=== PATIENT | male | born 1955 | race Hispanic/Latino ===

== ENCOUNTER 2017-04-26 06:48 | Inpatient (IN) | payer MEDICARE ==
[2017-04-26] MEDS ORDERED: ZOFRAN IV ONE (07:50)
[2017-04-26] MEDS ORDERED: DUONEB 0.5 MG-3 MG/3 ML SOLN IH ONE (07:50)
[2017-04-26] MEDS ORDERED: MORPHINE IV ONE (07:50)
--- NOTE | 2017-04-26 07:55 | Emergency Department Report ---
ED Shortness of Breath HPI - General Chief Complaint: Dyspnea/Respdistress Stated Complaint: SILVIO Time Seen by Provider: 04/26/17 07:38 Source: family, EMS Mode of arrival: Stretcher Limitations: No Limitations - History of Present Illness Initial Comments: 61-year-old male presents to the emergency department via EMS complaining of difficulty breathing. Patient states for the past 3 days he has been having progressively worsening difficulty breathing. He reports cough productive of yellow sputum. There has been subjective fever. He denies chest pain. Patient states he normally wears 3.5 L of nasal oxygen at home. He states he checked his pulse ox at home this morning and found it to be in the upper 60s. EMS found the patient to have an initial oxygen saturation of 87% and increased his oxygen to 6 L/m. Patient states that this helped somewhat. Patient is also complaining of pain in his abdomen where he has a hernia. He states the pain is coming from having so much coughing. This hernia is a known problem and he has had multiple surgeries for it. There are no other complaints. MD Complaint: shortness of breath, cough -: Gradual, days(s) (3) Consistency: constant Improves With: oxygen Worsens With: nothing Known History Of: COPD Associated Symptoms: cough, sputum production, abdominal pain Treatments Prior to Arrival: oxygen - Related Data Home Oxygen Therapy: Yes Home Oxygen Amount: other (3.5 L) Home Medications Medication Instructions Recorded Confirmed Last Taken Albuterol Sulfate [Ventolin HFA] 2 puff IH Q4H PRN 11/08/14 04/26/17 04/25/17 Aspirin [Aspirin BABY CHEW TAB] 81 mg PO QDAY 11/08/14 04/26/17 04/25/17 Budesoni/Formotero 160-4.5(Nf) 2 puff IH BID 11/08/14 04/26/17 04/25/17 [Symbicort 160-4.5 (Nf)] Cholecalciferol (Vitamin D3) 50,000 unit PO QWEEK 11/08/14 04/26/17 11/07/14 [Vitamin D3] Divalproex [Delmar Mon] 500 mg PO BID 11/08/14 04/26/17 04/25/17 Gabapentin 300 mg PO BID 11/08/14 04/26/17 04/25/17 Ipratropium [Atrovent NEB] 0.5 mg IH BID 11/08/14 04/26/17 04/25/17 Multivitamin [Multi-Vitamin Daily] 1 each PO DAILY 11/08/14 04/26/17 04/25/17 Nebivolol HCl [Bystolic] 10 mg PO QDAY 11/08/14 04/26/17 04/25/17 Brilliant-3 Fatty Acids/Fish Oil [Fish 1 each PO DAILY 11/08/14 04/26/17 04/25/17 Oil] Primidone [Mysoline] 250 mg PO QID 11/08/14 04/26/17 04/25/17 Tiotropium [Spiriva] 2 puff IH QDAY 11/08/14 04/26/17 04/25/17 amLODIPine [Norvasc] 5 mg PO DAILY 11/08/14 04/26/17 04/25/17 AtorvaSTATin [Lipitor] 40 mg PO QHS 04/26/17 04/26/17 04/25/17 Oxycodone HCl [oxyCODONE TAB] 10 mg PO Q6H PRN 04/26/17 04/26/17 04/25/17 Allergies Allergy/AdvReac Type Severity Reaction Status Date / Time No Known Allergies Allergy Verified 11/08/14 07:20 ED Review of Systems ROS: Stated complaint: SILVIO Other details as noted in HPI Comment: All other systems reviewed and negative Constitutional: fever Respiratory: cough, shortness of breath Gastrointestinal: abdominal pain ED Past Medical Hx - Past Medical History Previous Medical History?: Yes Hx Hypertension: Yes Hx Pulmonary Embolism: Yes Hx Seizures: Yes (myoclonic epilepsy) Hx COPD: Yes Additional medical history: essential tremor - Surgical History Past Surgical History?: Yes Hx Appendectomy: Yes Additional Surgical History: hernia, multiple abdominal surgeries - Family History Family history: no significant - Social History Smoking Status: Former Smoker Substance Use Type: None - Medications Home Medications: Home Medications Medication Instructions Recorded Confirmed Last Taken Type Albuterol Sulfate [Ventolin HFA] 2 puff IH Q4H PRN 11/08/14 04/26/17 04/25/17 History Aspirin [Aspirin BABY CHEW TAB] 81 mg PO QDAY 11/08/14 04/26/17 04/25/17 History Budesoni/Formotero 160-4.5(Nf) 2 puff IH BID 11/08/14 04/26/17 04/25/17 History [Symbicort 160-4.5 (Nf)] Cholecalciferol (Vitamin D3) 50,000 unit PO QWEEK 11/08/14 04/26/17 11/07/14 History [Vitamin D3] Divalproex Dr [Depakote Dr] 500 mg PO BID 11/08/14 04/26/17 04/25/17 History Gabapentin 300 mg PO BID 11/08/14 04/26/17 04/25/17 History Ipratropium [Atrovent NEB] 0.5 mg IH BID 11/08/14 04/26/17 04/25/17 History Multivitamin [Multi-Vitamin Daily] 1 each PO DAILY 11/08/14 04/26/17 04/25/17 History Nebivolol HCl [Bystolic] 10 mg PO QDAY 11/08/14 04/26/17 04/25/17 History Brilliant-3 Fatty Acids/Fish Oil [Fish 1 each PO DAILY 11/08/14 04/26/17 04/25/17 History Oil] Primidone [Mysoline] 250 mg PO QID 11/08/14 04/26/17 04/25/17 History Tiotropium [Spiriva] 2 puff IH QDAY 11/08/14 04/26/17 04/25/17 History amLODIPine [Norvasc] 5 mg PO DAILY 11/08/14 04/26/17 04/25/17 History AtorvaSTATin [Lipitor] 40 mg PO QHS 04/26/17 04/26/17 04/25/17 History Oxycodone HCl [oxyCODONE TAB] 10 mg PO Q6H PRN 04/26/17 04/26/17 04/25/17 History ED Physical Exam - General Limitations: No Limitations General appearance: alert, in distress (mild respiratory distress), obese - Head Head exam: Present: atraumatic, normocephalic - Eye Eye exam: Present: normal appearance, PERRL, EOMI - ENT ENT exam: Present: normal exam, normal orophraynx, mucous membranes moist - Neck Neck exam: Present: normal inspection, full ROM. Absent: tenderness - Respiratory Respiratory exam: Present: respiratory distress (mild tachypnea), wheezes ( diffuse bilateral posterior), decreased breath sounds (diffuse bilateral posterior) - Cardiovascular Cardiovascular Exam: Present: regular rate, normal rhythm, normal heart sounds - GI/Abdominal GI/Abdominal exam: Present: soft, normal bowel sounds. Absent: distended, tenderness - Extremities Exam Extremities exam: Present: normal inspection, full ROM. Absent: tenderness - Back Exam Back exam: Present: normal inspection, full ROM. Absent: tenderness - Neurological Exam Neurological exam: Present: alert, oriented X3. Absent: motor sensory deficit - Skin Skin exam: Present: warm, dry, intact ED Course Vital Signs 04/26/17 04/26/17 04/26/17 07:10 08:18 08:21 Temperature 99 F Pulse Rate 94 H 88 Pulse Rate [ 86 Posterior Bilateral Throughout] Respiratory 22 20 Rate Respiratory 20 Rate [Posterior Bilateral Throughout] Blood Pressure 134/71 Blood Pressure 120/66 [Right] O2 Sat by Pulse 94 90 Oximetry 04/26/17 04/26/17 04/26/17 08:50 09:30 10:20 Temperature 98.1 F Pulse Rate 103 H Pulse Rate [ 100 H 104 H Posterior Bilateral Throughout] Respiratory 20 Rate Respiratory 20 20 Rate [Posterior Bilateral Throughout] Blood Pressure Blood Pressure 109/63 [Right] O2 Sat by Pulse 92 Oximetry 04/26/17 10:52 Temperature Pulse Rate Pulse Rate [ 108 H Posterior Bilateral Throughout] Respiratory Rate Respiratory 20 Rate [Posterior Bilateral Throughout] Blood Pressure Blood Pressure [Right] O2 Sat by Pulse Oximetry ED Medical Decision Making - Lab Data Result diagrams: 04/26/17 08:00 04/26/17 08:00 - EKG Data -: EKG Interpreted by Tn EKG shows normal: sinus rhythm, axis, intervals, QRS complexes, ST-T waves Rate: normal - EKG Data When compared to previous EKG there are: previous EKG unavailable Interpretation: normal EKG - Radiology Data Radiology results: report reviewed Chest x-ray shows changes consistent with COPD. There are no acute cardiopulmonary abnormalities. - Medical Decision Making Lab and imaging results reviewed and discussed with the patient. Patient states he is feeling a little better following multiple nebulizer treatments and IV steroids. After taking the patient's supplemental oxygen back to his baseline 3.5 L, his oxygen saturation dropped to 85%. He states his normal oxygen saturation is above 90%. Supplemental oxygen was increased, and the patient is to be admitted by the hospitalist. Giving IV Levaquin. - Differential Diagnosis COPD exacerbation, pneumonia Critical care attestation.: If time is entered above; I have spent that time in minutes in the direct care of this critically ill patient, excluding procedure time. ED Disposition Clinical Impression: COPD exacerbation Disposition: OP ADMITTED IP TO THIS HOSP Is pt being admited?: Yes Condition: Stable Instructions: Chronic Obstructive Pulmonary Disease (ED) Time of Disposition: 11:27
--- NOTE | 2017-04-26 08:01 | XRay Report ---
AP CHEST: HISTORY: Dyspnea Mild COPD is suspected. Slight increase in heart size and pulmonary venous structures is suggested since 12/03/14 exam. The lungs are clear otherwise. No pleural effusion or pneumothorax. IMPRESSION: COPD. Borderline heart size and pulmonary vascularity.
[2017-04-26 08:25] LABS: Basophils % (Auto) 0.2 % (0.0-1.8); Hematocrit 42.4 % (35.5-45.6); Hemoglobin 14.2 gm/dl (11.8-15.2); Mean Corpuscular HGB Conc 33 % (32-34); Mean Corpuscular Hemoglobin 31 pg (28-32); Mean Corpuscular Volume 92 fl (84-94); Platelet Count 153 K/mm3 (140-440); Red Blood Count 4.62 M/mm3 (3.65-5.03); Red Cell Distribution Width 14.1 % (13.2-15.2); White Blood Count 9.5 K/mm3 (4.5-11.0)
[2017-04-26 08:33] LABS: Partial Thromboplastin Time 30.6 Sec. (24.2-36.6)
[2017-04-26 08:34] LABS: Anion Gap 13 mmol/L; Blood Urea Nitrogen 9 mg/dL (9-20); Calcium 8.7 mg/dL (8.4-10.2); Carbon Dioxide 39 mmol/L (22-30); Chloride 92.9 mmol/L (98-107); Glucose 112 mg/dL (75-100); Potassium 4.3 mmol/L (3.6-5.0); Sodium 141 mmol/L (137-145)
[2017-04-26 08:58] LABS: INR 0.96 (0.87-1.13)
[2017-04-26] MEDS ORDERED: DILAUDID IV ONE (09:59)
[2017-04-26] MEDS ORDERED: PROVENTIL IH ONE (09:59)
[2017-04-26] MEDS ORDERED: LEVAQUIN 750MG/150ML 750 MG/150 ML BAG IV ONE (11:26)
--- NOTE | 2017-04-26 11:55 | Admit Criteria Form ---
Admission Criteria Documentation: COPD Clinical Indications for Admission to Inpatient Care (Place 'X' for any and all applicable criteria): Admission is indicated for ANY ONE of the following (1)(2)(3): [X ]I. Acute exacerbation by high-risk comorbidity (e.g., pneumonia, dysrhythmia, heart failure, pleural effusion, pneumothorax) or severe underlying COPD (e.g., steroid dependent) [ ]II. Inpatient admission required rather than observation care (see Chronic Obstructive Pulmonary Disease: Observation Care) because of ANY ONE of the following: [ ]a) New or pre-existing signs or symptoms of COPD (eg, dyspnea or Tachypnea at rest or with minimal activity) that persist despite outpatient and observation care treatment [ ]b) New-onset hypoxemia (room air SaO2 less than 90%, PO2 less than 60 mm Hg (8.0 kPa)) that persists despite outpatient and observation care treatment [ ]c) Worsening of pre-existing hypoxemia (eg, new or increased requirement for supplemental oxygen to maintain oxygenation at baseline level) that persists despite outpatient and observation care treatment, with oxygen treatment needs performable only in acute inpatient setting [ ]d) Hypercarbia (PCO2 greater than 40 mm Hg (5.3 kPa))-induced respiratory acidosis (pH less than 7.35) that persists despite outpatient and observation care treatment [ ]e) Supplemental oxygen or respiratory treatments for over 24 hours that are performable only in acute inpatient setting [ ]f) Chest tube placement with active evacuation (e.g., suction, drainage) (5) [ ]g) Other condition, treatment or monitoring requiring inpatient admission [ ]III. Planned invasive surgical or diagnostic procedures requiring acute- care hospitalization [ ]IV. Acute respiratory failure (e.g., uncompensated hypercarbia, severe hypoxemia) [ ]V. Severe comorbid condition (e.g., severe steroid myopathy, acute vertebral fracture) that has acutely worsened pulmonary function [ ]. Confusion state, lethargy, obtundation, stupor or coma Extended stay beyond goal length of stay may be needed for (31)(32): [ ]a ) Respiratory Failure. [ ]b) Severe or persisting hypoxemia or hypercarbia [ ]c) Severe or persistent dyspnea [ ]d) Comorbidities (e.g. chronic heart failure, atrial fibrillation with rapid response, pneumonia) [ ]e) Malnutrition The original [facility] content created by [facility] has been revised. The portions of the content which have been revised are identified through the use of italic text or in bold, and [facility] has neither reviewed nor approved the modified material. All other unmodified content is copyright [facility]. Please see references footnoted in the original [facility] edition 2016 Admission Criteria Met: Yes
--- NOTE | 2017-04-26 12:30 | History and Physical Report ---
History of Present Illness Date of examination: 04/26/17 Date of admission: 04/26/17 11:28 Chief complaint: Difficulty breathing History of present illness: 61-year-old male presented to the ED via ambulance from home for complaints of difficulty breathing 3 days. Patient reported that his symptoms progressively got worse this morning. He verbalized. he could not take deep breaths and hard to get the air out. The symptoms get worse with his productive coughs and mcclure colored mucus. Patient stated he has chronic pain from hernia repair which resulted in 5 revisions of abdominal surgery. Past History Past Medical History: COPD, diabetes, hypertension, pulmonary embolism, seizures (Mal petite Clonic ) Past Surgical History: hernia repair (total of 5 revisions abdominal surgeries) Social history: , lives with family, smoking (Quit approx. 2 years old), alcohol abuse (once a week), full code. denies: prescription drug abuse Family history: CAD Medications and Allergies Allergies Allergy/AdvReac Type Severity Reaction Status Date / Time No Known Allergies Allergy Verified 11/08/14 07:20 Home Medications Medication Instructions Recorded Confirmed Last Taken Type Albuterol Sulfate [Ventolin HFA] 2 puff IH Q4H PRN 11/08/14 04/26/17 04/25/17 History Aspirin [Aspirin BABY CHEW TAB] 81 mg PO QDAY 11/08/14 04/26/17 04/25/17 History Budesoni/Formotero 160-4.5(Nf) 2 puff IH BID 11/08/14 04/26/17 04/25/17 History [Symbicort 160-4.5 (Nf)] Cholecalciferol (Vitamin D3) 50,000 unit PO QWEEK 11/08/14 04/26/17 11/07/14 History [Vitamin D3] Divalproex [Delmar Mon] 500 mg PO BID 11/08/14 04/26/17 04/25/17 History Gabapentin 300 mg PO BID 11/08/14 04/26/17 04/25/17 History Ipratropium [Atrovent NEB] 0.5 mg IH BID 11/08/14 04/26/17 04/25/17 History Multivitamin [Multi-Vitamin Daily] 1 each PO DAILY 11/08/14 04/26/17 04/25/17 History Nebivolol HCl [Bystolic] 10 mg PO QDAY 11/08/14 04/26/17 04/25/17 History [place]-3 Fatty Acids/Fish Oil [Fish 1 each PO DAILY 11/08/14 04/26/17 04/25/17 History Oil] Primidone [Mysoline] 250 mg PO QID 11/08/14 04/26/17 04/25/17 History Tiotropium [Spiriva] 2 puff IH QDAY 11/08/14 04/26/17 04/25/17 History amLODIPine [Norvasc] 5 mg PO DAILY 11/08/14 04/26/17 04/25/17 History AtorvaSTATin [Lipitor] 40 mg PO QHS 04/26/17 04/26/17 04/25/17 History Oxycodone HCl [oxyCODONE TAB] 10 mg PO Q6H PRN 04/26/17 04/26/17 04/25/17 History Active Meds: Active Medications Levofloxacin/Dextrose (Levaquin 750mg/150ml) 750 mg in 150 mls @ 100 mls/hr IV ONCE ONE Stop: 04/26/17 12:55 Last Admin: 04/26/17 11:46 Dose: 100 mls/hr Review of Systems Constitutional: chronic pain (Abdomen), no weight loss, no weight gain, no fever , no chills Ears, nose, mouth and throat: nasal congestion, no ear pain, no headache Cardiovascular: edema, no chest pain, no syncope Respiratory: cough with sputum, dyspnea on exertion, congestion Gastrointestinal: abdominal pain (Chronic pain from 5 abdominal surgeries) Exam - Constitutional Vitals: Temp Pulse Resp BP Pulse Ox 98.1 F 112 H 16 123/64 92 04/26/17 11:50 04/26/17 11:50 04/26/17 11:50 04/26/17 11:50 04/26/17 11:50 General appearance: Present: mild distress - EENT Eyes: Present: PERRL ENT: hearing intact, clear oral mucosa - Neck Neck: Present: supple, normal ROM - Respiratory Respiratory effort: labored Respiratory: bilateral: wheezing (expiration) - Cardiovascular Rhythm: regular Heart Sounds: Present: S1 & S2. Absent: rub, click - Peripheral Assessment Bilateral Lower Extremity Edema Type: Pitting Edema Degree: 4+ Capillary Refill: < 3 seconds Skin Temperature: Warm Peripheral Pulses: within normal limits - Abdominal General gastrointestinal: Present: tender (on palpation), other (Obese) - Integumentary Integumentary: Present: warm, dry - Musculoskeletal Musculoskeletal: strength equal bilaterally, generalized weakness - Psychiatric Psychiatric: intact judgment & insight - Neurologic Neurologic: moves all extremities - Allied Health Allied health notes reviewed: nursing Results - Labs CBC & Chem 7: 04/26/17 08:00 04/26/17 08:00 Labs: Laboratory Last Values WBC 9.5 K/mm3 (4.5-11.0) 04/26/17 08:00 RBC 4.62 M/mm3 (3.65-5.03) 04/26/17 08:00 Hgb 14.2 gm/dl (11.8-15.2) 04/26/17 08:00 Hct 42.4 % (35.5-45.6) 04/26/17 08:00 MCV 92 fl (84-94) 04/26/17 08:00 MCH 31 pg (28-32) 04/26/17 08:00 MCHC 33 % (32-34) 04/26/17 08:00 RDW 14.1 % (13.2-15.2) 04/26/17 08:00 Plt Count 153 K/mm3 (140-440) 04/26/17 08:00 Lymph % (Auto) 9.7 % (13.4-35.0) L 04/26/17 08:00 Carlton % (Auto) 6.8 % (0.0-7.3) 04/26/17 08:00 Eos % (Auto) 1.0 % (0.0-4.3) 04/26/17 08:00 Baso % (Auto) 0.2 % (0.0-1.8) 04/26/17 08:00 Lymph # 0.9 K/mm3 (1.2-5.4) L 04/26/17 08:00 Carlton # 0.6 K/mm3 (0.0-0.8) 04/26/17 08:00 Eos # 0.1 K/mm3 (0.0-0.4) 04/26/17 08:00 Baso # 0.0 K/mm3 (0.0-0.1) 04/26/17 08:00 Seg Neutrophils % 82.3 % (40.0-70.0) H 04/26/17 08:00 Seg Neutrophils # 7.8 K/mm3 (1.8-7.7) H 04/26/17 08:00 PT 12.7 Sec. (12.2-14.9) 04/26/17 08:00 INR 0.96 (0.87-1.13) 04/26/17 08:00 APTT 30.6 Sec. (24.2-36.6) 04/26/17 08:00 Sodium 141 mmol/L (137-145) 04/26/17 08:00 Potassium 4.3 mmol/L (3.6-5.0) 04/26/17 08:00 Chloride 92.9 mmol/L (98-107) L 04/26/17 08:00 Carbon Dioxide 39 mmol/L (22-30) H 04/26/17 08:00 Anion Gap 13 mmol/L 04/26/17 08:00 BUN 9 mg/dL (9-20) 04/26/17 08:00 Creatinine 0.4 mg/dL (0.8-1.5) L 04/26/17 08:00 Estimated GFR > 60 ml/min 04/26/17 08:00 BUN/Creatinine Ratio 22.50 % 04/26/17 08:00 Glucose 112 mg/dL (75-100) H 04/26/17 08:00 Calcium 8.7 mg/dL (8.4-10.2) 04/26/17 08:00 Magnesium 2.00 mg/dL (1.7-2.3) 04/26/17 08:00 Troponin T < 0.010 ng/mL (0.00-0.029) 04/26/17 08:00 Valproic Acid 11.0 ug/mL (50-100) L 04/26/17 08:00 - Imaging and Cardiology Chest x-ray: image reviewed (Chest x-ray resulted lungs clear and no pleural effusion.) Assessment and Plan Assessment and plan: 61-year-old male presented to the ER via ambulance from home for complaints of difficulty breathing 3 days. Patient reported that his symptoms progressively got worse this morning. He verbalized. he could not take deep breaths and hard to get the air out. The symptoms get worse with his productive coughs and mcclure colored mucus. Patient stated he has chronic pain from hernia repair and bowel surgery which resulted in 5 revisions of abdominal surgeries. Patient denies fever, chills, headache, nausea and vomiting. On exam, patient has lateral expiratory wheezing, O2 sat 87-90% on 4 L nasal cannula. 1. Acute hypoxia with respiratory failure- Treat underlying causes 2. Acute exacerbation- EKG, Chest x-ray obtained in the ER, IV steriods, oxygen supplement 3. Hypertension- Patient is currently normotensive and anti-hypertensive medicine ordered PRN 4. Seizure - continue home meds, Depakote 500mg, PO, BID 5. DVT prophylaxis-Lovenox ordered Advance Directives: Yes VTE prophylaxis?: Chemical Plan of care discussed with patient/family: Yes
[2017-04-26] MEDS ORDERED: TYLENOL PO PRN (13:30)
[2017-04-26] MEDS ORDERED: DULCOLAX PR PRN (13:30)
[2017-04-26] MEDS ORDERED: MILK OF MAGNESIA PO PRN (13:30)
[2017-04-26] MEDS ORDERED: PROAIR IH PRN (14:09)
[2017-04-26] MEDS ORDERED: NON-FORMULARY (Oxycodone Hcl [Oxycodone Tab] 10 MG) PO PRN (14:09)
[2017-04-26] MEDS ORDERED: APRESOLINE IV PRN (14:18)
[2017-04-26] MEDS ORDERED: PROVENTIL IH PRN (14:19)
[2017-04-26] MEDS: ROXICODONE PO PRN ×2 (15:45→21:07)
[2017-04-26] MEDS: ZOFRAN IV PRN (18:26)
[2017-04-26] MEDS: PULMICORT IH SCH (20:30)
[2017-04-26] MEDS: BROVANA NEBU IH SCH (20:30)
[2017-04-26] MEDS: MYSOLINE PO SCH ×2 (21:09)
[2017-04-26] MEDS: LOVENOX SUB-Q SCH (21:11)
[2017-04-26] MEDS: PEPCID IV SCH (21:11)
[2017-04-26] MEDS: NEURONTIN PO SCH (21:11)
[2017-04-26] MEDS ORDERED: SYMBICORT IH SCH (22:00)
[2017-04-26] MEDS: ATROVENT IH SCH (22:03)
[2017-04-27] MEDS: ATROVENT IH SCH ×4 (01:30→21:05)
[2017-04-27] MEDS: BROVANA NEBU IH SCH ×2 (08:44→21:05)
[2017-04-27] MEDS: PULMICORT IH SCH ×2 (08:44→21:04)
[2017-04-27 08:51] LABS: Basophils % (Auto) 0.2 % (0.0-1.8); Eosinophils % (Auto) 0.1 % (0.0-4.3); Hematocrit 41.7 % (35.5-45.6); Hemoglobin 13.6 gm/dl (11.8-15.2); Mean Corpuscular HGB Conc 33 % (32-34); Mean Corpuscular Hemoglobin 30 pg (28-32); Mean Corpuscular Volume 93 fl (84-94); Platelet Count 139 K/mm3 (140-440); Red Cell Distribution Width 14.2 % (13.2-15.2); White Blood Count 6.6 K/mm3 (4.5-11.0)
[2017-04-27 09:02] LABS: Blood Urea Nitrogen 10 mg/dL (9-20); Calcium 8.8 mg/dL (8.4-10.2); Chloride 92.6 mmol/L (98-107); Glucose 114 mg/dL (75-100); Potassium 4.7 mmol/L (3.6-5.0); Sodium 143 mmol/L (137-145)
[2017-04-27 09:12] LABS: Anion Gap 15 mmol/L; Carbon Dioxide 40 mmol/L (22-30)
[2017-04-27] MEDS: NEURONTIN PO SCH ×2 (09:34→22:01)
[2017-04-27] MEDS: MYSOLINE PO SCH ×4 (09:34→22:01)
[2017-04-27] MEDS: NORVASC PO SCH (09:34)
[2017-04-27] MEDS: TOPROL XL PO SCH (09:35)
[2017-04-27] MEDS: BABY ASPIRIN PO SCH (09:35)
[2017-04-27] MEDS: THERAGRAN-M Tab PO SCH (09:35)
[2017-04-27] MEDS: PEPCID IV SCH ×2 (09:36→22:01)
[2017-04-27] MEDS: ROXICODONE PO PRN ×2 (09:36→16:01)
[2017-04-27] MEDS: FISH OIL PO SCH (09:36)
[2017-04-27] MEDS ORDERED: NON-FORMULARY (Multivitamin [Multi-Vitamin Daily] 1 EACH) PO SCH (10:00)
[2017-04-27] MEDS ORDERED: NON-FORMULARY (Nebivolol Hcl [Bystolic] 10 MG) PO SCH (10:00)
[2017-04-27] MEDS: SPIRIVA IH SCH (11:28)
--- NOTE | 2017-04-27 16:42 | Progress Note ---
Assessment and Plan Assessment and plan: 61-year-old presents with COPD exacerbation acute bronchitis and abdominal pain. Total Time Spent with Patient (Minutes): 28 - Patient Problems (1) Acute bronchitis Current Visit: Yes Status: Acute Qualifiers: Bronchitis organism: B Plan to address problem: Patient with acute bronchitis we'll add Levaquin follow-up blood culture data. Smoking cessation. Levaquin 750 daily. (2) COPD exacerbation Current Visit: Yes Status: Acute Plan to address problem: Patient will goal stage C COPD severe COPD patient's calibration specialist Dr. Pollard we'll consult Dr. Fraser for further pulmonary management. States has been trying to change metered dose inhalers. (3) Seizure disorder Current Visit: No Status: Chronic Plan to address problem: Stable no active seizure. (4) Tobacco abuse counseling Current Visit: No Status: Chronic (5) Hypertension Current Visit: Yes Status: Acute Qualifiers: Hypertension type: H Plan to address problem: At present patient normotensive continue anti-hypertensive medications. (6) Abdominal hernia Current Visit: Yes Status: Acute Qualifiers: Hernia type: H Obstruction and gangrene presence: O Laterality: L Recurrence: R Plan to address problem: Exacerbated with cough states Dilaudid helps patient more we'll continue Dilaudid they received in the ER. History Interval history: Patient complained of chronic cough severe abdominal pain. Patient states that every time he coughed he has a large hernia on the left that causes severe pain. Patient is currently coughing up thick brownish sputum. Denies fever. Patient well known to Dr. Pollard. Who confirms the above. Hospitalist Physical - Constitutional Vitals: Temp Pulse Resp BP Pulse Ox 98.6 F 74 20 134/79 94 04/27/17 12:10 04/27/17 12:10 04/27/17 12:10 04/27/17 12:10 04/27/17 12:10 General appearance: Present: mild distress, other (moderate distress) - EENT Eyes: Present: PERRL, EOM intact ENT: hearing intact, clear oral mucosa, dentition normal - Neck Neck: Present: supple, normal ROM - Respiratory Respiratory: bilateral: diminished, rhonchi - Cardiovascular Rhythm: regular - Extremities Extremities: pulses intact, pulses symmetrical, No edema, normal temperature, normal color, Full ROM Peripheral Pulses: within normal limits - Abdominal General gastrointestinal: tender, other (obese left sided ventral hernia.) Localized gastrointestinal: tender: LLQ, guarding: LLQ - Integumentary Integumentary: Present: clear, warm, dry - Psychiatric Psychiatric: appropriate mood/affect, intact judgment & insight, cooperative - Neurologic Neurologic: CNII-XII intact, no focal deficits, moves all extremities Results - Labs CBC & Chem 7: 04/27/17 07:50 04/27/17 07:50 Labs: Laboratory Last Values WBC 6.6 K/mm3 (4.5-11.0) 04/27/17 07:50 RBC 4.50 M/mm3 (3.65-5.03) 04/27/17 07:50 Hgb 13.6 gm/dl (11.8-15.2) 04/27/17 07:50 Hct 41.7 % (35.5-45.6) 04/27/17 07:50 MCV 93 fl (84-94) 04/27/17 07:50 MCH 30 pg (28-32) 04/27/17 07:50 MCHC 33 % (32-34) 04/27/17 07:50 RDW 14.2 % (13.2-15.2) 04/27/17 07:50 Plt Count 139 K/mm3 (140-440) L 04/27/17 07:50 Lymph % (Auto) 12.3 % (13.4-35.0) L 04/27/17 07:50 Reeves % (Auto) 5.2 % (0.0-7.3) 04/27/17 07:50 Eos % (Auto) 0.1 % (0.0-4.3) 04/27/17 07:50 Baso % (Auto) 0.2 % (0.0-1.8) 04/27/17 07:50 Lymph # 0.8 K/mm3 (1.2-5.4) L 04/27/17 07:50 Reeves # 0.3 K/mm3 (0.0-0.8) 04/27/17 07:50 Eos # 0.0 K/mm3 (0.0-0.4) 04/27/17 07:50 Baso # 0.0 K/mm3 (0.0-0.1) 04/27/17 07:50 Seg Neutrophils % 82.2 % (40.0-70.0) H 04/27/17 07:50 Seg Neutrophils # 5.4 K/mm3 (1.8-7.7) 04/27/17 07:50 PT 12.7 Sec. (12.2-14.9) 04/26/17 08:00 INR 0.96 (0.87-1.13) 04/26/17 08:00 APTT 30.6 Sec. (24.2-36.6) 04/26/17 08:00 Sodium 143 mmol/L (137-145) 04/27/17 07:50 Potassium 4.7 mmol/L (3.6-5.0) 04/27/17 07:50 Chloride 92.6 mmol/L (98-107) L 04/27/17 07:50 Carbon Dioxide 40 mmol/L (22-30) H 04/27/17 07:50 Anion Gap 15 mmol/L 04/27/17 07:50 BUN 10 mg/dL (9-20) 04/27/17 07:50 Creatinine 0.4 mg/dL (0.8-1.5) L 04/27/17 07:50 Estimated GFR > 60 ml/min 04/27/17 07:50 BUN/Creatinine Ratio 25.00 % 04/27/17 07:50 Glucose 114 mg/dL (75-100) H 04/27/17 07:50 POC Glucose 116 (70-105) H 04/27/17 12:18 Calcium 8.8 mg/dL (8.4-10.2) 04/27/17 07:50 Magnesium 2.00 mg/dL (1.7-2.3) 04/26/17 08:00 Troponin T < 0.010 ng/mL (0.00-0.029) 04/26/17 08:00 Valproic Acid 11.0 ug/mL (50-100) L 04/26/17 08:00 - Imaging and Cardiology EKG: image reviewed Chest x-ray: image reviewed
[2017-04-27] MEDS: LEVAQUIN 750MG/150ML 750 MG/150 ML BAG IV SCH (17:05)
--- NOTE | 2017-04-27 18:02 | Event Note ---
Date: 04/27/17 Dr. Ramirez thank you for asking us to participate in the care of this patient. Full consultation follow. IMMPRESSION: 1. Acute exacerbation of COPD. 2. Acute bronchitis PLAN: 1. O2 2 litres via nasal canula. 2. Brovanna/Budesonide aerosol treatments q 12 hours. 3. Continue I/V solumedral. 4. Recommend PO levaquine. 5. Continue S/C Lovenox. 6. Continue Famotadine.
[2017-04-27] MEDS: ZOFRAN IV PRN (22:01)
[2017-04-27] MEDS: LOVENOX SUB-Q SCH (22:01)
[2017-04-27] MEDS: DILAUDID IV PRN (22:02)
[2017-04-28] MEDS: DILAUDID IV PRN ×5 (02:30→22:37)
[2017-04-28] MEDS: BROVANA NEBU IH SCH ×2 (07:26→20:33)
[2017-04-28] MEDS: PULMICORT IH SCH ×2 (07:26→20:33)
[2017-04-28] MEDS: ATROVENT IH SCH ×4 (07:26→21:32)
[2017-04-28] MEDS: SPIRIVA IH SCH (10:02)
[2017-04-28] MEDS: BABY ASPIRIN PO SCH (10:12)
[2017-04-28] MEDS: NEURONTIN PO SCH ×2 (10:12→22:39)
[2017-04-28] MEDS: NORVASC PO SCH (10:12)
[2017-04-28] MEDS: TOPROL XL PO SCH (10:12)
[2017-04-28] MEDS: PEPCID IV SCH ×2 (10:13→22:40)
[2017-04-28] MEDS: FISH OIL PO SCH (11:53)
[2017-04-28] MEDS: THERAGRAN-M Tab PO SCH (11:54)
[2017-04-28] MEDS: MYSOLINE PO SCH ×4 (11:54→22:39)
--- NOTE | 2017-04-28 16:12 | Progress Note ---
Assessment and Plan Assessment and plan: 61-year-old presents with COPD exacerbation acute bronchitis and abdominal pain. - Patient Problems (1) Acute bronchitis Current Visit: Yes Status: Acute Qualifiers: Bronchitis organism: B Plan to address problem: Patient is acute bronchitis we'll change to by mouth Levaquin today. In hopes of a speedy discharge. Patient is afebrile normal white count. Is not hypoxic does not appear to be acutely ill. 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 Fraser for further pulmonary management. States has been trying to change metered dose inhalers. (3) Seizure disorder Current Visit: No Status: Chronic Plan to address problem: No recent seizure appears to be stable. Risk for seizure are diminished. (4) Tobacco abuse counseling Current Visit: No Status: Chronic Plan to address problem: Educated to stop smoking tobacco abuse counseling. Dangers of smoking. (5) Hypertension Current Visit: Yes Status: Acute Qualifiers: Hypertension type: H Plan to address problem: At present patient normotensive continue anti-hypertensive medications. At present patient normotensive remains normotensive. We'll continue amlodipine 5 mg. (6) Abdominal hernia Current Visit: Yes Status: Acute Qualifiers: Hernia type: H Obstruction and gangrene presence: O Laterality: L Recurrence: R Plan to address problem: Pain for ventral hernia seems to be adequately controlled. No acute distress. No tachycardia no facial grimace. If continues to be severe will need surgical consult but does not appear to be that way now. History Interval history: At present patient states he is doing better was able to get up walk to the bathroom. Less short of breath. Patient is happy that he is coughing congestion up. Patient also asked for increase in Dilaudid secondary to abdominal pain with coughing but patient is not coughing as much and did not appear to be in any degree of pain or significant pain. Would not want to decrease his respiratory drive we'll discuss with garbage pick up man if he wants to increase pain medication. But his medical management seems adequate with me at this time. Patient did ask for stool softener. Hospitalist Physical - Constitutional Vitals: Temp Pulse Resp BP Pulse Ox 97.8 F 92 H 18 129/77 100 04/28/17 14:07 04/28/17 14:07 04/28/17 14:07 04/28/17 14:07 04/28/17 14:07 General appearance: Present: no acute distress, other (moderate distress) - EENT Eyes: Present: PERRL, EOM intact ENT: hearing intact, clear oral mucosa - Neck Neck: Present: supple, normal ROM - Respiratory Respiratory effort: normal Respiratory: bilateral: rhonchi (. Few rhonchi much improved) - Cardiovascular Rhythm: regular Heart Sounds: Present: S1 & S2 - Extremities Extremities: no ischemia, pulses intact, pulses symmetrical, No edema, normal temperature, normal color Extremity abnormal: edema Peripheral Pulses: within normal limits - Abdominal General gastrointestinal: soft, tender, non-distended, hernia, other - Psychiatric Psychiatric: appropriate mood/affect, cooperative - Neurologic Neurologic: CNII-XII intact Results - Labs CBC & Chem 7: 04/27/17 07:50 04/27/17 07:50 Labs: Laboratory Last Values WBC 6.6 K/mm3 (4.5-11.0) 04/27/17 07:50 RBC 4.50 M/mm3 (3.65-5.03) 04/27/17 07:50 Hgb 13.6 gm/dl (11.8-15.2) 04/27/17 07:50 Hct 41.7 % (35.5-45.6) 04/27/17 07:50 MCV 93 fl (84-94) 04/27/17 07:50 MCH 30 pg (28-32) 04/27/17 07:50 MCHC 33 % (32-34) 04/27/17 07:50 RDW 14.2 % (13.2-15.2) 04/27/17 07:50 Plt Count 139 K/mm3 (140-440) L 04/27/17 07:50 Lymph % (Auto) 12.3 % (13.4-35.0) L 04/27/17 07:50 [place] % (Auto) 5.2 % (0.0-7.3) 04/27/17 07:50 Eos % (Auto) 0.1 % (0.0-4.3) 04/27/17 07:50 Baso % (Auto) 0.2 % (0.0-1.8) 04/27/17 07:50 Lymph # 0.8 K/mm3 (1.2-5.4) L 04/27/17 07:50 [place] # 0.3 K/mm3 (0.0-0.8) 04/27/17 07:50 Eos # 0.0 K/mm3 (0.0-0.4) 04/27/17 07:50 Baso # 0.0 K/mm3 (0.0-0.1) 04/27/17 07:50 Seg Neutrophils % 82.2 % (40.0-70.0) H 04/27/17 07:50 Seg Neutrophils # 5.4 K/mm3 (1.8-7.7) 04/27/17 07:50 PT 12.7 Sec. (12.2-14.9) 04/26/17 08:00 INR 0.96 (0.87-1.13) 04/26/17 08:00 APTT 30.6 Sec. (24.2-36.6) 04/26/17 08:00 Sodium 143 mmol/L (137-145) 04/27/17 07:50 Potassium 4.7 mmol/L (3.6-5.0) 04/27/17 07:50 Chloride 92.6 mmol/L (98-107) L 04/27/17 07:50 Carbon Dioxide 40 mmol/L (22-30) H 04/27/17 07:50 Anion Gap 15 mmol/L 04/27/17 07:50 BUN 10 mg/dL (9-20) 04/27/17 07:50 Creatinine 0.4 mg/dL (0.8-1.5) L 04/27/17 07:50 Estimated GFR > 60 ml/min 04/27/17 07:50 BUN/Creatinine Ratio 25.00 % 04/27/17 07:50 Glucose 114 mg/dL (75-100) H 04/27/17 07:50 POC Glucose 115 (70-105) H 04/27/17 16:34 Calcium 8.8 mg/dL (8.4-10.2) 04/27/17 07:50 Magnesium 2.00 mg/dL (1.7-2.3) 04/26/17 08:00 Troponin T < 0.010 ng/mL (0.00-0.029) 04/26/17 08:00 Valproic Acid 11.0 ug/mL (50-100) L 04/26/17 08:00
[2017-04-28] MEDS: LEVAQUIN 750MG/150ML 750 MG/150 ML BAG IV SCH (17:32)
[2017-04-28] MEDS: COLACE PO SCH (22:37)
[2017-04-28] MEDS: LOVENOX SUB-Q SCH (22:39)
--- NOTE | 2017-04-28 23:29 | Progress Note ---
Assessment and Plan Patient resting on nasal canula 5 litres O2. O2 saturation 93%. Says breathing slightly better. - Patient Problems (1) Acute bronchitis Current Visit: Yes Status: Acute Qualifiers: Bronchitis organism: B Plan to address problem: Patient is on Levaquine. (2) COPD exacerbation Current Visit: Yes Status: Acute Plan to address problem: BIPAP during night time. O2 5 litres during day time. Brovanna/Budesonide aerosol treatments q 12 hours. Continue I/V solumedral Continue S/C Lovenox. Continue Protonix. (3) Hypertension Current Visit: Yes Status: Acute Qualifiers: Hypertension type: H Plan to address problem: Management as per primary care. Subjective Date of service: 04/28/17 Interval history: Patient resting on nasal canula 5 litres O2. O2 saturation 93%. Says breathing slightly better. Objective Vital Signs - 12hr 04/28/17 04/28/17 04/28/17 14:07 17:55 19:00 Temperature 97.8 F 97.2 F L 98 F Pulse Rate [ Anterior Bilateral Throughout] Pulse Rate [ 92 H 75 73 Right Radial] Respiratory 18 20 20 Rate Respiratory Rate [Anterior Bilateral Throughout] Blood Pressure 129/77 131/78 163/79 [Right Radial Artery] O2 Sat by Pulse 100 90 93 Oximetry 04/28/17 04/28/17 04/28/17 20:35 20:37 20:52 Temperature Pulse Rate [ 77 79 Anterior Bilateral Throughout] Pulse Rate [ Right Radial] Respiratory Rate Respiratory 20 18 Rate [Anterior Bilateral Throughout] Blood Pressure [Right Radial Artery] O2 Sat by Pulse 93 Oximetry Constitutional: no acute distress Eyes: non-icteric ENT: oropharynx moist Neck: supple, no lymphadenopathy Ascultation: Bilateral: diminished breath sounds Cardiovascular: regular rate and rhythm Gastrointestinal: normoactive bowel sounds, soft Integumentary: normal Extremities: no cyanosis, edema Neurologic: normal mental status, non-focal exam, pupils equal and round, CN II- XII normal Psychiatric: mood appropriate CBC and BMP: 04/29/17 05:15 04/29/17 05:15 ABG, PT/INR, D-dimer: PT/INR, D-dimer PT 12.7 Sec. (12.2-14.9) 04/26/17 08:00 INR 0.96 (0.87-1.13) 04/26/17 08:00 Abnormal lab findings: Abnormal Labs 04/27/17 04/27/17 04/27/17 07:50 07:50 12:18 Plt Count 139 L Lymph % (Auto) 12.3 L Lymph # 0.8 L Seg Neutrophils % 82.2 H Chloride 92.6 L Carbon Dioxide 40 H Creatinine 0.4 L Glucose 114 H POC Glucose 116 H 04/27/17 16:34 Plt Count Lymph % (Auto) Lymph # Seg Neutrophils % Chloride Carbon Dioxide Creatinine Glucose POC Glucose 115 H Chest x-ray: report reviewed (Borderline heart size.), image reviewed
[2017-04-29] MEDS: DILAUDID IV PRN ×3 (04:16→22:37)
[2017-04-29] MEDS ORDERED: WATER FOR INJ (PF) 10 ML ONE (05:47)
[2017-04-29 06:21] LABS: Basophils % (Auto) 0.3 % (0.0-1.8); Eosinophils % (Auto) 0.1 % (0.0-4.3); Hematocrit 41.7 % (35.5-45.6); Hemoglobin 13.7 gm/dl (11.8-15.2); Mean Corpuscular HGB Conc 33 % (32-34); Mean Corpuscular Hemoglobin 30 pg (28-32); Mean Corpuscular Volume 92 fl (84-94); Platelet Count 151 K/mm3 (140-440); Red Blood Count 4.55 M/mm3 (3.65-5.03); Red Cell Distribution Width 14.1 % (13.2-15.2); White Blood Count 12.3 K/mm3 (4.5-11.0)
[2017-04-29 06:36] LABS: Anion Gap 14 mmol/L; Blood Urea Nitrogen 13 mg/dL (9-20); Calcium 8.6 mg/dL (8.4-10.2); Carbon Dioxide 40 mmol/L (22-30); Chloride 93.4 mmol/L (98-107); Glucose 116 mg/dL (75-100); Potassium 4.6 mmol/L (3.6-5.0); Sodium 143 mmol/L (137-145)
[2017-04-29] MEDS: ATROVENT IH SCH ×3 (07:30→21:59)
[2017-04-29] MEDS: BROVANA NEBU IH SCH ×2 (07:30→21:44)
[2017-04-29] MEDS: PULMICORT IH SCH ×2 (07:30→21:44)
[2017-04-29] MEDS: COLACE PO SCH ×2 (10:00→22:38)
[2017-04-29] MEDS: NORVASC PO SCH (10:00)
[2017-04-29] MEDS: TOPROL XL PO SCH (10:00)
[2017-04-29] MEDS: FISH OIL PO SCH (10:00)
[2017-04-29] MEDS: NEURONTIN PO SCH ×2 (10:30→22:39)
[2017-04-29] MEDS: MYSOLINE PO SCH ×2 (10:32→22:37)
[2017-04-29] MEDS: PEPCID IV SCH ×2 (10:34→22:40)
[2017-04-29] MEDS: SPIRIVA IH SCH (12:02)
--- NOTE | 2017-04-29 19:02 | Progress Note ---
Assessment and Plan 61-year-old presents with COPD exacerbation acute bronchitis and abdominal pain. - Patient Problems (1) Acute bronchitis Current Visit: Yes Status: Acute Qualifiers: Bronchitis organism: B Plan to address problem: Acute bronchitis resolving we'll continue current anabiotic coverage now. We' ll discuss with pulmonology discharge planning issues. (2) COPD exacerbation Current Visit: Yes Status: Acute Plan to address problem: COPD exacerbation seems to be improving with broncho-dilate his steroid and anabiotic coverage. We'll discuss with pulmonology discharge planning. This is a patient of more familiar with patient's condition and will await recommendations for discharge. (3) Seizure disorder Current Visit: No Status: Chronic Plan to address problem: No recent seizure appears to be stable. Risk for seizure are diminished. (4) Tobacco abuse counseling Current Visit: No Status: Chronic Plan to address problem: Educated to stop smoking tobacco abuse counseling. Dangers of smoking. (5) Hypertension Current Visit: Yes Status: Acute Qualifiers: Hypertension type: H Plan to address problem: Present patient remains normotensive we'll continue all antihypertensives. Patient on amlodipine and metoprolol. I am aware of the beta erin and advanced COPD. Patient has been on it for quite a while and I think it may be secondary to an arrhythmia at some time. (6) Abdominal hernia Current Visit: Yes Status: Acute Qualifiers: Hernia type: H Obstruction and gangrene presence: O Laterality: L Recurrence: R Plan to address problem: Pain for ventral hernia seems to be adequately controlled. No acute distress. No tachycardia no facial grimace. If continues to be severe will need surgical consult but does not appear to be that way now. Subjective Date of service: 04/29/17 Interval history: Patient is this a.m. appears to be much improved to me. We will await pulmonology evaluation Dr. Pollard. Pain fairly well-controlled. Fever. Patient was able to get up and walk to the bathroom but did get short of breath. was at the bedside stating that patient became short of breath. This appears to be his baseline at home when I look at him physically. Objective - Constitutional Vitals: Vital Signs - 12hr 04/29/17 04/29/17 04/29/17 07:30 07:40 09:53 Temperature 98.7 F Pulse Rate [ 76 70 Anterior Bilateral Throughout] Pulse Rate [ 111 H Right Radial] Respiratory 22 Rate Respiratory 20 20 Rate [Anterior Bilateral Throughout] Blood Pressure 115/67 [Right Radial Artery] O2 Sat by Pulse 95 93 Oximetry 04/29/17 04/29/17 04/29/17 14:37 18:05 18:09 Temperature 98.4 F Pulse Rate [ Anterior Bilateral Throughout] Pulse Rate [ 71 89 Right Radial] Respiratory 20 Rate Respiratory Rate [Anterior Bilateral Throughout] Blood Pressure 136/77 135/85 [Right Radial Artery] O2 Sat by Pulse Oximetry General appearance: Present: mild distress - EENT Eyes: PERRL, EOM intact ENT: hearing intact, clear oral mucosa - Neck Neck: supple, normal ROM - Respiratory Respiratory: bilateral: diminished, wheezing - Cardiovascular Rhythm: regular Heart Sounds: Present: S1 & S2 Extremities: pulses intact, No edema, normal color, Full ROM - Gastrointestinal General gastrointestinal: Present: soft, non-tender, non-distended, other (left inguinal hernia) - Musculoskeletal Musculoskeletal: generalized weakness - Neurologic Neurologic: moves all extremities - Psychiatric Psychiatric: memory intact, appropriate mood/affect, intact judgment & insight - Labs CBC & Chem 7: 04/29/17 05:15 04/29/17 05:15 Labs: Abnormal lab results 04/29/17 04/29/17 Range/Units 05:15 05:15 WBC 12.3 H (4.5-11.0) K/mm3 Lymph % (Auto) 10.7 L (13.4-35.0) % [place] % (Auto) 9.4 H (0.0-7.3) % [place] # 1.2 H (0.0-0.8) K/mm3 Seg Neutrophils % 79.5 H (40.0-70.0) % Seg Neutrophils # 9.8 H (1.8-7.7) K/mm3 Chloride 93.4 L (98-107) mmol/L Carbon Dioxide 40 H (22-30) mmol/L Creatinine 0.5 L (0.8-1.5) mg/dL Glucose 116 H (75-100) mg/dL
[2017-04-29] MEDS: LOVENOX SUB-Q SCH (22:39)
--- NOTE | 2017-04-29 23:46 | Progress Note ---
Assessment and Plan Patient resting on nasal canula 5 litres O2. O2 saturation 95%. Says breathing slightly better.Patient is on solumedral 60 mg I/V q 8 hours. Slowly taper solumedral. Recommend to discharge on saturday or . - Patient Problems (1) Acute bronchitis Current Visit: Yes Status: Acute Qualifiers: Bronchitis organism: B Plan to address problem: Patient is on Levaquine. (2) COPD exacerbation Current Visit: Yes Status: Acute Plan to address problem: BIPAP during night time. O2 5 litres during day time. Brovanna/Budesonide aerosol treatments q 12 hours. Continue I/V solumedral Continue S/C Lovenox. Continue Protonix. (3) Hypertension Current Visit: Yes Status: Acute Qualifiers: Hypertension type: H Plan to address problem: Management as per primary care. Subjective Date of service: 04/29/17 Interval history: Patient resting on nasal canula 5 litres O2. O2 saturation 95%. Says breathing slightly better.Patient is on solumedral 60 mg I/V q 8 hours. Slowly taper solumedral. Recommend to discharge on saturday or . Objective Vital Signs - 12hr 04/29/17 04/29/17 04/29/17 14:37 18:05 18:09 Temperature 98.4 F Pulse Rate [ Anterior Bilateral Throughout] Pulse Rate [ Left Radial] Pulse Rate [ 71 89 Right Radial] Respiratory 20 Rate Respiratory Rate [Anterior Bilateral Throughout] Blood Pressure 136/77 135/85 [Right Radial Artery] O2 Sat by Pulse Oximetry 04/29/17 04/29/17 04/29/17 20:40 21:45 21:48 Temperature 98.6 F Pulse Rate [ 87 Anterior Bilateral Throughout] Pulse Rate [ 76 Left Radial] Pulse Rate [ Right Radial] Respiratory 18 Rate Respiratory 16 Rate [Anterior Bilateral Throughout] Blood Pressure 138/75 [Right Radial Artery] O2 Sat by Pulse 94 95 Oximetry 04/29/17 21:58 Temperature Pulse Rate [ 90 Anterior Bilateral Throughout] Pulse Rate [ Left Radial] Pulse Rate [ Right Radial] Respiratory Rate Respiratory 15 Rate [Anterior Bilateral Throughout] Blood Pressure [Right Radial Artery] O2 Sat by Pulse Oximetry Constitutional: no acute distress, alert Eyes: non-icteric ENT: oropharynx moist Neck: supple, no lymphadenopathy Ascultation: Bilateral: diminished breath sounds Cardiovascular: regular rate and rhythm Gastrointestinal: normoactive bowel sounds, soft Integumentary: normal Extremities: no cyanosis, edema Neurologic: normal mental status, non-focal exam, pupils equal and round, CN II- XII normal Psychiatric: mood appropriate CBC and BMP: 04/29/17 05:15 04/29/17 05:15 ABG, PT/INR, D-dimer: PT/INR, D-dimer PT 12.7 Sec. (12.2-14.9) 04/26/17 08:00 INR 0.96 (0.87-1.13) 04/26/17 08:00 Abnormal lab findings: Abnormal Labs 04/27/17 04/27/17 04/27/17 07:50 07:50 12:18 WBC Plt Count 139 L Lymph % (Auto) 12.3 L [place] % (Auto) Lymph # 0.8 L [place] # Seg Neutrophils % 82.2 H Seg Neutrophils # Chloride 92.6 L Carbon Dioxide 40 H Creatinine 0.4 L Glucose 114 H POC Glucose 116 H 04/27/17 04/29/17 04/29/17 16:34 05:15 05:15 WBC 12.3 H Plt Count Lymph % (Auto) 10.7 L [place] % (Auto) 9.4 H Lymph # [place] # 1.2 H Seg Neutrophils % 79.5 H Seg Neutrophils # 9.8 H Chloride 93.4 L Carbon Dioxide 40 H Creatinine 0.5 L Glucose 116 H POC Glucose 115 H
[2017-04-30] MEDS: DILAUDID IV PRN (06:07)
[2017-04-30] MEDS ORDERED: WATER FOR INJ (PF) 10 ML ONE (06:11)
[2017-04-30] MEDS: ATROVENT IH SCH (09:13)
[2017-04-30] MEDS: PULMICORT IH SCH (09:13)
[2017-04-30] MEDS: BROVANA NEBU IH SCH (09:13)
[2017-04-30] MEDS: SPIRIVA IH SCH (09:14)
[2017-04-30] MEDS: BABY ASPIRIN PO SCH (09:38)
[2017-04-30] MEDS: NEURONTIN PO SCH (09:38)
[2017-04-30] MEDS: NORVASC PO SCH (09:38)
[2017-04-30] MEDS: FISH OIL PO SCH (09:38)
[2017-04-30] MEDS: COLACE PO SCH (09:39)
[2017-04-30] MEDS: THERAGRAN-M Tab PO SCH (09:39)
[2017-04-30] MEDS: TOPROL XL PO SCH (09:39)
[2017-04-30] MEDS: MYSOLINE PO SCH (09:40)
[2017-04-30] MEDS: PEPCID IV SCH (09:43)
[2017-04-30 09:50] VITALS: BP 192/87
--- NOTE | 2017-04-30 10:14 | Discharge Summary ---
Providers - Providers Date of Admission: 04/26/17 11:28 Date of discharge: 04/30/17 Attending physician: SHASHI RODGERS 04/27/17 16:43 Consult to Physician [CONS] Routine Consulting Provider: KYREE WALKER Reason For Exam: copd Place consult to:: pulm Notified:: yes Phone number called:: cell Was contact made?: Yes Time called:: 16:44 Primary care physician: [employer] Hospitalization Condition: Good Disposition: DC-01 TO HOME OR SELFCARE - Discharge Diagnoses (1) Acute and chronic respiratory failure Status: Acute Qualifiers: Respiratory failure complication: R (2) COPD exacerbation Status: Acute (3) Hypertension Status: Chronic Qualifiers: Hypertension type: H (4) Seizure disorder Status: Chronic Exam - Constitutional Vitals: Temp Pulse Resp BP Pulse Ox 98.0 F 104 H 18 192/87 94 04/30/17 09:49 04/30/17 09:49 04/30/17 09:49 04/30/17 09:49 04/30/17 09:49 Plan Activity: advance as tolerated Diet: low fat, low cholesterol, low salt Additional Instructions: 1.Follow up with PCP in 1 week. 2.Follow up with Dr. chavez in 1 week Follow up with: PRIMARY CARE, [Primary Care Provider] - 3-5 Days Prescriptions: Docusate Sodium [Colace CAP] 100 mg PO BID #60 capsule Multivitamin Tab W-MINERAL [Multiple Vitamin/Mineral (Theragran M)] 1 each PO QDAY #30 tablet Prednisone [predniSONE 10 mg (6-Day Pack, 21 Tabs)] 10 mg PO .TAPER #1 tab.ds.pk
[2017-04-30] MEDS ORDERED: LEVAQUIN PO SCH (22:00)
[2017-04-30] MEDS ORDERED: PEPCID PO SCH (22:00)
[2017-05-03] MEDS ORDERED: CHOLECALCIFEROL 50000 UNIT PO SCH (10:00)
== END 2017-04-30 13:02 | disposition home or self-care (01) | DRG 189 ==
LOC: ED 06:48 → 4A 11:28
PROVIDERS: ADMIT Internal Medicine; ATTEND Internal Medicine
DX: J96.21 Acute and chronic respiratory failure with hypoxia (principal); J44.1 Chronic obstructive pulmonary disease with (acute) exacerbation; J44.0 Chronic obstructive pulmonary disease with (acute) lower respiratory infection; J20.9 Acute bronchitis, unspecified; G40.909 Epilepsy, unspecified, not intractable, without status epilepticus; K46.9 Unspecified abdominal hernia without obstruction or gangrene; I10 Essential (primary) hypertension; E11.9 Type 2 diabetes mellitus without complications; Z86.711 Personal history of pulmonary embolism; Z90.49 Acquired absence of other specified parts of digestive tract; Z87.891 Personal history of nicotine dependence; Z82.49 Family history of ischemic heart disease and other diseases of the circulatory system; Z79.82 Long term (current) use of aspirin; Z79.899 Other long term (current) drug therapy; Z71.6 Tobacco abuse counseling
CPT/HCPCS: 36415; 71010; 80048; 80164; 82962; 83735; 84484; 85025; 85610; 85730; 93005; 93010; 94640; 94760; 96365; 96375; A9270-GY; J1170; J1650; J1956; J2270; J2405; J2930

== ENCOUNTER 2017-11-05 05:17 | Inpatient (IN) | payer MEDICARE ==
[2017-11-05] MEDS ORDERED: PROVENTIL IH ONE ×2 (05:43→08:51)
[2017-11-05 07:46] LABS: Basophils % (Auto) 0.2 % (0.0-1.8); Eosinophils % (Auto) 0.1 % (0.0-4.3); Hematocrit 39.3 % (35.5-45.6); Hemoglobin 13.5 gm/dl (11.8-15.2); Mean Corpuscular HGB Conc 34 % (32-34); Mean Corpuscular Hemoglobin 32 pg (28-32); Mean Corpuscular Volume 92 fl (84-94); Platelet Count 128 K/mm3 (140-440); Red Blood Count 4.27 M/mm3 (3.65-5.03); Red Cell Distribution Width 14.3 % (13.2-15.2); White Blood Count 10.5 K/mm3 (4.5-11.0)
--- NOTE | 2017-11-05 07:55 | XRay Report ---
AP CHEST: HISTORY: Dyspnea Compared to 04/26/17. Underlying COPD is suspected. There are mild chronic interstitial changes in both lungs but no evidence for pneumonia, pleural effusion or pneumothorax. Heart size is within normal limits. IMPRESSION: Mild COPD changes. No acute process noted.
[2017-11-05 08:01] LABS: Anion Gap 16 mmol/L; BUN/Creatinine Ratio 25; Blood Urea Nitrogen 10 mg/dL (9-20); Calcium 8.7 mg/dL (8.4-10.2); Carbon Dioxide 38 mmol/L (22-30); Chloride 92.3 mmol/L (98-107); Glucose 130 mg/dL (75-100); Potassium 3.9 mmol/L (3.6-5.0); Sodium 142 mmol/L (137-145)
[2017-11-05] MEDS ORDERED: MAGNESIUM SULFATE 2GM/50ML 2 GM/50 ML BAG IV ONE (08:51)
[2017-11-05] MEDS ORDERED: DILAUDID IV ONE ×2 (08:51→10:41)
[2017-11-05] MEDS ORDERED: ZOFRAN IV ONE (08:51)
[2017-11-05] MEDS ORDERED: ATROVENT IH ONE (08:51)
[2017-11-05] MEDS ORDERED: DILAUDID ONE ×2 (09:14→10:57)
[2017-11-05 09:25] LABS: ISTAT Base Excess 19; ISTAT HCO3 43.9; ISTAT PCO2 70.1 (35-45); ISTAT PH 7.405 (7.35-7.45); ISTAT PO2 100 (80-105); ISTAT SO2 97; ISTAT TCO2 46
[2017-11-05] MEDS ORDERED: ZITHROMAX 500 MG in NACL 0.9% 250ML 250 ML IV ONE (09:30)
--- NOTE | 2017-11-05 10:18 | Emergency Department Report ---
ED Shortness of Breath HPI - General Chief Complaint: Dyspnea/Respdistress Stated Complaint: SILVIO Time Seen by Provider: 11/05/17 08:04 Source: EMS Mode of arrival: Stretcher Limitations: No Limitations - History of Present Illness Initial Comments: 62-year-old male with a past medical history of hypertension, COPD with 4L O2 dependence, hypertension, seizures, PE, and myoclonic epilepsy visits to the hospital with chronic shortness of breath with cough and congestion 3 days. Cough productive yellow sputum. Low-grade temperature on presentation to the ED. patient complains of chronic abdominal pain due to chronic abdominal hernia. Patient is a poor surgical candidate and therefore is treated chronically with oxycodone. Patient states frequent coughing has exacerbated his chronic abdominal pain is moderate to severe in intensity. Patient presents with abdominal binder to abdominal wall. Dr Williamson (pulmonary) - Related Data Home Medications Medication Instructions Recorded Confirmed Last Taken Albuterol Sulfate [Ventolin HFA] 2 puff IH Q4H PRN 11/08/14 11/05/17 11/04/17 Aspirin [Aspirin BABY CHEW TAB] 81 mg PO QDAY 11/08/14 11/05/17 11/04/17 Budesoni/Formotero 160-4.5(Nf) 2 puff IH BID 11/08/14 11/05/17 04/25/17 [Symbicort 160-4.5 (Nf)] Cholecalciferol (Vitamin D3) 50,000 unit PO QWEEK 11/08/14 11/05/17 11/07/14 [Vitamin D3] Divalproex [Delmar Mon] 500 mg PO DAILY 11/08/14 11/05/17 11/04/17 Gabapentin 300 mg PO TID 11/08/14 11/05/17 11/04/17 Ipratropium [Atrovent NEB] 0.5 mg IH BID 11/08/14 11/05/17 04/25/17 Multivitamin [Multi-Vitamin Daily] 1 each PO DAILY 11/08/14 11/05/17 11/04/17 Nebivolol HCl [Bystolic] 10 mg PO QDAY 11/08/14 11/05/17 11/04/17 [place]-3 Fatty Acids/Fish Oil [Fish 1 each PO DAILY 11/08/14 11/05/17 11/04/17 Oil] Primidone [Mysoline] 250 mg PO QID 11/08/14 11/05/17 11/04/17 Tiotropium [Spiriva] 2 puff IH QDAY 11/08/14 11/05/17 11/04/17 amLODIPine [Norvasc] 5 mg PO DAILY 11/08/14 11/05/17 11/04/17 AtorvaSTATin [Lipitor] 40 mg PO QHS 04/26/17 11/05/17 11/04/17 Oxycodone HCl [oxyCODONE TAB] 10 mg PO Q6H PRN 04/26/17 11/05/17 11/04/17 Previous Rx's Medication Instructions Recorded Last Taken Type Docusate Sodium [Colace CAP] 100 mg PO BID #60 capsule 04/30/17 Unknown Rx Levofloxacin [Levaquin] 750 mg PO QDAY #3 tablet 04/30/17 Unknown Rx Multivitamin Tab W-MINERAL 1 each PO QDAY #30 tablet 04/30/17 11/04/17 Rx [Multiple Vitamin/Mineral (Theragran M)] Prednisone [predniSONE 10 mg 10 mg PO .TAPER #1 tab.ds.pk 04/30/17 Unknown Rx (6-Day Pack, 21 Tabs)] Allergies Allergy/AdvReac Type Severity Reaction Status Date / Time No Known Allergies Allergy Verified 11/05/17 05:58 ED Review of Systems ROS: Stated complaint: SILVIO Other details as noted in HPI Comment: All other systems reviewed and negative Other: Constitutional: As per HPI Eyes: No eye pain visual changes ENT: No ear pain or throat pain Neck: Denies pain Respiratory: As per HPI Cardiovascular: Denies chest pain, palpitations, syncope GI: Abdominal pain chronically worse with coughing. No nausea or vomiting : Denies dysuria Musculoskeletal: Denies back pain, joint swelling Skin: Denies rash, lesions, erythema Neurologic: Denies headache, numbness, weakness Psychiatric: Denies suicidal ideation, hallucinations ED Past Medical Hx - Past Medical History Previous Medical History?: Yes Hx Hypertension: Yes Hx Congestive Heart Failure: No Hx Diabetes: No Hx Pulmonary Embolism: Yes Hx Seizures: Yes (myoclonic epilepsy) Hx Asthma: No Hx COPD: Yes (4L O2) Additional medical history: essential tremor - Surgical History Past Surgical History?: Yes Hx Appendectomy: Yes Additional Surgical History: hernia, multiple abdominal surgeries - Social History Smoking Status: Former Smoker Substance Use Type: None - Medications Home Medications: Home Medications Medication Instructions Recorded Confirmed Last Taken Type Albuterol Sulfate [Ventolin HFA] 2 puff IH Q4H PRN 11/08/14 11/05/17 11/04/17 History Aspirin [Aspirin BABY CHEW TAB] 81 mg PO QDAY 11/08/14 11/05/17 11/04/17 History Budesoni/Formotero 160-4.5(Nf) 2 puff IH BID 11/08/14 11/05/17 04/25/17 History [Symbicort 160-4.5 (Nf)] Cholecalciferol (Vitamin D3) 50,000 unit PO QWEEK 11/08/14 11/05/17 11/07/14 History [Vitamin D3] Divalproex Dr [Depakote Dr] 500 mg PO DAILY 11/08/14 11/05/17 11/04/17 History Gabapentin 300 mg PO TID 11/08/14 11/05/17 11/04/17 History Ipratropium [Atrovent NEB] 0.5 mg IH BID 11/08/14 11/05/17 04/25/17 History Multivitamin [Multi-Vitamin Daily] 1 each PO DAILY 11/08/14 11/05/17 11/04/17 History Nebivolol HCl [Bystolic] 10 mg PO QDAY 11/08/14 11/05/17 11/04/17 History [place]-3 Fatty Acids/Fish Oil [Fish 1 each PO DAILY 11/08/14 11/05/17 11/04/17 History Oil] Primidone [Mysoline] 250 mg PO QID 11/08/14 11/05/17 11/04/17 History Tiotropium [Spiriva] 2 puff IH QDAY 11/08/14 11/05/17 11/04/17 History amLODIPine [Norvasc] 5 mg PO DAILY 11/08/14 11/05/17 11/04/17 History AtorvaSTATin [Lipitor] 40 mg PO QHS 04/26/17 11/05/17 11/04/17 History Oxycodone HCl [oxyCODONE TAB] 10 mg PO Q6H PRN 04/26/17 11/05/17 11/04/17 History Docusate Sodium [Colace CAP] 100 mg PO BID #60 capsule 04/30/17 11/05/17 Unknown Rx Levofloxacin [Levaquin] 750 mg PO QDAY #3 tablet 04/30/17 11/05/17 Unknown Rx Multivitamin Tab W-MINERAL 1 each PO QDAY #30 tablet 04/30/17 11/05/17 11/04/17 Rx [Multiple Vitamin/Mineral (Theragran M)] Prednisone [predniSONE 10 mg 10 mg PO .TAPER #1 tab.ds.pk 04/30/17 11/05/17 Unknown Rx (6-Day Pack, 21 Tabs)] ED Physical Exam - General Limitations: No Limitations - Other Other exam information: General: No limitations, patient is alert in no acute distress Head exam: Atraumatic, normocephalic Eyes exam: Normal appearance ENT: Moist mucous membrane, normal oropharynx Neck exam: Normal inspection, full range of motion Respiratory exam: Frequent coughing productive of yellow sputum, or wheezing, tachypnea, no accessory muscle use Cardiovascular: Mild tachycardia regular rhythm Abdomen: Soft, abdominal binder with left abdominal tenderness. No rebound or guarding Extremity: Full range of motion normal inspection no deformity, mild lower extremity edema, Back: Normal Inspection, full range of motion, no tenderness Neurologic: Alert, oriented x3, cranial nerves intact, no motor or sensory deficit Psychiatric: normal affect, normal mood Skin: Warm, dry, intact ED Course Vital Signs 11/05/17 11/05/17 11/05/17 05:32 05:53 06:32 Temperature Pulse Rate 111 H Pulse Rate [ 103 H Anterior Bilateral Throughout] Respiratory 17 26 H Rate Respiratory 22 Rate [Anterior Bilateral Throughout] Blood Pressure 132/62 Blood Pressure [Left] O2 Sat by Pulse 77 L 84 Oximetry 11/05/17 11/05/17 11/05/17 07:12 09:01 09:18 Temperature 100.2 F H Pulse Rate 105 H Pulse Rate [ 99 H 102 H Anterior Bilateral Throughout] Respiratory 16 Rate Respiratory 20 20 Rate [Anterior Bilateral Throughout] Blood Pressure Blood Pressure 110/77 [Left] O2 Sat by Pulse 93 Oximetry 11/05/17 09:25 Temperature 99.6 F Pulse Rate 103 H Pulse Rate [ Anterior Bilateral Throughout] Respiratory 20 Rate Respiratory Rate [Anterior Bilateral Throughout] Blood Pressure Blood Pressure 115/79 [Left] O2 Sat by Pulse 97 Oximetry - Reevaluation(s) Reevaluation #1: 11/05/17 10:41 Patient received neb treatment continuous 1 hour. O2 sat was decreased from Ventimask to 4 L. Patient's saturation is 84-85% and therefore will be placed back on Ventimask by respiratory therapist. Requesting additional Dilaudid medication for pain and medication for his tremors. I ordered additional Dilaudid and his Mysoline and depakote ED Medical Decision Making - Lab Data Result diagrams: 11/05/17 07:19 11/05/17 07:19 Lab Results 11/05/17 11/05/17 11/05/17 Range/Units 07:19 07:19 09:24 WBC 10.5 (4.5-11.0) K/mm3 RBC 4.27 (3.65-5.03) M/mm3 Hgb 13.5 (11.8-15.2) gm/dl Hct 39.3 (35.5-45.6) % MCV 92 (84-94) fl MCH 32 (28-32) pg MCHC 34 (32-34) % RDW 14.3 (13.2-15.2) % Plt Count 128 L (140-440) K/mm3 Lymph % (Auto) 5.4 L (13.4-35.0) % [place] % (Auto) 7.6 H (0.0-7.3) % Eos % (Auto) 0.1 (0.0-4.3) % Baso % (Auto) 0.2 (0.0-1.8) % Lymph # 0.6 L (1.2-5.4) K/mm3 [place] # 0.8 (0.0-0.8) K/mm3 Eos # 0.0 (0.0-0.4) K/mm3 Baso # 0.0 (0.0-0.1) K/mm3 Seg Neutrophils % 86.7 H (40.0-70.0) % Seg Neutrophils # 9.1 H (1.8-7.7) K/mm3 POC ABG pH 7.405 (7.35-7.45) POC ABG pCO2 70.1 H (35-45) POC ABG pO2 100 (80-105) POC ABG HCO3 43.9 POC ABG Total CO2 46 POC ABG O2 Sat 97 POC ABG Base Excess 19 FiO2 40 % Sodium 142 (137-145) mmol/L Potassium 3.9 (3.6-5.0) mmol/L Chloride 92.3 L (98-107) mmol/L Carbon Dioxide 38 H (22-30) mmol/L Anion Gap 16 mmol/L BUN 10 (9-20) mg/dL Creatinine 0.4 L (0.8-1.5) mg/dL Estimated GFR > 60 ml/min BUN/Creatinine Ratio 25 % Glucose 130 H (75-100) mg/dL Calcium 8.7 (8.4-10.2) mg/dL Troponin T < 0.010 (0.00-0.029) ng/mL - EKG Data -: EKG Interpreted by Me EKG shows normal: sinus rhythm, axis (81), QRS complexes (92), ST-T waves ( no stemi/t inv) Rate: tachycardia (109) - EKG Data When compared to previous EKG there are: no significant change (comparedt to 04/26) - Radiology Data Radiology results: report reviewed (cxr: mild copd, no infiltrate) - Medical Decision Making Patient to be admitted to the hospital for treatment of acute COPD exacerbation. Patient received albuterol, Atrovent, Solu-Medrol, magnesium. Patient also received azithromycin. Previously treated for atypical pneumonia. No infiltrate identified on chest x-ray. - Differential Diagnosis COPD, CHF, pneumonia, bronchitis Critical Care Time: No Critical care attestation.: If time is entered above; I have spent that time in minutes in the direct care of this critically ill patient, excluding procedure time. ED Disposition Clinical Impression: Acute bronchitis with COPD, O2 dependent, Chronic pain, Seizure disorder, Thrombocytopenia, Abdominal hernia, Hypoxia, Essential tremor Disposition: OP ADMIT IP TO THIS HOSP Is pt being admited?: Yes Condition: Stable Time of Disposition: 10:34 (hospitalist/[place])
[2017-11-05] MEDS ORDERED: MYSOLINE PO ONE (10:41)
[2017-11-05] MEDS ORDERED: PROVENTIL IH PRN ×2 (10:53→11:48)
[2017-11-05] MEDS ORDERED: TYLENOL PO PRN (10:53)
[2017-11-05] MEDS ORDERED: DULCOLAX PR PRN (10:53)
[2017-11-05] MEDS ORDERED: ZOFRAN IM PRN (10:57)
[2017-11-05] MEDS ORDERED: ZITHROMAX 500 MG in NACL 0.9% 250ML 250 ML IV SCH (11:00)
--- NOTE | 2017-11-05 11:01 | History and Physical Report ---
<JUAN MIGUEL GUARDADO - Last Filed: 11/05/17 14:45> History of Present Illness Date of examination: 11/05/17 Date of admission: 11/05/2017 Chief complaint: Shortness of breath History of present illness: Patient is a 62 years old with past medical history of of COPD with 4L O2 dependence, hypertension, seizures, PE, and myoclonic epilepsy who presents to the Emergency Department for chronic shortness of breath with cough and congestion 3 days. Until 4 days ago patient was at her normal baseline state of health. Patient developed difficulty of breathing yesterday and he has had progressive worsening of shortness of breath. This morning fall at home , shortly thereafter, he felt like he could not catch his breath and his called 911 and brought him to the Emergency Department. He is on oxygen at home. Patient denies she has had no fevers, chills, or night sweats. No hx of recurrent pneumonia. He has no sick contact, TB exposure. He complains cough with productive yellow sputum Patient states frequent coughing has exacerbated his chronic abdominal pain due to her hernia. Past History Past Medical History: COPD, seizures, other (PE, and myoclonic epilepsy) Past Surgical History: Other (abdominal surgery) Medications and Allergies Allergies Allergy/AdvReac Type Severity Reaction Status Date / Time No Known Allergies Allergy Verified 11/05/17 05:58 Home Medications Medication Instructions Recorded Confirmed Last Taken Type Albuterol Sulfate [Ventolin HFA] 2 puff IH Q4H PRN 11/08/14 11/05/17 11/04/17 History Aspirin [Aspirin BABY CHEW TAB] 81 mg PO QDAY 11/08/14 11/05/17 11/04/17 History Budesoni/Formotero 160-4.5(Nf) 2 puff IH BID 11/08/14 11/05/17 04/25/17 History [Symbicort 160-4.5 (Nf)] Cholecalciferol (Vitamin D3) 50,000 unit PO QWEEK 11/08/14 11/05/17 11/07/14 History [Vitamin D3] Divalproex [Delmar Mon] 500 mg PO DAILY 11/08/14 11/05/17 11/04/17 History Gabapentin 300 mg PO TID 11/08/14 11/05/17 11/04/17 History Ipratropium [Atrovent NEB] 0.5 mg IH BID 11/08/14 11/05/17 04/25/17 History Multivitamin [Multi-Vitamin Daily] 1 each PO DAILY 11/08/14 11/05/17 11/04/17 History Nebivolol HCl [Bystolic] 10 mg PO QDAY 11/08/14 11/05/17 11/04/17 History [place]-3 Fatty Acids/Fish Oil [Fish 1 each PO DAILY 11/08/14 11/05/17 11/04/17 History Oil] Primidone [Mysoline] 250 mg PO QID 11/08/14 11/05/17 11/04/17 History Tiotropium [Spiriva] 2 puff IH QDAY 11/08/14 11/05/17 11/04/17 History amLODIPine [Norvasc] 5 mg PO DAILY 11/08/14 11/05/17 11/04/17 History AtorvaSTATin [Lipitor] 40 mg PO QHS 04/26/17 11/05/17 11/04/17 History Oxycodone HCl [oxyCODONE TAB] 10 mg PO Q6H PRN 04/26/17 11/05/17 11/04/17 History Docusate Sodium [Colace CAP] 100 mg PO BID #60 capsule 04/30/17 11/05/17 Unknown Rx Levofloxacin [Levaquin] 750 mg PO QDAY #3 tablet 04/30/17 11/05/17 Unknown Rx Multivitamin Tab W-MINERAL 1 each PO QDAY #30 tablet 04/30/17 11/05/17 11/04/17 Rx [Multiple Vitamin/Mineral (Theragran M)] Prednisone [predniSONE 10 mg 10 mg PO .TAPER #1 tab.ds.pk 04/30/17 11/05/17 Unknown Rx (6-Day Pack, 21 Tabs)] Active Meds: Active Medications Acetaminophen (Tylenol) 650 mg PO Q4H PRN PRN Reason: Pain MILD(1-3)/Fever >100.5/GALAN Albuterol (Proventil) 2.5 mg IH Q3HRT PRN PRN Reason: Shortness Of Breath Albuterol/Ipratropium (Duoneb *Not For Prn Use*) 1 ampul IH Q6HRT ANDREW Bisacodyl (Dulcolax) 10 mg GA QDAY PRN PRN Reason: Constipation unrelieved by MOM Enoxaparin Sodium (Lovenox) 40 mg SUB-Q QDAY [facility] Azithromycin 500 mg/ Sodium (Chloride) 250 mls @ 250 mls/hr IV Q24H [facility] Methylprednisolone Sodium Succinate (Solu-Medrol) 80 mg IV Q8HR [facility] Morphine Sulfate (Morphine) 2 mg IV Q4H PRN PRN Reason: Pain, Moderate (4-6) Ondansetron HCl (Zofran) 4 mg IM Q4H PRN PRN Reason: Nausea And Vomiting Review of Systems Constitutional: no weight loss, no weight gain Ears, nose, mouth and throat: no decreased hearing, no nose pain, no nasal discharge Cardiovascular: lightheadedness, shortness of breath, dyspnea on exertion, paroxysmal nocturnal dyspnea, no chest pain Respiratory: cough, cough with sputum Gastrointestinal: no nausea, no vomiting, no diarrhea Genitourinary Male: no hematuria, no discharge, no urinary frequency Musculoskeletal: no neck stiffness, no neck pain, no shooting arm pain, no arm numbness/tingling Integumentary: no rash, no pruritis, no redness Neurological: no paralysis, no weakness, no parathesias, no numbness Psychiatric: no insomnia, no hypersomnia, no change in appetite, no change in libido Endocrine: no polyuria, no nocturia, no excessive sweating Hematologic/Lymphatic: no easy bruising, no easy bleeding Allergic/Immunologic: no urticaria, no allergic rhinitis Exam - Constitutional Vitals: Temp Pulse Resp BP Pulse Ox 99.6 F 103 H 20 115/79 97 11/05/17 09:25 11/05/17 09:25 11/05/17 09:25 11/05/17 09:25 11/05/17 09:25 General appearance: Present: no acute distress - EENT Eyes: Present: PERRL ENT: hearing intact, clear oral mucosa - Neck Neck: Present: supple - Respiratory Respiratory: bilateral: wheezing - Cardiovascular Rhythm: regular Heart Sounds: Present: S1 & S2 - Abdominal General gastrointestinal: Present: soft, non-tender Male genitourinary: Present: deferred - Rectal Rectal Exam: deferred - Integumentary Integumentary: Present: clear, warm, dry - Musculoskeletal Musculoskeletal: strength equal bilaterally - Psychiatric Psychiatric: appropriate mood/affect - Neurologic Neurologic: moves all extremities - Allied Health Allied health notes reviewed: nursing Results - Labs CBC & Chem 7: 11/05/17 07:19 11/05/17 07:19 Labs: Laboratory Last Values WBC 10.5 K/mm3 (4.5-11.0) 11/05/17 07:19 RBC 4.27 M/mm3 (3.65-5.03) 11/05/17 07:19 Hgb 13.5 gm/dl (11.8-15.2) 11/05/17 07:19 Hct 39.3 % (35.5-45.6) 11/05/17 07:19 MCV 92 fl (84-94) 11/05/17 07:19 MCH 32 pg (28-32) 11/05/17 07:19 MCHC 34 % (32-34) 11/05/17 07:19 RDW 14.3 % (13.2-15.2) 11/05/17 07:19 Plt Count 128 K/mm3 (140-440) L 11/05/17 07:19 Lymph % (Auto) 5.4 % (13.4-35.0) L 11/05/17 07:19 [place] % (Auto) 7.6 % (0.0-7.3) H 11/05/17 07:19 Eos % (Auto) 0.1 % (0.0-4.3) 11/05/17 07:19 Baso % (Auto) 0.2 % (0.0-1.8) 11/05/17 07:19 Lymph # 0.6 K/mm3 (1.2-5.4) L 11/05/17 07:19 [place] # 0.8 K/mm3 (0.0-0.8) 11/05/17 07:19 Eos # 0.0 K/mm3 (0.0-0.4) 11/05/17 07:19 Baso # 0.0 K/mm3 (0.0-0.1) 11/05/17 07:19 Seg Neutrophils % 86.7 % (40.0-70.0) H 11/05/17 07:19 Seg Neutrophils # 9.1 K/mm3 (1.8-7.7) H 11/05/17 07:19 POC ABG pH 7.405 (7.35-7.45) 11/05/17 09:24 POC ABG pCO2 70.1 (35-45) H 11/05/17 09:24 POC ABG pO2 100 (80-105) 11/05/17 09:24 POC ABG HCO3 43.9 11/05/17 09:24 POC ABG Total CO2 46 11/05/17 09:24 POC ABG O2 Sat 97 11/05/17 09:24 POC ABG Base Excess 19 11/05/17 09:24 FiO2 40 % 11/05/17 09:24 Sodium 142 mmol/L (137-145) 11/05/17 07:19 Potassium 3.9 mmol/L (3.6-5.0) 11/05/17 07:19 Chloride 92.3 mmol/L (98-107) L 11/05/17 07:19 Carbon Dioxide 38 mmol/L (22-30) H 11/05/17 07:19 Anion Gap 16 mmol/L 11/05/17 07:19 BUN 10 mg/dL (9-20) 11/05/17 07:19 Creatinine 0.4 mg/dL (0.8-1.5) L 11/05/17 07:19 Estimated GFR > 60 ml/min 11/05/17 07:19 BUN/Creatinine Ratio 25 % 11/05/17 07:19 Glucose 130 mg/dL (75-100) H 11/05/17 07:19 Calcium 8.7 mg/dL (8.4-10.2) 11/05/17 07:19 Troponin T < 0.010 ng/mL (0.00-0.029) 11/05/17 07:19 - Imaging and Cardiology Chest x-ray: image reviewed (COPD) Assessment and Plan Assessment and plan: Patient is a 62 years old with past medical history of of COPD with 4L O2 dependence, hypertension, seizures, PE, and myoclonic epilepsy who presents to the Emergency Department for chronic shortness of breath with cough and congestion 3 days. Until 4 days ago patient was at her normal baseline state of health. Patient developed difficulty of breathing yesterday and he has had progressive worsening of shortness of breath. Acute on chronic respiratory failure with hypoxia Patient oxygen saturation improved with 2LNC; currently SPO2 98%. No acute respiratory distress noted. Aggressive Nebulizers/Inhalers ABG when necessary Oxygen supplement pulmonary consult Supportive care Acute COPD exacerbation Continue on Duoneb every 6 hours Started on IV steroid Solumedrol Initiated empiric IV Levaquin Supportive care Hypertensive urgency Continue home antihypertensive medications Closely monitor blood pressure Hyperlipidemia Resume home antilipid agents Fall S/P fall fall precautions and frequent neuro check DVT prophylaxis Lovenox Advance Directives: Yes VTE prophylaxis?: Chemical Contraindication Mechanical VTE Prophylaxis: Treatment Not Indicated Plan of care discussed with patient/family: Yes <BARON CHAPARRO - Last Filed: 11/05/17 21:47> History of Present Illness Date of admission: 11/05/17 10:53 Medications and Allergies Active Meds: Active Medications Acetaminophen (Tylenol) 650 mg PO Q4H PRN PRN Reason: Pain MILD(1-3)/Fever >100.5/GALAN Albuterol (Proventil) 2.5 mg IH Q4HRT PRN PRN Reason: Shortness Of Breath Albuterol/Ipratropium (Duoneb *Not For Prn Use*) 1 ampul IH Q6HRT [facility] Last Admin: 11/05/17 21:10 Dose: 1 ampul Amlodipine Besylate (Norvasc) 5 mg PO DAILY [facility] Last Admin: 11/05/17 12:54 Dose: 5 mg Aspirin (Baby Aspirin) 81 mg PO QDAY [facility] Atorvastatin Calcium (Lipitor) 40 mg PO QHS [facility] Bisacodyl (Dulcolax) 10 mg GA QDAY PRN PRN Reason: Constipation unrelieved by MOM Divalproex Sodium (Depakote Dr) 500 mg PO DAILY [facility] Last Admin: 11/05/17 12:39 Dose: Not Given Enoxaparin Sodium (Lovenox) 40 mg SUB-Q QDAY [facility] Fish Oil (Fish Oil) 1,000 mg PO DAILY [facility] Gabapentin (Neurontin) 300 mg PO TID [facility] Last Admin: 11/05/17 14:08 Dose: 300 mg Levofloxacin/Dextrose (Levaquin 750mg/150ml) 750 mg in 150 mls @ 100 mls/hr IV Q24H [facility] PRN Reason: Protocol Last Admin: 11/05/17 14:58 Dose: 100 mls/hr Ipratropium [place] (Atrovent) 0.5 mg IH BID [facility] Methylprednisolone Sodium Succinate (Solu-Medrol) 80 mg IV Q8H [facility] Last Admin: 11/05/17 18:51 Dose: 80 mg Metoprolol Succinate (Toprol Xl) 100 mg PO QDAY [facility] Miscellaneous Medication (Cholecalciferol (Vitamin D3) [Vitamin D3]) 50,000 unit PO QWEEK [facility] Morphine Sulfate (Morphine) 2 mg IV Q4H PRN PRN Reason: Pain, Moderate (4-6) Last Admin: 11/05/17 18:46 Dose: 2 mg Multivitamins/Minerals (Theragran-M Tab) 1 each PO QDAY [facility] Last Admin: 11/05/17 14:10 Dose: 1 each Ondansetron HCl (Zofran) 4 mg IM Q4H PRN PRN Reason: Nausea And Vomiting Primidone (Mysoline) 250 mg PO QID [facility] Last Admin: 11/05/17 20:45 Dose: Not Given Tiotropium [place] (Spiriva) 2 puff IH QDAY [facility] Last Admin: 11/05/17 14:18 Dose: Not Given Exam - Constitutional Vitals: Temp Pulse Resp BP Pulse Ox 98.7 F 96 H 20 139/83 95 11/05/17 17:25 11/05/17 17:25 11/05/17 17:25 11/05/17 17:25 11/05/17 20:15 General appearance: Present: obese (morbid), other (moderated Respiratory distress) - Neck Neck: Present: normal ROM - Respiratory Respiratory effort: labored Respiratory: bilateral: wheezing (decreased air movement) - Extremities Extremities: no ischemia, pulses intact Extremity abnormal: edema (+!) Peripheral Pulses: within normal limits Results - Labs CBC & Chem 7: 11/05/17 07:19 11/05/17 07:19 Labs: Laboratory Last Values WBC 10.5 K/mm3 (4.5-11.0) 11/05/17 07:19 RBC 4.27 M/mm3 (3.65-5.03) 11/05/17 07:19 Hgb 13.5 gm/dl (11.8-15.2) 11/05/17 07:19 Hct 39.3 % (35.5-45.6) 11/05/17 07:19 MCV 92 fl (84-94) 11/05/17 07:19 MCH 32 pg (28-32) 11/05/17 07:19 MCHC 34 % (32-34) 11/05/17 07:19 RDW 14.3 % (13.2-15.2) 11/05/17 07:19 Plt Count 128 K/mm3 (140-440) L 11/05/17 07:19 Lymph % (Auto) 5.4 % (13.4-35.0) L 11/05/17 07:19 [place] % (Auto) 7.6 % (0.0-7.3) H 11/05/17 07:19 Eos % (Auto) 0.1 % (0.0-4.3) 11/05/17 07:19 Baso % (Auto) 0.2 % (0.0-1.8) 11/05/17 07:19 Lymph # 0.6 K/mm3 (1.2-5.4) L 11/05/17 07:19 [place] # 0.8 K/mm3 (0.0-0.8) 11/05/17 07:19 Eos # 0.0 K/mm3 (0.0-0.4) 11/05/17 07:19 Baso # 0.0 K/mm3 (0.0-0.1) 11/05/17 07:19 Seg Neutrophils % 86.7 % (40.0-70.0) H 11/05/17 07:19 Seg Neutrophils # 9.1 K/mm3 (1.8-7.7) H 11/05/17 07:19 POC ABG pH 7.405 (7.35-7.45) 11/05/17 09:24 POC ABG pCO2 70.1 (35-45) H 11/05/17 09:24 POC ABG pO2 100 (80-105) 11/05/17 09:24 POC ABG HCO3 43.9 11/05/17 09:24 POC ABG Total CO2 46 11/05/17 09:24 POC ABG O2 Sat 97 11/05/17 09:24 POC ABG Base Excess 19 11/05/17 09:24 FiO2 40 % 11/05/17 09:24 Sodium 142 mmol/L (137-145) 11/05/17 07:19 Potassium 3.9 mmol/L (3.6-5.0) 11/05/17 07:19 Chloride 92.3 mmol/L (98-107) L 11/05/17 07:19 Carbon Dioxide 38 mmol/L (22-30) H 11/05/17 07:19 Anion Gap 16 mmol/L 11/05/17 07:19 BUN 10 mg/dL (9-20) 11/05/17 07:19 Creatinine 0.4 mg/dL (0.8-1.5) L 11/05/17 07:19 Estimated GFR > 60 ml/min 11/05/17 07:19 BUN/Creatinine Ratio 25 % 11/05/17 07:19 Glucose 130 mg/dL (75-100) H 11/05/17 07:19 Calcium 8.7 mg/dL (8.4-10.2) 11/05/17 07:19 Troponin T < 0.010 ng/mL (0.00-0.029) 11/05/17 07:19 Assessment and Plan Assessment and plan: I saw and evaluated the patient. I agree with the findings and the plan of care as documented in the Nurse Practitioner's~note, with the following corrections and additions. patient with desaturations when speaking. Extensively counselling provided on weightloss Will obtain PT/OT Evaluation Patient with recurrent hospitlization will speak with pulmonary about pallativve care.
[2017-11-05] MEDS ORDERED: NON-FORMULARY (Prednisone [Prednisone 10 Mg (6-Day Pack, 21 Tabs)] 10 MG) PO SCH (11:15)
[2017-11-05] MEDS: NORVASC PO SCH (12:54)
[2017-11-05] MEDS: MORPHINE IV PRN ×3 (14:08→22:24)
[2017-11-05] MEDS: NEURONTIN PO SCH ×2 (14:08→22:22)
[2017-11-05] MEDS: THERAGRAN-M Tab PO SCH (14:10)
[2017-11-05] MEDS: DUONEB *Not for PRN Use IH SCH ×2 (14:17→21:10)
[2017-11-05] MEDS: SPIRIVA IH SCH (14:18)
[2017-11-05] MEDS: MYSOLINE PO SCH ×3 (14:58→23:09)
[2017-11-05] MEDS: LEVAQUIN 750MG/150ML 750 MG/150 ML BAG IV SCH (14:58)
--- NOTE | 2017-11-05 19:13 | Event Note ---
Date: 11/05/[address] Vazquez thank you for asking me to participate in the care of this patient. Full consultation dictated. Consultation dictation number: [id number] This is 62 year old white male History of COPD on home O2 admitted through emergency room with shortness of breath and productive yellow sputum.Patient has history of hypertension,seizures,PE and myoclonic epilepsy.Patient denies chest pain. Patient large abdominal hernia. Patient is a poor candidate for abdominal hernia surgery. Patient receiving treatment chronically for abdominal pain with Oxycodone. Impression: 1. Acute exacerbation of COPD 2. Acute bronchitis. 3. Hypertension 4. Myoclonic epilepsy. 5. Abdominal Hernia. Plan: 1. O2 3 litres via nasal canula. 2. Albuterol/atrovent aerosol treatments q 6 hours. 3. Increase solumedral 100mg I/V q 6 hours. 4. Continue I/V Levaquine. 5. Continue S/C Lovenox. 6.. Recommend PO protonix or famotadine. 7. If patients respiratory status gets worse, Recommend to place him on BIPAP. Patient does not like to wear CPAP or BIPAP. Patient PCO2 is compensated with HCO3, PH is 7.4..
[2017-11-05] MEDS ORDERED: NON-FORMULARY (Budesoni/Formotero 160-4.5(Nf) 2 PUFF) IH SCH (22:00)
[2017-11-05] MEDS: ATROVENT IH SCH (23:23)
[2017-11-06] MEDS: DUONEB *Not for PRN Use IH SCH ×4 (02:34→20:55)
[2017-11-06] MEDS: MORPHINE IV PRN ×2 (03:38→07:48)
[2017-11-06 06:42] LABS: Basophils % (Auto) 0.1 % (0.0-1.8); Hematocrit 37.1 % (35.5-45.6); Hemoglobin 12.6 gm/dl (11.8-15.2); Mean Corpuscular HGB Conc 34 % (32-34); Mean Corpuscular Hemoglobin 31 pg (28-32); Mean Corpuscular Volume 92 fl (84-94); Platelet Count 152 K/mm3 (140-440); Red Blood Count 4.02 M/mm3 (3.65-5.03); Red Cell Distribution Width 13.9 % (13.2-15.2); White Blood Count 8.3 K/mm3 (4.5-11.0)
[2017-11-06 07:08] LABS: Anion Gap 13 mmol/L; BUN/Creatinine Ratio 35; Blood Urea Nitrogen 14 mg/dL (9-20); Calcium 8.5 mg/dL (8.4-10.2); Carbon Dioxide 40 mmol/L (22-30); Chloride 91.1 mmol/L (98-107); Glucose 138 mg/dL (75-100); Potassium 4.4 mmol/L (3.6-5.0); Sodium 140 mmol/L (137-145)
[2017-11-06] MEDS: NEURONTIN PO SCH ×3 (07:48→21:45)
--- NOTE | 2017-11-06 08:59 | Progress Note ---
Assessment and Plan Assessment and plan: Patient is a 62 years old with past medical history of of COPD with 4L O2 dependence, hypertension, seizures, PE, and chronic myoclonic epilepsy, large abdominal hernia but not a surgical candidate and as such has been on chronic opioid therapy admitted with COPD exacerbation and Hypoxic Respiratory failure, worsening over 3-4 days with a recent mechanical fall and a noted productive cough with yellow phlegm and no evidence of sepsis. Acute on chronic respiratory failure with hypoxia * Patient oxygen saturation improved with 2LNC; currently SPO2 98%. No acute respiratory distress noted. Patient very labial, desats noted into the 80s with speaking * Aggressive Nebulizers/Inhalers * pulmonary consult noted, solumedrol increased to 100mg iv q6hrs * Supportive care Acute COPD exacerbation * Continue on Duoneb every 6 hours * as noted above * Continue empiric IV Levaquin, for possible underlying Acute bronchitis. SIRS secondary to COPD * As noted above * Supportive care Metabolic Alkalosis * Likely compensatory secondary to COPD Hypertensive urgency-Improved * Continue home antihypertensive medications Hyperlipidemia * Resume home antilipid agents Fall * S/P Mechanical fall * PT/OT. will benefit from home physical therapy * fall precautions and frequent neuro check Myoclonic epilepsy. * Continue current therapy Abdominal Hernia. * Continue symptomatic management Chronic opioid dependent therapy DVT prophylaxis * Lovenox Plan of care discussed with patient and family and also with Patient Service Representative. History Interval history: Patient seen and examined, continues to complain of abdominal pain, and also congestion. wants Dialudid for the pain, states is always worse when he has respiratory bout and he normally will be given 3 mg Dialudid. Still with productive cough but states improving. Hospitalist Physical - Physical exam Narrative exam: VITAL SIGNS: Reviewed. GENERAL: The patient appeared chronically ill-appearing still in mild respiratory distress improving.. Vital signs as documented. HEAD: No signs of head trauma. EYES: Pupils are equal. Extraocular motions intact. EARS: Hearing grossly intact. MOUTH: Oropharynx is normal. NECK: No adenopathy, no JVD. CHEST: Chest with diminished breath sounds bilaterally with noted expiratory wheeze. CARDIAC: Regular rate and rhythm. S1 and S2, without murmurs, gallops, or rubs. VASCULAR: Trace bilateral Edema. Peripheral pulses normal and equal in all extremities. ABDOMEN: Soft, without detectable tenderness. The stent was secondary to reducible hernia. Large. No rebound or guarding, and no masses palpated. Bowel Sounds normal. MUSCULOSKELETAL: Good range of motion of all major joints. Extremities without clubbing, cyanosis. Noted trace bilateral edema. NEUROLOGIC EXAM: Alert and oriented x 3. Gait not assessed as patient is chronically debilitated. No focal sensory or strength deficits. Speech normal. Follows commands. PSYCHIATRIC: Mood normal. SKIN: Age-appropriate skin changes.. - Constitutional Vitals: Temp Pulse Resp BP Pulse Ox 98.4 F 91 H 18 136/78 89 11/06/17 07:27 11/06/17 07:27 11/06/17 07:27 11/06/17 07:27 11/06/17 07:27 General appearance: Present: obese (morbid), other (moderated Respiratory distress) - EENT Eyes: Present: PERRL Results - Labs CBC & Chem 7: 11/06/17 06:10 11/06/17 06:10 Labs: Laboratory Last Values WBC 8.3 K/mm3 (4.5-11.0) 11/06/17 06:10 RBC 4.02 M/mm3 (3.65-5.03) 11/06/17 06:10 Hgb 12.6 gm/dl (11.8-15.2) 11/06/17 06:10 Hct 37.1 % (35.5-45.6) 11/06/17 06:10 MCV 92 fl (84-94) 11/06/17 06:10 MCH 31 pg (28-32) 11/06/17 06:10 MCHC 34 % (32-34) 11/06/17 06:10 RDW 13.9 % (13.2-15.2) 11/06/17 06:10 Plt Count 152 K/mm3 (140-440) 11/06/17 06:10 Lymph % (Auto) 9.1 % (13.4-35.0) L 11/06/17 06:10 [place] % (Auto) 6.6 % (0.0-7.3) 11/06/17 06:10 Eos % (Auto) 0.0 % (0.0-4.3) 11/06/17 06:10 Baso % (Auto) 0.1 % (0.0-1.8) 11/06/17 06:10 Lymph # 0.8 K/mm3 (1.2-5.4) L 11/06/17 06:10 [place] # 0.5 K/mm3 (0.0-0.8) 11/06/17 06:10 Eos # 0.0 K/mm3 (0.0-0.4) 11/06/17 06:10 Baso # 0.0 K/mm3 (0.0-0.1) 11/06/17 06:10 Seg Neutrophils % 84.2 % (40.0-70.0) H 11/06/17 06:10 Seg Neutrophils # 7.0 K/mm3 (1.8-7.7) 11/06/17 06:10 POC ABG pH 7.405 (7.35-7.45) 11/05/17 09:24 POC ABG pCO2 70.1 (35-45) H 11/05/17 09:24 POC ABG pO2 100 (80-105) 11/05/17 09:24 POC ABG HCO3 43.9 11/05/17 09:24 POC ABG Total CO2 46 11/05/17 09:24 POC ABG O2 Sat 97 11/05/17 09:24 POC ABG Base Excess 19 11/05/17 09:24 FiO2 40 % 11/05/17 09:24 Sodium 140 mmol/L (137-145) 11/06/17 06:10 Potassium 4.4 mmol/L (3.6-5.0) 11/06/17 06:10 Chloride 91.1 mmol/L (98-107) L 11/06/17 06:10 Carbon Dioxide 40 mmol/L (22-30) H 11/06/17 06:10 Anion Gap 13 mmol/L 11/06/17 06:10 BUN 14 mg/dL (9-20) 11/06/17 06:10 Creatinine 0.4 mg/dL (0.8-1.5) L 11/06/17 06:10 Estimated GFR > 60 ml/min 11/06/17 06:10 BUN/Creatinine Ratio 35 % 11/06/17 06:10 Glucose 138 mg/dL (75-100) H 11/06/17 06:10 Calcium 8.5 mg/dL (8.4-10.2) 11/06/17 06:10 Troponin T < 0.010 ng/mL (0.00-0.029) 11/05/17 07:19 - Imaging and Cardiology Chest x-ray: image reviewed
[2017-11-06] MEDS: THERAGRAN-M Tab PO SCH (09:08)
[2017-11-06] MEDS: BABY ASPIRIN PO SCH (09:08)
[2017-11-06] MEDS: NORVASC PO SCH (09:08)
[2017-11-06] MEDS: TOPROL XL PO SCH (09:08)
[2017-11-06] MEDS: FISH OIL PO SCH (09:08)
[2017-11-06] MEDS: LOVENOX SUB-Q SCH (09:10)
[2017-11-06] MEDS: MYSOLINE PO SCH ×4 (09:16→21:45)
[2017-11-06] MEDS: SPIRIVA IH SCH (09:17)
[2017-11-06] MEDS ORDERED: PROAIR IH PRN (09:37)
[2017-11-06] MEDS ORDERED: DILAUDID IV PRN (09:38)
[2017-11-06] MEDS ORDERED: NON-FORMULARY (Oxycodone Hcl [Oxycodone Tab] 10 MG) PO PRN (09:39)
[2017-11-06] MEDS ORDERED: NON-FORMULARY (Oxycodone Hcl [Oxycodone Tab] 10 MG) PO SCH (09:45)
[2017-11-06] MEDS ORDERED: TOPROL XL PO SCH (10:00)
[2017-11-06] MEDS ORDERED: ZITHROMAX 500 MG in NACL 0.9% 250ML 250 ML IV SCH (10:00)
[2017-11-06] MEDS ORDERED: NON-FORMULARY (Nebivolol Hcl [Bystolic] 10 MG) PO SCH (10:00)
[2017-11-06] MEDS ORDERED: NON-FORMULARY (Multivitamin [Multi-Vitamin Daily] 1 EACH) PO SCH (10:00)
[2017-11-06] MEDS ORDERED: THERAGRAN-M Tab PO SCH (10:00)
[2017-11-06] MEDS: ATROVENT IH SCH ×2 (12:27→20:59)
[2017-11-06] MEDS: ROXICODONE PO SCH ×3 (12:55→23:47)
[2017-11-06] MEDS: COLACE PO SCH ×2 (13:51→21:45)
[2017-11-06] MEDS: DILAUDID IV PRN ×2 (13:52→18:44)
[2017-11-06] MEDS: LEVAQUIN 750MG/150ML 750 MG/150 ML BAG IV SCH (18:45)
--- NOTE | 2017-11-06 19:29 | Progress Note ---
Assessment and Plan Patient still complaining cough and shortness of breath.Patient is on 5 litres O2. O2 saturation 93%. - Patient Problems (1) O2 dependent Current Visit: Yes Status: Acute Plan to address problem: O2 supplementation 5 litres. (2) COPD exacerbation Current Visit: No Status: Acute Plan to address problem: O2 supplementation Albuterol/atrovent aerosol treatments q 6 hours. Continue I/V solumedral Continue Lovenox Continue Levaquine. (3) Acute bronchitis Current Visit: No Status: Acute Plan to address problem: Patient is on Levaquine. (4) Myoclonic epilepsy Current Visit: Yes Status: Acute Plan to address problem: Patient is on myosoline. Management as per primary care and neurology. Subjective Date of service: 11/06/17 Interval history: Patient still complaining cough and shortness of breath.Patient is on 5 litres O2. O2 saturation 93%. Objective Vital Signs - 12hr 11/06/17 11/06/17 11/06/17 07:27 08:20 08:30 Temperature 98.4 F Pulse Rate 91 H Pulse Rate [ 102 H 99 H Anterior Bilateral Throughout] Respiratory 18 Rate Respiratory 20 20 Rate [Anterior Bilateral Throughout] Blood Pressure 136/78 O2 Sat by Pulse 89 93 Oximetry 11/06/17 11/06/17 11/06/17 09:08 14:16 14:26 Temperature Pulse Rate Pulse Rate [ 83 89 Anterior Bilateral Throughout] Respiratory Rate Respiratory 20 20 Rate [Anterior Bilateral Throughout] Blood Pressure 136/78 O2 Sat by Pulse Oximetry 11/06/17 15:55 Temperature 97.8 F Pulse Rate 98 H Pulse Rate [ Anterior Bilateral Throughout] Respiratory 18 Rate Respiratory Rate [Anterior Bilateral Throughout] Blood Pressure 151/72 O2 Sat by Pulse 85 Oximetry Constitutional: no acute distress, alert Eyes: non-icteric ENT: oropharynx moist Neck: supple, no lymphadenopathy Ascultation: Bilateral: diminished breath sounds Cardiovascular: regular rate and rhythm Gastrointestinal: normoactive bowel sounds, soft, non-tender Integumentary: normal Extremities: no cyanosis, edema Neurologic: normal mental status, non-focal exam, pupils equal and round, CN II- XII normal Psychiatric: mood appropriate CBC and BMP: 11/06/17 06:10 11/06/17 06:10 ABG, PT/INR, D-dimer: ABG POC ABG pH 7.405 (7.35-7.45) 11/05/17 09:24 POC ABG pCO2 70.1 (35-45) H 11/05/17 09:24 POC ABG pO2 100 (80-105) 11/05/17 09:24 POC ABG HCO3 43.9 11/05/17 09:24 POC ABG Total CO2 46 11/05/17 09:24 POC ABG O2 Sat 97 11/05/17 09:24 Abnormal lab findings: Abnormal Labs 11/05/17 11/05/17 11/05/17 07:19 07:19 09:24 Plt Count 128 L Lymph % (Auto) 5.4 L [place] % (Auto) 7.6 H Lymph # 0.6 L Seg Neutrophils % 86.7 H Seg Neutrophils # 9.1 H POC ABG pCO2 70.1 H Chloride 92.3 L Carbon Dioxide 38 H Creatinine 0.4 L Glucose 130 H 11/06/17 11/06/17 06:10 06:10 Plt Count Lymph % (Auto) 9.1 L [place] % (Auto) Lymph # 0.8 L Seg Neutrophils % 84.2 H Seg Neutrophils # POC ABG pCO2 Chloride 91.1 L Carbon Dioxide 40 H Creatinine 0.4 L Glucose 138 H Chest x-ray: report reviewed (Mild copd changes, No acute changes reported.), image reviewed
[2017-11-07] MEDS: DUONEB *Not for PRN Use IH SCH ×4 (02:22→20:23)
[2017-11-07] MEDS: ROXICODONE PO SCH ×3 (06:07→19:01)
[2017-11-07] MEDS ORDERED: HYDROMET PO PRN (09:27)
[2017-11-07] MEDS: LOVENOX SUB-Q SCH (09:52)
[2017-11-07] MEDS: NEURONTIN PO SCH ×3 (09:52→21:03)
[2017-11-07] MEDS: NORVASC PO SCH (09:52)
[2017-11-07] MEDS: LEVAQUIN PO SCH (09:53)
[2017-11-07] MEDS: THERAGRAN-M Tab PO SCH (09:53)
[2017-11-07] MEDS: BABY ASPIRIN PO SCH (09:53)
[2017-11-07] MEDS: MYSOLINE PO SCH ×4 (09:53→21:03)
[2017-11-07] MEDS: FISH OIL PO SCH (09:53)
[2017-11-07] MEDS: COLACE PO SCH ×2 (09:53→21:03)
[2017-11-07] MEDS: TOPROL XL PO SCH (09:54)
[2017-11-07] MEDS: DILAUDID IV PRN ×3 (10:05→21:03)
--- NOTE | 2017-11-07 10:37 | Consultation ---
CONSULTED BY: Jagdeep Vazquez M.D. DOUBLE CUT SAWYER: Gamal Pollard M.D. REASON FOR CONSULTATION Acute exacerbation of COPD, acute bronchitis. HISTORY OF PRESENT ILLNESS: Dr. Vazquez, thank you for asking me to participate in the care of this patient. This is a 62-year-old white male who is known to me, has a history of COPD on home O2. He was admitted through the Emergency Room with shortness of breath and productive yellow sputum. The patient has a history of COPD, hypertension, myoclonic epilepsy and history of PE. The patient denied chest pain at this time but is complaining of shortness of breath and cough. He denies any fever or chills. The patient has a large abdominal hernia, which the patient is a poor candidate for surgery. The patient is receiving treatment chronically for abdominal pain, the oxycodone. The patient also has history of recurrent pneumonias, but his chest x-ray reported no acute infiltrates. The patient has also history of smoking. He denies alcohol or drug abuse. ALLERGIES: The patient has no known drug allergies. PHYSICAL EXAMINATION: GENERAL: He is having a cough and shortness of breath, appears tired. VITAL SIGNS: Temperature is 98.7, pulse 96, respirations 20, and blood pressure 114/57, O2 saturation 87% on room air. HEENT: Pupils are equal and reactive. Extraocular muscles are intact. Throat, slight inflammation, no exudate. HEART: Regular rate and rhythm. LUNGS: Bilateral rhonchi, prolonged expiratory phase. ABDOMEN: Soft. Bowel sounds present. No CVA tenderness. MUSCULOSKELETAL: There is trace edema, no clubbing, no cyanosis, no calf tenderness. NEUROLOGICAL: DTRs are present. Babinski negative. No focal neurological deficits. LABORATORY DATA: The patient's CBC: WBC 10.5, hemoglobin 13.5, hematocrit 39.3, platelet count 128,000. ABGs: The pH 7.4, pCO2 of 70 and pO2 of 100 and bicarbonate 44, O2 saturation 97%. The patient's BMP: Sodium 142, potassium 3.9 and CO2 is 38 and BUN 10, creatinine 0.4. IMPRESSION: 1. Acute exacerbation of chronic obstructive pulmonary disease. 2. Acute bronchitis. 3. Hypertension. 4. Myoclonic epilepsy. 5. Abdominal hernia. PLAN: 1. O2 three liters via nasal cannula. 2. Albuterol and Atrovent aerosol treatments q. 6 hours. 3. Increase Solu-Medrol 100 mg IV q. 6 hours. 4. Continue Levaquin. 5. Continue subcutaneous Lovenox. 6. Recommended Protonix ____. 7. If the patient's respiratory status gets worse, recommend BiPAP. The patient does not like to wear CPAP or BiPAP, but if condition worse, I will talk to him and place him on BiPAP. The patient even though is retaining pCO2, but he is well compensated, his pH is 7.4 at this time. I want to thank Dr. Vazquez for this consultation. I will follow the patient with him. [facility]# [id number] RICH/ANAT
[2017-11-07] MEDS: ATROVENT IH SCH (11:14)
[2017-11-07] MEDS: SPIRIVA IH SCH (11:15)
--- NOTE | 2017-11-07 13:31 | Progress Note ---
Assessment and Plan Acute on Chronic Hypercapnic Hypoxemic Respiratory Failure Acute COPD exacerbation Obesity (Morbid; likely FILIPE) Seizure Disorder Acute Bronchitis - add brovana - taper systemic steroids - deploy qhs BIPAP as tolerated - complete empiric AB's - supplemental oxygen to keep O2 Sats >/= 90% - d/c planning for next 24-48hrs; if decompensation noted then LTAC evaluation ..36' Subjective Date of service: 11/07/17 Principal diagnosis: Acute on Chronic Hypoxemic Hypercapnic Resp Failure; AECOPD Interval history: Patient is seen today for: Acute on Chronic Hypoxemic Hypercapnic Resp Failure; AECOPD Seen and examined at bedside; 24hour events reviewed; nursing and respiratory care staff consulted; no adverse overnight events reported to me; resting peacefully in bed; denies acute chest pains or increased SOB; feels better overall; no N/V/F/C Objective Vital Signs - 12hr 11/07/17 11/07/17 11/07/17 08:07 08:47 08:48 Temperature 98.3 F Pulse Rate 88 Pulse Rate [ 93 H Anterior Bilateral Throughout] Respiratory 22 Rate Respiratory 18 Rate [Anterior Bilateral Throughout] Blood Pressure 156/87 O2 Sat by Pulse 89 91 Oximetry 11/07/17 11/07/17 09:52 09:54 Temperature Pulse Rate Pulse Rate [ Anterior Bilateral Throughout] Respiratory Rate Respiratory Rate [Anterior Bilateral Throughout] Blood Pressure 156/87 156/87 O2 Sat by Pulse Oximetry Constitutional: no acute distress, alert Eyes: non-icteric ENT: oropharynx moist Neck: supple, no lymphadenopathy, other (no thyromegaly) Effort: mildly labored Ascultation: Bilateral: diminished breath sounds Percussion: Bilateral: not dull Cardiovascular: regular rate and rhythm Gastrointestinal: normoactive bowel sounds, soft, non-tender, non-distended, other (No HSM) Integumentary: normal Extremities: no cyanosis, pink and warm, pulses normal, edema Neurologic: normal mental status, non-focal exam, pupils equal and round, CN II- XII normal, motor strength normal and Psychiatric: mood appropriate, affect normal CBC and BMP: 11/06/17 06:10 11/06/17 06:10 ABG, PT/INR, D-dimer: ABG POC ABG pH 7.405 (7.35-7.45) 11/05/17 09:24 POC ABG pCO2 70.1 (35-45) H 11/05/17 09:24 POC ABG pO2 100 (80-105) 11/05/17 09:24 POC ABG HCO3 43.9 11/05/17 09:24 POC ABG Total CO2 46 11/05/17 09:24 POC ABG O2 Sat 97 11/05/17 09:24 Abnormal lab findings: Abnormal Labs 11/05/17 11/05/17 11/05/17 07:19 07:19 09:24 Plt Count 128 L Lymph % (Auto) 5.4 L [place] % (Auto) 7.6 H Lymph # 0.6 L Seg Neutrophils % 86.7 H Seg Neutrophils # 9.1 H POC ABG pCO2 70.1 H Chloride 92.3 L Carbon Dioxide 38 H Creatinine 0.4 L Glucose 130 H 11/06/17 11/06/17 06:10 06:10 Plt Count Lymph % (Auto) 9.1 L [place] % (Auto) Lymph # 0.8 L Seg Neutrophils % 84.2 H Seg Neutrophils # POC ABG pCO2 Chloride 91.1 L Carbon Dioxide 40 H Creatinine 0.4 L Glucose 138 H Chest x-ray: image reviewed (chronic looking increased interstitial markings; no PTX)
--- NOTE | 2017-11-07 14:57 | Progress Note ---
Assessment and Plan Assessment and plan: Patient is a 62 years old with past medical history of of COPD with 4L O2 dependence, hypertension, seizures, PE, and chronic myoclonic epilepsy, large abdominal hernia but not a surgical candidate and as such has been on chronic opioid therapy admitted with COPD exacerbation and Hypoxic Respiratory failure, worsening over 3-4 days with a recent mechanical fall and a noted productive cough with yellow phlegm and no evidence of sepsis. Acute on chronic respiratory failure with hypoxia * Patient oxygen saturation improved with 2LNC; currently SPO2 98%. No acute respiratory distress noted. Patient very labial, still some SOB with speaking. * Aggressive Nebulizers/Inhalers * pulmonary consult noted, solumedrol increased to 100mg iv [id number] Taper if able. * Patient may benefit from [facility] care with gradual taper of solumedrol * Supportive care Acute COPD exacerbation * Continue on Duoneb every 6 hours * as noted above * Continue empiric IV Levaquin, for possible underlying Acute bronchitis. SIRS secondary to COPD * As noted above * Supportive care Metabolic Alkalosis * Likely compensatory secondary to COPD Hypertensive urgency-Improved * Continue home antihypertensive medications Hyperlipidemia * Resume home antilipid agents Fall * S/P Mechanical fall * PT/OT. will benefit from home physical therapy * fall precautions and frequent neuro check Myoclonic epilepsy. * Continue current therapy Abdominal Hernia. * Continue symptomatic management * Adjust pain control. advised nursing staff to ensure good BM and monitor for constipation Chronic opioid dependent therapy * Dialudid adjusted for better control. DVT prophylaxis * Lovenox Plan of care discussed with patient and family and also with Dye Colorist D[place]. Discussed with case management. On discharge patient will benefit from placement History Interval history: Patient seen and examined, continues to complain of abdominal pain despite dilaudid, states the cough makes it worse. he has not been started on chest PT. discussed with pulmonary. Denies fever, nausea, vomiting. reports some exercise with PT but not much. At baseline able to walk 10-15 feet then needs to catch his breath. Reports normal bowel movement Hospitalist Physical - Physical exam Narrative exam: VITAL SIGNS: Reviewed. GENERAL: The patient appeared chronically ill-appearing still in mild respiratory distress improving. Obese. Vital signs as documented. HEAD: No signs of head trauma. EYES: Pupils are equal. Extraocular motions intact. EARS: Hearing grossly intact. MOUTH: Oropharynx is normal. NECK: No adenopathy, no JVD. CHEST: Chest with diminished breath sounds bilaterally with noted expiratory wheeze. CARDIAC: Regular rate and rhythm. S1 and S2, without murmurs, gallops, or rubs. VASCULAR: Trace bilateral Edema. Peripheral pulses normal and equal in all extremities. ABDOMEN: Soft, without detectable tenderness. The stent was secondary to reducible hernia. Large. No rebound or guarding, and no masses palpated. Bowel Sounds normal. MUSCULOSKELETAL: Good range of motion of all major joints. Extremities without clubbing, cyanosis. Noted trace bilateral edema. NEUROLOGIC EXAM: Alert and oriented x 3. Gait not assessed as patient is chronically debilitated. No focal sensory or strength deficits. Speech normal. Follows commands. PSYCHIATRIC: Mood normal. SKIN: Age-appropriate skin changes.. - Constitutional Vitals: Temp Pulse Resp BP Pulse Ox 98.3 F 95 H 17 156/87 91 11/07/17 08:07 11/07/17 13:52 11/07/17 13:52 11/07/17 09:54 11/07/17 08:48 General appearance: Present: obese (morbid), other (moderated Respiratory distress) Results - Labs CBC & Chem 7: 11/06/17 06:10 11/06/17 06:10 Labs: Laboratory Last Values WBC 8.3 K/mm3 (4.5-11.0) 11/06/17 06:10 RBC 4.02 M/mm3 (3.65-5.03) 11/06/17 06:10 Hgb 12.6 gm/dl (11.8-15.2) 11/06/17 06:10 Hct 37.1 % (35.5-45.6) 11/06/17 06:10 MCV 92 fl (84-94) 11/06/17 06:10 MCH 31 pg (28-32) 11/06/17 06:10 MCHC 34 % (32-34) 11/06/17 06:10 RDW 13.9 % (13.2-15.2) 11/06/17 06:10 Plt Count 152 K/mm3 (140-440) 11/06/17 06:10 Lymph % (Auto) 9.1 % (13.4-35.0) L 11/06/17 06:10 [place] % (Auto) 6.6 % (0.0-7.3) 11/06/17 06:10 Eos % (Auto) 0.0 % (0.0-4.3) 11/06/17 06:10 Baso % (Auto) 0.1 % (0.0-1.8) 11/06/17 06:10 Lymph # 0.8 K/mm3 (1.2-5.4) L 11/06/17 06:10 [place] # 0.5 K/mm3 (0.0-0.8) 11/06/17 06:10 Eos # 0.0 K/mm3 (0.0-0.4) 11/06/17 06:10 Baso # 0.0 K/mm3 (0.0-0.1) 11/06/17 06:10 Seg Neutrophils % 84.2 % (40.0-70.0) H 11/06/17 06:10 Seg Neutrophils # 7.0 K/mm3 (1.8-7.7) 11/06/17 06:10 POC ABG pH 7.405 (7.35-7.45) 11/05/17 09:24 POC ABG pCO2 70.1 (35-45) H 11/05/17 09:24 POC ABG pO2 100 (80-105) 11/05/17 09:24 POC ABG HCO3 43.9 11/05/17 09:24 POC ABG Total CO2 46 11/05/17 09:24 POC ABG O2 Sat 97 11/05/17 09:24 POC ABG Base Excess 19 11/05/17 09:24 FiO2 40 % 11/05/17 09:24 Sodium 140 mmol/L (137-145) 11/06/17 06:10 Potassium 4.4 mmol/L (3.6-5.0) 11/06/17 06:10 Chloride 91.1 mmol/L (98-107) L 11/06/17 06:10 Carbon Dioxide 40 mmol/L (22-30) H 11/06/17 06:10 Anion Gap 13 mmol/L 11/06/17 06:10 BUN 14 mg/dL (9-20) 11/06/17 06:10 Creatinine 0.4 mg/dL (0.8-1.5) L 11/06/17 06:10 Estimated GFR > 60 ml/min 11/06/17 06:10 BUN/Creatinine Ratio 35 % 11/06/17 06:10 Glucose 138 mg/dL (75-100) H 11/06/17 06:10 Calcium 8.5 mg/dL (8.4-10.2) 11/06/17 06:10 Troponin T < 0.010 ng/mL (0.00-0.029) 11/05/17 07:19
[2017-11-07] MEDS: PULMICORT IH SCH (20:23)
[2017-11-07] MEDS: BROVANA NEBU IH SCH (20:23)
[2017-11-08] MEDS: ROXICODONE PO SCH ×4 (01:10→17:49)
[2017-11-08] MEDS: DUONEB *Not for PRN Use IH SCH ×4 (02:45→20:35)
[2017-11-08] MEDS: DILAUDID IV PRN ×3 (04:59→20:39)
[2017-11-08] MEDS: PULMICORT IH SCH ×2 (07:45→20:35)
[2017-11-08] MEDS: BROVANA NEBU IH SCH ×2 (07:46→20:35)
--- NOTE | 2017-11-08 08:20 | Progress Note ---
Assessment and Plan Assessment and plan: Patient is a 62 years old with past medical history of of COPD with 4L O2 dependence, hypertension, seizures, PE, and chronic myoclonic epilepsy, large abdominal hernia but not a surgical candidate and as such has been on chronic opioid therapy admitted with COPD exacerbation and Hypoxic Respiratory failure, worsening over 3-4 days with a recent mechanical fall and a noted productive cough with yellow phlegm and no evidence of sepsis. Acute on chronic respiratory failure with hypoxia * Patient oxygen saturation improved with 2LNC; currently SPO2 98%. No acute respiratory distress noted. P * Aggressive Nebulizers/Inhalers * pulmonary consult noted, solumedrol Tapered to 60mg BID * Elevated D.DIMER, Agree with dopper lower ext, will add CT Angio chest. * Patient may benefit from [facility] care If not improving with gradual taper of solumedrol * Brovana added * Supportive care * Continue chest PT Acute COPD exacerbation * Continue on Duoneb every 6 hours * as noted above * Continue empiric IV Levaquin, for possible underlying Acute bronchitis. SIRS secondary to COPD * As noted above * Supportive care Metabolic Alkalosis * Likely compensatory secondary to COPD Hypertensive urgency-Improved * Continue home antihypertensive medications Hyperlipidemia * Resume home anti lipid agents Fall * S/P Mechanical fall * PT/OT. will benefit from home physical therapy * fall precautions and frequent neuro check Myoclonic epilepsy. * Continue current therapy Abdominal Hernia. * Continue symptomatic management * Adjust pain control. advised nursing staff to ensure good BM and monitor for constipation Chronic opioid dependent therapy * Dialudid adjusted for better control.This needs close monitoring considering possible FILIPE Morbid obesity * BMI 36.6. 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 Discussed with case management. On discharge patient will benefit from placement Anticipate discharge in AM to SNF for Rehabilitation History Interval history: Patient seen and examined, reports some improvement with the cough and shortness of breath close to baseline. still ambulating with PT but will need some rehab. Hospitalist Physical - Physical exam Narrative exam: VITAL SIGNS: Reviewed. GENERAL: The patient appeared chronically ill-appearing still in mild respiratory distress improving. Obese. Vital signs as documented. HEAD: No signs of head trauma. EYES: Pupils are equal. Extraocular motions intact. EARS: Hearing grossly intact. MOUTH: Oropharynx is normal. NECK: No adenopathy, no JVD. CHEST: Chest with diminished breath sounds bilaterally with noted expiratory wheeze. CARDIAC: Regular rate and rhythm. S1 and S2, without murmurs, gallops, or rubs. VASCULAR: Trace bilateral Edema. Peripheral pulses normal and equal in all extremities. ABDOMEN: Soft, without detectable tenderness. The stent was secondary to reducible hernia. Large. No rebound or guarding, and no masses palpated. Bowel Sounds normal. MUSCULOSKELETAL: Good range of motion of all major joints. Extremities without clubbing, cyanosis. Noted trace bilateral edema. NEUROLOGIC EXAM: Alert and oriented x 3. Gait not assessed as patient is chronically debilitated. No focal sensory or strength deficits. Speech normal. Follows commands. PSYCHIATRIC: Mood normal. SKIN: Age-appropriate skin changes.. - Constitutional Vitals: Temp Pulse Resp BP Pulse Ox 97.8 F 76 18 146/77 89 11/08/17 04:34 11/08/17 04:34 11/08/17 04:34 11/08/17 04:34 11/08/17 04:34 General appearance: Present: obese (morbid), other (moderated Respiratory distress) Results - Labs CBC & Chem 7: 11/06/17 06:10 11/06/17 06:10 Labs: Laboratory Last Values WBC 8.3 K/mm3 (4.5-11.0) 11/06/17 06:10 RBC 4.02 M/mm3 (3.65-5.03) 11/06/17 06:10 Hgb 12.6 gm/dl (11.8-15.2) 11/06/17 06:10 Hct 37.1 % (35.5-45.6) 11/06/17 06:10 MCV 92 fl (84-94) 11/06/17 06:10 MCH 31 pg (28-32) 11/06/17 06:10 MCHC 34 % (32-34) 11/06/17 06:10 RDW 13.9 % (13.2-15.2) 11/06/17 06:10 Plt Count 152 K/mm3 (140-440) 11/06/17 06:10 Lymph % (Auto) 9.1 % (13.4-35.0) L 11/06/17 06:10 [place] % (Auto) 6.6 % (0.0-7.3) 11/06/17 06:10 Eos % (Auto) 0.0 % (0.0-4.3) 11/06/17 06:10 Baso % (Auto) 0.1 % (0.0-1.8) 11/06/17 06:10 Lymph # 0.8 K/mm3 (1.2-5.4) L 11/06/17 06:10 [place] # 0.5 K/mm3 (0.0-0.8) 11/06/17 06:10 Eos # 0.0 K/mm3 (0.0-0.4) 11/06/17 06:10 Baso # 0.0 K/mm3 (0.0-0.1) 11/06/17 06:10 Seg Neutrophils % 84.2 % (40.0-70.0) H 11/06/17 06:10 Seg Neutrophils # 7.0 K/mm3 (1.8-7.7) 11/06/17 06:10 D-Dimer 539.92 ng/mlDDU (0-234) H 11/07/17 19:36 POC ABG pH 7.405 (7.35-7.45) 11/05/17 09:24 POC ABG pCO2 70.1 (35-45) H 11/05/17 09:24 POC ABG pO2 100 (80-105) 11/05/17 09:24 POC ABG HCO3 43.9 11/05/17 09:24 POC ABG Total CO2 46 11/05/17 09:24 POC ABG O2 Sat 97 11/05/17 09:24 POC ABG Base Excess 19 11/05/17 09:24 FiO2 40 % 11/05/17 09:24 Sodium 140 mmol/L (137-145) 11/06/17 06:10 Potassium 4.4 mmol/L (3.6-5.0) 11/06/17 06:10 Chloride 91.1 mmol/L (98-107) L 11/06/17 06:10 Carbon Dioxide 40 mmol/L (22-30) H 11/06/17 06:10 Anion Gap 13 mmol/L 11/06/17 06:10 BUN 14 mg/dL (9-20) 11/06/17 06:10 Creatinine 0.4 mg/dL (0.8-1.5) L 11/06/17 06:10 Estimated GFR > 60 ml/min 11/06/17 06:10 BUN/Creatinine Ratio 35 % 11/06/17 06:10 Glucose 138 mg/dL (75-100) H 11/06/17 06:10 Calcium 8.5 mg/dL (8.4-10.2) 11/06/17 06:10 Troponin T < 0.010 ng/mL (0.00-0.029) 11/05/17 07:19
[2017-11-08] MEDS ORDERED: VITAMIN D2 PO SCH (10:00)
[2017-11-08] MEDS: NEURONTIN PO SCH ×3 (11:14→20:39)
--- NOTE | 2017-11-08 11:27 | Cat Scan Report ---
CT angiography of the chest including 3-D reconstructed images. History: Chest pain. Findings: There is no evidence of pulmonary embolus. There is bilateral hilar adenopathy, worse on the right with the largest node in the right infrahilar region where there is secondary right lower lobe atelectasis. This node/mass measures 2.9 cm in diameter. Scattered areas of mediastinal adenopathy are also noted, most pronounced in the left para-aortic region. Prominent interstitial markings are present bilaterally. An isolated subcentimeter soft tissue density in the right upper lobe laterally appears somewhat elongated and may represent an interlobar fissure. This probably was present on the previous study in 2015. Impression: 1. No evidence of pulmonary emboli. 2. Bilateral hilar and mediastinal adenopathy. Subsegmental atelectasis is seen in the right lower lobe. These findings are nonspecific, but a neoplastic process cannot be excluded.
[2017-11-08] MEDS: LOVENOX SUB-Q SCH (13:06)
[2017-11-08] MEDS: NORVASC PO SCH (13:07)
[2017-11-08] MEDS: COLACE PO SCH ×2 (13:07→21:38)
[2017-11-08] MEDS: LEVAQUIN PO SCH (13:07)
[2017-11-08] MEDS: FISH OIL PO SCH (13:08)
[2017-11-08] MEDS: BABY ASPIRIN PO SCH (13:08)
[2017-11-08] MEDS: THERAGRAN-M Tab PO SCH (13:08)
[2017-11-08] MEDS: MYSOLINE PO SCH ×4 (13:10→21:38)
[2017-11-08] MEDS: TOPROL XL PO SCH (13:10)
--- NOTE | 2017-11-08 14:32 | Discharge Summary ---
Providers - Providers Date of Admission: 11/05/17 10:53 Attending physician: BARON CHAPARRO MD 11/05/17 11:10 Consult to Physician [CONS] Routine Consulting Provider: KYREE WALKER Reason For Exam: respiratory distress Place consult to:: PULM Notified:: Y If yes, spoke with:: [facility] OFFICE Time called:: 11:50 11/05/17 21:47 Physical Therapy Evaluation and Treat [CONS] Routine Comment: Reason For Exam: debility 11/06/17 10:42 Occupational Therapy Evaluate and Treat [CONS] Routine Comment: Reason For Exam: deconditioning Primary care physician: ANTHONY PANDA MD Hospitalization Reason for admission: copd exacerbation Condition: Stable Hospital course: Patient is a 62 years old with past medical history of of COPD with 4L O2 dependence, hypertension, seizures, PE, and chronic myoclonic epilepsy, large abdominal hernia but not a surgical candidate and as such has been on chronic opioid therapy admitted with COPD exacerbation and Hypoxic Respiratory failure, worsening over 3-4 days with a recent mechanical fall and a noted productive cough with yellow phlegm and no evidence of sepsis. patient was seen by pulmonary was started on aggressive pulmonary toilet and also evaluated by his Bag Loader and treated with IV steroids and with prolonged taper. No evidence of sepsis was noted. the patient has chronic hypoxia and understands his lungs condition are very endstaged. He was seen by physical therapy and rehab was recommended. patient was not thrilled about LTAC but wanted to try [facility] first. Pain control was achieved and he will return to his regular dose of pain meds with bowel regimen and continue pulmonary follow up. We also recommeded a sleep study outpatient to be arranged by PCP. Acute on chronic respiratory failure with hypoxia Acute COPD exacerbation SIRS secondary to COPD Metabolic Alkalosis Hypertensive urgency-Improved Hyperlipidemia Fall Myoclonic epilepsy. ABdominal Hernia. Chronic opioid dependent therapy Morbid obesity Disposition: DC/[place]-03 SNF [facility] Time spent for discharge: 35 mins Core Measure Documentation - Palliative Care Palliative Care/ Comfort Measures: Not Applicable - Core Measures Any of the following diagnoses?: none - VTE Discharge Requirements Deep Vein Thrombosis/Pulmonary Embolism Present on Admission: No Exam - Physical Exam Narrative exam: VITAL SIGNS: Reviewed. GENERAL: The patient appeared chronically ill-appearing still in mild respiratory distress improving. Obese. Vital signs as documented. HEAD: No signs of head trauma. EYES: Pupils are equal. Extraocular motions intact. EARS: Hearing grossly intact. MOUTH: Oropharynx is normal. NECK: No adenopathy, no JVD. CHEST: Chest with diminished breath sounds bilaterally with noted expiratory wheeze. CARDIAC: Regular rate and rhythm. S1 and S2, without murmurs, gallops, or rubs. VASCULAR: Trace bilateral Edema. Peripheral pulses normal and equal in all extremities. ABDOMEN: Soft, without detectable tenderness. The stent was secondary to reducible hernia. Large. No rebound or guarding, and no masses palpated. Bowel Sounds normal. MUSCULOSKELETAL: Good range of motion of all major joints. Extremities without clubbing, cyanosis. Noted trace bilateral edema. NEUROLOGIC EXAM: Alert and oriented x 3. Gait not assessed as patient is chronically debilitated. No focal sensory or strength deficits. Speech normal. Follows commands. PSYCHIATRIC: Mood normal. SKIN: Age-appropriate skin changes.. - Constitutional Vitals: Temp Pulse Resp BP Pulse Ox 97.8 F 102 H 20 116/71 90 11/08/17 04:34 11/08/17 07:55 11/08/17 07:55 11/08/17 13:10 11/08/17 07:45 Plan Activity: advance as tolerated, fall precautions Diet: low fat Special Instructions: record daily weights, record daily BP diary, record blood sugar diary Follow up with: ANTHONY PANDA MD [Primary Care Provider] - 7 Days KYREE WALKER MD [Staff Physician] - 7 Days Prescriptions: Fluticasone/Salmeterol [Advair Diskus 250-50 mcg] 1 puff IH BID 30 Days disk.w.dev HYDROcodone/HOMATROP 5-1.5 [HYDROcodone-Homatropin 5-1.5 mg per 5 ML] 10 ml PO Q6H PRN #14 udc PRN Reason: Cough Ipratropium/Albuterol Sulfate [DUONEB *Not for PRN Use*] 1 ampul IH Q6HRT #30 ampul.neb Prednisone [predniSONE 10 mg (6-Day Pack, 21 Tabs)] 10 mg PO .TAPER #1 tab.ds.pk
--- NOTE | 2017-11-08 17:23 | Progress Note ---
Assessment and Plan Patient is a 62 years old with past medical history of of COPD with 4L O2 dependence, hypertension, seizures, PE, and chronic myoclonic epilepsy, large abdominal hernia but not a surgical candidate and as such has been on chronic opioid therapy admitted with COPD exacerbation and Hypoxic Respiratory failure, worsening over 3-4 days with a recent mechanical fall and a noted productive cough with yellow phlegm and no evidence of sepsis. Acute on chronic respiratory failure with hypoxia AE-COPD exacerbation FILIPE with OHS Hypertensive urgency-Improved Chronic opioid dependent therapy Morbid obesity Seizure disorder Debility/deconditioning - taper systemic steroids - BIPAP QHS - complete empiric AB's - supplemental oxygen to keep O2 Sats >/= 88% -weight loss and lifestyle modifications - Oxygen safety discussed -may need intermediate level care prior to home. -Out patient pulmonary follow up, will need 2Dechocardiogram to evaluate for pulmonary HTN Discharge planning per primary service. Subjective Date of service: 11/08/17 Principal diagnosis: Acute on Chronic Hypoxemic Hypercapnic Resp Failure; AECOPD Interval history: Patient is seen today for: Acute on Chronic Hypoxemic Hypercapnic Resp Failure; AECOPD Seen and examined at bedside; 24hour events reviewed; nursing and respiratory care staff consulted; no adverse overnight events reported to me; resting peacefully in bed; denies acute chest pains or increased SOB; feels better overall; no N/V/F/C Patient seen and examined. vitals, labs, medications, chart reviewed. States he is feeling much better. Was able to stand with PT today. Baseline shortness of breath, no fevers or chills. Denies any abdominal pain. Appetite is good. Objective - Exam Narrative Exam: VITAL SIGNS: Reviewed. GENERAL: The patient appeared chronically ill-appearing still in mild respiratory distress improving. Obese. Vital signs as documented. HEAD: No signs of head trauma. EYES: Pupils are equal. Extraocular motions intact. EARS: Hearing grossly intact. MOUTH: Oropharynx is normal. NECK: No adenopathy, no JVD. CHEST: Chest with diminished breath sounds bilaterally with noted expiratory wheeze. CARDIAC: Regular rate and rhythm. S1 and S2, without murmurs, gallops, or rubs. VASCULAR: Trace bilateral Edema. Peripheral pulses normal and equal in all extremities. ABDOMEN: Soft, without detectable tenderness. The stent was secondary to reducible hernia. Large. No rebound or guarding, and no masses palpated. Bowel Sounds normal. MUSCULOSKELETAL: Good range of motion of all major joints. Extremities without clubbing, cyanosis. Noted trace bilateral edema. NEUROLOGIC EXAM: Alert and oriented x 3. Gait not assessed as patient is chronically debilitated. No focal sensory or strength deficits. Speech normal. Follows commands. PSYCHIATRIC: Mood normal. SKIN: Age-appropriate skin changes.. Vital Signs - 12hr 11/08/17 11/08/17 11/08/17 07:45 07:55 13:07 Temperature 99.0 F Pulse Rate Pulse Rate [ 77 102 H Anterior Bilateral Throughout] Respiratory Rate Respiratory 20 20 Rate [Anterior Bilateral Throughout] Blood Pressure 116/71 O2 Sat by Pulse 90 Oximetry 11/08/17 11/08/17 11/08/17 13:10 14:30 14:40 Temperature Pulse Rate Pulse Rate [ 111 H 113 H Anterior Bilateral Throughout] Respiratory Rate Respiratory 20 20 Rate [Anterior Bilateral Throughout] Blood Pressure 116/71 O2 Sat by Pulse Oximetry 11/08/17 16:52 Temperature 98.6 F Pulse Rate 95 H Pulse Rate [ Anterior Bilateral Throughout] Respiratory 22 Rate Respiratory Rate [Anterior Bilateral Throughout] Blood Pressure 155/69 O2 Sat by Pulse 87 Oximetry Constitutional: no acute distress, alert Eyes: non-icteric ENT: oropharynx moist Neck: supple, no lymphadenopathy, other (no thyromegaly) Effort: mildly labored Ascultation: Bilateral: diminished breath sounds Percussion: Bilateral: not dull Cardiovascular: regular rate and rhythm Gastrointestinal: normoactive bowel sounds, soft, non-tender, non-distended, other (No HSM) Integumentary: normal Extremities: no cyanosis, pink and warm, pulses normal, edema Neurologic: normal mental status, non-focal exam, pupils equal and round, CN II- XII normal, motor strength normal and Psychiatric: mood appropriate, affect normal CBC and BMP: 11/06/17 06:10 11/06/17 06:10 ABG, PT/INR, D-dimer: ABG POC ABG pH 7.405 (7.35-7.45) 11/05/17 09:24 POC ABG pCO2 70.1 (35-45) H 11/05/17 09:24 POC ABG pO2 100 (80-105) 11/05/17 09:24 POC ABG HCO3 43.9 11/05/17 09:24 POC ABG Total CO2 46 11/05/17 09:24 POC ABG O2 Sat 97 11/05/17 09:24 PT/INR, D-dimer D-Dimer 539.92 ng/mlDDU (0-234) H 11/07/17 19:36 Abnormal lab findings: Abnormal Labs 11/05/17 11/05/17 11/05/17 07:19 07:19 09:24 Plt Count 128 L Lymph % (Auto) 5.4 L [place] % (Auto) 7.6 H Lymph # 0.6 L Seg Neutrophils % 86.7 H Seg Neutrophils # 9.1 H D-Dimer POC ABG pCO2 70.1 H Chloride 92.3 L Carbon Dioxide 38 H Creatinine 0.4 L Glucose 130 H 11/06/17 11/06/17 11/07/17 06:10 06:10 19:36 Plt Count Lymph % (Auto) 9.1 L [place] % (Auto) Lymph # 0.8 L Seg Neutrophils % 84.2 H Seg Neutrophils # D-Dimer 539.92 H POC ABG pCO2 Chloride 91.1 L Carbon Dioxide 40 H Creatinine 0.4 L Glucose 138 H
[2017-11-08] MEDS ORDERED: CEPHULAC PO ONE (20:00)
[2017-11-09] MEDS: DUONEB *Not for PRN Use IH SCH ×3 (02:20→13:34)
[2017-11-09] MEDS: DILAUDID IV PRN ×2 (03:05→08:23)
[2017-11-09] MEDS: ROXICODONE PO SCH ×3 (06:14→12:26)
[2017-11-09 07:52] VITALS: BP 144/77
[2017-11-09] MEDS: BROVANA NEBU IH SCH (08:01)
[2017-11-09] MEDS: PULMICORT IH SCH (08:01)
[2017-11-09] MEDS: NEURONTIN PO SCH (08:14)
[2017-11-09] MEDS: COLACE PO SCH (09:16)
[2017-11-09] MEDS: MYSOLINE PO SCH (09:17)
[2017-11-09] MEDS: FISH OIL PO SCH (09:17)
[2017-11-09] MEDS: LOVENOX SUB-Q SCH (09:17)
[2017-11-09] MEDS: NORVASC PO SCH (09:19)
[2017-11-09] MEDS: TOPROL XL PO SCH (09:19)
[2017-11-09] MEDS: THERAGRAN-M Tab PO SCH (09:20)
[2017-11-09] MEDS: BABY ASPIRIN PO SCH (09:20)
[2017-11-09] MEDS: LEVAQUIN PO SCH (09:20)
[2017-11-12] MEDS ORDERED: CHOLECALCIFEROL 50000 UNIT PO SCH (10:00)
== END 2017-11-09 13:00 | DRG 189 ==
LOC: ED 05:17 → 3A 10:53
PROVIDERS: ADMIT Internal Medicine; ATTEND Internal Medicine
PROC: 4A033R1 Measurement of Arterial Saturation, Peripheral, Percutaneous Approach (ICD-10-PCS; principal; 2017-11-05)
DX: J96.21 Acute and chronic respiratory failure with hypoxia (principal); J44.1 Chronic obstructive pulmonary disease with (acute) exacerbation; R65.10 Systemic inflammatory response syndrome (SIRS) of non-infectious origin without acute organ dysfunction; E87.3 Alkalosis; F11.20 Opioid dependence, uncomplicated; J44.0 Chronic obstructive pulmonary disease with (acute) lower respiratory infection; J96.22 Acute and chronic respiratory failure with hypercapnia; I16.0 Hypertensive urgency; E78.5 Hyperlipidemia, unspecified; K46.9 Unspecified abdominal hernia without obstruction or gangrene; G40.409 Other generalized epilepsy and epileptic syndromes, not intractable, without status epilepticus; I10 Essential (primary) hypertension; J20.9 Acute bronchitis, unspecified; E66.01 Morbid (severe) obesity due to excess calories; D69.6 Thrombocytopenia, unspecified; G47.33 Obstructive sleep apnea (adult) (pediatric); Z99.81 Dependence on supplemental oxygen; Z86.711 Personal history of pulmonary embolism; Z68.36 Body mass index [BMI] 36.0-36.9, adult; Z79.899 Other long term (current) drug therapy; Z87.01 Personal history of pneumonia (recurrent)
CPT/HCPCS: 36415; 36600; 71010; 71020; 71275; 80048; 82140; 82803; 84484; 85007; 85025; 85027; 85379; 87040; 87076; 87186; 93005; 93010; 93970; 94640; 94669; 94760; 96365; 96367; 96375; 96376; A9270-GY; G8987-GO; G8988-GO; J0456; J1170; J1650; J1956; J2270; J2405; J2920; J2930; J3370; J3475; J7040; J7050; Q9967

== ENCOUNTER 2017-11-09 17:40 | Inpatient (IN) | payer MEDICARE ==
[2017-11-09 18:35] LABS: Hematocrit 41.5 % (35.5-45.6); Mean Corpuscular HGB Conc 34 % (32-34); Mean Corpuscular Hemoglobin 30 pg (28-32); Mean Corpuscular Volume 90 fl (84-94); Platelet Count 201 K/mm3 (140-440); Red Cell Distribution Width 14.1 % (13.2-15.2); White Blood Count 9.5 K/mm3 (4.5-11.0)
[2017-11-09 18:52] LABS: Anion Gap 14 mmol/L; BUN/Creatinine Ratio 25; Blood Urea Nitrogen 10 mg/dL (9-20); Calcium 8.7 mg/dL (8.4-10.2); Carbon Dioxide 39 mmol/L (22-30); Chloride 90.5 mmol/L (98-107); Glucose 99 mg/dL (75-100); Potassium 3.9 mmol/L (3.6-5.0); Sodium 140 mmol/L (137-145)
[2017-11-09 19:17] LABS: Basophils % (Manual) 0 % (0.0-1.8); Blastocytes % (Manual) 0 %
[2017-11-09 19:18] LABS: Anisocytosis 1+; Diff Status Complete
[2017-11-09] MEDS ORDERED: ATROVENT IH ONE (19:29)
[2017-11-09] MEDS ORDERED: PROVENTIL IH ONE (19:29)
--- NOTE | 2017-11-09 19:34 | XRay Report ---
FINAL REPORT PROCEDURE: XR CHEST 1V AP TECHNIQUE: Chest radiograph anteroposterior view. CPT 21487 HISTORY: shortness of breath COMPARISON: No prior studies are available for comparison. FINDINGS: The heart is magnified due to projection probably upper normal size. The pulmonary vasculature is not distended. Interstitial markings are mildly coarsened suggesting mild fibrosis. There is small amount of patchy and linear density in the right base suggesting a small amount of atelectasis. Subsegmental infiltrate needs clinical exclusion. No acute bony abnormalities are identified. IMPRESSION: Heart size upper normal. Mild fibrosis suspected. Mild increased density right lung base suggests a small amount of atelectasis. Subsegmental infiltrate needs clinical exclusion..
--- NOTE | 2017-11-09 21:13 | Emergency Department Report ---
ED General Adult HPI - General Chief complaint: Chest Pain Stated complaint: SPITTING UP BLOOD Time Seen by Provider: 11/09/17 18:36 Source: patient Mode of arrival: Stretcher Limitations: No Limitations - History of Present Illness Initial comments: History of present illness this is a patient who was just discharged from the hospitalist service also consult by the core blower operator Dr. Kathy harden Patient was sent to rehabilitation he was admitted in this last admission for COPD for his chronic lung problems he ended up being discharged on steroids and pulmonary therapy and he was having difficulty ambulating at Center so they placed him in rehabilitation. He presented back today after the took him out of rehabilitation she was unhappy with rehabilitation after he coughed up some blood, denies cp at present, has chronic cp related to copd, no fever, no wt loss, no chills, no exposure tb, just coughed some blood and concerned him, no cp at present Severity scale (0 -10): 0 Associated Symptoms: denies other symptoms - Related Data Home Medications Medication Instructions Recorded Confirmed Last Taken Albuterol Sulfate [Ventolin HFA] 2 puff IH Q4H PRN 11/08/14 11/05/17 11/04/17 Aspirin [Aspirin BABY CHEW TAB] 81 mg PO QDAY 11/08/14 11/05/17 11/04/17 Budesoni/Formotero 160-4.5(Nf) 2 puff IH BID 11/08/14 11/05/17 04/25/17 [Symbicort 160-4.5 (Nf)] Cholecalciferol (Vitamin D3) 50,000 unit PO QWEEK 11/08/14 11/05/17 11/07/14 [Vitamin D3] Divalproex [Delmar Mon] 500 mg PO DAILY 11/08/14 11/05/17 11/04/17 Gabapentin 300 mg PO TID 11/08/14 11/05/17 11/04/17 Ipratropium [Atrovent NEB] 0.5 mg IH BID 11/08/14 11/05/17 04/25/17 Multivitamin [Multi-Vitamin Daily] 1 each PO DAILY 11/08/14 11/05/17 11/04/17 Nebivolol HCl [Bystolic] 10 mg PO QDAY 11/08/14 11/05/17 11/04/17 [place]-3 Fatty Acids/Fish Oil [Fish 1 each PO DAILY 11/08/14 11/05/17 11/04/17 Oil] Primidone [Mysoline] 250 mg PO QID 11/08/14 11/05/17 11/04/17 Tiotropium [Spiriva] 2 puff IH QDAY 11/08/14 11/05/17 11/04/17 amLODIPine [Norvasc] 5 mg PO DAILY 11/08/14 11/05/17 11/04/17 AtorvaSTATin [Lipitor] 40 mg PO QHS 04/26/17 11/05/17 11/04/17 Oxycodone HCl [oxyCODONE TAB] 10 mg PO Q6H PRN 04/26/17 11/05/17 11/04/17 Previous Rx's Medication Instructions Recorded Last Taken Type Docusate Sodium [Colace CAP] 100 mg PO BID #60 capsule 04/30/17 Unknown Rx Levofloxacin [Levaquin TAB] 750 mg PO QDAY #3 tablet 04/30/17 Unknown Rx Multivitamin Tab W-MINERAL 1 each PO QDAY #30 tablet 04/30/17 11/04/17 Rx [Multiple Vitamin/Mineral (Theragran M)] Fluticasone/Salmeterol [Advair 1 puff IH BID 30 Days disk.w.dev 11/08/17 Unknown Rx Diskus 250-50 mcg] HYDROcodone/HOMATROP 5-1.5 10 ml PO Q6H PRN #14 udc 11/08/17 Unknown Rx [HYDROcodone-Homatropin 5-1.5 mg per 5 ML] Ipratropium/Albuterol Sulfate 1 ampul IH Q6HRT #30 ampul.neb 11/08/17 Unknown Rx [DUONEB *Not for PRN Use*] Prednisone [predniSONE 10 mg 10 mg PO .TAPER #1 tab.ds.pk 11/08/17 Unknown Rx (6-Day Pack, 21 Tabs)] Allergies Allergy/AdvReac Type Severity Reaction Status Date / Time No Known Allergies Allergy Verified 11/05/17 05:58 ED Review of Systems ROS: Stated complaint: SPITTING UP BLOOD Other details as noted in HPI Comment: All other systems reviewed and negative Constitutional: no symptoms reported. denies: fever, malaise ENT: denies: throat pain, dental pain, epistaxis Respiratory: denies: shortness of breath, SOB with exertion, stridor Cardiovascular: edema. denies: chest pain, palpitations, dyspnea on exertion, orthopnea, syncope Gastrointestinal: denies: diarrhea, constipation, hematemesis, hematochezia ED Past Medical Hx - Past Medical History Hx Hypertension: Yes Hx Congestive Heart Failure: No Hx Diabetes: No Hx Pulmonary Embolism: Yes Hx Sickle Cell Disease: Yes (essential tremors, bi-clonic epileptic seizures) Hx Seizures: Yes (myoclonic epilepsy) Hx Asthma: No Hx COPD: Yes Additional medical history: essential tremor - Surgical History Hx Appendectomy: Yes Additional Surgical History: hernia, multiple abdominal surgeries - Social History Smoking Status: Never Smoker Substance Use Type: None - Medications Home Medications: Home Medications Medication Instructions Recorded Confirmed Last Taken Type Albuterol Sulfate [Ventolin HFA] 2 puff IH Q4H PRN 11/08/14 11/05/17 11/04/17 History Aspirin [Aspirin BABY CHEW TAB] 81 mg PO QDAY 11/08/14 11/05/17 11/04/17 History Budesoni/Formotero 160-4.5(Nf) 2 puff IH BID 11/08/14 11/05/17 04/25/17 History [Symbicort 160-4.5 (Nf)] Cholecalciferol (Vitamin D3) 50,000 unit PO QWEEK 11/08/14 11/05/17 11/07/14 History [Vitamin D3] Divalproex [Delmar Mon] 500 mg PO DAILY 11/08/14 11/05/17 11/04/17 History Gabapentin 300 mg PO TID 11/08/14 11/05/17 11/04/17 History Ipratropium [Atrovent NEB] 0.5 mg IH BID 11/08/14 11/05/17 04/25/17 History Multivitamin [Multi-Vitamin Daily] 1 each PO DAILY 11/08/14 11/05/17 11/04/17 History Nebivolol HCl [Bystolic] 10 mg PO QDAY 11/08/14 11/05/17 11/04/17 History [place]-3 Fatty Acids/Fish Oil [Fish 1 each PO DAILY 11/08/14 11/05/17 11/04/17 History Oil] Primidone [Mysoline] 250 mg PO QID 11/08/14 11/05/17 11/04/17 History Tiotropium [Spiriva] 2 puff IH QDAY 11/08/14 11/05/17 11/04/17 History amLODIPine [Norvasc] 5 mg PO DAILY 11/08/14 11/05/17 11/04/17 History AtorvaSTATin [Lipitor] 40 mg PO QHS 04/26/17 11/05/17 11/04/17 History Oxycodone HCl [oxyCODONE TAB] 10 mg PO Q6H PRN 04/26/17 11/05/17 11/04/17 History Docusate Sodium [Colace CAP] 100 mg PO BID #60 capsule 04/30/17 11/05/17 Unknown Rx Levofloxacin [Levaquin TAB] 750 mg PO QDAY #3 tablet 04/30/17 11/05/17 Unknown Rx Multivitamin Tab W-MINERAL 1 each PO QDAY #30 tablet 04/30/17 11/05/17 11/04/17 Rx [Multiple Vitamin/Mineral (Theragran M)] Fluticasone/Salmeterol [Advair 1 puff IH BID 30 Days disk.w.dev 11/08/17 Unknown Rx Diskus 250-50 mcg] HYDROcodone/HOMATROP 5-1.5 10 ml PO Q6H PRN #14 udc 11/08/17 Unknown Rx [HYDROcodone-Homatropin 5-1.5 mg per 5 ML] Ipratropium/Albuterol Sulfate 1 ampul IH Q6HRT #30 ampul.neb 11/08/17 Unknown Rx [DUONEB *Not for PRN Use*] Prednisone [predniSONE 10 mg 10 mg PO .TAPER #1 tab.ds.pk 11/08/17 Unknown Rx (6-Day Pack, 21 Tabs)] ED Physical Exam - General Limitations: No Limitations General appearance: alert, in no apparent distress, anxious - Head Head exam: Present: atraumatic, normocephalic - Eye Eye exam: Present: PERRL, EOMI - Neck Neck exam: Present: normal inspection. Absent: meningismus - Respiratory Respiratory exam: Present: wheezes, prolonged expiratory. Absent: respiratory distress, rales, rhonchi, stridor, chest wall tenderness - Cardiovascular Cardiovascular Exam: Present: regular rate, normal heart sounds - GI/Abdominal GI/Abdominal exam: Present: soft. Absent: distended, tenderness, guarding, rebound, mass, pulsatile mass - Extremities Exam Extremities exam: Absent: joint swelling, calf tenderness - Back Exam Back exam: Present: normal inspection - Neurological Exam Neurological exam: Present: alert, oriented X3, CN II-XII intact. Absent: motor sensory deficit ED Course Vital Signs 11/09/17 11/09/17 11/09/17 17:49 17:59 18:00 Temperature 98.6 F Pulse Rate 88 Pulse Rate [ Anterior Bilateral Throughout] Respiratory 16 Rate Respiratory Rate [Anterior Bilateral Throughout] Blood Pressure 137/89 139/77 139/77 Blood Pressure [Left] O2 Sat by Pulse 97 93 94 Oximetry 11/09/17 11/09/17 11/09/17 18:31 18:32 19:01 Temperature 98.4 F Pulse Rate 94 H 91 H Pulse Rate [ Anterior Bilateral Throughout] Respiratory 14 19 17 Rate Respiratory Rate [Anterior Bilateral Throughout] Blood Pressure 130/78 132/79 Blood Pressure 130/78 [Left] O2 Sat by Pulse 91 93 91 Oximetry 11/09/17 11/09/17 11/09/17 19:31 20:01 20:31 Temperature Pulse Rate 85 Pulse Rate [ Anterior Bilateral Throughout] Respiratory 15 Rate Respiratory Rate [Anterior Bilateral Throughout] Blood Pressure 130/78 144/82 144/82 Blood Pressure [Left] O2 Sat by Pulse 91 89 90 Oximetry 11/09/17 11/09/17 20:41 20:55 Temperature Pulse Rate Pulse Rate [ 84 92 H Anterior Bilateral Throughout] Respiratory Rate Respiratory 20 20 Rate [Anterior Bilateral Throughout] Blood Pressure Blood Pressure [Left] O2 Sat by Pulse Oximetry ED Medical Decision Making - Lab Data Result diagrams: 11/09/17 18:13 11/09/17 18:13 - EKG Data When compared to previous EKG there are: no significant change, other (no acute ischemic change) Interpretation: nonspecific ST-T wave kendall - Medical Decision Making Case was discussed with the core blower operator employee relations assistant. His suggestion was to send the patient back to rehabilitation. Patient family are refusing rectal rehabilitation we did evaluate the patient further for a bout of hemoptysis. His H&H and CBC were unremarkable including normal platelet count chest x-ray showed chronic change there was some positive nodules that were worrisome for possible neoplasm patient apparently is aware of these and is under the care of a core blower operator we will go ahead and admit him back to the hospitalist service given the fact that he is unable to walk for further evaluation of hemoptysis his pulse ox is stable for him at 92 on 4 L he did receive breathing treatment agitation he was having no chest pain Critical care attestation.: If time is entered above; I have spent that time in minutes in the direct care of this critically ill patient, excluding procedure time. ED Disposition Clinical Impression: Chronic respiratory failure, Hemoptysis Disposition: OP ADMIT IP TO THIS HOSP Is pt being admited?: Yes Condition: Stable Referrals: PRIMARY CARE, [Primary Care Provider] - 3-5 Days Time of Disposition: 21:21
--- NOTE | 2017-11-09 21:42 | History and Physical Report ---
History of Present Illness Date of examination: 11/09/17 Date of admission: 11/09/17 Chief complaint: hemoptysis History of present illness: This is a 62 year old with past medical history of of COPD with 4L O2 dependence , hypertension, seizures, PE, and chronic myoclonic epilepsy, large abdominal hernia who was discharged earlier today with recent admission for COPD exacerbation and Hypoxic Respiratory failure, worsening over 3-4 days prior to admission. Patient is brought back to the hospital by the family because they were not pleased with the rehabilitation facility and patient had hemoptysis. Family is refusing to have the patient be sent back to the rehabilitation center. Patient denies any chest pain or shortness of breath. No headache or visual disturbance. Past History Past Medical History: COPD, hypertension, hyperlipidemia, seizures, other ( obesity) Past Surgical History: No surgical history Social history: no significant social history Family history: no significant family history Medications and Allergies Allergies Allergy/AdvReac Type Severity Reaction Status Date / Time No Known Allergies Allergy Verified 11/05/17 05:58 Home Medications Medication Instructions Recorded Confirmed Last Taken Type Albuterol Sulfate [Ventolin HFA] 2 puff IH Q4H PRN 11/08/14 11/05/17 11/04/17 History Aspirin [Aspirin BABY CHEW TAB] 81 mg PO QDAY 11/08/14 11/05/17 11/04/17 History Budesoni/Formotero 160-4.5(Nf) 2 puff IH BID 11/08/14 11/05/17 04/25/17 History [Symbicort 160-4.5 (Nf)] Cholecalciferol (Vitamin D3) 50,000 unit PO QWEEK 11/08/14 11/05/17 11/07/14 History [Vitamin D3] Divalproex [Delmar Mon] 500 mg PO DAILY 11/08/14 11/05/17 11/04/17 History Gabapentin 300 mg PO TID 11/08/14 11/05/17 11/04/17 History Ipratropium [Atrovent NEB] 0.5 mg IH BID 11/08/14 11/05/17 04/25/17 History Multivitamin [Multi-Vitamin Daily] 1 each PO DAILY 11/08/14 11/05/17 11/04/17 History Nebivolol HCl [Bystolic] 10 mg PO QDAY 11/08/14 11/05/17 11/04/17 History [place]-3 Fatty Acids/Fish Oil [Fish 1 each PO DAILY 11/08/14 11/05/17 11/04/17 History Oil] Primidone [Mysoline] 250 mg PO QID 11/08/14 11/05/17 11/04/17 History Tiotropium [Spiriva] 2 puff IH QDAY 11/08/14 11/05/17 11/04/17 History amLODIPine [Norvasc] 5 mg PO DAILY 11/08/14 11/05/17 11/04/17 History AtorvaSTATin [Lipitor] 40 mg PO QHS 04/26/17 11/05/17 11/04/17 History Oxycodone HCl [oxyCODONE TAB] 10 mg PO Q6H PRN 04/26/17 11/05/17 11/04/17 History Docusate Sodium [Colace CAP] 100 mg PO BID #60 capsule 04/30/17 11/05/17 Unknown Rx Levofloxacin [Levaquin TAB] 750 mg PO QDAY #3 tablet 04/30/17 11/05/17 Unknown Rx Multivitamin Tab W-MINERAL 1 each PO QDAY #30 tablet 04/30/17 11/05/17 11/04/17 Rx [Multiple Vitamin/Mineral (Theragran M)] Fluticasone/Salmeterol [Advair 1 puff IH BID 30 Days disk.w.dev 11/08/17 Unknown Rx Diskus 250-50 mcg] HYDROcodone/HOMATROP 5-1.5 10 ml PO Q6H PRN #14 udc 11/08/17 Unknown Rx [HYDROcodone-Homatropin 5-1.5 mg per 5 ML] Ipratropium/Albuterol Sulfate 1 ampul IH Q6HRT #30 ampul.neb 11/08/17 Unknown Rx [DUONEB *Not for PRN Use*] Prednisone [predniSONE 10 mg 10 mg PO .TAPER #1 tab.ds.pk 11/08/17 Unknown Rx (6-Day Pack, 21 Tabs)] Review of Systems All systems: negative Exam - Constitutional Vitals: Temp Pulse Resp BP Pulse Ox 98.4 F 92 H 20 144/82 90 11/09/17 18:31 11/09/17 20:55 11/09/17 20:55 11/09/17 20:31 11/09/17 20:31 General appearance: Present: no acute distress, well-nourished - EENT Eyes: Present: PERRL ENT: hearing intact, clear oral mucosa - Neck Neck: Present: supple, normal ROM - Respiratory Respiratory effort: normal Respiratory: bilateral: CTA - Cardiovascular Heart Sounds: Present: S1 & S2. Absent: rub, click - Extremities Extremities: pulses symmetrical, No edema Peripheral Pulses: within normal limits - Abdominal General gastrointestinal: Present: soft, non-tender, non-distended, normal bowel sounds Male genitourinary: Present: normal - Integumentary Integumentary: Present: clear, warm, dry - Musculoskeletal Musculoskeletal: gait normal, strength equal bilaterally - Psychiatric Psychiatric: appropriate mood/affect, intact judgment & insight - Neurologic Neurologic: CNII-XII intact, moves all extremities Results - Labs CBC & Chem 7: 11/09/17 18:13 11/09/17 18:13 Labs: Laboratory Last Values WBC 9.5 K/mm3 (4.5-11.0) 11/09/17 18:13 RBC 4.60 M/mm3 (3.65-5.03) 11/09/17 18:13 Hgb 14.0 gm/dl (11.8-15.2) 11/09/17 18:13 Hct 41.5 % (35.5-45.6) 11/09/17 18:13 MCV 90 fl (84-94) 11/09/17 18:13 MCH 30 pg (28-32) 11/09/17 18:13 MCHC 34 % (32-34) 11/09/17 18:13 RDW 14.1 % (13.2-15.2) 11/09/17 18:13 Plt Count 201 K/mm3 (140-440) 11/09/17 18:13 Add Manual Diff Complete 11/09/17 18:13 Total Counted 100 11/09/17 18:13 Seg Neuts % (Manual) 83.0 % (40.0-70.0) H 11/09/17 18:13 Band Neutrophils % 0 % 11/09/17 18:13 Lymphocytes % (Manual) 13.0 % (13.4-35.0) L 11/09/17 18:13 Reactive Lymphs % (Man) 0 % 11/09/17 18:13 Monocytes % (Manual) 3.0 % (0.0-7.3) 11/09/17 18:13 Eosinophils % (Manual) 1.0 % (0.0-4.3) 11/09/17 18:13 Basophils % (Manual) 0 % (0.0-1.8) 11/09/17 18:13 Metamyelocytes % 0 % 11/09/17 18:13 Myelocytes % 0 % 11/09/17 18:13 Promyelocytes % 0 % 11/09/17 18:13 Blast Cells % 0 % 11/09/17 18:13 Nucleated RBC % Not Reportable 11/09/17 18:13 Seg Neutrophils # Man 7.9 K/mm3 (1.8-7.7) H 11/09/17 18:13 Band Neutrophils # 0.0 K/mm3 11/09/17 18:13 Lymphocytes # (Manual) 1.2 K/mm3 (1.2-5.4) 11/09/17 18:13 Abs React Lymphs (Man) 0.0 K/mm3 11/09/17 18:13 Monocytes # (Manual) 0.3 K/mm3 (0.0-0.8) 11/09/17 18:13 Eosinophils # (Manual) 0.1 K/mm3 (0.0-0.4) 11/09/17 18:13 Basophils # (Manual) 0.0 K/mm3 (0.0-0.1) 11/09/17 18:13 Metamyelocytes # 0.0 K/mm3 11/09/17 18:13 Myelocytes # 0.0 K/mm3 11/09/17 18:13 Promyelocytes # 0.0 K/mm3 11/09/17 18:13 Blast Cells # 0.0 K/mm3 11/09/17 18:13 WBC Morphology Not Reportable 11/09/17 18:13 Hypersegmented Neuts Not Reportable 11/09/17 18:13 Hyposegmented Neuts Not Reportable 11/09/17 18:13 Hypogranular Neuts Not Reportable 11/09/17 18:13 Smudge Cells Not Reportable 11/09/17 18:13 Toxic Granulation Not Reportable 11/09/17 18:13 Toxic Vacuolation Not Reportable 11/09/17 18:13 Dohle Bodies Not Reportable 11/09/17 18:13 Pelger-Huet Anomaly Not Reportable 11/09/17 18:13 Bre Rods Not Reportable 11/09/17 18:13 Platelet Estimate Appears normal 11/09/17 18:13 Clumped Platelets Not Reportable 11/09/17 18:13 Plt Clumps, EDTA Not Reportable 11/09/17 18:13 Large Platelets Not Reportable 11/09/17 18:13 Giant Platelets Not Reportable 11/09/17 18:13 Platelet Satelliting Not Reportable 11/09/17 18:13 Plt Morphology Comment Not Reportable 11/09/17 18:13 RBC Morphology Not Reportable 11/09/17 18:13 Dimorphic RBCs Not Reportable 11/09/17 18:13 Polychromasia Not Reportable 11/09/17 18:13 Hypochromasia Not Reportable 11/09/17 18:13 Poikilocytosis Not Reportable 11/09/17 18:13 Anisocytosis 1+ 11/09/17 18:13 Microcytosis Not Reportable 11/09/17 18:13 Macrocytosis Not Reportable 11/09/17 18:13 Spherocytes Not Reportable 11/09/17 18:13 Pappenheimer Bodies Not Reportable 11/09/17 18:13 Sickle Cells Not Reportable 11/09/17 18:13 Target Cells Not Reportable 11/09/17 18:13 Tear Drop Cells Not Reportable 11/09/17 18:13 Ovalocytes Not Reportable 11/09/17 18:13 Helmet Cells Not Reportable 11/09/17 18:13 [place] Bodies Not Reportable 11/09/17 18:13 [place] Rings Not Reportable 11/09/17 18:13 [place] Cells Not Reportable 11/09/17 18:13 Bite Cells Not Reportable 11/09/17 18:13 Crenated Cell Not Reportable 11/09/17 18:13 Elliptocytes Not Reportable 11/09/17 18:13 Acanthocytes (Spur) Not Reportable 11/09/17 18:13 Rouleaux Not Reportable 11/09/17 18:13 Hemoglobin C Crystals Not Reportable 11/09/17 18:13 Schistocytes Not Reportable 11/09/17 18:13 Malaria parasites Not Reportable 11/09/17 18:13 Kevin Bodies Not Reportable 11/09/17 18:13 Hem Pathologist Commnt No 11/09/17 18:13 Sodium 140 mmol/L (137-145) 11/09/17 18:13 Potassium 3.9 mmol/L (3.6-5.0) 11/09/17 18:13 Chloride 90.5 mmol/L (98-107) L 11/09/17 18:13 Carbon Dioxide 39 mmol/L (22-30) H 11/09/17 18:13 Anion Gap 14 mmol/L 11/09/17 18:13 BUN 10 mg/dL (9-20) 11/09/17 18:13 Creatinine 0.4 mg/dL (0.8-1.5) L 11/09/17 18:13 Estimated GFR > 60 ml/min 11/09/17 18:13 BUN/Creatinine Ratio 25 % 11/09/17 18:13 Glucose 99 mg/dL (75-100) 11/09/17 18:13 Calcium 8.7 mg/dL (8.4-10.2) 11/09/17 18:13 Assessment and Plan Assessment and plan: Acute on chronic hypoxemic respiratory failure. Continue O2 and maintain sats. Currently no respiratory distress. BiPAP as clinically indicated. Hemoptysis. Patient with recent CTA on 11/08 that was negative for PE. Hypertension. Resume antihypertensive medications. Seizure disorder. Resume seizure medications. COPD. Compensated. FILIPE/OHS. Chronic opioid dependent therapy. Deconditioning. PT/PTT/OT.
[2017-11-09] MEDS ORDERED: TYLENOL PO PRN (21:47)
[2017-11-09] MEDS ORDERED: DULCOLAX PR PRN (21:47)
[2017-11-09] MEDS ORDERED: MILK OF MAGNESIA PO PRN (21:47)
[2017-11-09] MEDS ORDERED: ZOFRAN IV PRN (21:47)
[2017-11-09] MEDS ORDERED: LOVENOX SUB-Q ONE (22:28)
[2017-11-09] MEDS: LOVENOX SUB-Q SCH (22:31)
[2017-11-09] MEDS: MORPHINE IV PRN (23:53)
[2017-11-10 04:57] LABS: Hematocrit 37.8 % (35.5-45.6); Hemoglobin 12.8 gm/dl (11.8-15.2); Mean Corpuscular HGB Conc 34 % (32-34); Mean Corpuscular Hemoglobin 31 pg (28-32); Mean Corpuscular Volume 92 fl (84-94); Platelet Count 181 K/mm3 (140-440); Red Cell Distribution Width 13.9 % (13.2-15.2); White Blood Count 9.2 K/mm3 (4.5-11.0)
[2017-11-10 05:21] LABS: Anion Gap 11 mmol/L; BUN/Creatinine Ratio 28; Blood Urea Nitrogen 11 mg/dL (9-20); Calcium 8.3 mg/dL (8.4-10.2); Carbon Dioxide 40 mmol/L (22-30); Chloride 91.4 mmol/L (98-107); Glucose 102 mg/dL (75-100); Potassium 3.7 mmol/L (3.6-5.0); Sodium 139 mmol/L (137-145)
[2017-11-10] MEDS: MORPHINE IV PRN ×2 (05:28→17:24)
[2017-11-10 06:48] LABS: Anisocytosis 1+; Basophils % (Manual) 0 % (0.0-1.8); Blastocytes % (Manual) 0 %; Diff Status Complete; Eosinophils % (Manual) 0 % (0.0-4.3); Hypochromasia Few
--- NOTE | 2017-11-10 09:40 | Progress Note ---
Assessment and Plan Assessment and plan: Acute on chronic hypoxemic respiratory failure. Continue supplemental Oxygen. BiPAP as clinically indicated. Hemoptysis. Patient with recent CTA on 11/08 that was negative for PE. No infiltrates seen. Pulmonology consulted. H/H stable COPD exacerbation. Give solumedrol, supplemental Oxygen, Duoneb Hypertension. Resume antihypertensive medications. Seizure disorder. Primodine resumed. Sleep apnea Chronic opioid dependent therapy. Deconditioning. PT/OT. DVT prophylaxis History Interval history: Coughing blood shortness of breath Hospitalist Physical - Physical exam Narrative exam: GEN APPEARANCE : Not in acute distress, obese HEENT: Normocephalic, Atraumatic NECK : supple, no JVD LUNGS: Decreased breath sounds bilaterally, no rales, no wheeze HEART: S1 and S2 regular, no murmurs, rubs or gallop, ABD: Soft, non tender, non distended, normal bowel sounds EXT: No edema, no clubbing, no cyanosis NEURO: Awake,alert, oriented, no focal signs - Constitutional Vitals: Temp Pulse Resp BP Pulse Ox 98.9 F 84 22 140/81 92 11/10/17 07:19 11/10/17 07:19 11/10/17 07:19 11/10/17 07:19 11/10/17 07:19 Results - Labs CBC & Chem 7: 11/10/17 04:29 11/10/17 04:29 Labs: Laboratory Last Values WBC 9.2 K/mm3 (4.5-11.0) 11/10/17 04:29 RBC 4.10 M/mm3 (3.65-5.03) 11/10/17 04:29 Hgb 12.8 gm/dl (11.8-15.2) 11/10/17 04:29 Hct 37.8 % (35.5-45.6) 11/10/17 04:29 MCV 92 fl (84-94) 11/10/17 04:29 MCH 31 pg (28-32) 11/10/17 04:29 MCHC 34 % (32-34) 11/10/17 04:29 RDW 13.9 % (13.2-15.2) 11/10/17 04:29 Plt Count 181 K/mm3 (140-440) 11/10/17 04:29 Add Manual Diff Complete 11/10/17 04:29 Total Counted 100 11/10/17 04:29 Seg Neuts % (Manual) 70.0 % (40.0-70.0) 11/10/17 04:29 Band Neutrophils % 5.0 % 11/10/17 04:29 Lymphocytes % (Manual) 18.0 % (13.4-35.0) 11/10/17 04:29 Reactive Lymphs % (Man) 0 % 11/10/17 04:29 Monocytes % (Manual) 7.0 % (0.0-7.3) 11/10/17 04:29 Eosinophils % (Manual) 0 % (0.0-4.3) 11/10/17 04:29 Basophils % (Manual) 0 % (0.0-1.8) 11/10/17 04:29 Metamyelocytes % 0 % 11/10/17 04:29 Myelocytes % 0 % 11/10/17 04:29 Promyelocytes % 0 % 11/10/17 04:29 Blast Cells % 0 % 11/10/17 04:29 Nucleated RBC % Not Reportable 11/10/17 04:29 Seg Neutrophils # Man 6.4 K/mm3 (1.8-7.7) 11/10/17 04:29 Band Neutrophils # 0.5 K/mm3 11/10/17 04:29 Lymphocytes # (Manual) 1.7 K/mm3 (1.2-5.4) 11/10/17 04:29 Abs React Lymphs (Man) 0.0 K/mm3 11/10/17 04:29 Monocytes # (Manual) 0.6 K/mm3 (0.0-0.8) 11/10/17 04:29 Eosinophils # (Manual) 0.0 K/mm3 (0.0-0.4) 11/10/17 04:29 Basophils # (Manual) 0.0 K/mm3 (0.0-0.1) 11/10/17 04:29 Metamyelocytes # 0.0 K/mm3 11/10/17 04:29 Myelocytes # 0.0 K/mm3 11/10/17 04:29 Promyelocytes # 0.0 K/mm3 11/10/17 04:29 Blast Cells # 0.0 K/mm3 11/10/17 04:29 WBC Morphology Not Reportable 11/10/17 04:29 Hypersegmented Neuts Not Reportable 11/10/17 04:29 Hyposegmented Neuts Not Reportable 11/10/17 04:29 Hypogranular Neuts Not Reportable 11/10/17 04:29 Smudge Cells Not Reportable 11/10/17 04:29 Toxic Granulation Not Reportable 11/10/17 04:29 Toxic Vacuolation Not Reportable 11/10/17 04:29 Dohle Bodies Not Reportable 11/10/17 04:29 Pelger-Huet Anomaly Not Reportable 11/10/17 04:29 Bre Rods Not Reportable 11/10/17 04:29 Platelet Estimate Appears normal 11/10/17 04:29 Clumped Platelets Not Reportable 11/10/17 04:29 Plt Clumps, EDTA Not Reportable 11/10/17 04:29 Large Platelets Not Reportable 11/10/17 04:29 Giant Platelets Not Reportable 11/10/17 04:29 Platelet Satelliting Not Reportable 11/10/17 04:29 Plt Morphology Comment Not Reportable 11/10/17 04:29 RBC Morphology Not Reportable 11/10/17 04:29 Dimorphic RBCs Not Reportable 11/10/17 04:29 Polychromasia Not Reportable 11/10/17 04:29 Hypochromasia Few 11/10/17 04:29 Poikilocytosis Not Reportable 11/10/17 04:29 Anisocytosis 1+ 11/10/17 04:29 Microcytosis Not Reportable 11/10/17 04:29 Macrocytosis Not Reportable 11/10/17 04:29 Spherocytes Not Reportable 11/10/17 04:29 Pappenheimer Bodies Not Reportable 11/10/17 04:29 Sickle Cells Not Reportable 11/10/17 04:29 Target Cells Not Reportable 11/10/17 04:29 Tear Drop Cells Not Reportable 11/10/17 04:29 Ovalocytes Not Reportable 11/10/17 04:29 Helmet Cells Not Reportable 11/10/17 04:29 [place] Bodies Not Reportable 11/10/17 04:29 [place] Rings Not Reportable 11/10/17 04:29 [place] Cells Not Reportable 11/10/17 04:29 Bite Cells Not Reportable 11/10/17 04:29 Crenated Cell Not Reportable 11/10/17 04:29 Elliptocytes Not Reportable 11/10/17 04:29 Acanthocytes (Spur) Not Reportable 11/10/17 04:29 Rouleaux Not Reportable 11/10/17 04:29 Hemoglobin C Crystals Not Reportable 11/10/17 04:29 Schistocytes Not Reportable 11/10/17 04:29 Malaria parasites Not Reportable 11/10/17 04:29 Kevin Bodies Not Reportable 11/10/17 04:29 Hem Pathologist Commnt No 11/10/17 04:29 Sodium 139 mmol/L (137-145) 11/10/17 04:29 Potassium 3.7 mmol/L (3.6-5.0) 11/10/17 04:29 Chloride 91.4 mmol/L (98-107) L 11/10/17 04:29 Carbon Dioxide 40 mmol/L (22-30) H 11/10/17 04:29 Anion Gap 11 mmol/L 11/10/17 04:29 BUN 11 mg/dL (9-20) 11/10/17 04:29 Creatinine 0.4 mg/dL (0.8-1.5) L 11/10/17 04:29 Estimated GFR > 60 ml/min 11/10/17 04:29 BUN/Creatinine Ratio 28 % 11/10/17 04:29 Glucose 102 mg/dL (75-100) H 11/10/17 04:29 Calcium 8.3 mg/dL (8.4-10.2) L 11/10/17 04:29
[2017-11-10] MEDS ORDERED: HYDROMET PO PRN (10:41)
[2017-11-10] MEDS ORDERED: NON-FORMULARY (Oxycodone Hcl [Oxycodone Tab] 10 MG) PO PRN (10:41)
[2017-11-10] MEDS ORDERED: NON-FORMULARY (Nebivolol Hcl [Bystolic] 10 MG) PO SCH (10:45)
[2017-11-10] MEDS ORDERED: NON-FORMULARY (Budesoni/Formotero 160-4.5(Nf) 2 PUFF) IH SCH (10:45)
[2017-11-10] MEDS: BABY ASPIRIN PO SCH (11:40)
[2017-11-10] MEDS: NORVASC PO SCH (11:40)
[2017-11-10] MEDS: TOPROL XL PO SCH (11:40)
[2017-11-10] MEDS: PERCOCET 5/325 PO PRN (11:41)
[2017-11-10] MEDS: ROXICODONE PO PRN (11:41)
[2017-11-10] MEDS: DUONEB *Not for PRN Use IH SCH ×2 (14:25→21:05)
[2017-11-10] MEDS: MYSOLINE PO SCH ×3 (14:55→21:59)
[2017-11-10] MEDS: NEURONTIN PO SCH ×2 (14:55→21:59)
[2017-11-10] MEDS: PULMICORT IH SCH (21:04)
[2017-11-10] MEDS: BROVANA NEBU IH SCH (21:05)
[2017-11-10] MEDS: COLACE PO SCH (21:59)
[2017-11-10] MEDS: LOVENOX SUB-Q SCH (21:59)
--- NOTE | 2017-11-10 23:02 | Event Note ---
Date: 11/10/[address] Pal thank you for asking us to participate in the care of this patient. Full consultation follow. This 62 year old white male history of Severe COPD on Home O2, Hypertension, Hyperlipidemia,Myoclonic epilepsy, history of PE and large abdominal hernia rently discharged to rehab came back to emergency with shortness of breath, cough and hemoptysis. Chest xray obtained reported mild increase in right lower lobe density or atelectasis. Patient has no fever, no chills, No leukocytosis. Impression. 1. COPD exacerbation 2. Hypertension 3. Myoclonic epilepsy, 4. Hyperlipidemia 5. History of PE. 6. Large abdominal hernia PLAN: 1. O2 4 litres via nasal canula 2. Albuterol/atrovent aerosol treatments q 6 hours. 3. Continue I/V solumedral. 4. Continue Lovenox.
[2017-11-11] MEDS: MORPHINE IV PRN ×4 (00:48→20:17)
[2017-11-11] MEDS: DUONEB *Not for PRN Use IH SCH ×4 (01:51→19:16)
[2017-11-11] MEDS: NEURONTIN PO SCH ×3 (08:58→20:18)
--- NOTE | 2017-11-11 09:00 | Progress Note ---
Assessment and Plan Assessment and plan: Acute on chronic hypoxemic respiratory failure. Continue supplemental Oxygen. BiPAP as clinically indicated. Hemoptysis. This is improved.Patient with recent CTA on 11/08 that was negative for PE. No infiltrates seen. Pulmonology following. H/H stable COPD exacerbation. Give solumedrol, supplemental Oxygen, Duoneb Hypertension. Resume antihypertensive medications. Seizure disorder. Continue Primodine. Sleep apnea Chronic opioid dependent therapy. Deconditioning. PT/OT. DVT prophylaxis with Lovenox. Full code status. Patient states he doesn't want to go to History Interval history: Coughing blood shortness of breath Hospitalist Physical - Physical exam Narrative exam: GEN APPEARANCE : Not in acute distress, obese HEENT: Normocephalic, Atraumatic NECK : supple, no JVD LUNGS: Decreased breath sounds bilaterally, no rales, no wheeze HEART: S1 and S2 regular, no murmurs, rubs or gallop, ABD: Soft, non tender, non distended, normal bowel sounds EXT: No edema, no clubbing, no cyanosis NEURO: Awake,alert, oriented, no focal signs - Constitutional Vitals: Temp Pulse Resp BP Pulse Ox 98.7 F 81 18 146/88 88 11/11/17 07:48 11/11/17 07:48 11/11/17 07:48 11/11/17 07:48 11/11/17 07:48 General appearance: Present: no acute distress, well-nourished Results - Labs CBC & Chem 7: 11/10/17 04:29 11/10/17 04:29 Labs: Laboratory Last Values WBC 9.2 K/mm3 (4.5-11.0) 11/10/17 04:29 RBC 4.10 M/mm3 (3.65-5.03) 11/10/17 04:29 Hgb 12.8 gm/dl (11.8-15.2) 11/10/17 04:29 Hct 37.8 % (35.5-45.6) 11/10/17 04:29 MCV 92 fl (84-94) 11/10/17 04:29 MCH 31 pg (28-32) 11/10/17 04:29 MCHC 34 % (32-34) 11/10/17 04:29 RDW 13.9 % (13.2-15.2) 11/10/17 04:29 Plt Count 181 K/mm3 (140-440) 11/10/17 04:29 Add Manual Diff Complete 11/10/17 04:29 Total Counted 100 11/10/17 04:29 Seg Neuts % (Manual) 70.0 % (40.0-70.0) 11/10/17 04:29 Band Neutrophils % 5.0 % 11/10/17 04:29 Lymphocytes % (Manual) 18.0 % (13.4-35.0) 11/10/17 04:29 Reactive Lymphs % (Man) 0 % 11/10/17 04:29 Monocytes % (Manual) 7.0 % (0.0-7.3) 11/10/17 04:29 Eosinophils % (Manual) 0 % (0.0-4.3) 11/10/17 04:29 Basophils % (Manual) 0 % (0.0-1.8) 11/10/17 04:29 Metamyelocytes % 0 % 11/10/17 04:29 Myelocytes % 0 % 11/10/17 04:29 Promyelocytes % 0 % 11/10/17 04:29 Blast Cells % 0 % 11/10/17 04:29 Nucleated RBC % Not Reportable 11/10/17 04:29 Seg Neutrophils # Man 6.4 K/mm3 (1.8-7.7) 11/10/17 04:29 Band Neutrophils # 0.5 K/mm3 11/10/17 04:29 Lymphocytes # (Manual) 1.7 K/mm3 (1.2-5.4) 11/10/17 04:29 Abs React Lymphs (Man) 0.0 K/mm3 11/10/17 04:29 Monocytes # (Manual) 0.6 K/mm3 (0.0-0.8) 11/10/17 04:29 Eosinophils # (Manual) 0.0 K/mm3 (0.0-0.4) 11/10/17 04:29 Basophils # (Manual) 0.0 K/mm3 (0.0-0.1) 11/10/17 04:29 Metamyelocytes # 0.0 K/mm3 11/10/17 04:29 Myelocytes # 0.0 K/mm3 11/10/17 04:29 Promyelocytes # 0.0 K/mm3 11/10/17 04:29 Blast Cells # 0.0 K/mm3 11/10/17 04:29 WBC Morphology Not Reportable 11/10/17 04:29 Hypersegmented Neuts Not Reportable 11/10/17 04:29 Hyposegmented Neuts Not Reportable 11/10/17 04:29 Hypogranular Neuts Not Reportable 11/10/17 04:29 Smudge Cells Not Reportable 11/10/17 04:29 Toxic Granulation Not Reportable 11/10/17 04:29 Toxic Vacuolation Not Reportable 11/10/17 04:29 Dohle Bodies Not Reportable 11/10/17 04:29 Pelger-Huet Anomaly Not Reportable 11/10/17 04:29 Bre Rods Not Reportable 11/10/17 04:29 Platelet Estimate Appears normal 11/10/17 04:29 Clumped Platelets Not Reportable 11/10/17 04:29 Plt Clumps, EDTA Not Reportable 11/10/17 04:29 Large Platelets Not Reportable 11/10/17 04:29 Giant Platelets Not Reportable 11/10/17 04:29 Platelet Satelliting Not Reportable 11/10/17 04:29 Plt Morphology Comment Not Reportable 11/10/17 04:29 RBC Morphology Not Reportable 11/10/17 04:29 Dimorphic RBCs Not Reportable 11/10/17 04:29 Polychromasia Not Reportable 11/10/17 04:29 Hypochromasia Few 11/10/17 04:29 Poikilocytosis Not Reportable 11/10/17 04:29 Anisocytosis 1+ 11/10/17 04:29 Microcytosis Not Reportable 11/10/17 04:29 Macrocytosis Not Reportable 11/10/17 04:29 Spherocytes Not Reportable 11/10/17 04:29 Pappenheimer Bodies Not Reportable 11/10/17 04:29 Sickle Cells Not Reportable 11/10/17 04:29 Target Cells Not Reportable 11/10/17 04:29 Tear Drop Cells Not Reportable 11/10/17 04:29 Ovalocytes Not Reportable 11/10/17 04:29 Helmet Cells Not Reportable 11/10/17 04:29 Rodriguez-Mil[place] Bodies Not Reportable 11/10/17 04:29 [place] Rings Not Reportable 11/10/17 04:29 [place] Cells Not Reportable 11/10/17 04:29 Bite Cells Not Reportable 11/10/17 04:29 Crenated Cell Not Reportable 11/10/17 04:29 Elliptocytes Not Reportable 11/10/17 04:29 Acanthocytes (Spur) Not Reportable 11/10/17 04:29 Rouleaux Not Reportable 11/10/17 04:29 Hemoglobin C Crystals Not Reportable 11/10/17 04:29 Schistocytes Not Reportable 11/10/17 04:29 Malaria parasites Not Reportable 11/10/17 04:29 Kevin Bodies Not Reportable 11/10/17 04:29 Hem Pathologist Commnt No 11/10/17 04:29 Sodium 139 mmol/L (137-145) 11/10/17 04:29 Potassium 3.7 mmol/L (3.6-5.0) 11/10/17 04:29 Chloride 91.4 mmol/L (98-107) L 11/10/17 04:29 Carbon Dioxide 40 mmol/L (22-30) H 11/10/17 04:29 Anion Gap 11 mmol/L 11/10/17 04:29 BUN 11 mg/dL (9-20) 11/10/17 04:29 Creatinine 0.4 mg/dL (0.8-1.5) L 11/10/17 04:29 Estimated GFR > 60 ml/min 11/10/17 04:29 BUN/Creatinine Ratio 28 % 11/10/17 04:29 Glucose 102 mg/dL (75-100) H 11/10/17 04:29 Calcium 8.3 mg/dL (8.4-10.2) L 11/10/17 04:29
[2017-11-11] MEDS: SPIRIVA IH SCH (09:12)
[2017-11-11] MEDS: PULMICORT IH SCH ×2 (09:12→19:13)
[2017-11-11] MEDS: BROVANA NEBU IH SCH ×2 (09:18→19:12)
[2017-11-11] MEDS: COLACE PO SCH ×2 (09:31→21:17)
[2017-11-11] MEDS: THERAGRAN-M Tab PO SCH (09:31)
[2017-11-11] MEDS: FISH OIL PO SCH (09:31)
[2017-11-11] MEDS: BABY ASPIRIN PO SCH (09:31)
[2017-11-11] MEDS: LOVENOX SUB-Q SCH (09:32)
[2017-11-11] MEDS: TOPROL XL PO SCH (09:32)
[2017-11-11] MEDS: NORVASC PO SCH (09:32)
[2017-11-11] MEDS: PERCOCET 5/325 PO PRN ×3 (10:30→23:37)
[2017-11-11] MEDS: MYSOLINE PO SCH ×4 (10:51→21:16)
[2017-11-11] MEDS ORDERED: VANCOMYCIN PHARMACY TO DOSE IV SCH (14:00)
[2017-11-11] MEDS ORDERED: ZOSYN/NS 4.5GM/100ML 4.5 GM/100 ML VIAL IV SCH (14:00)
--- NOTE | 2017-11-11 14:09 | Consultation ---
History of Present Illness - Reason for Consult Consult date: 11/11/17 bacteremia Requesting physician: SHASHI RODGERS - History of Present Illness 62 years old with history of COPD with 4L O2 dependence, hypertension, seizures , PE, and chronic myoclonic epilepsy, large abdominal hernia; admitted on 11/09 due to hemoptysis. Patient was recently admitted to the hospital due to COPD exacerbation with hypoxic respiratory failure. She was discharged to a rehabilitation facility. Patient denies any chest pain or shortness of breath. No headache or visual disturbance. Denies any recent fever, chills, nausea, vomiting, hematemesis or melena. In the emergency room, initial temperature was 98.6, heart rate 88, respirations 16, blood pressure 137/89 initial white count 9.5. Creatinine 0.4. CTA showed no PE, bilateral hilar and mediastinal lymph nodes. Positive right lower lobe atelectasis. Microbiology: Blood cultures: 11/09 Coag neg Staph 2 of 4 bottles Urine cultures: Current Antimicrobials: Zosyn 11/11 Vancomycin 11/11 Previous Antimicrobials: Past History Past Medical History: COPD, hypertension, hyperlipidemia, seizures, other ( obesity) Past Surgical History: No surgical history Social history: no significant social history Family history: no significant family history Medications and Allergies Allergies Allergy/AdvReac Type Severity Reaction Status Date / Time No Known Allergies Allergy Verified 11/05/17 05:58 Home Medications Medication Instructions Recorded Confirmed Last Taken Type Albuterol Sulfate [Ventolin HFA] 2 puff IH Q4H PRN 11/08/14 11/10/17 11/04/17 History Aspirin [Aspirin BABY CHEW TAB] 81 mg PO QDAY 11/08/14 11/10/17 11/04/17 History Budesoni/Formotero 160-4.5(Nf) 2 puff IH BID 11/08/14 11/10/17 04/25/17 History [Symbicort 160-4.5 (Nf)] Cholecalciferol (Vitamin D3) 50,000 unit PO QWEEK 11/08/14 11/10/17 11/07/14 History [Vitamin D3] Divalproex Dr [Depakote Dr] 500 mg PO DAILY 11/08/14 11/10/17 11/04/17 History Gabapentin 300 mg PO TID 11/08/14 11/10/17 11/04/17 History Ipratropium [Atrovent NEB] 0.5 mg IH BID 11/08/14 11/10/17 04/25/17 History Multivitamin [Multi-Vitamin Daily] 1 each PO DAILY 11/08/14 11/10/17 11/04/17 History Nebivolol HCl [Bystolic] 10 mg PO QDAY 11/08/14 11/10/17 11/04/17 History [place]-3 Fatty Acids/Fish Oil [Fish 1 each PO DAILY 11/08/14 11/10/17 11/04/17 History Oil] Primidone [Mysoline] 250 mg PO QID 11/08/14 11/10/17 11/04/17 History Tiotropium [Spiriva] 2 puff IH QDAY 11/08/14 11/10/17 11/04/17 History amLODIPine [Norvasc] 5 mg PO DAILY 11/08/14 11/10/17 11/04/17 History AtorvaSTATin [Lipitor] 40 mg PO QHS 04/26/17 11/10/17 11/04/17 History Oxycodone HCl [oxyCODONE TAB] 10 mg PO Q6H PRN 04/26/17 11/10/17 11/04/17 History Docusate Sodium [Colace CAP] 100 mg PO BID #60 capsule 04/30/17 11/10/17 Unknown Rx Levofloxacin [Levaquin TAB] 750 mg PO QDAY #3 tablet 04/30/17 11/10/17 Unknown Rx Multivitamin Tab W-MINERAL 1 each PO QDAY #30 tablet 04/30/17 11/10/17 11/04/17 Rx [Multiple Vitamin/Mineral (Theragran M)] Fluticasone/Salmeterol [Advair 1 puff IH BID 30 Days disk.w.dev 11/08/17 Unknown Rx Diskus 250-50 mcg] HYDROcodone/HOMATROP 5-1.5 10 ml PO Q6H PRN #14 udc 11/08/17 11/10/17 Unknown Rx [HYDROcodone-Homatropin 5-1.5 mg per 5 ML] Ipratropium/Albuterol Sulfate 1 ampul IH Q6HRT #30 ampul.neb 11/08/17 11/10/17 Unknown Rx [DUONEB *Not for PRN Use*] Prednisone [predniSONE 10 mg 10 mg PO .TAPER #1 tab.ds.pk 11/08/17 11/10/17 Unknown Rx (6-Day Pack, 21 Tabs)] Active Meds: Active Medications Acetaminophen (Tylenol) 650 mg PO Q4H PRN PRN Reason: Pain MILD(1-3)/Fever >100.5/GALAN Albuterol/Ipratropium (Duoneb *Not For Prn Use*) 1 ampul IH Q6HRT [facility] Last Admin: 11/11/17 09:12 Dose: 1 ampul Amlodipine Besylate (Norvasc) 5 mg PO DAILY [facility] Last Admin: 11/11/17 09:32 Dose: 5 mg Arformoterol Tartrate (Brovana Nebu) 15 mcg IH Q12HRT [facility] Last Admin: 11/11/17 09:18 Dose: Not Given Aspirin (Baby Aspirin) 81 mg PO QDAY [facility] Last Admin: 11/11/17 09:31 Dose: 81 mg Atorvastatin Calcium (Lipitor) 40 mg PO QHS [facility] Last Admin: 11/10/17 21:59 Dose: 40 mg Bisacodyl (Dulcolax) 10 mg TX QDAY PRN PRN Reason: Constipation unrelieved by MOM Budesonide (Pulmicort) 1 mg IH Q12HRT [facility] Last Admin: 11/11/17 09:12 Dose: 1 mg Divalproex Sodium (Depakote Dr) 500 mg PO DAILY [facility] Last Admin: 11/11/17 09:31 Dose: 500 mg Docusate Sodium (Colace) 100 mg PO BID [facility] Last Admin: 11/11/17 09:31 Dose: 100 mg Enoxaparin Sodium (Lovenox) 40 mg SUB-Q DAILY [facility] Last Admin: 11/11/17 09:32 Dose: 40 mg Fish Oil (Fish Oil) 1,000 mg PO DAILY [facility] Last Admin: 11/11/17 09:31 Dose: 1,000 mg Gabapentin (Neurontin) 300 mg PO TID [facility] Last Admin: 11/11/17 13:52 Dose: 300 mg Hydrocodone Bit/Homatropine Methylb (Hydromet) 10 ml PO Q6H PRN PRN Reason: Cough Piperacillin Sod/Tazobactam Sod (Zosyn/Ns 4.5gm/100ml) 4.5 gm in 100 mls @ 200 mls/hr IV Q6HR [facility] PRN Reason: Protocol Magnesium Hydroxide (Milk Of Magnesia) 30 ml PO Q4H PRN PRN Reason: Constipation Methylprednisolone Sodium Succinate (Solu-Medrol) 40 mg IV Q8H [facility] Last Admin: 11/11/17 10:51 Dose: 40 mg Metoprolol Succinate (Toprol Xl) 100 mg PO QDAY [facility] Last Admin: 11/11/17 09:32 Dose: 100 mg Morphine Sulfate (Morphine) 1 mg IV Q6H PRN PRN Reason: Pain, Moderate (4-6) Last Admin: 11/11/17 13:52 Dose: 1 mg Multivitamins/Minerals (Theragran-M Tab) 1 each PO QDAY [facility] Last Admin: 11/11/17 09:31 Dose: 1 each Ondansetron HCl (Zofran) 4 mg IV Q8H PRN PRN Reason: N/V unrelieved by Reglan Oxycodone HCl (Roxicodone) 5 mg PO Q6H PRN PRN Reason: Pain Last Admin: 11/10/17 11:41 Dose: 5 mg Oxycodone/Acetaminophen (Percocet 5/325) 1 tab PO Q6H PRN PRN Reason: Pain Last Admin: 11/11/17 10:30 Dose: 1 tab Primidone (Mysoline) 250 mg PO QID [facility] Last Admin: 11/11/17 13:52 Dose: 250 mg Tiotropium [place] (Spiriva) 2 puff IH QDAY [facility] Last Admin: 11/11/17 09:12 Dose: Not Given Vancomycin HCl (Vancomycin Pharmacy To Dose) 1 each IV PKCONSULT ANDREW PRN Reason: Protocol Review of Systems All systems: negative (as per HPI rest neg) Physical Examination - Physical Exam Narrative exam: General appearance: Alert in NAD, conversant Eyes: anicteric sclerae, moist conjunctivae; no lid-lag; PERRLA HENT: Atraumatic; oropharynx clear with moist mucous membranes and no mucosal ulcerations/no oral thrush; normal hard and soft palate. Normal external ears. Neck: Trachea midline; supple, no thyromegaly or lymphadenopathy Lungs: decreased BS alexey CV: RRR Abdomen: Soft, non-tender Extremities: No peripheral edema or extremity lymphadenopathy Skin: Normal temperature, turgor and texture; no rash, ulcers or subcutaneous nodules Psych: Appropriate affect, alert and oriented to person, place and time. Neuro: alert and oriented x 3. Moving all extermities Lines: No CVL / PICC - Constitutional Vitals: Vital Signs Temp Pulse Resp BP Pulse Ox 98.7 F 97 H 20 146/88 92 11/11/17 07:48 11/11/17 09:25 11/11/17 09:25 11/11/17 07:48 11/11/17 09:10 Temperature -Last 24 Hours Temperature 98.7 F Temperature 98.9 F Temperature 99.0 F Temperature 98.3 F Results - Labs CBC & Chem 7: 11/10/17 04:29 11/10/17 04:29 Assessment and Plan Assessment: 1) Coag-neg Staph bacteremia: without evidence of sepsis/SIRS - likely contamination 2) Hemoptysis ? unclear etiology. CTA showed no PE, bilateral small hilar and mediastinal lymph nodes and right lower lobe atelectasis. Plan: -follow-up blood cultures -repeat blood cx -stop zosyn -continue vancomycin - will stop it soon Thank you Dr Rodgers for your consultation, will follow up with you. Mariely Gramajo MD Infectious Diseases Specialist [facility] M [phone] O [phone]
[2017-11-11] MEDS: ROXICODONE PO PRN ×2 (16:33→23:38)
[2017-11-11] MEDS ORDERED: VANCOMYCIN 2,000 MG in NACL 0.9% 500 ML 500 ML IV ONE (18:00)
--- NOTE | 2017-11-11 19:47 | Progress Note ---
Assessment and Plan Patient sleepy. still complaining shortness of breath. Patient says he coughed up trace of blood today. No acute respiratory distress.O2 saturation 92% on 5 litres O2. - Patient Problems (1) Acute and chronic respiratory failure Current Visit: No Status: Acute Plan to address problem: O2 5 litres via nasal canula. Brovanna/Budesonide aerosol treatments q 12 hours. Continue I/V solumedral Continue S/C Lovenox. Continue Protonix. (2) COPD exacerbation Current Visit: No Status: Acute Plan to address problem: O2 5 litres via nasal canula. Brovanna/Budesonide aerosol treatments q 12 hours. Continue I/V solumedral Continue S/C Lovenox. Continue Protonix. (3) Hypertension Current Visit: No Status: Acute Plan to address problem: Management as per primary care. (4) Myoclonic epilepsy Current Visit: No Status: Acute Plan to address problem: Management as per primary care. (5) Hemoptysis Current Visit: Yes Status: Acute Plan to address problem: Coughing less blood today (6) Pulmonary infiltrate in right lung on CXR Current Visit: Yes Status: Acute Plan to address problem: Patient is on vancomycin. Subjective Date of service: 11/11/17 Interval history: Patient sleepy. still complaining shortness of breath. Patient says he coughed up trace of blood today. No acute respiratory distress.O2 saturation 92% on 5 litres O2. Objective Vital Signs - 12hr 11/11/17 11/11/17 11/11/17 07:48 09:10 09:13 Temperature 98.7 F Pulse Rate 81 Pulse Rate [ 94 H Anterior Bilateral Throughout] Respiratory 18 Rate Respiratory 20 Rate [Anterior Bilateral Throughout] Blood Pressure 146/88 O2 Sat by Pulse 88 92 Oximetry 11/11/17 11/11/17 11/11/17 09:25 15:37 15:45 Temperature Pulse Rate Pulse Rate [ 97 H 88 91 H Anterior Bilateral Throughout] Respiratory Rate Respiratory 20 20 20 Rate [Anterior Bilateral Throughout] Blood Pressure O2 Sat by Pulse Oximetry 11/11/17 11/11/17 11/11/17 19:14 19:28 19:30 Temperature Pulse Rate Pulse Rate [ 102 H 104 H Anterior Bilateral Throughout] Respiratory Rate Respiratory 20 20 Rate [Anterior Bilateral Throughout] Blood Pressure O2 Sat by Pulse 92 Oximetry Constitutional: no acute distress, alert ENT: oropharynx moist Neck: supple, no lymphadenopathy Ascultation: Bilateral: diminished breath sounds, rhonchi Cardiovascular: regular rate and rhythm Gastrointestinal: normoactive bowel sounds, soft, non-tender Integumentary: normal Extremities: no cyanosis, no edema Neurologic: normal mental status, non-focal exam, pupils equal and round, CN II- XII normal Psychiatric: mood appropriate CBC and BMP: 11/10/17 04:29 11/10/17 04:29 Abnormal lab findings: Abnormal Labs 11/09/17 11/09/17 11/10/17 18:13 18:13 04:29 Seg Neuts % (Manual) 83.0 H Lymphocytes % (Manual) 13.0 L Seg Neutrophils # Man 7.9 H Chloride 90.5 L 91.4 L Carbon Dioxide 39 H 40 H Creatinine 0.4 L 0.4 L Glucose 102 H Lactic Acid Calcium 8.3 L 11/11/17 14:29 Seg Neuts % (Manual) Lymphocytes % (Manual) Seg Neutrophils # Man Chloride Carbon Dioxide Creatinine Glucose Lactic Acid 2.40 H* Calcium Chest x-ray: report reviewed (Mild increase in density right lower lobe.), image reviewed
[2017-11-12] MEDS: DUONEB *Not for PRN Use IH SCH ×4 (02:21→19:40)
[2017-11-12] MEDS: MORPHINE IV PRN ×4 (04:34→23:25)
[2017-11-12] MEDS: VANCOMYCIN 1,500 MG in NACL 0.9% 500 ML 500 ML IV SCH ×2 (06:12→18:18)
[2017-11-12 06:29] LABS: Hematocrit 38.5 % (35.5-45.6); Hemoglobin 12.5 gm/dl (11.8-15.2); Mean Corpuscular HGB Conc 33 % (32-34); Mean Corpuscular Hemoglobin 30 pg (28-32); Mean Corpuscular Volume 92 fl (84-94); Platelet Count 190 K/mm3 (140-440); Red Cell Distribution Width 14.4 % (13.2-15.2); White Blood Count 8.4 K/mm3 (4.5-11.0)
[2017-11-12] MEDS: PULMICORT IH SCH ×2 (08:44→19:12)
[2017-11-12] MEDS: BROVANA NEBU IH SCH ×2 (08:44→19:12)
--- NOTE | 2017-11-12 09:50 | Progress Note ---
Assessment and Plan Assessment and plan: Acute on chronic hypoxemic respiratory failure. Continue supplemental Oxygen. BiPAP as clinically indicated. Hemoptysis. This is improved.Patient with recent CTA on 11/08 that was negative for PE. No infiltrates seen. Pulmonology following. H/H stable COPD exacerbation. Continue solumedrol, supplemental Oxygen, Duoneb Hypertension. Resume antihypertensive medications. Seizure disorder. Continue Primodine. Sleep apnea Chronic opioid dependent therapy. Deconditioning. PT/OT eval. To go to SNF when stable. DVT prophylaxis with Lovenox. Full code status. Patient states he doesn't want to go back to [place]. Discussed with Case management. Referral sent out. He is accepted at [facility]. March d/c tomorrow if cultures no growth till tomorrow(24 hrs) History Interval history: Cough that is blood stained Less shortness of breath, No fever Hospitalist Physical - Physical exam Narrative exam: GEN APPEARANCE : Not in acute distress, obese HEENT: Normocephalic, Atraumatic NECK : supple, no JVD LUNGS: Decreased breath sounds bilaterally, no rales, no wheeze HEART: S1 and S2 regular, no murmurs, rubs or gallop, ABD: Soft, non tender, non distended, normal bowel sounds EXT: No edema, no clubbing, no cyanosis NEURO: Awake,alert, oriented, no focal signs - Constitutional Vitals: Temp Pulse Resp BP Pulse Ox 98.7 F 90 17 151/85 91 11/12/17 07:49 11/12/17 08:45 11/12/17 08:45 11/12/17 07:49 11/12/17 08:45 Results - Labs CBC & Chem 7: 11/12/17 05:52 11/10/17 04:29 Labs: Laboratory Last Values WBC 8.4 K/mm3 (4.5-11.0) 11/12/17 05:52 RBC 4.20 M/mm3 (3.65-5.03) 11/12/17 05:52 Hgb 12.5 gm/dl (11.8-15.2) 11/12/17 05:52 Hct 38.5 % (35.5-45.6) 11/12/17 05:52 MCV 92 fl (84-94) 11/12/17 05:52 MCH 30 pg (28-32) 11/12/17 05:52 MCHC 33 % (32-34) 11/12/17 05:52 RDW 14.4 % (13.2-15.2) 11/12/17 05:52 Plt Count 190 K/mm3 (140-440) 11/12/17 05:52 Add Manual Diff Complete 11/10/17 04:29 Total Counted 100 11/10/17 04:29 Seg Neuts % (Manual) 70.0 % (40.0-70.0) 11/10/17 04:29 Band Neutrophils % 5.0 % 11/10/17 04:29 Lymphocytes % (Manual) 18.0 % (13.4-35.0) 11/10/17 04:29 Reactive Lymphs % (Man) 0 % 11/10/17 04:29 Monocytes % (Manual) 7.0 % (0.0-7.3) 11/10/17 04:29 Eosinophils % (Manual) 0 % (0.0-4.3) 11/10/17 04:29 Basophils % (Manual) 0 % (0.0-1.8) 11/10/17 04:29 Metamyelocytes % 0 % 11/10/17 04:29 Myelocytes % 0 % 11/10/17 04:29 Promyelocytes % 0 % 11/10/17 04:29 Blast Cells % 0 % 11/10/17 04:29 Nucleated RBC % Not Reportable 11/10/17 04:29 Seg Neutrophils # Man 6.4 K/mm3 (1.8-7.7) 11/10/17 04:29 Band Neutrophils # 0.5 K/mm3 11/10/17 04:29 Lymphocytes # (Manual) 1.7 K/mm3 (1.2-5.4) 11/10/17 04:29 Abs React Lymphs (Man) 0.0 K/mm3 11/10/17 04:29 Monocytes # (Manual) 0.6 K/mm3 (0.0-0.8) 11/10/17 04:29 Eosinophils # (Manual) 0.0 K/mm3 (0.0-0.4) 11/10/17 04:29 Basophils # (Manual) 0.0 K/mm3 (0.0-0.1) 11/10/17 04:29 Metamyelocytes # 0.0 K/mm3 11/10/17 04:29 Myelocytes # 0.0 K/mm3 11/10/17 04:29 Promyelocytes # 0.0 K/mm3 11/10/17 04:29 Blast Cells # 0.0 K/mm3 11/10/17 04:29 WBC Morphology Not Reportable 11/10/17 04:29 Hypersegmented Neuts Not Reportable 11/10/17 04:29 Hyposegmented Neuts Not Reportable 11/10/17 04:29 Hypogranular Neuts Not Reportable 11/10/17 04:29 Smudge Cells Not Reportable 11/10/17 04:29 Toxic Granulation Not Reportable 11/10/17 04:29 Toxic Vacuolation Not Reportable 11/10/17 04:29 Dohle Bodies Not Reportable 11/10/17 04:29 Pelger-Huet Anomaly Not Reportable 11/10/17 04:29 Bre Rods Not Reportable 11/10/17 04:29 Platelet Estimate Appears normal 11/10/17 04:29 Clumped Platelets Not Reportable 11/10/17 04:29 Plt Clumps, EDTA Not Reportable 11/10/17 04:29 Large Platelets Not Reportable 11/10/17 04:29 Giant Platelets Not Reportable 11/10/17 04:29 Platelet Satelliting Not Reportable 11/10/17 04:29 Plt Morphology Comment Not Reportable 11/10/17 04:29 RBC Morphology Not Reportable 11/10/17 04:29 Dimorphic RBCs Not Reportable 11/10/17 04:29 Polychromasia Not Reportable 11/10/17 04:29 Hypochromasia Few 11/10/17 04:29 Poikilocytosis Not Reportable 11/10/17 04:29 Anisocytosis 1+ 11/10/17 04:29 Microcytosis Not Reportable 11/10/17 04:29 Macrocytosis Not Reportable 11/10/17 04:29 Spherocytes Not Reportable 11/10/17 04:29 Pappenheimer Bodies Not Reportable 11/10/17 04:29 Sickle Cells Not Reportable 11/10/17 04:29 Target Cells Not Reportable 11/10/17 04:29 Tear Drop Cells Not Reportable 11/10/17 04:29 Ovalocytes Not Reportable 11/10/17 04:29 Helmet Cells Not Reportable 11/10/17 04:29 Rodriguez-[place]net[place] Bodies Not Reportable 11/10/17 04:29 [place] Rings Not Reportable 11/10/17 04:29 [place] Cells Not Reportable 11/10/17 04:29 Bite Cells Not Reportable 11/10/17 04:29 Crenated Cell Not Reportable 11/10/17 04:29 Elliptocytes Not Reportable 11/10/17 04:29 Acanthocytes (Spur) Not Reportable 11/10/17 04:29 Rouleaux Not Reportable 11/10/17 04:29 Hemoglobin C Crystals Not Reportable 11/10/17 04:29 Schistocytes Not Reportable 11/10/17 04:29 Malaria parasites Not Reportable 11/10/17 04:29 Kevin Bodies Not Reportable 11/10/17 04:29 Hem Pathologist Commnt No 11/10/17 04:29 Sodium 139 mmol/L (137-145) 11/10/17 04:29 Potassium 3.7 mmol/L (3.6-5.0) 11/10/17 04:29 Chloride 91.4 mmol/L (98-107) L 11/10/17 04:29 Carbon Dioxide 40 mmol/L (22-30) H 11/10/17 04:29 Anion Gap 11 mmol/L 11/10/17 04:29 BUN 11 mg/dL (9-20) 11/10/17 04:29 Creatinine 0.4 mg/dL (0.8-1.5) L 11/10/17 04:29 Estimated GFR > 60 ml/min 11/10/17 04:29 BUN/Creatinine Ratio 28 % 11/10/17 04:29 Glucose 102 mg/dL (75-100) H 11/10/17 04:29 Lactic Acid 0.80 mmol/L (0.7-2.0) 11/12/17 05:48 Calcium 8.3 mg/dL (8.4-10.2) L 11/10/17 04:29
[2017-11-12] MEDS: LOVENOX SUB-Q SCH (10:26)
[2017-11-12] MEDS: THERAGRAN-M Tab PO SCH (10:27)
[2017-11-12] MEDS: TOPROL XL PO SCH (10:27)
[2017-11-12] MEDS: FISH OIL PO SCH (10:27)
[2017-11-12] MEDS: NEURONTIN PO SCH ×3 (10:27→21:43)
[2017-11-12] MEDS: COLACE PO SCH ×2 (10:27→21:43)
[2017-11-12] MEDS: MYSOLINE PO SCH ×4 (10:27→21:43)
[2017-11-12] MEDS: NORVASC PO SCH (10:28)
[2017-11-12] MEDS: BABY ASPIRIN PO SCH (10:28)
--- NOTE | 2017-11-12 10:29 | Query- Pneumonia Documented ---
Dear Date:__11/12/2017 Wireless Communications Engineer/CDS:__Zita Phone#:___[phone] Exercise your independent professional judgment when responding to query. Questions asked do not imply a particular answer is desired or expected. We greatly appreciate your clarification on this issue. Clinical Documentation States: 62 Year old male was admitted on 11/09/2017 for hemoptysis. The Pulmonology (Dr. Yeung) progress note states "- Patient Problems (1) Acute and chronic respiratory failure Current Visit: No Status: Acute Plan to address problem: O2 5 litres via nasal canula. Brovanna/Budesonide aerosol treatments q 12 hours. Continue I/V solumedral Continue S/C Lovenox. Continue Protonix. (2) COPD exacerbation Current Visit: No Status: Acute Plan to address problem: O2 5 litres via nasal canula. Brovanna/Budesonide aerosol treatments q 12 hours. Continue I/V solumedral Continue S/C Lovenox. Continue Protonix. (5) Hemoptysis Current Visit: Yes Status: Acute Plan to address problem: Coughing less blood today (6) Pulmonary infiltrate in right lung on CXR Current Visit: Yes Status: Acute Plan to address problem: Patient is on vancomycin." Please further specify known or suspected Etiology: [x ] Aspiration Pneumonia [ ] Gram Negative Pneumonia [ ] Gram Positive Pneumonia [ ] Pseudomonas Pneumonia [ ] MRSA - related Pneumonia [ ] Viral Pneumonia [ ] Candidal Pneumonia [ ] Other: [ ] Unable to determine Present on Admission: [x ] Yes (Y) [ ] Clinically undeterminable (W) [ ] No (N) Please also document response in your Progress Notes and/or Discharge Summary and indicate if the condition was present on admission. MTDD
--- NOTE | 2017-11-12 10:47 | Progress Note ---
Assessment and Plan Assessment: 1) Coag-neg Staph bacteremia: without evidence of sepsis/SIRS - likely contamination 2) Hemoptysis ? unclear etiology. CTA showed no PE, bilateral small hilar and mediastinal lymph nodes and right lower lobe atelectasis. Plan: -follow-up blood cultures ID and PARAMJIT -follow-up repeat blood cx -continue vancomycin - will stop it soon Thank you Dr Jackson for your consultation, will follow up with you. Mariely Gramajo MD Infectious Diseases Specialist [facility] M [phone] O [phone] Subjective Date of service: 11/12/17 Interval history: Feels ok, no complaints. No fever. Microbiology: Blood cultures: 11/09 Coag neg Staph 2 of 4 bottles 11/11 ngtd Urine cultures: Current Antimicrobials: Vancomycin 11/11 Previous Antimicrobials: Zosyn 11/11 Objective - Exam Narrative Exam: General appearance: Alert in NAD, conversant Eyes: anicteric sclerae, moist conjunctivae; no lid-lag; PERRLA HENT: Atraumatic; oropharynx clear with moist mucous membranes and no mucosal ulcerations/no oral thrush; normal hard and soft palate. Normal external ears. Neck: Trachea midline; supple, no thyromegaly or lymphadenopathy Lungs: decreased BS alexey CV: RRR Abdomen: Soft, non-tender Extremities: No peripheral edema or extremity lymphadenopathy Skin: Normal temperature, turgor and texture; no rash, ulcers or subcutaneous nodules Psych: Appropriate affect, alert and oriented to person, place and time. Neuro: alert and oriented x 3. Moving all extermities Lines: No CVL / PICC - Constitutional Vitals: Vital Signs Temp Pulse Resp BP Pulse Ox 98.7 F 90 17 151/85 91 11/12/17 07:49 11/12/17 08:45 11/12/17 08:45 11/12/17 10:28 11/12/17 08:45 Temperature -Last 24 Hours Temperature 98.7 F Temperature 99.0 F - Labs CBC & Chem 7: 11/12/17 05:52 11/10/17 04:29 Labs: Abnormal lab results 11/11/17 Range/Units 14:29 Lactic Acid 2.40 H* (0.7-2.0) mmol/L
[2017-11-12] MEDS: SPIRIVA IH SCH (17:38)
--- NOTE | 2017-11-12 19:22 | Progress Note ---
Assessment and Plan Patient alert, awake. Still complaining shortness of breath. Patient says he coughed up again trace of blood today. No acute respiratory distress.O2 saturation 91% on 5 litres O2. - Patient Problems (1) Acute and chronic respiratory failure Current Visit: No Status: Acute Plan to address problem: O2 5 litres via nasal canula. Brovanna/Budesonide aerosol treatments q 12 hours. Continue I/V solumedral Continue S/C Lovenox. Continue Protonix. (2) COPD exacerbation Current Visit: No Status: Acute Plan to address problem: O2 5 litres via nasal canula. Brovanna/Budesonide aerosol treatments q 12 hours. Continue I/V solumedral Continue S/C Lovenox. Continue Protonix. (3) Hypertension Current Visit: No Status: Acute Plan to address problem: Management as per primary care. (4) Myoclonic epilepsy Current Visit: No Status: Acute Plan to address problem: Management as per primary care. (5) Hemoptysis Current Visit: Yes Status: Acute Plan to address problem: Coughing only trace of blood (6) Pulmonary infiltrate in right lung on CXR Current Visit: Yes Status: Acute Plan to address problem: Patient is on vancomycin. Repeating chest xray tomorrow. Subjective Date of service: 11/12/17 Interval history: Patient alert, awake. Still complaining shortness of breath. Patient says he coughed up again trace of blood today. No acute respiratory distress.O2 saturation 91% on 5 litres O2. Objective Vital Signs - 12hr 11/12/17 11/12/17 11/12/17 07:49 08:44 08:45 Temperature 98.7 F Pulse Rate 76 Pulse Rate [ 101 H 90 Anterior Bilateral Throughout] Respiratory 18 Rate Respiratory 18 17 Rate [Anterior Bilateral Throughout] Blood Pressure 151/85 O2 Sat by Pulse 90 91 Oximetry 11/12/17 11/12/17 11/12/17 10:27 10:28 16:37 Temperature 98.7 F Pulse Rate 76 Pulse Rate [ Anterior Bilateral Throughout] Respiratory 18 Rate Respiratory Rate [Anterior Bilateral Throughout] Blood Pressure 151/85 151/85 156/85 O2 Sat by Pulse 90 Oximetry 11/12/17 19:15 Temperature Pulse Rate Pulse Rate [ 86 Anterior Bilateral Throughout] Respiratory Rate Respiratory 18 Rate [Anterior Bilateral Throughout] Blood Pressure O2 Sat by Pulse 91 Oximetry Constitutional: no acute distress, alert ENT: oropharynx moist Neck: supple, no lymphadenopathy Ascultation: Bilateral: diminished breath sounds, rhonchi Cardiovascular: regular rate and rhythm Gastrointestinal: normoactive bowel sounds, soft, non-tender Integumentary: normal Extremities: no cyanosis, no edema Neurologic: normal mental status, non-focal exam, pupils equal and round, CN II- XII normal Psychiatric: mood appropriate CBC and BMP: 11/12/17 05:52 11/10/17 04:29 Abnormal lab findings: Abnormal Labs 11/09/17 11/09/17 11/10/17 18:13 18:13 04:29 Seg Neuts % (Manual) 83.0 H Lymphocytes % (Manual) 13.0 L Seg Neutrophils # Man 7.9 H Chloride 90.5 L 91.4 L Carbon Dioxide 39 H 40 H Creatinine 0.4 L 0.4 L Glucose 102 H Lactic Acid Calcium 8.3 L 11/11/17 14:29 Seg Neuts % (Manual) Lymphocytes % (Manual) Seg Neutrophils # Man Chloride Carbon Dioxide Creatinine Glucose Lactic Acid 2.40 H* Calcium
[2017-11-13] MEDS: DUONEB *Not for PRN Use IH SCH ×4 (01:51→21:36)
[2017-11-13] MEDS: MORPHINE IV PRN ×3 (05:11→17:11)
[2017-11-13] MEDS: VANCOMYCIN 1,500 MG in NACL 0.9% 500 ML 500 ML IV SCH (05:28)
[2017-11-13] MEDS: NEURONTIN PO SCH ×3 (08:13→20:43)
[2017-11-13] MEDS: BROVANA NEBU IH SCH ×2 (08:13→21:37)
[2017-11-13] MEDS: PULMICORT IH SCH ×2 (08:13→21:37)
[2017-11-13] MEDS: TOPROL XL PO SCH (10:38)
[2017-11-13] MEDS: BABY ASPIRIN PO SCH (10:38)
[2017-11-13] MEDS: MYSOLINE PO SCH ×4 (10:39→21:13)
[2017-11-13] MEDS: FISH OIL PO SCH (10:39)
[2017-11-13] MEDS: NORVASC PO SCH (10:40)
[2017-11-13] MEDS: LOVENOX SUB-Q SCH (10:40)
[2017-11-13] MEDS: COLACE PO SCH ×2 (10:40→21:13)
[2017-11-13] MEDS: THERAGRAN-M Tab PO SCH (10:40)
[2017-11-13 11:18] LABS: ISTAT Base Excess 11; ISTAT HCO3 35.2; ISTAT PCO2 55.8 (35-45); ISTAT PH 7.408 (7.35-7.45); ISTAT PO2 55 (80-105); ISTAT SO2 88; ISTAT TCO2 37
--- NOTE | 2017-11-13 12:58 | Progress Note ---
Assessment and Plan Assessment: 1) Staph \capitis and Staph epidermitis in blood cultures: without evidence of sepsis/SIRS - likely contamination 2) Hemoptysis ? unclear etiology. CTA showed no PE, bilateral small hilar and mediastinal lymph nodes and right lower lobe atelectasis. Plan: -stop vancomycin -no need for systemic IV abx -ok to d/c from ID stand point I am signing off Thank you Dr Jackson for your consultation, will follow up with you. Mariely Gramajo MD Infectious Diseases Specialist [facility] [place] [facility] M [phone] O [phone] Subjective Date of service: 11/13/17 Principal diagnosis: bacteremia Interval history: Feels ok, no complaints. No fever. Wants to go home. Microbiology: Blood cultures: 11/09 S. capitis and S. epidermiditis 2 of 4 bottles 11/11 ngtd Urine cultures: Current Antimicrobials: Vancomycin 11/11 Previous Antimicrobials: Zosyn 11/11 Objective - Exam Narrative Exam: General appearance: Alert in NAD, conversant Eyes: anicteric sclerae, moist conjunctivae; no lid-lag; PERRLA HENT: Atraumatic; oropharynx clear with moist mucous membranes and no mucosal ulcerations/no oral thrush; normal hard and soft palate. Normal external ears. Neck: Trachea midline; supple, no thyromegaly or lymphadenopathy Lungs: decreased BS alexey CV: RRR Abdomen: Soft, non-tender Extremities: No peripheral edema or extremity lymphadenopathy Skin: Normal temperature, turgor and texture; no rash, ulcers or subcutaneous nodules Psych: Appropriate affect, alert and oriented to person, place and time. Neuro: alert and oriented x 3. Moving all extermities Lines: No CVL / PICC - Constitutional Vitals: Vital Signs Temp Pulse Resp BP Pulse Ox 98.5 F 74 20 129/85 89 11/13/17 08:00 11/13/17 08:00 11/13/17 11:25 11/13/17 10:40 11/13/17 10:00 Temperature -Last 24 Hours Temperature 98.5 F Temperature 98.2 F Temperature 98.7 F - Labs CBC & Chem 7: 11/12/17 05:52 11/10/17 04:29 Labs: Abnormal lab results 12/20/17 Range/Units 10:30 POC ABG pCO2 55.8 H (35-45) POC ABG pO2 55 L (80-105)
[2017-11-13] MEDS: SPIRIVA IH SCH (14:10)
--- NOTE | 2017-11-13 16:42 | Progress Note ---
Assessment and Plan Assessment and plan: Acute on chronic hypoxemic and hypercapneac respiratory failure. Continue supplemental Oxygen. BiPAP as clinically indicated. ABG done today revealed hypoxemia and hypercapnea. Oxygen Fio2 increased. Hemoptysis. This is improving. Now only minimal. He had recent CTA on 11/08 that was negative for PE. No infiltrates seen. Pulmonology following. H/H stable COPD exacerbation. Continue solumedrol, supplemental Oxygen, Duoneb Hypertension. BP stable. Bacteremia due to contamination of specimen. Repeat cultures are negative. ID Physician following Seizure disorder. Continue Primodine. Sleep apnea Chronic opioid dependent therapy. Deconditioning. PT/OT eval. To go to SNF when stable. DVT prophylaxis with Lovenox. Full code status. Patient states he doesn't want to go back to [facility]. Discussed with Case management. Referral sent out. He is accepted at [facility]. d/c soon hopefully in 1-2 days Discussed with patient and son at bedside. History Interval history: Cough that is blood stained Less shortness of breath, No fever Hospitalist Physical - Physical exam Narrative exam: GEN APPEARANCE : Not in acute distress, obese HEENT: Normocephalic, Atraumatic NECK : supple, no JVD LUNGS: Decreased breath sounds bilaterally, no rales, no wheeze HEART: S1 and S2 regular, no murmurs, rubs or gallop, ABD: Soft, non tender, non distended, normal bowel sounds EXT: No edema, no clubbing, no cyanosis NEURO: Awake,alert, oriented x 3, no focal signs - Constitutional Vitals: Temp Pulse Resp BP Pulse Ox 98.5 F 89 22 122/70 90 11/13/17 15:44 11/13/17 15:44 11/13/17 15:44 11/13/17 15:44 11/13/17 15:44 General appearance: Present: no acute distress, well-nourished Results - Labs CBC & Chem 7: 11/12/17 05:52 11/10/17 04:29 Labs: Laboratory Last Values WBC 8.4 K/mm3 (4.5-11.0) 11/12/17 05:52 RBC 4.20 M/mm3 (3.65-5.03) 11/12/17 05:52 Hgb 12.5 gm/dl (11.8-15.2) 11/12/17 05:52 Hct 38.5 % (35.5-45.6) 11/12/17 05:52 MCV 92 fl (84-94) 11/12/17 05:52 MCH 30 pg (28-32) 11/12/17 05:52 MCHC 33 % (32-34) 11/12/17 05:52 RDW 14.4 % (13.2-15.2) 11/12/17 05:52 Plt Count 190 K/mm3 (140-440) 11/12/17 05:52 Add Manual Diff Complete 11/10/17 04:29 Total Counted 100 11/10/17 04:29 Seg Neuts % (Manual) 70.0 % (40.0-70.0) 11/10/17 04:29 Band Neutrophils % 5.0 % 11/10/17 04:29 Lymphocytes % (Manual) 18.0 % (13.4-35.0) 11/10/17 04:29 Reactive Lymphs % (Man) 0 % 11/10/17 04:29 Monocytes % (Manual) 7.0 % (0.0-7.3) 11/10/17 04:29 Eosinophils % (Manual) 0 % (0.0-4.3) 11/10/17 04:29 Basophils % (Manual) 0 % (0.0-1.8) 11/10/17 04:29 Metamyelocytes % 0 % 11/10/17 04:29 Myelocytes % 0 % 11/10/17 04:29 Promyelocytes % 0 % 11/10/17 04:29 Blast Cells % 0 % 11/10/17 04:29 Nucleated RBC % Not Reportable 11/10/17 04:29 Seg Neutrophils # Man 6.4 K/mm3 (1.8-7.7) 11/10/17 04:29 Band Neutrophils # 0.5 K/mm3 11/10/17 04:29 Lymphocytes # (Manual) 1.7 K/mm3 (1.2-5.4) 11/10/17 04:29 Abs React Lymphs (Man) 0.0 K/mm3 11/10/17 04:29 Monocytes # (Manual) 0.6 K/mm3 (0.0-0.8) 11/10/17 04:29 Eosinophils # (Manual) 0.0 K/mm3 (0.0-0.4) 11/10/17 04:29 Basophils # (Manual) 0.0 K/mm3 (0.0-0.1) 11/10/17 04:29 Metamyelocytes # 0.0 K/mm3 11/10/17 04:29 Myelocytes # 0.0 K/mm3 11/10/17 04:29 Promyelocytes # 0.0 K/mm3 11/10/17 04:29 Blast Cells # 0.0 K/mm3 11/10/17 04:29 WBC Morphology Not Reportable 11/10/17 04:29 Hypersegmented Neuts Not Reportable 11/10/17 04:29 Hyposegmented Neuts Not Reportable 11/10/17 04:29 Hypogranular Neuts Not Reportable 11/10/17 04:29 Smudge Cells Not Reportable 11/10/17 04:29 Toxic Granulation Not Reportable 11/10/17 04:29 Toxic Vacuolation Not Reportable 11/10/17 04:29 Dohle Bodies Not Reportable 11/10/17 04:29 Pelger-Huet Anomaly Not Reportable 11/10/17 04:29 Bre Rods Not Reportable 11/10/17 04:29 Platelet Estimate Appears normal 11/10/17 04:29 Clumped Platelets Not Reportable 11/10/17 04:29 Plt Clumps, EDTA Not Reportable 11/10/17 04:29 Large Platelets Not Reportable 11/10/17 04:29 Giant Platelets Not Reportable 11/10/17 04:29 Platelet Satelliting Not Reportable 11/10/17 04:29 Plt Morphology Comment Not Reportable 11/10/17 04:29 RBC Morphology Not Reportable 11/10/17 04:29 Dimorphic RBCs Not Reportable 11/10/17 04:29 Polychromasia Not Reportable 11/10/17 04:29 Hypochromasia Few 11/10/17 04:29 Poikilocytosis Not Reportable 11/10/17 04:29 Anisocytosis 1+ 11/10/17 04:29 Microcytosis Not Reportable 11/10/17 04:29 Macrocytosis Not Reportable 11/10/17 04:29 Spherocytes Not Reportable 11/10/17 04:29 Pappenheimer Bodies Not Reportable 11/10/17 04:29 Sickle Cells Not Reportable 11/10/17 04:29 Target Cells Not Reportable 11/10/17 04:29 Tear Drop Cells Not Reportable 11/10/17 04:29 Ovalocytes Not Reportable 11/10/17 04:29 Helmet Cells Not Reportable 11/10/17 04:29 [place] Bodies Not Reportable 11/10/17 04:29 Delton Rings Not Reportable 11/10/17 04:29 [place] Cells Not Reportable 11/10/17 04:29 Bite Cells Not Reportable 11/10/17 04:29 Crenated Cell Not Reportable 11/10/17 04:29 Elliptocytes Not Reportable 11/10/17 04:29 Acanthocytes (Spur) Not Reportable 11/10/17 04:29 Rouleaux Not Reportable 11/10/17 04:29 Hemoglobin C Crystals Not Reportable 11/10/17 04:29 Schistocytes Not Reportable 11/10/17 04:29 Malaria parasites Not Reportable 11/10/17 04:29 Kevin Bodies Not Reportable 11/10/17 04:29 Hem Pathologist Commnt No 11/10/17 04:29 POC ABG pH 7.408 (7.35-7.45) 11/13/17 10:30 POC ABG pCO2 55.8 (35-45) H 11/13/17 10:30 POC ABG pO2 55 (80-105) L 11/13/17 10:30 POC ABG HCO3 35.2 11/13/17 10:30 POC ABG Total CO2 37 11/13/17 10:30 POC ABG O2 Sat 88 11/13/17 10:30 POC ABG Base Excess 11 11/13/17 10:30 FiO2 4 % 11/13/17 10:30 Sodium 139 mmol/L (137-145) 11/10/17 04:29 Potassium 3.7 mmol/L (3.6-5.0) 11/10/17 04:29 Chloride 91.4 mmol/L (98-107) L 11/10/17 04:29 Carbon Dioxide 40 mmol/L (22-30) H 11/10/17 04:29 Anion Gap 11 mmol/L 11/10/17 04:29 BUN 11 mg/dL (9-20) 11/10/17 04:29 Creatinine 0.4 mg/dL (0.8-1.5) L 11/10/17 04:29 Estimated GFR > 60 ml/min 11/10/17 04:29 BUN/Creatinine Ratio 28 % 11/10/17 04:29 Glucose 102 mg/dL (75-100) H 11/10/17 04:29 Lactic Acid 0.80 mmol/L (0.7-2.0) 11/12/17 05:48 Calcium 8.3 mg/dL (8.4-10.2) L 11/10/17 04:29
--- NOTE | 2017-11-13 16:58 | Progress Note ---
Assessment and Plan Patient is in deep sleep. No acute respiratory distress.O2 saturation 91% on 5 litres O2. - Patient Problems (1) Acute and chronic respiratory failure Current Visit: No Status: Acute Plan to address problem: O2 5 litres via nasal canula. Brovanna/Budesonide aerosol treatments q 12 hours. Continue I/V solumedral Continue S/C Lovenox. Continue Protonix. (2) COPD exacerbation Current Visit: No Status: Acute Plan to address problem: O2 5 litres via nasal canula. Brovanna/Budesonide aerosol treatments q 12 hours. Continue I/V solumedral Continue S/C Lovenox. Continue Protonix. (3) Hypertension Current Visit: No Status: Acute Plan to address problem: Management as per primary care. (4) Myoclonic epilepsy Current Visit: No Status: Acute Plan to address problem: Management as per primary care. (5) Hemoptysis Current Visit: Yes Status: Acute Plan to address problem: Coughing only trace of blood b It is much better. (6) Pulmonary infiltrate in right lung on CXR Current Visit: Yes Status: Acute Plan to address problem: Patient is on vancomycin. Subjective Date of service: 11/13/17 Principal diagnosis: bacteremia Interval history: Patient is in deep sleep. No acute respiratory distress.O2 saturation 91% on 5 litres O2. Objective Vital Signs - 12hr 11/13/17 11/13/17 11/13/17 05:11 08:00 10:00 Temperature 98.5 F Pulse Rate 74 Respiratory 20 22 Rate Blood Pressure 140/82 O2 Sat by Pulse 92 89 Oximetry 11/13/17 11/13/17 11/13/17 10:38 10:40 11:25 Temperature Pulse Rate Respiratory 20 Rate Blood Pressure 129/85 129/85 O2 Sat by Pulse Oximetry 11/13/17 11/13/17 11:55 15:44 Temperature 98.5 F Pulse Rate 89 Respiratory 20 22 Rate Blood Pressure 122/70 O2 Sat by Pulse 90 Oximetry Constitutional: no acute distress, alert ENT: oropharynx moist Neck: supple, no lymphadenopathy Ascultation: Bilateral: diminished breath sounds, rhonchi Cardiovascular: regular rate and rhythm Gastrointestinal: normoactive bowel sounds, soft, non-tender Integumentary: normal Extremities: no cyanosis, no edema Neurologic: normal mental status, non-focal exam, pupils equal and round, CN II- XII normal Psychiatric: mood appropriate CBC and BMP: 11/12/17 05:52 11/10/17 04:29 ABG, PT/INR, D-dimer: ABG POC ABG pH 7.408 (7.35-7.45) 11/13/17 10:30 POC ABG pCO2 55.8 (35-45) H 11/13/17 10:30 POC ABG pO2 55 (80-105) L 11/13/17 10:30 POC ABG HCO3 35.2 11/13/17 10:30 POC ABG Total CO2 37 11/13/17 10:30 POC ABG O2 Sat 88 11/13/17 10:30 Abnormal lab findings: Abnormal Labs 11/09/17 11/09/17 11/10/17 18:13 18:13 04:29 Seg Neuts % (Manual) 83.0 H Lymphocytes % (Manual) 13.0 L Seg Neutrophils # Man 7.9 H POC ABG pCO2 POC ABG pO2 Chloride 90.5 L 91.4 L Carbon Dioxide 39 H 40 H Creatinine 0.4 L 0.4 L Glucose 102 H Lactic Acid Calcium 8.3 L 11/11/17 11/13/17 14:29 10:30 Seg Neuts % (Manual) Lymphocytes % (Manual) Seg Neutrophils # Man POC ABG pCO2 55.8 H POC ABG pO2 55 L Chloride Carbon Dioxide Creatinine Glucose Lactic Acid 2.40 H* Calcium Chest x-ray: report reviewed (Streaky infiltrate right lung base.Atelectasis at the bases.), image reviewed
--- NOTE | 2017-11-13 21:34 | XRay Report ---
FINAL REPORT PROCEDURE: XR CHEST ROUTINE 2V TECHNIQUE: Two view PA lateral chest HISTORY: Right lower lobe atelectasis or infiltrate COMPARISON: 11/09/2017 FINDINGS: Top-normal heart size. Mild central congestion. COPD with lower lung zone atelectasis bilateral and or patchy infiltrate right lung base. Possible small nodular areas in the left lower lung zone. IMPRESSION: Shallow inspiration with lung base atelectasis. Central congestion. Possible streaky infiltrate right lung base
[2017-11-14] MEDS: MORPHINE IV PRN ×3 (00:03→12:28)
[2017-11-14] MEDS: DUONEB *Not for PRN Use IH SCH ×3 (02:46→14:40)
[2017-11-14] MEDS: NEURONTIN PO SCH ×2 (08:38→14:21)
[2017-11-14] MEDS: PULMICORT IH SCH (09:47)
[2017-11-14] MEDS: BROVANA NEBU IH SCH (09:48)
[2017-11-14] MEDS: LOVENOX SUB-Q SCH (10:03)
[2017-11-14] MEDS: MYSOLINE PO SCH ×2 (10:04→14:21)
[2017-11-14] MEDS: SPIRIVA IH SCH (10:04)
[2017-11-14] MEDS: TOPROL XL PO SCH (10:06)
[2017-11-14] MEDS: NORVASC PO SCH (10:06)
[2017-11-14] MEDS: BABY ASPIRIN PO SCH (10:08)
[2017-11-14] MEDS: COLACE PO SCH (10:08)
[2017-11-14] MEDS: FISH OIL PO SCH (10:08)
[2017-11-14] MEDS: PERCOCET 5/325 PO PRN ×2 (10:11→15:58)
[2017-11-14] MEDS: ROXICODONE PO PRN ×2 (10:12→15:59)
--- NOTE | 2017-11-14 12:06 | Discharge Summary ---
Providers - Providers Date of Admission: 11/09/17 21:47 Date of discharge: 11/14/17 Attending physician: SHASHI RODGERS 11/09/17 21:47 Consult to Physician [CONS] Routine Consulting Provider: KYREE WALKER Reason For Exam: copd Place consult to:: dr. walker Notified:: answering service Phone number called:: Was contact made?: Yes If yes, spoke with:: tamera Time called:: 11:58 11/11/17 09:00 Consult to Case Management [CONS] Routine Services Needed at Discharge: Other Notified:: cm Comment:: Patient wants different SNF 11/11/17 11:34 Consult to Physician [CONS] Routine Consulting Provider: GERALDINE LEWIS Reason For Exam: Bacteremia-coagulase neg staph Place consult to:: dr. swenson Notified:: Phone number called:: [phone] Was contact made?: Yes If yes, spoke with:: Time called:: 11:43 Primary care physician: MAINTENANCE DIRECTOR Hospitalization Condition: Fair Disposition: DC/[place]-03 SNF W [facility] CERT Core Measure Documentation - Palliative Care Palliative Care/ Comfort Measures: Not Applicable - Core Measures Any of the following diagnoses?: none Exam - Constitutional Vitals: Temp Pulse Resp BP Pulse Ox 99.1 F 72 18 135/76 91 11/14/17 11:38 11/14/17 11:38 11/14/17 11:38 11/14/17 11:38 11/14/17 11:38 Plan Activity: no restrictions Diet: low fat, low cholesterol, low salt Additional Instructions: 1.Follow up with Physician at SNF in 2-3 days. 2.Follow up with Dr. Owen in 1week. 3.Continue Oxygen at 4 l/min NC Follow up with: PRIMARY CARE, [Primary Care Provider] - 3-5 Days Prescriptions: Metoprolol Succinate [Toprol Xl] 50 mg PO DAILY #30 tab.er.24h oxyCODONE /ACETAMINOPHEN [Percocet 5/325 mg] 1 tab PO Q6H PRN #20 tablet PRN Reason: Pain, Moderate (4-6)
[2017-11-14] MEDS: THERAGRAN-M Tab PO SCH (12:32)
[2017-11-14 15:59] VITALS: BP 141/76
--- NOTE | 2017-11-14 16:30 | Progress Note ---
Assessment and Plan - Patient Problems (1) Acute and chronic respiratory failure Current Visit: No Status: Acute Plan to address problem: Continue with supplemental oxygen therapy Bronchodilators (2) Hemoptysis Current Visit: Yes Status: Acute Plan to address problem: Probably secondary to bronchitis and COPD with acute exacerbation Discussed with Dr. Owen, [facility], plan for out patient bronchoscopy once he is clinically improved (3) Acute bronchitis with COPD Current Visit: No Status: Acute Plan to address problem: Continue current therapies. Discharge planning under way to [facility]/SNF Subjective Date of service: 11/14/17 Principal diagnosis: , hemoptysis Interval history: Seen and examined. Vitals, labs, medications, chart reviewed. Still has hemoptysis, but only teaspoonful. Denies any chest pain, no shortness of breath. Discharge planning under way Objective - Exam Narrative Exam: GEN APPEARANCE : Not in acute distress, morbidly obese, on 4L NC HEENT: Normocephalic, Atraumatic NECK : supple, no JVD LUNGS: Decreased breath sounds bilaterally, no rales, no wheeze HEART: S1 and S2 regular, no murmurs, rubs or gallop, ABD: Soft, non tender, non distended, normal bowel sounds EXT: No edema, no clubbing, no cyanosis NEURO: Awake,alert, oriented x 3, no focal signs Vital Signs - 12hr 11/14/17 11/14/17 11/14/17 06:10 07:52 09:48 Temperature 98.4 F Pulse Rate 70 Pulse Rate [ 93 H Anterior Bilateral Throughout] Respiratory 24 22 Rate Respiratory 20 Rate [Anterior Bilateral Throughout] Blood Pressure 151/79 Blood Pressure [Left] O2 Sat by Pulse 88 Oximetry 11/14/17 11/14/17 11/14/17 09:58 10:00 10:06 Temperature Pulse Rate Pulse Rate [ 89 Anterior Bilateral Throughout] Respiratory Rate Respiratory 20 Rate [Anterior Bilateral Throughout] Blood Pressure 143/93 Blood Pressure [Left] O2 Sat by Pulse 91 Oximetry 11/14/17 11/14/17 11/14/17 10:11 10:12 11:35 Temperature 99.1 F Pulse Rate 73 Pulse Rate [ Anterior Bilateral Throughout] Respiratory 18 18 22 Rate Respiratory Rate [Anterior Bilateral Throughout] Blood Pressure 135/76 Blood Pressure [Left] O2 Sat by Pulse 90 Oximetry 11/14/17 11/14/17 11/14/17 11:38 14:40 14:50 Temperature 99.1 F Pulse Rate 72 Pulse Rate [ 75 81 Anterior Bilateral Throughout] Respiratory 18 Rate Respiratory 20 20 Rate [Anterior Bilateral Throughout] Blood Pressure Blood Pressure 135/76 [Left] O2 Sat by Pulse 91 Oximetry 11/14/17 11/14/17 11/14/17 15:26 15:58 15:59 Temperature 98.9 F Pulse Rate 83 Pulse Rate [ Anterior Bilateral Throughout] Respiratory 22 18 18 Rate Respiratory Rate [Anterior Bilateral Throughout] Blood Pressure 141/76 Blood Pressure [Left] O2 Sat by Pulse 91 Oximetry Constitutional: no acute distress, alert ENT: oropharynx moist Neck: supple, no lymphadenopathy Ascultation: Bilateral: diminished breath sounds, rhonchi Cardiovascular: regular rate and rhythm Gastrointestinal: normoactive bowel sounds, soft, non-tender Integumentary: normal Extremities: no cyanosis, no edema Neurologic: normal mental status, non-focal exam, pupils equal and round, CN II- XII normal Psychiatric: mood appropriate CBC and BMP: 11/12/17 05:52 11/10/17 04:29 ABG, PT/INR, D-dimer: ABG POC ABG pH 7.408 (7.35-7.45) 11/13/17 10:30 POC ABG pCO2 55.8 (35-45) H 11/13/17 10:30 POC ABG pO2 55 (80-105) L 11/13/17 10:30 POC ABG HCO3 35.2 11/13/17 10:30 POC ABG Total CO2 37 11/13/17 10:30 POC ABG O2 Sat 88 11/13/17 10:30 Abnormal lab findings: Abnormal Labs 11/09/17 11/09/17 11/10/17 18:13 18:13 04:29 Seg Neuts % (Manual) 83.0 H Lymphocytes % (Manual) 13.0 L Seg Neutrophils # Man 7.9 H POC ABG pCO2 POC ABG pO2 Chloride 90.5 L 91.4 L Carbon Dioxide 39 H 40 H Creatinine 0.4 L 0.4 L Glucose 102 H Lactic Acid Calcium 8.3 L 11/11/17 11/13/17 14:29 10:30 Seg Neuts % (Manual) Lymphocytes % (Manual) Seg Neutrophils # Man POC ABG pCO2 55.8 H POC ABG pO2 55 L Chloride Carbon Dioxide Creatinine Glucose Lactic Acid 2.40 H* Calcium
== END 2017-11-14 17:35 | DRG 177 ==
LOC: ED 17:40 → 3A 21:47
PROVIDERS: ADMIT Hospitalist; ATTEND Internal Medicine
PROC: 4A033R1 Measurement of Arterial Saturation, Peripheral, Percutaneous Approach (ICD-10-PCS; principal; 2017-11-13)
DX: J69.0 Pneumonitis due to inhalation of food and vomit (principal); J96.21 Acute and chronic respiratory failure with hypoxia; J96.22 Acute and chronic respiratory failure with hypercapnia; J44.1 Chronic obstructive pulmonary disease with (acute) exacerbation; F11.20 Opioid dependence, uncomplicated; R78.81 Bacteremia; J44.0 Chronic obstructive pulmonary disease with (acute) lower respiratory infection; I10 Essential (primary) hypertension; G40.409 Other generalized epilepsy and epileptic syndromes, not intractable, without status epilepticus; Z79.82 Long term (current) use of aspirin; Z86.711 Personal history of pulmonary embolism; G47.33 Obstructive sleep apnea (adult) (pediatric); J20.9 Acute bronchitis, unspecified
CPT/HCPCS: 36415; 36600; 71010; 71020; 80048; 82140; 82803; 85007; 85025; 85027; 87040; 87076; 87186; 93005; 93010; 94640; 94760; A9270-GY; J1650; J2270; J2920; J2930; J3370; J7040

== ENCOUNTER 2017-11-25 16:31 | Emergency (ER) | payer MEDICARE ==
[2017-11-25] MEDS ORDERED: PROVENTIL IH ONE (17:03)
[2017-11-25 17:24] LABS: Basophils % (Auto) 0.3 % (0.0-1.8); Eosinophils % (Auto) 0.2 % (0.0-4.3); Hematocrit 42.2 % (35.5-45.6); Hemoglobin 13.7 gm/dl (11.8-15.2); Lymphocytes # (Auto) 0.8 K/mm3 (1.2-5.4); Lymphocytes % (Auto) 13.1 % (13.4-35.0); Mean Corpuscular HGB Conc 33 % (32-34); Mean Corpuscular Hemoglobin 30 pg (28-32); Mean Corpuscular Volume 93 fl (84-94); Monocytes # (Auto) 0.6 K/mm3 (0.0-0.8); Monocytes % (Auto) 9.3 % (0.0-7.3); Platelet Count 138 K/mm3 (140-440); Red Blood Count 4.52 M/mm3 (3.65-5.03); Red Cell Distribution Width 14.4 % (13.2-15.2)
[2017-11-25] MEDS ORDERED: ATROVENT IH ONE ×2 (17:28→17:31)
[2017-11-25 17:34] LABS: Alanine Aminotransferase 42 units/L (7-56); Albumin 3.6 g/dL (3.9-5); BUN/Creatinine Ratio 20; Blood Urea Nitrogen 6 mg/dL (9-20); Calcium 8.3 mg/dL (8.4-10.2); Hemolysis Index 12; INR 1.01 (0.87-1.13)
--- NOTE | 2017-11-25 18:03 | XRay Report ---
FINAL REPORT EXAM: XR CHEST 1V AP HISTORY: Shortness of breath TECHNIQUE: Chest single a portable upright AP PRIORS: None. FINDINGS: There is bilateral pulmonary reticular interstitial prominence unchanged from prior studies. Cardiac and mediastinal contours are unremarkable. No pleural effusion identified. There is no evidence for pneumothorax IMPRESSION: Pulmonary interstitial prominence unchanged from prior exam
[2017-11-25] MEDS ORDERED: PERCOCET 5/325 PO PRN (19:25)
[2017-11-25] MEDS ORDERED: ROXICODONE ONE (19:30)
--- NOTE | 2017-11-25 20:04 | Emergency Department Report ---
ED Shortness of Breath HPI - General Chief Complaint: Seizure Stated Complaint: RESPIRATORY DISTRESS Time Seen by Provider: 11/25/17 16:50 Source: EMS Mode of arrival: Ambulatory Limitations: No Limitations - History of Present Illness MD Complaint: shortness of breath -: Last night Severity: moderate Quality: dull Consistency: constant Improves With: nothing Worsens With: lying flat, exertion Known History Of: COPD, congestive heart failure, diabetes, recurrent pnemonia Context: recent illness Treatments Prior to Arrival: oxygen, other (tylenol) - Related Data Home Oxygen Therapy: Yes Home Oxygen Amount: other (5 liters) Home Medications Medication Instructions Recorded Confirmed Last Taken Albuterol Sulfate [Ventolin HFA] 2 puff IH Q4H PRN 11/08/14 11/10/17 11/04/17 Aspirin [Aspirin BABY CHEW TAB] 81 mg PO QDAY 11/08/14 11/10/17 11/04/17 Budesoni/Formotero 160-4.5(Nf) 2 puff IH BID 11/08/14 11/10/17 04/25/17 [Symbicort 160-4.5 (Nf)] Cholecalciferol (Vitamin D3) 50,000 unit PO QWEEK 11/08/14 11/10/17 11/07/14 [Vitamin D3] Divalproex [Delmar Mon] 500 mg PO DAILY 11/08/14 11/10/17 11/04/17 Gabapentin 300 mg PO BID 11/08/14 11/10/17 11/04/17 Multivitamin [Multi-Vitamin Daily] 1 each PO DAILY 11/08/14 11/10/17 11/04/17 Nebivolol HCl [Bystolic] 10 mg PO QDAY 11/08/14 11/10/17 11/04/17 [place]-3 Fatty Acids/Fish Oil [Fish 1 each PO DAILY 11/08/14 11/10/17 11/04/17 Oil] Primidone [Mysoline] 250 mg PO QID 11/08/14 11/10/17 11/04/17 Tiotropium [Spiriva] 2 puff IH QDAY 11/08/14 11/10/17 11/04/17 amLODIPine [Norvasc] 5 mg PO DAILY 11/08/14 11/10/17 11/04/17 AtorvaSTATin [Lipitor] 40 mg PO QHS 04/26/17 11/10/17 11/04/17 Albuterol Sulfate [Ventolin HFA] 2 puff IH Q4H PRN 11/25/17 11/25/17 Unknown VENTOLIN Inhaler(NF) 11/25/17 Unknown Previous Rx's Medication Instructions Recorded Last Taken Type Docusate Sodium [Colace CAP] 100 mg PO BID #60 capsule 04/30/17 Unknown Rx Multivitamin Tab W-MINERAL 1 each PO QDAY #30 tablet 04/30/17 11/04/17 Rx [Multiple Vitamin/Mineral (Theragran M)] Ipratropium/Albuterol Sulfate 1 ampul IH Q6HRT #30 ampul.neb 11/08/17 Unknown Rx [DUONEB *Not for PRN Use*] Metoprolol Succinate [Toprol Xl] 50 mg PO DAILY #30 tab.er.24h 11/14/17 Unknown Rx Prednisone [predniSONE 10 mg 10 mg PO .TAPER #1 tab.ds.pk 11/14/17 Unknown Rx (6-Day Pack, 21 Tabs)] oxyCODONE /ACETAMINOPHEN [Percocet 1 tab PO Q6H PRN #20 tablet 11/14/17 Unknown Rx 5/325 mg] Allergies Allergy/AdvReac Type Severity Reaction Status Date / Time No Known Allergies Allergy Verified 11/05/17 05:58 ED Review of Systems ROS: Stated complaint: RESPIRATORY DISTRESS Other details as noted in HPI Comment: All other systems reviewed and negative Constitutional: denies: chills, fever Eyes: denies: eye pain, eye discharge, vision change ENT: denies: ear pain, throat pain Respiratory: denies: cough, shortness of breath, wheezing Cardiovascular: denies: chest pain, palpitations Endocrine: no symptoms reported Gastrointestinal: denies: abdominal pain, nausea, diarrhea Genitourinary: denies: urgency, dysuria Musculoskeletal: denies: back pain, joint swelling, arthralgia Skin: denies: rash, lesions Neurological: other (Seizure). denies: headache, weakness, paresthesias Psychiatric: denies: anxiety, depression Hematological/Lymphatic: denies: easy bleeding, easy bruising ED Past Medical Hx - Past Medical History Previous Medical History?: Yes Hx Hypertension: Yes Hx CVA: No Hx Heart Attack/AMI: No Hx Congestive Heart Failure: No Hx Diabetes: No Hx Deep Vein Thrombosis: No Hx Pulmonary Embolism: Yes Hx GERD: No Hx Liver Disease: No Hx Renal Disease: No Hx of Cancer: No Hx Sickle Cell Disease: Yes (essential tremors, bi-clonic epileptic seizures) Hx Arthritis: No Hx Headaches / Migraines: No Hx Seizures: Yes (myoclonic epilepsy) Hx Kidney Stones: No Hx Psychiatric Treatment: No Hx Asthma: No Hx COPD: Yes Hx Tuberculosis: No Hx Dementia: No Hx HIV: No Additional medical history: essential tremor - Surgical History Past Surgical History?: No Hx Coronary Stent: No Hx Open Heart Surgery: No Hx Pacemaker: No Hx Internal Defibrillator: No Hx Cholecystectomy: No Hx Appendectomy: Yes Hx Breast Surgery: No Additional Surgical History: hernia, multiple abdominal surgeries - Social History Smoking Status: Former Smoker Substance Use Type: None - Medications Home Medications: Home Medications Medication Instructions Recorded Confirmed Last Taken Type Albuterol Sulfate [Ventolin HFA] 2 puff IH Q4H PRN 11/08/14 11/10/17 11/04/17 History Aspirin [Aspirin BABY CHEW TAB] 81 mg PO QDAY 11/08/14 11/10/17 11/04/17 History Budesoni/Formotero 160-4.5(Nf) 2 puff IH BID 11/08/14 11/10/17 04/25/17 History [Symbicort 160-4.5 (Nf)] Cholecalciferol (Vitamin D3) 50,000 unit PO QWEEK 11/08/14 11/10/17 11/07/14 History [Vitamin D3] Divalproex [Delmar Mon] 500 mg PO DAILY 11/08/14 11/10/17 11/04/17 History Gabapentin 300 mg PO BID 11/08/14 11/10/17 11/04/17 History Multivitamin [Multi-Vitamin Daily] 1 each PO DAILY 11/08/14 11/10/17 11/04/17 History Nebivolol HCl [Bystolic] 10 mg PO QDAY 11/08/14 11/10/17 11/04/17 History [place]-3 Fatty Acids/Fish Oil [Fish 1 each PO DAILY 11/08/14 11/10/17 11/04/17 History Oil] Primidone [Mysoline] 250 mg PO QID 11/08/14 11/10/17 11/04/17 History Tiotropium [Spiriva] 2 puff IH QDAY 11/08/14 11/10/17 11/04/17 History amLODIPine [Norvasc] 5 mg PO DAILY 11/08/14 11/10/17 11/04/17 History AtorvaSTATin [Lipitor] 40 mg PO QHS 04/26/17 11/10/17 11/04/17 History Docusate Sodium [Colace CAP] 100 mg PO BID #60 capsule 04/30/17 11/10/17 Unknown Rx Multivitamin Tab W-MINERAL 1 each PO QDAY #30 tablet 04/30/17 11/10/17 11/04/17 Rx [Multiple Vitamin/Mineral (Theragran M)] Ipratropium/Albuterol Sulfate 1 ampul IH Q6HRT #30 ampul.neb 11/08/17 11/10/17 Unknown Rx [DUONEB *Not for PRN Use*] Metoprolol Succinate [Toprol Xl] 50 mg PO DAILY #30 tab.er.24h 11/14/17 Unknown Rx Prednisone [predniSONE 10 mg 10 mg PO .TAPER #1 tab.ds.pk 11/14/17 Unknown Rx (6-Day Pack, 21 Tabs)] oxyCODONE /ACETAMINOPHEN [Percocet 1 tab PO Q6H PRN #20 tablet 11/14/17 Unknown Rx 5/325 mg] Albuterol Sulfate [Ventolin HFA] 2 puff IH Q4H PRN 11/25/17 11/25/17 Unknown History VENTOLIN Inhaler(NF) 11/25/17 Unknown History ED Physical Exam - General Limitations: No Limitations ED Course Vital Signs 11/25/17 11/25/17 11/25/17 16:35 16:43 16:45 Temperature 99.2 F Pulse Rate 149 H 141 H 139 H Pulse Rate [ Anterior Bilateral Throughout] Respiratory 22 38 H 37 H Rate Respiratory Rate [Anterior Bilateral Throughout] Blood Pressure 165/86 165/86 Blood Pressure 165/86 [Right] O2 Sat by Pulse 95 98 96 Oximetry 11/25/17 11/25/17 11/25/17 17:01 17:15 17:29 Temperature Pulse Rate 127 H 131 H Pulse Rate [ Anterior Bilateral Throughout] Respiratory 28 H 42 H 30 H Rate Respiratory Rate [Anterior Bilateral Throughout] Blood Pressure 130/67 130/67 Blood Pressure [Right] O2 Sat by Pulse 94 96 95 Oximetry 11/25/17 11/25/17 11/25/17 17:31 17:45 18:01 Temperature Pulse Rate 127 H 131 H 128 H Pulse Rate [ 127 H Anterior Bilateral Throughout] Respiratory 35 H 22 32 H Rate Respiratory 20 Rate [Anterior Bilateral Throughout] Blood Pressure 130/67 138/80 118/85 Blood Pressure [Right] O2 Sat by Pulse 94 96 95 Oximetry 11/25/17 11/25/17 11/25/17 18:15 18:31 18:45 Temperature Pulse Rate 125 H 121 H 120 H Pulse Rate [ Anterior Bilateral Throughout] Respiratory 34 H 32 H 31 H Rate Respiratory Rate [Anterior Bilateral Throughout] Blood Pressure 118/85 119/98 119/98 Blood Pressure [Right] O2 Sat by Pulse 97 96 94 Oximetry 11/25/17 11/25/17 11/25/17 19:01 19:15 19:31 Temperature Pulse Rate 114 H 115 H 108 H Pulse Rate [ Anterior Bilateral Throughout] Respiratory 29 H 24 15 Rate Respiratory Rate [Anterior Bilateral Throughout] Blood Pressure 119/98 117/82 170/137 Blood Pressure [Right] O2 Sat by Pulse 95 92 92 Oximetry 11/25/17 11/25/17 11/25/17 19:45 20:01 20:08 Temperature 100.8 F H Pulse Rate 104 H 105 H 104 H Pulse Rate [ Anterior Bilateral Throughout] Respiratory 20 27 H 18 Rate Respiratory Rate [Anterior Bilateral Throughout] Blood Pressure 170/137 147/79 Blood Pressure 147/79 [Right] O2 Sat by Pulse 96 96 98 Oximetry 11/25/17 21:57 Temperature 99.2 F Pulse Rate 92 H Pulse Rate [ Anterior Bilateral Throughout] Respiratory 18 Rate Respiratory Rate [Anterior Bilateral Throughout] Blood Pressure Blood Pressure 122/76 [Right] O2 Sat by Pulse 97 Oximetry ED Medical Decision Making - Lab Data Result diagrams: 11/25/17 17:01 11/25/17 17:05 Critical care attestation.: If time is entered above; I have spent that time in minutes in the direct care of this critically ill patient, excluding procedure time. ED Disposition Clinical Impression: Seizure disorder, focal motor, Chronic respiratory failure Disposition: - TO HOME OR SELFCARE Is pt being admited?: No Does the pt Need Aspirin: No Condition: Stable Instructions: Recurrent Seizures Adult (ED), Chronic Obstructive Pulmonary Disease (ED) Referrals: SHASHI DE LUNA MD [Primary Care Provider] - 3-5 Days
[2017-11-25 20:27] LABS: Bilirubin,Urine NEG (Negative); Blood,Urine SM (Negative); Color,Urine Yellow (Yellow); Mucus,Urine FEW /HPF; Nitrite,Urine NEG (Negative); Urobilinogen,Urine < 2.0 mg/dL (<2.0)
[2017-11-26 00:02] VITALS: BP 111/62
== END 2017-11-26 01:00 | disposition home or self-care (01) ==
LOC: ED 16:31
DX: G40.109 Localization-related (focal) (partial) symptomatic epilepsy and epileptic syndromes with simple partial seizures, not intractable, without status epilepticus (principal); J96.10 Chronic respiratory failure, unspecified whether with hypoxia or hypercapnia; I10 Essential (primary) hypertension; J44.9 Chronic obstructive pulmonary disease, unspecified; Z87.891 Personal history of nicotine dependence; Z79.82 Long term (current) use of aspirin
CPT/HCPCS: 36415; 71045; 80053; 81001; 82140; 82803; 85025; 85610; 85730; 87040; 93005; 93010; 99284

== ENCOUNTER 2019-03-19 13:51 | Inpatient (IN) | payer MEDICARE ==
--- NOTE | 2019-03-19 17:19 | Emergency Department Report ---
ED Shortness of Breath HPI - General Chief Complaint: Dyspnea/Respdistress Stated Complaint: DIFFICULTY BREATHING Time Seen by Provider: 03/19/19 16:41 Source: patient, family Mode of arrival: Stretcher Limitations: Physical Limitation - History of Present Illness Initial Comments: 63-year-old male with history of COPD, chronically on 3 L O2, presents to ED with shortness of breath and generalized weakness over the last 3 days. Family states that he has needed to increase his O2 to 4 L. Son states O2 sats have been in the 70s when patient moves around. States baseline is 89-90% on 3L. Patient reports productive cough, denies chest pain or fever. Son reports patient has had increased swelling to bilateral lower extremities. Patient has history of PE, however no longer on anticoagulation. Net Fisher: Carlene PCP: Caty Major MD Complaint: shortness of breath -: days(s) (3) Severity: moderate Consistency: constant Improves With: nothing Worsens With: nothing Known History Of: COPD Associated Symptoms: cough, sputum production, abdominal pain (chronic secondary to multiple hernias) Treatments Prior to Arrival: none - Related Data Home Oxygen Therapy: Yes Home Oxygen Amount: 3 Liters Home Medications Medication Instructions Recorded Confirmed Last Taken Divalproex Dr [Delmar Dr] 1,000 mg PO DAILY 11/08/14 02/13/19 11/04/17 Gabapentin 300 mg PO BID 11/08/14 03/19/19 11/04/17 amLODIPine [Norvasc] 5 mg PO DAILY 11/08/14 03/19/19 11/04/17 AtorvaSTATin [Lipitor] 40 mg PO DAILY 04/26/17 03/19/19 11/04/17 Budesonide/Formoterol Fumarate 2 puff IH BID 02/20/18 02/13/19 Unknown [Symbicort 160-4.5 Mcg Inhaler] Primidone [Mysoline] 250 mg PO QID 02/20/18 03/19/19 Unknown Ergocalciferol (Vitamin D2) 50,000 unit PO QWEEK 09/22/18 03/19/19 Unknown [Drisdol] Oxycodone HCl/Acetaminophen 10 mg PO QID PRN 09/22/18 03/19/19 Unknown [Percocet 10/325 mg] Tiotropium [place] [Spiriva 2 puff IH QDAY 09/22/18 02/13/19 Unknown Respimat] Topiramate [Topamax] 50 mg PO BID 09/22/18 02/13/19 Unknown ALBUTEROL NEB's [Proventil 0.083% 2.5 mg INHALATION DAILY 03/19/19 03/19/19 Unknown NEBS] ALBUTEROL NEB's [Proventil] 2.5 mg IH TID PRN 03/19/19 03/19/19 Unknown Bystolic 10 mg PO DAILY 03/19/19 03/19/19 Unknown Divalproex ER [Depakote ER] 500 mg PO BID 03/19/19 03/19/19 Unknown Ipratropium 03/19/19 Unknown Ipratropium 0.06% 03/19/19 Unknown Symbicort 160-4.5 Mcg Inhaler 4.5 mcg INHALATION BID 03/19/19 03/19/19 Unknown Tiotropium [place] [Spiriva] 18 mcg IH BID 03/19/19 03/19/19 Unknown Ventolin Hfa 90 mcg INHALATION QID 03/19/19 03/19/19 Unknown Previous Rx's Medication Instructions Recorded Last Taken Type Aspirin EC [Aspirin Enteric Coated 81 mg PO DAILY tablet 02/16/19 Unknown Rx TAB] Allergies Allergy/AdvReac Type Severity Reaction Status Date / Time No Known Allergies Allergy Verified 11/05/17 05:58 ED Review of Systems ROS: Stated complaint: DIFFICULTY BREATHING Other details as noted in HPI Comment: All other systems reviewed and negative Constitutional: weakness. denies: chills, fever Respiratory: cough, shortness of breath Cardiovascular: denies: chest pain Gastrointestinal: abdominal pain. denies: nausea, vomiting Musculoskeletal: other (reports BLE swelling) ED Past Medical Hx - Past Medical History Hx Hypertension: Yes Hx Pulmonary Embolism: Yes Hx Sickle Cell Disease: Yes Hx Seizures: Yes Hx COPD: Yes Additional medical history: essential tremor, EMPHYSEMA, BRONCHITIS - Surgical History Hx Appendectomy: Yes Additional Surgical History: hernia, multiple abdominal surgeries - Social History Smoking Status: Former Smoker Substance Use Type: None - Medications Home Medications: Home Medications Medication Instructions Recorded Confirmed Last Taken Type Divalproex Dr [Depakote Dr] 1,000 mg PO DAILY 11/08/14 02/13/19 11/04/17 History Gabapentin 300 mg PO BID 11/08/14 03/19/1917 History amLODIPine [Norvasc] 5 mg PO DAILY 11/08/14 03/19/19 11/04/17 History AtorvaSTATin [Lipitor] 40 mg PO DAILY 04/26/17 03/19/19 11/04/17 History Budesonide/Formoterol Fumarate 2 puff IH BID 02/20/18 02/13/19 Unknown History [Symbicort 160-4.5 Mcg Inhaler] Primidone [Mysoline] 250 mg PO QID 02/20/18 03/19/19 Unknown History Ergocalciferol (Vitamin D2) 50,000 unit PO QWEEK 09/22/18 03/19/19 Unknown History [Drisdol] Oxycodone HCl/Acetaminophen 10 mg PO QID PRN 09/22/18 03/19/19 Unknown History [Percocet 10/325 mg] Tiotropium [place] [Spiriva 2 puff IH QDAY 09/22/18 02/13/19 Unknown History Respimat] Topiramate [Topamax] 50 mg PO BID 09/22/18 02/13/19 Unknown History Aspirin EC [Aspirin Enteric Coated 81 mg PO DAILY tablet 02/16/19 Unknown Rx TAB] ALBUTEROL NEB's [Proventil 0.083% 2.5 mg INHALATION DAILY 03/19/19 03/19/19 Unknown History NEBS] ALBUTEROL NEB's [Proventil] 2.5 mg IH TID PRN 03/19/19 03/19/19 Unknown History Bystolic 10 mg PO DAILY 03/19/19 03/19/19 Unknown History Divalproex ER [Depakote ER] 500 mg PO BID 03/19/19 03/19/19 Unknown History Ipratropium 03/19/19 Unknown History Ipratropium 0.06% 03/19/19 Unknown History Symbicort 160-4.5 Mcg Inhaler 4.5 mcg INHALATION BID 03/19/19 03/19/19 Unknown History Tiotropium [place] [Spiriva] 18 mcg IH BID 03/19/19 03/19/19 Unknown History Ventolin Hfa 90 mcg INHALATION QID 03/19/19 03/19/19 Unknown History ED Physical Exam - General Limitations: Physical Limitation General appearance: alert, in no apparent distress - Head Head exam: Present: atraumatic, normocephalic - Eye Eye exam: Present: normal appearance - ENT ENT exam: Present: mucous membranes moist - Neck Neck exam: Present: normal inspection - Respiratory Respiratory exam: Present: normal lung sounds bilaterally. Absent: respiratory distress - Cardiovascular Cardiovascular Exam: Present: regular rate, normal rhythm - GI/Abdominal GI/Abdominal exam: Present: soft. Absent: distended - Extremities Exam Extremities exam: Present: other (2+ edema BLE) - Neurological Exam Neurological exam: Present: alert, oriented X3 - Psychiatric Psychiatric exam: Present: normal affect, normal mood - Skin Skin exam: Present: warm, dry, intact, normal color ED Course Vital Signs 03/19/19 03/19/19 03/19/19 14:07 14:08 14:09 Temperature Pulse Rate 90 91 H Pulse Rate [ Anterior Bilateral Throughout] Respiratory 15 20 21 Rate Respiratory Rate [Anterior Bilateral Throughout] Blood Pressure 119/78 119/78 O2 Sat by Pulse 85 86 86 Oximetry 03/19/19 03/19/19 03/19/19 14:11 14:13 14:15 Temperature Pulse Rate 92 H 88 88 Pulse Rate [ Anterior Bilateral Throughout] Respiratory 23 21 21 Rate Respiratory Rate [Anterior Bilateral Throughout] Blood Pressure 119/78 119/78 115/81 O2 Sat by Pulse 88 87 Oximetry 03/19/19 03/19/19 03/19/19 14:49 14:51 14:53 Temperature Pulse Rate 81 80 80 Pulse Rate [ Anterior Bilateral Throughout] Respiratory 15 16 15 Rate Respiratory Rate [Anterior Bilateral Throughout] Blood Pressure 99/72 99/72 99/72 O2 Sat by Pulse 87 86 85 Oximetry 03/19/19 03/19/19 03/19/19 14:55 14:57 14:59 Temperature Pulse Rate 80 79 79 Pulse Rate [ Anterior Bilateral Throughout] Respiratory 16 15 14 Rate Respiratory Rate [Anterior Bilateral Throughout] Blood Pressure 99/72 99/72 99/72 O2 Sat by Pulse 84 85 85 Oximetry 03/19/19 03/19/19 03/19/19 15:00 15:01 15:03 Temperature Pulse Rate 79 79 79 Pulse Rate [ Anterior Bilateral Throughout] Respiratory 15 15 19 Rate Respiratory Rate [Anterior Bilateral Throughout] Blood Pressure 101/71 101/71 101/71 O2 Sat by Pulse 85 86 85 Oximetry 04/25/19 04/25/19 04/25/19 15:05 15:07 15:09 Temperature Pulse Rate 78 78 76 Pulse Rate [ Anterior Bilateral Throughout] Respiratory 18 16 17 Rate Respiratory Rate [Anterior Bilateral Throughout] Blood Pressure 101/71 101/71 101/71 O2 Sat by Pulse 86 86 87 Oximetry 03/19/19 03/19/19 03/19/19 15:11 15:13 15:15 Temperature Pulse Rate 76 75 73 Pulse Rate [ Anterior Bilateral Throughout] Respiratory 20 16 16 Rate Respiratory Rate [Anterior Bilateral Throughout] Blood Pressure 101/71 101/71 99/69 O2 Sat by Pulse 86 86 86 Oximetry 03/19/19 03/19/19 03/19/19 15:17 15:19 15:21 Temperature Pulse Rate 73 73 74 Pulse Rate [ Anterior Bilateral Throughout] Respiratory 17 16 16 Rate Respiratory Rate [Anterior Bilateral Throughout] Blood Pressure 99/69 99/69 99/69 O2 Sat by Pulse 86 86 87 Oximetry 03/19/19 03/19/19 03/19/19 15:23 15:25 15:27 Temperature Pulse Rate 74 75 73 Pulse Rate [ Anterior Bilateral Throughout] Respiratory 24 17 20 Rate Respiratory Rate [Anterior Bilateral Throughout] Blood Pressure 99/69 99/69 99/69 O2 Sat by Pulse 87 86 85 Oximetry 03/19/19 03/19/19 03/19/19 15:29 15:30 15:31 Temperature Pulse Rate 74 73 73 Pulse Rate [ Anterior Bilateral Throughout] Respiratory 18 17 17 Rate Respiratory Rate [Anterior Bilateral Throughout] Blood Pressure 99/69 107/70 107/70 O2 Sat by Pulse 85 85 86 Oximetry 03/19/19 03/19/19 03/19/19 15:33 15:35 15:37 Temperature Pulse Rate 72 72 71 Pulse Rate [ Anterior Bilateral Throughout] Respiratory 18 16 17 Rate Respiratory Rate [Anterior Bilateral Throughout] Blood Pressure 107/70 107/70 107/70 O2 Sat by Pulse 88 88 89 Oximetry 03/19/19 03/19/19 03/19/19 15:39 15:41 15:43 Temperature Pulse Rate 71 71 71 Pulse Rate [ Anterior Bilateral Throughout] Respiratory 16 16 16 Rate Respiratory Rate [Anterior Bilateral Throughout] Blood Pressure 107/70 107/70 107/70 O2 Sat by Pulse 89 89 90 Oximetry 03/19/19 03/19/19 03/19/19 15:45 15:47 15:49 Temperature Pulse Rate 71 71 71 Pulse Rate [ Anterior Bilateral Throughout] Respiratory 15 16 16 Rate Respiratory Rate [Anterior Bilateral Throughout] Blood Pressure 103/73 103/73 103/73 O2 Sat by Pulse 88 87 Oximetry 03/19/19 03/19/19 03/19/19 15:51 15:53 15:55 Temperature Pulse Rate 71 71 72 Pulse Rate [ Anterior Bilateral Throughout] Respiratory 16 16 18 Rate Respiratory Rate [Anterior Bilateral Throughout] Blood Pressure 103/73 103/73 103/73 O2 Sat by Pulse 86 86 86 Oximetry 03/19/19 03/19/19 03/19/19 15:57 15:59 16:00 Temperature Pulse Rate 72 72 72 Pulse Rate [ Anterior Bilateral Throughout] Respiratory 17 15 14 Rate Respiratory Rate [Anterior Bilateral Throughout] Blood Pressure 103/73 103/73 103/73 O2 Sat by Pulse 86 86 Oximetry 03/19/19 03/19/19 03/19/19 16:01 16:03 16:05 Temperature Pulse Rate 72 71 72 Pulse Rate [ Anterior Bilateral Throughout] Respiratory 18 17 17 Rate Respiratory Rate [Anterior Bilateral Throughout] Blood Pressure 103/73 103/73 103/73 O2 Sat by Pulse 85 87 88 Oximetry 03/19/19 03/19/19 03/19/19 16:07 16:09 16:11 Temperature Pulse Rate 72 72 72 Pulse Rate [ Anterior Bilateral Throughout] Respiratory 17 16 17 Rate Respiratory Rate [Anterior Bilateral Throughout] Blood Pressure 103/73 103/73 103/73 O2 Sat by Pulse 88 88 87 Oximetry 03/19/19 03/19/19 03/19/19 16:13 16:15 16:17 Temperature Pulse Rate 74 73 73 Pulse Rate [ Anterior Bilateral Throughout] Respiratory 20 17 15 Rate Respiratory Rate [Anterior Bilateral Throughout] Blood Pressure 103/73 87/58 87/58 O2 Sat by Pulse 85 84 83 L Oximetry 03/19/19 03/19/19 03/19/19 16:19 16:21 16:54 Temperature 98.5 F Pulse Rate 74 74 Pulse Rate [ Anterior Bilateral Throughout] Respiratory 15 15 Rate Respiratory Rate [Anterior Bilateral Throughout] Blood Pressure 87/58 87/58 O2 Sat by Pulse 84 85 Oximetry 03/19/19 03/19/19 03/19/19 17:45 18:01 18:05 Temperature Pulse Rate 79 Pulse Rate [ 77 15 L Anterior Bilateral Throughout] Respiratory 16 Rate Respiratory 22 22 Rate [Anterior Bilateral Throughout] Blood Pressure 103/71 O2 Sat by Pulse 90 Oximetry 03/19/19 03/19/19 03/19/19 18:23 18:29 18:30 Temperature Pulse Rate 84 84 84 Pulse Rate [ Anterior Bilateral Throughout] Respiratory 16 16 18 Rate Respiratory Rate [Anterior Bilateral Throughout] Blood Pressure 102/71 102/71 94/61 O2 Sat by Pulse 89 89 87 Oximetry 03/19/19 03/19/19 03/19/19 18:45 18:49 18:57 Temperature Pulse Rate 83 86 85 Pulse Rate [ Anterior Bilateral Throughout] Respiratory 20 18 18 Rate Respiratory Rate [Anterior Bilateral Throughout] Blood Pressure 109/69 109/69 103/68 O2 Sat by Pulse 90 89 83 L Oximetry 03/19/19 03/19/19 03/19/19 19:05 19:07 19:15 Temperature Pulse Rate 82 82 84 Pulse Rate [ Anterior Bilateral Throughout] Respiratory 16 20 19 Rate Respiratory Rate [Anterior Bilateral Throughout] Blood Pressure 111/77 111/77 98/62 O2 Sat by Pulse 85 85 83 L Oximetry 03/19/19 03/19/19 03/19/19 19:35 19:39 19:45 Temperature Pulse Rate 87 88 87 Pulse Rate [ Anterior Bilateral Throughout] Respiratory 13 21 14 Rate Respiratory Rate [Anterior Bilateral Throughout] Blood Pressure 104/68 104/68 111/70 O2 Sat by Pulse 83 L 82 L 81 L Oximetry 03/19/19 03/19/19 03/19/19 19:49 19:51 19:53 Temperature Pulse Rate 86 87 86 Pulse Rate [ Anterior Bilateral Throughout] Respiratory 19 18 19 Rate Respiratory Rate [Anterior Bilateral Throughout] Blood Pressure 111/70 111/70 111/70 O2 Sat by Pulse 86 85 86 Oximetry 03/19/19 03/19/19 03/19/19 19:55 19:57 19:59 Temperature Pulse Rate 86 85 84 Pulse Rate [ Anterior Bilateral Throughout] Respiratory 20 19 16 Rate Respiratory Rate [Anterior Bilateral Throughout] Blood Pressure 98/62 98/62 98/62 O2 Sat by Pulse 87 88 89 Oximetry 03/19/19 03/19/19 03/19/19 20:00 20:01 20:03 Temperature Pulse Rate 84 84 84 Pulse Rate [ Anterior Bilateral Throughout] Respiratory 17 16 18 Rate Respiratory Rate [Anterior Bilateral Throughout] Blood Pressure 111/69 111/69 111/69 O2 Sat by Pulse 87 89 88 Oximetry 0403/19/19 03/19/19 20:05 20:07 20:09 Temperature Pulse Rate 85 87 86 Pulse Rate [ Anterior Bilateral Throughout] Respiratory 23 12 21 Rate Respiratory Rate [Anterior Bilateral Throughout] Blood Pressure 111/69 111/69 111/69 O2 Sat by Pulse 88 89 90 Oximetry 03/19/19 03/19/19 03/19/19 20:10 20:33 20:35 Temperature Pulse Rate 86 Pulse Rate [ Anterior Bilateral Throughout] Respiratory 20 14 Rate Respiratory Rate [Anterior Bilateral Throughout] Blood Pressure 111/69 O2 Sat by Pulse 89 76 L 76 L Oximetry 03/19/19 03/19/19 03/19/19 20:43 20:45 20:47 Temperature Pulse Rate 82 80 83 Pulse Rate [ Anterior Bilateral Throughout] Respiratory 20 20 21 Rate Respiratory Rate [Anterior Bilateral Throughout] Blood Pressure 111/74 111/74 111/74 O2 Sat by Pulse 82 L 84 84 Oximetry 03/19/19 03/19/19 03/19/19 20:49 20:51 20:53 Temperature Pulse Rate 83 81 86 Pulse Rate [ Anterior Bilateral Throughout] Respiratory 18 20 21 Rate Respiratory Rate [Anterior Bilateral Throughout] Blood Pressure 111/74 111/74 111/74 O2 Sat by Pulse 84 83 L 83 L Oximetry 03/19/19 03/19/19 03/19/19 20:55 20:57 20:59 Temperature Pulse Rate 92 H 92 H 91 H Pulse Rate [ Anterior Bilateral Throughout] Respiratory 20 24 24 Rate Respiratory Rate [Anterior Bilateral Throughout] Blood Pressure 111/74 111/74 111/74 O2 Sat by Pulse 78 L 79 L 81 L Oximetry 03/19/19 03/19/19 03/19/19 21:00 21:01 21:03 Temperature Pulse Rate 91 H 90 87 Pulse Rate [ Anterior Bilateral Throughout] Respiratory 19 16 20 Rate Respiratory Rate [Anterior Bilateral Throughout] Blood Pressure 103/73 103/73 103/73 O2 Sat by Pulse 81 L 81 L 84 Oximetry 03/19/19 03/19/19 03/19/19 21:05 21:07 21:09 Temperature Pulse Rate 82 82 81 Pulse Rate [ Anterior Bilateral Throughout] Respiratory 17 22 23 Rate Respiratory Rate [Anterior Bilateral Throughout] Blood Pressure 103/73 103/73 103/73 O2 Sat by Pulse 83 L 84 84 Oximetry 03/19/19 03/19/19 03/19/19 21:11 21:13 21:15 Temperature Pulse Rate 81 82 82 Pulse Rate [ Anterior Bilateral Throughout] Respiratory 22 18 22 Rate Respiratory Rate [Anterior Bilateral Throughout] Blood Pressure 103/73 103/73 103/73 O2 Sat by Pulse 86 88 88 Oximetry 03/19/19 03/19/19 03/19/19 21:17 21:19 21:21 Temperature Pulse Rate 82 82 83 Pulse Rate [ Anterior Bilateral Throughout] Respiratory 21 21 22 Rate Respiratory Rate [Anterior Bilateral Throughout] Blood Pressure 103/73 103/73 103/73 O2 Sat by Pulse 88 88 88 Oximetry 03/19/19 03/19/19 03/19/19 21:23 21:25 21:27 Temperature Pulse Rate 83 80 82 Pulse Rate [ Anterior Bilateral Throughout] Respiratory 20 23 20 Rate Respiratory Rate [Anterior Bilateral Throughout] Blood Pressure 103/73 103/73 103/73 O2 Sat by Pulse 89 87 87 Oximetry 03/19/19 03/19/19 03/19/19 21:29 21:37 21:59 Temperature Pulse Rate 82 84 86 Pulse Rate [ Anterior Bilateral Throughout] Respiratory 20 21 22 Rate Respiratory Rate [Anterior Bilateral Throughout] Blood Pressure 103/73 103/73 103/73 O2 Sat by Pulse 87 89 86 Oximetry 03/19/19 03/19/19 03/19/19 22:17 22:31 23:00 Temperature Pulse Rate 89 82 86 Pulse Rate [ Anterior Bilateral Throughout] Respiratory 18 13 23 Rate Respiratory Rate [Anterior Bilateral Throughout] Blood Pressure 109/76 109/76 103/69 O2 Sat by Pulse 83 L 87 93 Oximetry ED Medical Decision Making - Lab Data Result diagrams: 03/19/19 17:52 03/19/19 17:52 - EKG Data -: EKG Interpreted by Ut EKG shows normal: sinus rhythm, axis, intervals, QRS complexes Rate: normal - EKG Data Interpretation: other (T wave inversions inferior leads, no ST changes) - Radiology Data Radiology results: report reviewed, image reviewed - Medical Decision Making 63 yo M w/ COPD, normally on 3L O2, with hypoxia and shortness of breath x 3 days. O2 sats reported to be in the 70s at home when checked by the family, so O2 increased to 4L. Baseline O2 sats 89-90% on 3L. On exam, pt not in respiratory distress. Edema present to BLE. Hx of PE in the past, not currently on anticoagulation. Pt afebrile, BP borderline low. Lactic acid normal, WBCs normal. CTA done to rule out PE since pt has a hx of it and is currently more hypoxic and hypotensive. However, CTA Chest negative for PE; does show bilateral pleural effusions. Elevated BNP in labs. Troponin mildly elevated. Pt denies chest pain, no ST changes on EKG. IV lasix given. ABG shows normal pH with elevated CO2 in the 60s. This seems to possibly be pt's baseline in looking back at previous ABGs. Son reports the last time he was lethargic and confused, his CO2 was in the 100s. Pt currently mentating well. Will admit to hospitalist, Dr Chester, for further evaluation. - Differential Diagnosis COPD, pulm edema, pneumonia, PE Critical care attestation.: If time is entered above; I have spent that time in minutes in the direct care of this critically ill patient, excluding procedure time. ED Disposition Clinical Impression: COPD exacerbation, Pleural effusion, Acute and chronic respiratory failure with hypoxia Disposition: OP ADMIT IP TO THIS HOSP Is pt being admited?: Yes Condition: Stable Time of Disposition: 21:25
[2019-03-19] MEDS ORDERED: NACL 0.9% 500 ML 500 ML IV ONE (17:20)
[2019-03-19] MEDS ORDERED: DUONEB *Not for PRN Use IH ONE (17:41)
--- NOTE | 2019-03-19 18:05 | XRay Report ---
PROCEDURE: XR CHEST 1V AP TECHNIQUE: Frontal portable view of the chest HISTORY: sob COMPARISONS: 02/13/2019 FINDINGS: Limited examination due to prominent soft tissue attenuation. Stable scattered pulmonary interstitial scarring New small patchy nonspecific opacity in left lung base and left CP angle. Visible portion of right CP angle appears clear. No pneumothorax. Cardiac silhouette size at upper limits of normal without evidence of vascular congestion. No acute displaced fracture. IMPRESSION: New patchy opacity left lung base and CP angle may be small pleural effusions with adjacent atelectas is and/or pneumonitis This document is electronically signed by Joseph Rivera MD., March 19 2019 06:03:30 PM ET
[2019-03-19 18:12] LABS: Basophils # (Auto) 0.1 K/mm3 (0.0-0.1); Basophils % (Auto) 0.7 % (0.0-1.8); Eosinophils # (Auto) 0.1 K/mm3 (0.0-0.4); Eosinophils % (Auto) 0.8 % (0.0-4.3); Hematocrit 41.2 % (35.5-45.6); Lymphocytes # (Auto) 1.2 K/mm3 (1.2-5.4); Lymphocytes % (Auto) 17.3 % (13.4-35.0); Mean Corpuscular HGB Conc 34 % (32-34); Mean Corpuscular Volume 93 fl (84-94); Monocytes # (Auto) 0.8 K/mm3 (0.0-0.8); Monocytes % (Auto) 10.6 % (0.0-7.3); Platelet Count 207 K/mm3 (140-440); Red Blood Count 4.45 M/mm3 (3.65-5.03); Red Cell Distribution Width 15.7 % (13.2-15.2)
[2019-03-19 18:23] LABS: INR 0.95 (0.87-1.13)
[2019-03-19 18:24] LABS: Partial Thromboplastin Time 29.8 Sec. (24.2-36.6)
[2019-03-19 18:35] LABS: Alanine Aminotransferase 19 units/L (7-56); Albumin 3.1 g/dL (3.9-5); BUN/Creatinine Ratio 23; Blood Urea Nitrogen 14 mg/dL (9-20); Calcium 8.6 mg/dL (8.4-10.2); Hemolysis Index 1
[2019-03-19 19:23] LABS: Chol/HDL Ratio 4.45 %; HDL Cholesterol 40 mg/dL (40-59); LDL Cholesterol,Direct 118 mg/dL (50-130)
--- NOTE | 2019-03-19 21:18 | Cat Scan Report ---
PROCEDURE: CT ANGIOGRAM OF THE CHEST FOR PULMONARY EMBOLISM TECHNIQUE: Computerized axial tomographic angiography of the chest and pulmonary arteries was perfor med after the IV injection of iodinated nonionic contrast. The image data was postprocessed using max imum intensity projection (MIP) and 2-dimensional multiplanar reformatted (MPR) techniques. The exami nation is specifically tailored to the evaluation of the pulmonary arteries per clinical request. Au tomated exposure control, adjustment of mA and/or kV according to patient size, or iterative reconstr uction dose optimization techniques were utilized. CPT G9637, 82193 HISTORY: Shortness of breath R06.02, chest pain unspecified R07.9 , COMPARISONS: None . FINDINGS: Heart and pericardium: Small amount of pericardial fluid is present, measuring up to 5 mm in thicknes s. Thoracic aorta: Mild atherosclerotic calcification. Pulmonary vasculature: Normal. No pulmonary emboli. Lymph nodes: Numerous mediastinal nodes are present, measuring up to 1 cm in short axis. Lungs: Mild diffuse septal thickening suggests interstitial edema. There is mild bibasilar compressi ve atelectasis. Pleural space: Bilateral mild to moderate sized layering pleural effusions are present. No pneumotho rax is identified bilaterally Musculoskeletal structures: No significant abnormality. Upper abdominal structures: There is an anterior abdominal wall hernia, which is not fully imaged. IMPRESSION: No evidence of pulmonary emboli. Bilateral pleural effusions. Mild mediastinal adenopathy. This document is electronically signed by Corinne Yap MD., March 19 2019 09:16:34 PM ET
[2019-03-19] MEDS ORDERED: LASIX IV ONE (21:21)
[2019-03-20] MEDS ORDERED: TYLENOL PO PRN (00:42)
--- NOTE | 2019-03-20 00:44 | History and Physical Report ---
History of Present Illness Date of examination: 03/19/19 Date of admission: 03/19/19 22:48 History of present illness: 63-year-old male with a history of hypertension, COPD on home oxygen, seizure, pulmonary emboli, essential tremor comes emergency room with complaints of shortness of breath, fluctuated in oxygen level, dropping as low into the 70s. No cough, fever or chills, also complaining of worsening lower extremity edema, PND. 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 Neck: No neck pain or rigidity. Cardiovascular: no palpitations, chest pain Respiratory: no cough, +shortness of breath Gastrointestinal: no hematochezia, abdominal pain Genitourinary : no frequency , no hematuria Musculoskeletal: no joint swelling or muscle ache Integumentary: no rash, no pruritis Neurological: no parathesias, no focal weakness Endocrine: no cold or heat intolerance, no polyuria or polydipsia Hematologic/Lymphatic: no easy bruising, no easy bleeding, no gland swelling Allergic/Immunologic: no urticaria, no angioedema. PAST MEDICAL HISTORY: hypertension, COPD on home oxygen, seizure, pulmonary emboli, essential tremor PAST SURGICAL HISTORY: Appendectomy, hernia repair, abdominal surgery 4 SOCIAL HISTORY: Denies alcohol, tobacco, drugs FAMILY HISTORY: Hypertension Medications and Allergies Allergies Allergy/AdvReac Type Severity Reaction Status Date / Time No Known Allergies Allergy Verified 11/05/17 05:58 Home Medications Medication Instructions Recorded Confirmed Last Taken Type Divalproex [[place] Mon] 1,000 mg PO DAILY 11/08/14 03/20/19 11/04/17 History Gabapentin 300 mg PO BID 11/08/14 03/19/19 11/04/17 History amLODIPine [Norvasc] 5 mg PO DAILY 11/08/14 03/19/19 11/04/17 History AtorvaSTATin [Lipitor] 40 mg PO DAILY 04/26/17 03/19/19 11/04/17 History Budesonide/Formoterol Fumarate 2 puff IH BID 02/20/18 02/13/19 Unknown History [Symbicort 160-4.5 Mcg Inhaler] Primidone [Mysoline] 250 mg PO QID 02/20/18 03/19/19 Unknown History Ergocalciferol (Vitamin D2) 50,000 unit PO QWEEK 09/22/18 03/19/19 Unknown History [Drisdol] Oxycodone HCl/Acetaminophen 10 mg PO QID PRN 09/22/18 03/19/19 Unknown History [Percocet 10/325 mg] Tiotropium [place] [Spiriva 2 puff IH QDAY 09/22/18 03/20/19 Unknown History Respimat] Topiramate [Topamax] 50 mg PO BID 09/22/18 03/20/19 Unknown History Aspirin EC [Aspirin Enteric Coated 81 mg PO DAILY tablet 02/16/19 Unknown Rx TAB] ALBUTEROL NEB's [Proventil 0.083% 2.5 mg INHALATION DAILY 03/19/19 03/19/19 Unknown History NEBS] ALBUTEROL NEB's [Proventil] 2.5 mg IH TID PRN 03/19/19 03/19/19 Unknown History Bystolic 10 mg PO DAILY 03/19/19 03/19/19 Unknown History Divalproex ER [Depakote ER] 500 mg PO BID 03/19/19 03/19/19 Unknown History Ipratropium 03/19/19 Unknown History Ipratropium 0.06% 03/19/19 Unknown History Symbicort 160-4.5 Mcg Inhaler 4.5 mcg INHALATION BID 03/19/19 03/19/19 Unknown History Tiotropium [place] [Spiriva] 18 mcg IH BID 03/19/19 03/19/19 Unknown History Ventolin Hfa 90 mcg INHALATION QID 03/19/19 03/19/19 Unknown History Active Meds: Active Medications Enoxaparin Sodium (Lovenox) 40 mg SUB-Q QDAY [facility] Methylprednisolone Sodium Succinate (Solu-Medrol) 125 mg IV Q6HR [facility] Exam - Physical Exam Narrative exam: Gen. appearance: Patient lying in bed, no apparent distress HEENT: Normocephalic, atraumatic, pupils equally round and reactive to light, extraocular movement intact, and no sclericterus,. No JVD or thyromegaly or nodule,neck supple, no carotid bruit ,mucous membranes moist, no exudate or erythema Heart: S1, S2, regular rate and rhythm Lungs: Decreased breath sounds bilaterally, breathing comfortable Abdomen: Positive bowel sounds, non-tender, nondistended, no organomegaly Extremity:no edema cyanosis, clubbing Skin: no rash, dry, warm Neuro: Oriented 3, cranial nerves II-12 intact, speech is fluent, motor and sensory intact - Constitutional Vitals: Temp Pulse Resp BP Pulse Ox 98.0 F 91 H 18 112/73 77 L 03/20/19 00:09 03/20/19 00:09 03/20/19 00:09 03/20/19 00:09 03/20/19 00:09 Results - Labs CBC & Chem 7: 03/20/19 06:46 03/20/19 06:46 Labs: Abnormal lab results 03/19/19 03/19/19 03/19/19 Range/Units 17:39 17:52 17:52 RDW 15.7 H (13.2-15.2) % [place] % (Auto) 10.6 H (0.0-7.3) % Seg Neutrophils % 70.6 H (40.0-70.0) % POC ABG pCO2 60.9 H (35-45) POC ABG pO2 53 L (80-105) Chloride 84.1 L (98-107) mmol/L Carbon Dioxide 36 H (22-30) mmol/L Creatinine 0.6 L (0.8-1.5) mg/dL Troponin T 0.079 H (0.00-0.029) ng/mL NT-Pro-B Natriuret Pep 8170 H (0-900) pg/mL Total Protein 6.0 L (6.3-8.2) g/dL Albumin 3.1 L (3.9-5) g/dL - Imaging and Cardiology EKG: image reviewed Chest x-ray: report reviewed CT scan - chest: report reviewed Assessment and Plan Assessment Acute respiratory failure COPD exacerbation CHF exacerbation Hypertension Seizure History of PE Essential tremor Plan Admit to medicine Start BiPAP, high-dose steroids, breathing treatments Diurese with IV Lasix Check cardiac enzymes, echo done on last admission, consult cardiology Start aspirin, beta erin, SANYA inhibitor Continue appropriate outpatient medications Today to prophylaxis
[2019-03-20] MEDS: SOLU-Medrol IV SCH ×2 (00:54→05:39)
[2019-03-20] MEDS: SODIUM CHLORIDE FLUSH SYRINGE 10 ML IV PRN ×2 (00:57→05:40)
[2019-03-20] MEDS ORDERED: PROVENTIL IH PRN (01:20)
[2019-03-20 01:42] LABS: Creatine Kinase MB 4.2 ng/mL (0.0-4.0)
[2019-03-20] MEDS: DUONEB *Not for PRN Use IH SCH ×4 (01:58→20:01)
[2019-03-20 07:05] LABS: Basophils % (Auto) 0.6 % (0.0-1.8); Eosinophils % (Auto) 0.1 % (0.0-4.3); Hemoglobin 14.4 gm/dl (11.8-15.2); Lymphocytes # (Auto) 0.7 K/mm3 (1.2-5.4); Mean Corpuscular HGB Conc 34 % (32-34); Mean Corpuscular Volume 93 fl (84-94); Monocytes # (Auto) 0.3 K/mm3 (0.0-0.8); Monocytes % (Auto) 3.8 % (0.0-7.3); Platelet Count 218 K/mm3 (140-440); Red Blood Count 4.64 M/mm3 (3.65-5.03); Red Cell Distribution Width 15.8 % (13.2-15.2)
[2019-03-20 07:20] LABS: Creatine Kinase MB 4.4 ng/mL (0.0-4.0)
[2019-03-20] MEDS: PULMICORT IH SCH ×2 (07:26→20:00)
[2019-03-20] MEDS: BROVANA NEBU IH SCH ×2 (07:27→20:01)
[2019-03-20 07:31] LABS: BUN/Creatinine Ratio 23; Blood Urea Nitrogen 14 mg/dL (9-20); Calcium 8.7 mg/dL (8.4-10.2); Hemolysis Index 14
[2019-03-20] MEDS: NEURONTIN PO SCH ×2 (10:00→23:53)
[2019-03-20] MEDS ORDERED: BYSTOLIC 10 MG PO SCH (10:00)
[2019-03-20] MEDS ORDERED: SYMBICORT INHALATION SCH (10:00)
[2019-03-20] MEDS: HALFPRIN EC PO SCH (10:00)
[2019-03-20] MEDS: MYSOLINE PO SCH ×4 (10:00→23:54)
[2019-03-20] MEDS: TOPAMAX PO SCH (10:00)
[2019-03-20] MEDS: NORVASC PO SCH (10:03)
[2019-03-20] MEDS: LOVENOX SUB-Q SCH (10:04)
[2019-03-20] MEDS: ZESTRIL PO SCH (10:04)
[2019-03-20] MEDS: SODIUM CHLORIDE FLUSH SYRINGE 10 ML IV SCH ×2 (10:05→23:54)
--- NOTE | 2019-03-20 10:51 | Consultation ---
History of Present Illness Consult date: 03/20/19 Requesting physician: REA RICHEY History of present illness: 63-year-old male with a history of hypertension, COPD on home oxygen, seizure, pulmonary emboli, essential tremor comes emergency room with complaints of shortness of breath, fluctuated in oxygen level, dropping as low into the 70s. No cough, fever or chills, also complaining of worsening lower extremity edema, PND. 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 He was recently discharged from the hospital, [facility] in the last few months. Patient was seen and examined. Vitals, labs, medications, CXR and CT chest images were reviewed. He denies any chest pain at this time. NO fevers or chills, no abdominal pain, no nausea or vomiting His son is at the bedside ROS: Stated complaint: DIFFICULTY BREATHING Other details as noted in HPI Comment: All other systems reviewed and negative Constitutional: weakness. denies: chills, fever Respiratory: cough, shortness of breath Cardiovascular: denies: chest pain Gastrointestinal: abdominal pain. denies: nausea, vomiting Musculoskeletal: other (reports BLE swelling) - Past Medical History Hx Hypertension: Yes Hx Pulmonary Embolism: Yes Hx Sickle Cell Disease: No Hx Seizures: Yes Hx COPD: Yes Additional medical history: essential tremor, EMPHYSEMA, BRONCHITIS - Surgical History Hx Appendectomy: Yes Additional Surgical History: hernia, multiple abdominal surgeries - Social History Smoking Status: Former Smoker Substance Use Type: None Medications and Allergies Allergies Allergy/AdvReac Type Severity Reaction Status Date / Time No Known Allergies Allergy Verified 11/05/17 05:58 Home Medications Medication Instructions Recorded Confirmed Last Taken Type Divalproex [Delmar Mon] 1,000 mg PO DAILY 11/08/14 03/20/19 11/04/17 History Gabapentin 300 mg PO BID 11/08/14 03/19/19 11/04/17 History amLODIPine [Norvasc] 5 mg PO DAILY 11/08/14 03/19/19 11/04/17 History AtorvaSTATin [Lipitor] 40 mg PO DAILY 04/26/17 03/19/19 11/04/17 History Budesonide/Formoterol Fumarate 2 puff IH BID 02/20/18 02/13/19 Unknown History [Symbicort 160-4.5 Mcg Inhaler] Primidone [Mysoline] 250 mg PO QID 02/20/18 03/19/19 Unknown History Ergocalciferol (Vitamin D2) 50,000 unit PO QWEEK 09/22/18 03/19/19 Unknown History [Drisdol] Oxycodone HCl/Acetaminophen 10 mg PO QID PRN 09/22/18 03/19/19 Unknown History [Percocet 10/325 mg] Tiotropium [place] [Spiriva 2 puff IH QDAY 09/22/18 03/20/19 Unknown History Respimat] Topiramate [Topamax] 50 mg PO BID 09/22/18 03/20/19 Unknown History Aspirin EC [Aspirin Enteric Coated 81 mg PO DAILY tablet 02/16/19 Unknown Rx TAB] ALBUTEROL NEB's [Proventil 0.083% 2.5 mg INHALATION DAILY 03/19/19 03/19/19 Unknown History NEBS] ALBUTEROL NEB's [Proventil] 2.5 mg IH TID PRN 03/19/19 03/19/19 Unknown History Bystolic 10 mg PO DAILY 03/19/19 03/19/19 Unknown History Divalproex ER [Depakote ER] 500 mg PO BID 03/19/19 03/19/19 Unknown History Ipratropium 03/19/19 Unknown History Ipratropium 0.06% 03/19/19 Unknown History Symbicort 160-4.5 Mcg Inhaler 4.5 mcg INHALATION BID 03/19/19 03/19/19 Unknown History Tiotropium [place] [Spiriva] 18 mcg IH BID 03/19/19 03/19/19 Unknown History Ventolin Hfa 90 mcg INHALATION QID 03/19/19 03/19/19 Unknown History Active Meds: Active Medications Acetaminophen (Tylenol) 650 mg PO Q4H PRN PRN Reason: Pain MILD(1-3)/Fever >100.5/GALAN Albuterol (Proventil) 2.5 mg IH Q4HRT PRN PRN Reason: Shortness Of Breath Albuterol/Ipratropium (Duoneb *Not For Prn Use*) 1 ampul IH Q6HRT [facility] Last Admin: 03/20/19 07:28 Dose: Not Given Documented by: Amlodipine Besylate (Norvasc) 5 mg PO DAILY [facility] Last Admin: 03/20/19 10:03 Dose: 5 mg Documented by: Arformoterol Tartrate (Brovana Nebu) 15 mcg IH Q12HRT [facility] Last Admin: 03/20/19 07:27 Dose: 15 mcg Documented by: Aspirin (Halfprin Ec) 81 mg PO DAILY [facility] Last Admin: 03/20/19 10:00 Dose: 81 mg Documented by: Atorvastatin Calcium (Lipitor) 40 mg PO DAILY [facility] Last Admin: 03/20/19 10:00 Dose: 40 mg Documented by: Budesonide (Pulmicort) 1 mg IH Q12HRT [facility] Last Admin: 03/20/19 07:26 Dose: 1 mg Documented by: Divalproex Sodium (Depakote Er) 500 mg PO BID [facility] Enoxaparin Sodium (Lovenox) 40 mg SUB-Q QDAY [facility] Last Admin: 03/20/19 10:04 Dose: 40 mg Documented by: Furosemide (Lasix) 40 mg IV 0600,1800 [facility] Gabapentin (Neurontin) 300 mg PO BID [facility] Last Admin: 03/20/19 10:00 Dose: 300 mg Documented by: Lisinopril (Zestril) 2.5 mg PO QDAY [facility] Last Admin: 03/20/19 10:04 Dose: 2.5 mg Documented by: Methylprednisolone Sodium Succinate (Solu-Medrol) 125 mg IV Q6HR [facility] Last Admin: 03/20/19 05:39 Dose: 125 mg Documented by: Miscellaneous Medication (Bystolic) 10 mg PO DAILY [facility] Ondansetron HCl (Zofran) 4 mg IV Q4H PRN PRN Reason: Nausea And Vomiting Primidone (Mysoline) 250 mg PO QID [facility] Sodium Chloride (Sodium Chloride Flush Syringe 10 Ml) 10 ml IV BID [facility] Last Admin: 03/20/19 10:05 Dose: 10 ml Documented by: Sodium Chloride (Sodium Chloride Flush Syringe 10 Ml) 10 ml IV PRN PRN PRN Reason: LINE FLUSH Last Admin: 03/20/19 05:40 Dose: 10 ml Documented by: Topiramate (Topamax) 50 mg PO BID [facility] Physical Examination Vital signs: Vital Signs Resp Pulse Ox 15 85 03/19/19 14:07 03/19/19 14:07 General appearance: no acute distress, alert, other (obese man on 3L oxygen via [place], atraumatic, normocephalic) Eyes: non-icteric ENT: oropharynx moist, other (short neck,) Neck: supple, no lymphadenopathy Effort: mildly labored Ascultation: Bilateral: diminished breath sounds (at the bases, anteriorly), rales Cardiovascular: regular rate and rhythm, other (S1,S2,no murmurs) Extremities: no cyanosis, pulses normal, edema (bilateral lower extremity) pupils equal and round mood appropriate, affect normal Results - Laboratory Findings CBC and BMP: 03/20/19 06:46 03/20/19 06:46 ABG POC ABG pH 7.403 (7.35-7.45) 03/19/19 17:39 POC ABG pCO2 60.9 (35-45) H 03/19/19 17:39 POC ABG pO2 53 (80-105) L 03/19/19 17:39 POC ABG HCO3 38.0 (22-26 mml/L) 03/19/19 17:39 POC ABG Total CO2 40 (23-27mmol/L) 03/19/19 17:39 POC ABG O2 Sat 86 03/19/19 17:39 PT/INR, D-dimer PT 13.3 Sec. (12.2-14.9) 03/19/19 17:52 INR 0.95 (0.87-1.13) 03/19/19 17:52 Abnormal lab findings: Abnormal Labs 03/19/19 03/19/19 03/19/19 17:39 17:52 17:52 RDW 15.7 H Lymph % (Auto) [place] % (Auto) 10.6 H Lymph # Seg Neutrophils % 70.6 H POC ABG pCO2 60.9 H POC ABG pO2 53 L Chloride 84.1 L Carbon Dioxide 36 H Creatinine 0.6 L Glucose Total Creatine Kinase CK-MB (CK-2) CK-MB (CK-2) Rel Index Troponin T 0.079 H NT-Pro-B Natriuret Pep 8170 H Total Protein 6.0 L Albumin 3.1 L 03/20/19 03/20/19 03/20/19 01:01 06:46 06:46 RDW 15.8 H Lymph % (Auto) 9.0 L [place] % (Auto) Lymph # 0.7 L Seg Neutrophils % 86.5 H POC ABG pCO2 POC ABG pO2 Chloride Carbon Dioxide 33 H Creatinine 0.6 L Glucose 133 H Total Creatine Kinase 42 L CK-MB (CK-2) 4.2 H CK-MB (CK-2) Rel Index 10.0 H Troponin T 0.088 H NT-Pro-B Natriuret Pep Total Protein Albumin 03/20/19 06:46 RDW Lymph % (Auto) [place] % (Auto) Lymph # Seg Neutrophils % POC ABG pCO2 POC ABG pO2 Chloride Carbon Dioxide Creatinine Glucose Total Creatine Kinase 53 L CK-MB (CK-2) 4.4 H CK-MB (CK-2) Rel Index 8.3 H Troponin T 0.073 H NT-Pro-B Natriuret Pep Total Protein Albumin - Diagnostic Findings Chest x-ray: image reviewed (Bilateral lower lobe infiltrates) CT scan - chest: image reviewed (Bilateral pleural effusions with compressive atelectasis) Assessment and Plan -Acute on chronic hypoxemic-hypercapnic respiratory failure -Elevated BNP, decompensated heart failure -Morbid obesity -COD -Sleep apnea -h/o PE, not on anticoagulation -Bronchodilators, ipratropium added to therapy Oxygen restrictive strategies, keep O2 sats 88-90% -VTE prophylaxis -No antibiotics indicated at this time. This appears to be decompensated heart failure -Avoid systemic steroids, as this worsen his heart failure -Diuresis while monitoring renal indices, hemodynamics and electrolyte profile -Keep potassium and phos upper limit of normal to optimize respiratory muscle function -Nocturnal NIPPV -Continue diuretics for the next 48 hhours, follow up CXR. If pleural effusions persit then will get diagnostic/therapeutic thoracentesis. -Chronic home medications per primary. Thank you very much for this consult. Will follow Please do not hesitate to call with any questions or concerns. Discussed care plan with the patient and his son who is at the bedside. Discussed with RT
[2019-03-20] MEDS: DELTASONE PO SCH (12:00)
[2019-03-20] MEDS: ATROVENT IH SCH ×2 (12:44→20:00)
[2019-03-20] MEDS ORDERED: TOPROL XL PO SCH (14:00)
--- NOTE | 2019-03-20 14:32 | Progress Note ---
Assessment and Plan Assessment and plan: Patient is a 63 yo man with a history of hypertension, chronic respiratory failure on home 3-4 liters O2 due to End-stage COPD, Seizure disorder, PE and essential tremor who presented to [facility] with sob, leg swelling. -Acute on chronic hypoxic respiratory failure: consulted Leather Skinner, careful with o2 as gordy Calvin at bedside say he develops co2 retention with too much Oxygen -Acute COPD exacerbation: treat with nebs, steroids, abx -Acute CHF exacerbation: need ECHO for LV assessment, treat with diuretics -Hypertension: low salt diet, antihypertensives -Seizure: continue home medications -History of PE -Essential tremor -DVT ppx History Interval history: Patient was seen and examined. Follow-up on current diagnosis of SOB. Overnight uneventful. Patient denies any chest pain, nausea/vomiting or severe headaches. Imaging, nursing note, chart, labs and old chart reviewed. Discussed with patient and gordy Calvin at bedside Hospitalist Physical - Physical exam Narrative exam: Gen: chronic disable and ill-appearing, mild increase assessory muscles, Awake, Alert, Orientated HEENT: NCAT, EOMI, PERRL, OP Clear Neck: supple, no adenopathy, no thyromegaly, no JVD CVS/Heart: RRR, normal S1S2, pulses present bilaterally Chest/Lungs: diminished bs with bibasilar crackles, Symmetrical chest expansion, good air entry bilaterally GI/Abdomen: soft, NTND, good bowel sounds, no guarding or rebound /Bladder: no suprapubic tenderness, no CVA or paraspinal tenderness Extermity/Skin: no c/c/e, no obvious rash MSK: FROM x 4 Neuro: CN 2-12 grossly intact, no new focal deficits Psych: calm - Constitutional Vitals: Temp Pulse Resp BP Pulse Ox 97.7 F 84 20 110/78 86 03/20/19 09:11 03/20/19 13:49 03/20/19 12:55 03/20/19 13:49 03/20/19 09:11 Results - Labs CBC & Chem 7: 03/20/19 06:46 03/20/19 06:46 Labs: Laboratory Last Values WBC 7.5 K/mm3 (4.5-11.0) 03/20/19 06:46 RBC 4.64 M/mm3 (3.65-5.03) 03/20/19 06:46 Hgb 14.4 gm/dl (11.8-15.2) 03/20/19 06:46 Hct 43.0 % (35.5-45.6) 03/20/19 06:46 MCV 93 fl (84-94) 03/20/19 06:46 MCH 31 pg (28-32) 03/20/19 06:46 MCHC 34 % (32-34) 03/20/19 06:46 RDW 15.8 % (13.2-15.2) H 03/20/19 06:46 Plt Count 218 K/mm3 (140-440) 03/20/19 06:46 Lymph % (Auto) 9.0 % (13.4-35.0) L 03/20/19 06:46 [place] % (Auto) 3.8 % (0.0-7.3) 03/20/19 06:46 Eos % (Auto) 0.1 % (0.0-4.3) 03/20/19 06:46 Baso % (Auto) 0.6 % (0.0-1.8) 03/20/19 06:46 Lymph # 0.7 K/mm3 (1.2-5.4) L 03/20/19 06:46 [place] # 0.3 K/mm3 (0.0-0.8) 03/20/19 06:46 Eos # 0.0 K/mm3 (0.0-0.4) 03/20/19 06:46 Baso # 0.0 K/mm3 (0.0-0.1) 03/20/19 06:46 Seg Neutrophils % 86.5 % (40.0-70.0) H 03/20/19 06:46 Seg Neutrophils # 6.5 K/mm3 (1.8-7.7) 03/20/19 06:46 PT 13.3 Sec. (12.2-14.9) 03/19/19 17:52 INR 0.95 (0.87-1.13) 03/19/19 17:52 APTT 29.8 Sec. (24.2-36.6) 03/19/19 17:52 POC ABG pH 7.403 (7.35-7.45) 03/19/19 17:39 POC ABG pCO2 60.9 (35-45) H 03/19/19 17:39 POC ABG pO2 53 (80-105) L 03/19/19 17:39 POC ABG HCO3 38.0 (22-26 mml/L) 03/19/19 17:39 POC ABG Total CO2 40 (23-27mmol/L) 03/19/19 17:39 POC ABG O2 Sat 86 03/19/19 17:39 POC ABG Base Excess 13 ((-2) - (+3)mmol/L) 03/19/19 17:39 FiO2 36 % 03/19/19 17:39 Sodium 139 mmol/L (137-145) 03/20/19 06:46 Potassium 4.4 mmol/L (3.6-5.0) 03/20/19 06:46 Chloride 102.8 mmol/L (98-107) 03/20/19 06:46 Carbon Dioxide 33 mmol/L (22-30) H 03/20/19 06:46 Anion Gap 8 mmol/L 03/20/19 06:46 BUN 14 mg/dL (9-20) 03/20/19 06:46 Creatinine 0.6 mg/dL (0.8-1.5) L 03/20/19 06:46 Estimated GFR > 60 ml/min 03/20/19 06:46 BUN/Creatinine Ratio 23 % 03/20/19 06:46 Glucose 133 mg/dL (75-100) H 03/20/19 06:46 Lactic Acid 1.20 mmol/L (0.7-2.0) 03/19/19 17:52 Calcium 8.7 mg/dL (8.4-10.2) 03/20/19 06:46 Total Bilirubin 0.30 mg/dL (0.1-1.2) 03/19/19 17:52 AST 23 units/L (5-40) 03/19/19 17:52 ALT 19 units/L (7-56) 03/19/19 17:52 Alkaline Phosphatase 64 units/L (35-129) 03/19/19 17:52 Total Creatine Kinase 53 units/L (55-170) L 03/20/19 06:46 CK-MB (CK-2) 4.4 ng/mL (0.0-4.0) H 03/20/19 06:46 CK-MB (CK-2) Rel Index 8.3 (0-4) H 03/20/19 06:46 Troponin T 0.073 ng/mL (0.00-0.029) H 03/20/19 06:46 NT-Pro-B Natriuret Pep 8170 pg/mL (0-900) H 03/19/19 17:52 Total Protein 6.0 g/dL (6.3-8.2) L 03/19/19 17:52 Albumin 3.1 g/dL (3.9-5) L 03/19/19 17:52 Albumin/Globulin Ratio 1.1 % 03/19/19 17:52 Triglycerides 117 mg/dL (2-149) 03/19/19 17:52 Cholesterol 178 mg/dL (50-199) 03/19/19 17:52 LDL Cholesterol Direct 118 mg/dL (50-130) 03/19/19 17:52 HDL Cholesterol 40 mg/dL (40-59) 03/19/19 17:52 Cholesterol/HDL Ratio 4.45 % 03/19/19 17:52 Active Medications - Current Medications Current Medications: Generic Name Dose Route Start Last Admin Trade Name Freq PRN Reason Stop Dose Admin Acetaminophen 650 mg 03/20/19 00:42 Tylenol PO Q4H PRN Pain MILD(1-3)/Fever >100.5/GALAN Albuterol 2.5 mg 03/20/19 01:20 03/20/19 12:44 Proventil IH 2.5 mg Q4HRT PRN Administration Shortness Of Breath Albuterol/Ipratropium 1 ampul 03/20/19 02:00 03/20/19 07:28 Duoneb *Not For Prn Use* IH Not Given Q6HRT ANDREW Amlodipine Besylate 5 mg 03/20/19 10:00 03/20/19 10:03 Norvasc PO 5 mg DAILY AND[facility]W Administration Arformoterol Tartrate 15 mcg 03/20/19 08:00 03/20/19 07:27 Brovana Nebu IH 15 mcg Q12HRT [facility] Administration Aspirin 81 mg 03/20/19 10:00 03/20/19 10:00 Halfprin Ec PO 81 mg DAILY [facility] Administration Atorvastatin Calcium 40 mg 03/20/19 10:00 03/20/19 10:00 Lipitor PO 40 mg DAILY [facility] Administration Budesonide 1 mg 03/20/19 08:00 03/20/19 07:26 Pulmicort IH 1 mg Q12HRT [facility] Administration Divalproex Sodium 500 mg 03/20/19 10:00 03/20/19 10:00 Depakote Er PO 500 mg BID [facility]W Administration Enoxaparin Sodium 40 mg 03/20/19 10:00 03/20/19 10:04 Lovenox SUB-Q 40 mg QDAY [facility] Administration Furosemide 40 mg 03/20/19 18:00 Lasix IV 0600,1800 [facility] Gabapentin 300 mg 03/20/19 10:00 03/20/19 10:00 Neurontin PO 300 mg BID [facility] Administration Ipratropium [place] 0.5 mg 03/20/19 13:00 03/20/19 12:44 Atrovent IH 0.5 mg Q6HRT [facility] Administration Lisinopril 2.5 mg 03/20/19 10:00 03/20/19 10:04 Zestril PO 2.5 mg QDAY [facility] Administration Ondansetron HCl 4 mg 03/20/19 00:42 Zofran IV Q4H PRN Nausea And Vomiting Prednisone 20 mg 03/20/19 12:00 03/20/19 12:00 Deltasone PO 20 mg QDAY [facility]W Administration Primidone 250 mg 03/20/19 10:00 03/20/19 13:51 Mysoline PO 250 mg QID [facility]REW Administration Sodium Chloride 10 ml 03/20/19 10:00 03/20/19 10:05 Sodium Chloride Flush Syringe 10 Ml IV 10 ml BID [facility]W Administration Sodium Chloride 10 ml 03/20/19 00:42 03/20/19 05:40 Sodium Chloride Flush Syringe 10 Ml IV 10 ml PRN PRN Administration LINE FLUSH Topiramate 50 mg 03/20/19 10:00 03/20/19 10:00 Topamax PO 50 mg BID [facility] Administration
[2019-03-20] MEDS: LASIX IV SCH (17:41)
[2019-03-21] MEDS: TOPAMAX PO SCH ×3 (00:02→21:43)
[2019-03-21] MEDS: ZOFRAN IV PRN ×2 (00:05→21:44)
[2019-03-21] MEDS: ATROVENT IH SCH ×4 (02:00→20:14)
[2019-03-21] MEDS: DUONEB *Not for PRN Use IH SCH ×4 (02:01→20:14)
[2019-03-21] MEDS: LASIX IV SCH (08:08)
[2019-03-21] MEDS: BROVANA NEBU IH SCH ×2 (09:35→20:14)
[2019-03-21] MEDS: PULMICORT IH SCH ×2 (09:35→20:14)
[2019-03-21] MEDS: DELTASONE PO SCH (11:11)
[2019-03-21] MEDS: LOVENOX SUB-Q SCH (11:11)
[2019-03-21] MEDS: HALFPRIN EC PO SCH (11:11)
[2019-03-21] MEDS: NEURONTIN PO SCH ×2 (11:11→21:43)
[2019-03-21] MEDS: ZESTRIL PO SCH (11:14)
[2019-03-21] MEDS: MYSOLINE PO SCH ×4 (11:14→21:43)
[2019-03-21] MEDS: SODIUM CHLORIDE FLUSH SYRINGE 10 ML IV SCH (11:17)
[2019-03-21] MEDS: NORVASC PO SCH (11:25)
--- NOTE | 2019-03-21 11:35 | Progress Note ---
Assessment and Plan Assessment and plan: Patient is a 63 yo man with a history of hypertension, chronic respiratory failure on home 3-4 liters O2 due to End-stage COPD, Seizure disorder, PE and essential tremor who presented to [facility] ED with sob, leg swelling. 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 Consulted Cardiology -Hypertension: low salt diet, antihypertensives -Seizure: continue home medications -History of PE -h/o Essential tremor -DVT ppx on sq lovenox History Interval history: Patient was seen and examined. Follow-up on current diagnosis of SOB. Overnight uneventful. Patient denies any chest pain, nausea/vomiting or severe headaches. Imaging, nursing note, chart, labs and old chart reviewed. Discussed with patient and son [place] at bedside Hospitalist Physical - Physical exam Narrative exam: Gen: chronic disable and ill-appearing, mild increase assessory muscles, Awake, Alert, Orientated HEENT: NCAT, EOMI, PERRL, OP Clear Neck: supple, no adenopathy, no thyromegaly, no JVD CVS/Heart: RRR, normal S1S2, pulses present bilaterally Chest/Lungs: diminished bs with bibasilar crackles, Symmetrical chest expansion, good air entry bilaterally GI/Abdomen: soft, NTND, good bowel sounds, no guarding or rebound /Bladder: no suprapubic tenderness, no CVA or paraspinal tenderness Extermity/Skin: no c/c/e, no obvious rash MSK: FROM x 4 Neuro: CN 2-12 grossly intact, no new focal deficits Psych: calm - Constitutional Vitals: Temp Pulse Resp BP Pulse Ox 97.7 F 87 18 110/76 90 03/21/19 09:59 03/21/19 11:25 03/21/19 09:59 03/21/19 11:25 03/21/19 09:59 Results - Labs CBC & Chem 7: 03/20/19 06:46 03/20/19 06:46 Labs: Laboratory Last Values WBC 7.5 K/mm3 (4.5-11.0) 03/20/19 06:46 RBC 4.64 M/mm3 (3.65-5.03) 03/20/19 06:46 Hgb 14.4 gm/dl (11.8-15.2) 03/20/19 06:46 Hct 43.0 % (35.5-45.6) 03/20/19 06:46 MCV 93 fl (84-94) 03/20/19 06:46 MCH 31 pg (28-32) 03/20/19 06:46 MCHC 34 % (32-34) 03/20/19 06:46 RDW 15.8 % (13.2-15.2) H 03/20/19 06:46 Plt Count 218 K/mm3 (140-440) 03/20/19 06:46 Lymph % (Auto) 9.0 % (13.4-35.0) L 03/20/19 06:46 [place] % (Auto) 3.8 % (0.0-7.3) 03/20/19 06:46 Eos % (Auto) 0.1 % (0.0-4.3) 03/20/19 06:46 Baso % (Auto) 0.6 % (0.0-1.8) 03/20/19 06:46 Lymph # 0.7 K/mm3 (1.2-5.4) L 03/20/19 06:46 [place] # 0.3 K/mm3 (0.0-0.8) 03/20/19 06:46 Eos # 0.0 K/mm3 (0.0-0.4) 03/20/19 06:46 Baso # 0.0 K/mm3 (0.0-0.1) 03/20/19 06:46 Seg Neutrophils % 86.5 % (40.0-70.0) H 03/20/19 06:46 Seg Neutrophils # 6.5 K/mm3 (1.8-7.7) 03/20/19 06:46 PT 13.3 Sec. (12.2-14.9) 03/19/19 17:52 INR 0.95 (0.87-1.13) 03/19/19 17:52 APTT 29.8 Sec. (24.2-36.6) 03/19/19 17:52 POC ABG pH 7.484 (7.35-7.45) H 03/20/19 16:02 POC ABG pCO2 60.5 (35-45) H 03/20/19 16:02 POC ABG pO2 79 (80-105) L 03/20/19 16:02 POC ABG HCO3 45.5 (22-26 mml/L) 03/20/19 16:02 POC ABG Total CO2 47 (23-27mmol/L) 03/20/19 16:02 POC ABG O2 Sat 96 03/20/19 16:02 POC ABG Base Excess 22 ((-2) - (+3)mmol/L) 03/20/19 16:02 FiO2 45 % 03/20/19 16:02 Sodium 139 mmol/L (137-145) 03/20/19 06:46 Potassium 4.4 mmol/L (3.6-5.0) 03/20/19 06:46 Chloride 102.8 mmol/L (98-107) 03/20/19 06:46 Carbon Dioxide 33 mmol/L (22-30) H 03/20/19 06:46 Anion Gap 8 mmol/L 03/20/19 06:46 BUN 14 mg/dL (9-20) 03/20/19 06:46 Creatinine 0.6 mg/dL (0.8-1.5) L 03/20/19 06:46 Estimated GFR > 60 ml/min 03/20/19 06:46 BUN/Creatinine Ratio 23 % 03/20/19 06:46 Glucose 133 mg/dL (75-100) H 03/20/19 06:46 Lactic Acid 1.20 mmol/L (0.7-2.0) 03/19/19 17:52 Calcium 8.7 mg/dL (8.4-10.2) 03/20/19 06:46 Total Bilirubin 0.30 mg/dL (0.1-1.2) 03/19/19 17:52 AST 23 units/L (5-40) 03/19/19 17:52 ALT 19 units/L (7-56) 03/19/19 17:52 Alkaline Phosphatase 64 units/L (35-129) 03/19/19 17:52 Total Creatine Kinase 53 units/L (55-170) L 03/20/19 06:46 CK-MB (CK-2) 4.4 ng/mL (0.0-4.0) H 03/20/19 06:46 CK-MB (CK-2) Rel Index 8.3 (0-4) H 03/20/19 06:46 Troponin T 0.073 ng/mL (0.00-0.029) H 03/20/19 06:46 NT-Pro-B Natriuret Pep 8170 pg/mL (0-900) H 03/19/19 17:52 Total Protein 6.0 g/dL (6.3-8.2) L 03/19/19 17:52 Albumin 3.1 g/dL (3.9-5) L 03/19/19 17:52 Albumin/Globulin Ratio 1.1 % 03/19/19 17:52 Triglycerides 117 mg/dL (2-149) 03/19/19 17:52 Cholesterol 178 mg/dL (50-199) 03/19/19 17:52 LDL Cholesterol Direct 118 mg/dL (50-130) 03/19/19 17:52 HDL Cholesterol 40 mg/dL (40-59) 03/19/19 17:52 Cholesterol/HDL Ratio 4.45 % 03/19/19 17:52 Active Medications - Current Medications Current Medications: Generic Name Dose Route Start Last Admin Trade Name Freq PRN Reason Stop Dose Admin Acetaminophen 650 mg 03/20/19 00:42 Tylenol PO Q4H PRN Pain MILD(1-3)/Fever >100.5/GALAN Albuterol 2.5 mg 03/20/19 01:20 03/20/19 12:44 Proventil IH 2.5 mg Q4HRT PRN Administration Shortness Of Breath Albuterol/Ipratropium 1 ampul 03/20/19 02:00 03/21/19 09:36 Duoneb *Not For Prn Use* IH Not Given Q6HRT ANDREW Amlodipine Besylate 5 mg 03/20/19 10:00 03/21/19 11:25 Norvasc PO 5 mg DAILY ANDREW Administration Arformoterol Tartrate 15 mcg 03/20/19 08:00 03/21/19 09:35 Brovana Nebu IH 15 mcg Q12HRT ANDREW Administration Aspirin 81 mg 03/20/19 10:00 03/21/19 11:11 Halfprin Ec PO 81 mg DAILY ANDREW Administration Atorvastatin Calcium 40 mg 03/20/19 10:00 03/21/19 11:11 Lipitor PO 40 mg DAILY ANDREW Administration Budesonide 1 mg 03/20/19 08:00 03/21/19 09:35 Pulmicort IH 1 mg Q12HRT ANDREW Administration Divalproex Sodium 500 mg 03/20/19 10:00 03/21/19 11:17 Depakote Er PO 500 mg BID ANDREW Administration Enoxaparin Sodium 40 mg 03/20/19 10:00 03/21/19 11:11 Lovenox SUB-Q 40 mg QDAY ANDREW Administration Gabapentin 300 mg 03/20/19 10:00 03/21/19 11:11 Neurontin PO 300 mg BID ANDREW Administration Ipratropium [place] 0.5 mg 03/20/19 13:00 03/21/19 09:45 Atrovent IH Not Given Q6HRT [facility] Lisinopril 2.5 mg 03/20/19 10:00 03/21/19 11:14 Zestril PO 2.5 mg QDAY ANDREW Administration Ondansetron HCl 4 mg 03/20/19 00:42 03/21/19 00:05 Zofran IV 4 mg Q4H PRN Administration Nausea And Vomiting Prednisone 20 mg 03/20/19 12:00 03/21/19 11:11 Deltasone PO 20 mg QDAY ANDREW Administration Primidone 250 mg 03/20/19 10:00 03/21/19 11:14 Mysoline PO 250 mg QID ANDREW Administration Sodium Chloride 10 ml 03/20/19 10:00 03/21/19 11:17 Sodium Chloride Flush Syringe 10 Ml IV 10 ml BID ANDREW Administration Sodium Chloride 10 ml 03/20/19 00:42 03/20/19 05:40 Sodium Chloride Flush Syringe 10 Ml IV 10 ml PRN PRN Administration LINE FLUSH Topiramate 50 mg 03/20/19 10:00 03/21/19 11:13 Topamax PO 50 mg BID ANDREW Administration
--- NOTE | 2019-03-21 13:05 | Progress Note ---
Assessment and Plan Acute on chronic hypoxemic-hypercapnic respiratory failure Elevated BNP, decompensated heart failure Morbid obesity COPD Sleep apnea h/o PE, not on anticoagulation - continue diuresis while monitoring renal indices, hemodynamics and electrolyte profile; Thoracentesis if no improvement - continue bronchodilators with pulmonary hygiene per RT - continue Oxygen restrictive strategies, keep O2 sats 88-90% acutely - BIPAP qhs - continue VTE prophylaxis - No antibiotics indicated at this time. This appears to be decompensated heart failure - cardiology consult to optimize cardiac function (suspect combined heart failure) - Avoid systemic steroids acutely as this can worsen his heart failure - Keep potassium and phosphorus upper limit of normal to optimize respiratory muscle function - Chronic home medications per primary. .. re-evaluate in am & prn Subjective Date of service: 03/21/19 Principal diagnosis: Ac on Ch hypoxemic-hypercapnic Resp failure; CHF exacerbation; COPD; FILIPE Interval history: Patient is seen today for: Acute on chronic hypoxemic-hypercapnic respiratory failure; Elevated BNP, decompensated heart failure; Morbid obesity; COPD; Sleep apnea; h/o PE, not on anticoagulation Seen and examined at bedside; 24-hour events reviewed; nursing and respiratory care staff consulted; no adverse overnight events reported to me; resting peacefully in bed; still SOB; encouraged BIPAP compliance; family in room; denies acute chest pains or palpitations; CT chest reveals mild to mod interstitial edema with small to mod bilateral pleural effusions Objective Vital Signs - 12hr 03/21/19 03/21/19 03/21/19 02:05 02:20 05:41 Temperature 98.1 F Pulse Rate 90 Pulse Rate [ 88 85 Anterior Bilateral Throughout] Respiratory 18 Rate Respiratory 20 20 Rate [Anterior Bilateral Throughout] Blood Pressure 114/73 O2 Sat by Pulse 88 Oximetry 03/21/19 03/21/19 03/21/19 09:35 09:43 09:50 Temperature Pulse Rate Pulse Rate [ 86 86 Anterior Bilateral Throughout] Respiratory Rate Respiratory 16 20 Rate [Anterior Bilateral Throughout] Blood Pressure O2 Sat by Pulse 89 Oximetry 03/21/19 03/21/19 03/21/19 09:59 11:14 11:25 Temperature 97.7 F Pulse Rate 87 87 87 Pulse Rate [ Anterior Bilateral Throughout] Respiratory 18 Rate Respiratory Rate [Anterior Bilateral Throughout] Blood Pressure 110/76 110/76 110/76 O2 Sat by Pulse 90 Oximetry Constitutional: no acute distress, alert, other (obese man on 3L oxygen via NC, atraumatic, normocephalic) Eyes: non-icteric ENT: oropharynx moist, other (short neck,) Neck: supple, no lymphadenopathy, no JVD, other (no thyromegaly) Effort: mildly labored Ascultation: Bilateral: diminished breath sounds, rhonchi, other (prolonged exp phase) Percussion: Bilateral: dull (bases) Cardiovascular: regular rate and rhythm, other (S1,S2,no murmurs) Gastrointestinal: normoactive bowel sounds, soft, non-tender, other (protuberant) Extremities: no cyanosis, pink and warm, pulses normal, edema (bilateral lower extremity) Neurologic: normal mental status, non-focal exam, pupils equal and round, CN II- XII normal, motor strength normal and Psychiatric: mood appropriate, affect normal CBC and BMP: 03/22/19 07:07 03/22/19 07:07 ABG, PT/INR, D-dimer: ABG POC ABG pH 7.484 (7.35-7.45) H 03/20/19 16:02 POC ABG pCO2 60.5 (35-45) H 03/20/19 16:02 POC ABG pO2 79 (80-105) L 03/20/19 16:02 POC ABG HCO3 45.5 (22-26 mml/L) 03/20/19 16:02 POC ABG Total CO2 47 (23-27mmol/L) 03/20/19 16:02 POC ABG O2 Sat 96 03/20/19 16:02 PT/INR, D-dimer PT 13.3 Sec. (12.2-14.9) 03/19/19 17:52 INR 0.95 (0.87-1.13) 03/19/19 17:52 Abnormal lab findings: Abnormal Labs 03/19/19 03/19/19 03/19/19 17:39 17:52 17:52 RDW 15.7 H Lymph % (Auto) [place] % (Auto) 10.6 H Lymph # Seg Neutrophils % 70.6 H POC ABG pH POC ABG pCO2 60.9 H POC ABG pO2 53 L Chloride 84.1 L Carbon Dioxide 36 H Creatinine 0.6 L Glucose Total Creatine Kinase CK-MB (CK-2) CK-MB (CK-2) Rel Index Troponin T 0.079 H NT-Pro-B Natriuret Pep 8170 H Total Protein 6.0 L Albumin 3.1 L 03/20/19 03/20/19 03/20/19 01:01 06:46 06:46 RDW 15.8 H Lymph % (Auto) 9.0 L [place] % (Auto) Lymph # 0.7 L Seg Neutrophils % 86.5 H POC ABG pH POC ABG pCO2 POC ABG pO2 Chloride Carbon Dioxide 33 H Creatinine 0.6 L Glucose 133 H Total Creatine Kinase 42 L CK-MB (CK-2) 4.2 H CK-MB (CK-2) Rel Index 10.0 H Troponin T 0.088 H NT-Pro-B Natriuret Pep Total Protein Albumin 03/20/19 03/20/19 06:46 16:02 RDW Lymph % (Auto) [place] % (Auto) Lymph # Seg Neutrophils % POC ABG pH 7.484 H POC ABG pCO2 60.5 H POC ABG pO2 79 L Chloride Carbon Dioxide Creatinine Glucose Total Creatine Kinase 53 L CK-MB (CK-2) 4.4 H CK-MB (CK-2) Rel Index 8.3 H Troponin T 0.073 H NT-Pro-B Natriuret Pep Total Protein Albumin CT scan - chest: image reviewed (bilateral fgreely flowing pleural effusions; No P.E.) Allied health notes reviewed: nursing
--- NOTE | 2019-03-21 15:35 | Consultation ---
History of Present Illness Consult date: 03/21/19 Requesting physician: REA RICHEY History of present illness: The patient has a history of COPD and chronic respiratory failure on home oxygen therapy. He has functional quadriplegia. According to his son who provided most of the history, the patient has become progressively lethargic over the past few days and his oxygen saturation has fluctuated up and down. As such, he notified his plate conditioner who advised that he be brought to the emergency department. The patient does not contribute much to the history due to lethargy. There is no history of chest pain however. Echocardiogram during his recent admission in January 2019 revealed an ejection fraction of 50-55%. The right ventricle appeared mild to moderately dilated with moderate systolic dysfunction. Past History Past Medical History: COPD, hypertension, seizures, other (PE, chronic respiratory failure, essential tremor) Past Surgical History: appendectomy, hernia repair, Other (multiple abdominal surgical procedures) Social history: Family history: no significant family history Medications and Allergies Allergies Allergy/AdvReac Type Severity Reaction Status Date / Time No Known Allergies Allergy Verified 11/05/17 05:58 Home Medications Medication Instructions Recorded Confirmed Last Taken Type Divalproex Dr [Depgonzalote Dr] 1,000 mg PO DAILY 11/08/14 03/20/19 11/04/17 History Gabapentin 300 mg PO BID 11/08/14 03/19/19 11/04/17 History amLODIPine [Norvasc] 5 mg PO DAILY 11/08/14 03/19/19 11/04/17 History AtorvaSTATin [Lipitor] 40 mg PO DAILY 04/26/17 03/19/19 11/04/17 History Budesonide/Formoterol Fumarate 2 puff IH BID 02/20/18 02/13/19 Unknown History [Symbicort 160-4.5 Mcg Inhaler] Primidone [Mysoline] 250 mg PO QID 02/20/18 03/19/19 Unknown History Ergocalciferol (Vitamin D2) 50,000 unit PO QWEEK 09/22/18 03/19/19 Unknown History [Drisdol] Oxycodone HCl/Acetaminophen 10 mg PO QID PRN 09/22/18 03/19/19 Unknown History [Percocet 10/325 mg] Tiotropium [place] [Spiriva 2 puff IH QDAY 09/22/18 03/20/19 Unknown History Respimat] Topiramate [Topamax] 50 mg PO BID 09/22/18 03/20/19 Unknown History Aspirin EC [Aspirin Enteric Coated 81 mg PO DAILY tablet 02/16/19 Unknown Rx TAB] ALBUTEROL NEB's [Proventil 0.083% 2.5 mg INHALATION DAILY 03/19/19 03/19/19 Unknown History NEBS] ALBUTEROL NEB's [Proventil] 2.5 mg IH TID PRN 03/19/19 03/19/19 Unknown History Bystolic 10 mg PO DAILY 03/19/19 03/19/19 Unknown History Divalproex ER [Depakote ER] 500 mg PO BID 03/19/19 03/19/19 Unknown History Ipratropium 03/19/19 Unknown History Ipratropium 0.06% 03/19/19 Unknown History Symbicort 160-4.5 Mcg Inhaler 4.5 mcg INHALATION BID 03/19/19 03/19/19 Unknown History Tiotropium [place] [Spiriva] 18 mcg IH BID 03/19/19 03/19/19 Unknown History Ventolin Hfa 90 mcg INHALATION QID 03/19/19 03/19/19 Unknown History Active Meds: Active Medications Acetaminophen (Tylenol) 650 mg PO Q4H PRN PRN Reason: Pain MILD(1-3)/Fever >100.5/GALAN Albuterol (Proventil) 2.5 mg IH Q4HRT PRN PRN Reason: Shortness Of Breath Last Admin: 03/20/19 12:44 Dose: 2.5 mg Documented by: Albuterol/Ipratropium (Duoneb *Not For Prn Use*) 1 ampul IH Q6HRT [facility] Last Admin: 03/21/19 13:45 Dose: 1 ampul Documented by: Amlodipine Besylate (Norvasc) 5 mg PO DAILY [facility] Last Admin: 03/21/19 11:25 Dose: 5 mg Documented by: Arformoterol Tartrate (Brovana Nebu) 15 mcg IH Q12HRT [facility] Last Admin: 03/21/19 09:35 Dose: 15 mcg Documented by: Aspirin (Halfprin Ec) 81 mg PO DAILY [facility] Last Admin: 03/21/19 11:11 Dose: 81 mg Documented by: Atorvastatin Calcium (Lipitor) 40 mg PO DAILY [facility] Last Admin: 03/21/19 11:11 Dose: 40 mg Documented by: Budesonide (Pulmicort) 1 mg IH Q12HRT [facility] Last Admin: 03/21/19 09:35 Dose: 1 mg Documented by: Divalproex Sodium (Depakote Er) 500 mg PO BID [facility] Last Admin: 03/21/19 11:17 Dose: 500 mg Documented by: Enoxaparin Sodium (Lovenox) 40 mg SUB-Q QDAY [facility] Last Admin: 03/21/19 11:11 Dose: 40 mg Documented by: Furosemide (Lasix) 40 mg IV QDAY [facility] Gabapentin (Neurontin) 300 mg PO BID [facility] Last Admin: 03/21/19 11:11 Dose: 300 mg Documented by: Ipratropium [place] (Atrovent) 0.5 mg IH Q6HRT [facility] Last Admin: 03/21/19 13:45 Dose: 0.5 mg Documented by: Lisinopril (Zestril) 2.5 mg PO QDAY [facility] Last Admin: 03/21/19 11:14 Dose: 2.5 mg Documented by: Ondansetron HCl (Zofran) 4 mg IV Q4H PRN PRN Reason: Nausea And Vomiting Last Admin: 03/21/19 00:05 Dose: 4 mg Documented by: Prednisone (Deltasone) 20 mg PO QDAY [facility] Last Admin: 03/21/19 11:11 Dose: 20 mg Documented by: Primidone (Mysoline) 250 mg PO QID [facility] Last Admin: 03/21/19 11:14 Dose: 250 mg Documented by: Sodium Chloride (Sodium Chloride Flush Syringe 10 Ml) 10 ml IV BID [facility] Last Admin: 03/21/19 11:17 Dose: 10 ml Documented by: Sodium Chloride (Sodium Chloride Flush Syringe 10 Ml) 10 ml IV PRN PRN PRN Reason: LINE FLUSH Last Admin: 03/20/19 05:40 Dose: 10 ml Documented by: Topiramate (Topamax) 50 mg PO BID [facility] Last Admin: 03/21/19 11:13 Dose: 50 mg Documented by: Review of Systems ROS unobtainable: due to mental status Physical Examination Vital Signs Last Vital Signs Temp 97.7 F 03/21/19 09:59 Pulse 88 03/21/19 14:09 Resp 20 03/21/19 14:09 BP 110/76 03/21/19 11:25 Pulse Ox 90 03/21/19 09:59 General appearance: no acute distress HEENT: Positive: EOMI, Normocephaly, Mucus Membranes Moist Neck: Positive: neck supple, trachea midline, JVD/HJR (elevated) Cardiac: Positive: Reg Rate and Rhythm, S1/S2 Lungs: Positive: Decreased Breath Sounds Neuro: Positive: Other (Lethargic) Abdomen: Positive: Soft, Distended. Negative: Tender Skin: Positive: Clear Musculoskeletal: Normal Range of Motion Extremities: Present: +1 Edema (both legs) Results 03/20/19 06:46 03/20/19 06:46 - Imaging and Cardiology Echo: report reviewed EKG: image reviewed EKG interpretations - Telemetry EKG Rhythm: Sinus Rhythm Chamber hypertrophy or enlargement: righ ventricular hypertro Repolarization changes or abnormalities: ST or T wave suggestive of ischemia Myocardial infarction: anterior KS (old age or i Assessment and Plan I agree with his current regimen. We will follow his case with you. - Patient Problems (1) Acute on chronic respiratory failure Current Visit: Yes Status: Acute Qualifiers: Respiratory failure complication: hypoxia and hypercapnia Qualified Code(s): J96.21 - Acute and chronic respiratory failure with hypoxia; J96.22 - Acute and chronic respiratory failure with hypercapnia (2) COPD exacerbation Current Visit: Yes Status: Acute (3) Acute heart failure with preserved ejection fraction Current Visit: Yes Status: Acute (4) Elevated troponin Current Visit: Yes Status: Acute (5) Right ventricular dysfunction Current Visit: Yes Status: Chronic (6) History of seizures Current Visit: Yes Status: Chronic (7) Hypertension Current Visit: Yes Status: Chronic Qualifiers: Hypertension type: essential hypertension Qualified Code(s): I10 - [place] l (primary) hypertension (8) Functional quadriplegia Current Visit: Yes Status: Chronic (9) Abdominal hernia Current Visit: Yes Status: Chronic (10) History of pulmonary embolism Current Visit: No Status: Resolved
[2019-03-21] MEDS ORDERED: OXYCODONE HCL PO PRN (18:19)
[2019-03-21] MEDS ORDERED: ACETAMINOPHEN PO PRN (18:19)
[2019-03-21] MEDS: PERCOCET 5/325 PO PRN (18:50)
[2019-03-22] MEDS: DUONEB *Not for PRN Use IH SCH ×4 (02:11→20:47)
[2019-03-22] MEDS: ATROVENT IH SCH ×4 (02:21→20:47)
[2019-03-22] MEDS: SODIUM CHLORIDE FLUSH SYRINGE 10 ML IV SCH ×3 (02:28→22:45)
[2019-03-22] MEDS ORDERED: LOPRESSOR IV ONE (04:47)
[2019-03-22] MEDS ORDERED: CARDIZEM IV ONE ×2 (05:54→06:56)
--- NOTE | 2019-03-22 07:06 | Event Note ---
Patient with heart rate A. fib, 175, converted with IV Cardizem
[2019-03-22 07:38] LABS: Hematocrit 39.9 % (35.5-45.6); Hemoglobin 13.4 gm/dl (11.8-15.2); Mean Corpuscular HGB Conc 34 % (32-34); Mean Corpuscular Volume 92 fl (84-94); Platelet Count 278 K/mm3 (140-440); Red Blood Count 4.32 M/mm3 (3.65-5.03); Red Cell Distribution Width 15.7 % (13.2-15.2)
[2019-03-22] MEDS: PULMICORT IH SCH ×2 (08:04→20:46)
[2019-03-22] MEDS: BROVANA NEBU IH SCH ×2 (08:05→20:47)
[2019-03-22 08:58] LABS: BUN/Creatinine Ratio 29; Blood Urea Nitrogen 20 mg/dL (9-20); Calcium 8.4 mg/dL (8.4-10.2); Hemolysis Index 4
[2019-03-22] MEDS: ZOFRAN IV PRN (10:39)
[2019-03-22] MEDS: TOPAMAX PO SCH ×2 (10:40→22:44)
[2019-03-22] MEDS: LASIX IV SCH (10:40)
[2019-03-22] MEDS: MYSOLINE PO SCH ×4 (10:41→22:44)
[2019-03-22] MEDS: LOVENOX SUB-Q SCH (10:41)
[2019-03-22] MEDS: NORVASC PO SCH (10:41)
[2019-03-22] MEDS: HALFPRIN EC PO SCH (10:41)
[2019-03-22] MEDS: NEURONTIN PO SCH ×2 (10:42→22:44)
[2019-03-22] MEDS: ROXICODONE PO PRN ×2 (10:42→22:44)
[2019-03-22] MEDS: DELTASONE PO SCH (10:42)
[2019-03-22] MEDS: ZESTRIL PO SCH (10:42)
--- NOTE | 2019-03-22 11:53 | Progress Note ---
Assessment and Plan Assessment and plan: Patient is a 63 yo man with a history of hypertension, chronic respiratory failure on home 3-4 liters O2 due to End-stage COPD, Seizure disorder, PE and essential tremor who presented to [facility] ED with sob, leg swelling. * CTA chest FINDINGS: Heart and pericardium: Small amount of pericardial fluid is present, measuring up to 5 mm in thickness. Thoracic aorta: Mild atherosclerotic calcification. Pulmonary vasculature: Normal. No pulmonary emboli. Lymph nodes: Numerous mediastinal nodes are present, measuring up to 1 cm in short axis. Lungs: Mild diffuse septal thickening suggests interstitial edema. There is mild bibasilar compressive atelectasis. Pleural space: Bilateral mild to moderate sized layering pleural effusions are present. No pneumothorax is identified bilaterally Musculoskeletal structures: No significant abnormality. Upper abdominal structures: There is an anterior abdominal wall hernia, which is not fully imaged. IMPRESSION: No evidence of pulmonary emboli. Bilateral pleural effusions. Mild mediastinal adenopathy. -Acute on chronic hypoxic respiratory failure: consulted [employer], careful with o2 as son Nikunj at bedside say he develops co2 retention with too much Oxygen -Acute COPD exacerbation: treat with nebs, steroids, abx -Acute on chronic diastolic HF exacerbation: EF 50-55% on 01/2019 ECHO, treat with diuretics but reduce dose as patient developing contraction alkalosis. Consulted Cardiology -Hypertension: low salt diet, antihypertensives -Seizure: continue home medications -History of PE -h/o Essential tremor -DVT ppx on sq lovenox 03/22/19: Around 1am this morning, pt had 3 beat run of NSVT, then around 3:29am he went into Afib with RVR followed immediately by another run of NSVT. SonLondon insist on giving his father around the clock Narcotics because he feels that father is going into "DTs" by the lack of narcotics because of the nausea/lack of appetite/not eating. Patient is gagging when he attempts to eat. I wanted to exam patient's abdomen by removing the binder but I was met with unbelievable resistance. On exam, the ventral hernia is tender and distended. The son insist on re-applying the binder and doesn't think the ventral hernia is causing any problems although his father is consistently in pain for it and the ventral hernia is now inoperable (after multiple surgeries) per son. CT abd/pelvis with oral contrast is indicated but patient may not be able to drink the contrast or lay flat. I consulted Gen. Surgery. However, main issue now is arrhythmias. I will also consult Dr. Spivey for pain management. History Interval history: Patient was seen and examined. Follow-up on current diagnosis of COPD and intractable nausea. Overnight eventful with AFib RVR s/p iv cardizem. Patient denies any chest pain, nausea/vomiting or severe headaches. Imaging, nursing note, chart, labs and old chart reviewed. Discussed with patient and son [place] at bedside Hospitalist Physical - Physical exam Narrative exam: Gen: chronic disable and ill-appearing, NAD, lethargic, Orientated x 2 HEENT: NCAT, EOMI, PERRL, OP Clear Neck: supple, no adenopathy, no thyromegaly, JVD CVS/Heart: RRR, normal S1S2, pulses present bilaterally Chest/Lungs: diminished bs with bibasilar crackles, Symmetrical chest expansion, good air entry bilaterally GI/Abdomen: soft, large tender ventral hernia (initial they refused to allow me to remove binder but I insisted) good bowel sounds, no guarding or rebound /Bladder: no suprapubic tenderness, no CVA or paraspinal tenderness Extermity/Skin: leg edema no obvious rash MSK: FROM x 4 Neuro: CN 2-12 grossly intact, no new focal deficits Psych: calm - Constitutional Vitals: Temp Pulse Resp BP Pulse Ox 97.6 F 88 20 137/87 92 03/22/19 07:52 03/22/19 10:42 03/22/19 07:52 03/22/19 10:42 03/22/19 07:52 General appearance: Present: no acute distress Results - Labs CBC & Chem 7: 03/22/19 07:07 03/22/19 07:07 Labs: Laboratory Last Values WBC 10.1 K/mm3 (4.5-11.0) 03/22/19 07:07 RBC 4.32 M/mm3 (3.65-5.03) 03/22/19 07:07 Hgb 13.4 gm/dl (11.8-15.2) 03/22/19 07:07 Hct 39.9 % (35.5-45.6) 03/22/19 07:07 MCV 92 fl (84-94) 03/22/19 07:07 MCH 31 pg (28-32) 03/22/19 07:07 MCHC 34 % (32-34) 03/22/19 07:07 RDW 15.7 % (13.2-15.2) H 03/22/19 07:07 Plt Count 278 K/mm3 (140-440) 03/22/19 07:07 Lymph % (Auto) 9.0 % (13.4-35.0) L 03/20/19 06:46 [facility] % (Auto) 3.8 % (0.0-7.3) 03/20/19 06:46 Eos % (Auto) 0.1 % (0.0-4.3) 03/20/19 06:46 Baso % (Auto) 0.6 % (0.0-1.8) 03/20/19 06:46 Lymph # 0.7 K/mm3 (1.2-5.4) L 03/20/19 06:46 [facility] # 0.3 K/mm3 (0.0-0.8) 03/20/19 06:46 Eos # 0.0 K/mm3 (0.0-0.4) 03/20/19 06:46 Baso # 0.0 K/mm3 (0.0-0.1) 03/20/19 06:46 Seg Neutrophils % 86.5 % (40.0-70.0) H 03/20/19 06:46 Seg Neutrophils # 6.5 K/mm3 (1.8-7.7) 03/20/19 06:46 PT 13.3 Sec. (12.2-14.9) 03/19/19 17:52 INR 0.95 (0.87-1.13) 03/19/19 17:52 APTT 29.8 Sec. (24.2-36.6) 03/19/19 17:52 POC ABG pH 7.484 (7.35-7.45) H 03/20/19 16:02 POC ABG pCO2 60.5 (35-45) H 03/20/19 16:02 POC ABG pO2 79 (80-105) L 03/20/19 16:02 POC ABG HCO3 45.5 (22-26 mml/L) 03/20/19 16:02 POC ABG Total CO2 47 (23-27mmol/L) 03/20/19 16:02 POC ABG O2 Sat 96 03/20/19 16:02 POC ABG Base Excess 22 ((-2) - (+3)mmol/L) 03/20/19 16:02 FiO2 45 % 03/20/19 16:02 Sodium 141 mmol/L (137-145) 03/22/19 07:07 Potassium 4.3 mmol/L (3.6-5.0) 03/22/19 07:07 Chloride 92.0 mmol/L (98-107) L 03/22/19 07:07 Carbon Dioxide 36 mmol/L (22-30) H 03/22/19 07:07 Anion Gap 17 mmol/L 03/22/19 07:07 BUN 20 mg/dL (9-20) 03/22/19 07:07 Creatinine 0.7 mg/dL (0.8-1.5) L 03/22/19 07:07 Estimated GFR > 60 ml/min 03/22/19 07:07 BUN/Creatinine Ratio 29 % 03/22/19 07:07 Glucose 119 mg/dL (75-100) H 03/22/19 07:07 Lactic Acid 1.20 mmol/L (0.7-2.0) 03/19/19 17:52 Calcium 8.4 mg/dL (8.4-10.2) 03/22/19 07:07 Magnesium 1.80 mg/dL (1.7-2.3) 03/22/19 07:07 Total Bilirubin 0.30 mg/dL (0.1-1.2) 03/19/19 17:52 AST 23 units/L (5-40) 03/19/19 17:52 ALT 19 units/L (7-56) 03/19/19 17:52 Alkaline Phosphatase 64 units/L (35-129) 03/19/19 17:52 Total Creatine Kinase 53 units/L (55-170) L 03/20/19 06:46 CK-MB (CK-2) 4.4 ng/mL (0.0-4.0) H 03/20/19 06:46 CK-MB (CK-2) Rel Index 8.3 (0-4) H 03/20/19 06:46 Troponin T 0.073 ng/mL (0.00-0.029) H 03/20/19 06:46 NT-Pro-B Natriuret Pep 8170 pg/mL (0-900) H 03/19/19 17:52 Total Protein 6.0 g/dL (6.3-8.2) L 03/19/19 17:52 Albumin 3.1 g/dL (3.9-5) L 03/19/19 17:52 Albumin/Globulin Ratio 1.1 % 03/19/19 17:52 Triglycerides 117 mg/dL (2-149) 03/19/19 17:52 Cholesterol 178 mg/dL (50-199) 03/19/19 17:52 LDL Cholesterol Direct 118 mg/dL (50-130) 03/19/19 17:52 HDL Cholesterol 40 mg/dL (40-59) 03/19/19 17:52 Cholesterol/HDL Ratio 4.45 % 03/19/19 17:52 Active Medications - Current Medications Current Medications: Generic Name Dose Route Start Last Admin Trade Name Freq PRN Reason Stop Dose Admin Acetaminophen 650 mg 03/20/19 00:42 Tylenol PO Q4H PRN Pain MILD(1-3)/Fever >100.5/GALAN Albuterol 2.5 mg 03/20/19 01:20 03/20/19 12:44 Proventil IH 2.5 mg Q4HRT PRN Administration Shortness Of Breath Albuterol/Ipratropium 1 ampul 03/20/19 02:00 03/22/19 08:05 Duoneb *Not For Prn Use* IH Not Given Q6HRT ANDREW Amlodipine Besylate 5 mg 03/20/19 10:00 03/22/19 10:41 Norvasc PO 5 mg DAILY NADREW Administration Arformoterol Tartrate 15 mcg 03/20/19 08:00 03/22/19 08:05 Brovana Nebu IH 15 mcg Q12HRT ANDREW Administration Aspirin 81 mg 03/20/19 10:00 03/22/19 10:41 Halfprin Ec PO 81 mg DAILY ANDREW Administration Atorvastatin Calcium 40 mg 03/20/19 10:00 03/22/19 10:42 Lipitor PO 40 mg DAILY ANDREW Administration Budesonide 1 mg 03/20/19 08:00 03/22/19 08:04 Pulmicort IH 1 mg Q12HRT ANDREW Administration Divalproex Sodium 500 mg 03/20/19 10:00 03/22/19 10:42 Depakote Er PO 500 mg BID ANDREW Administration Enoxaparin Sodium 40 mg 03/20/19 10:00 03/22/19 10:41 Lovenox SUB-Q 40 mg QDAY ANDREW Administration Furosemide 40 mg 03/22/19 10:00 03/22/19 10:40 Lasix IV 40 mg QDAY ANDREW Administration Gabapentin 300 mg 03/20/19 10:00 03/22/19 10:42 Neurontin PO 300 mg BID ANDREW Administration Ipratropium [place] 0.5 mg 03/20/19 13:00 03/22/19 08:05 Atrovent IH 0.5 mg Q6HRT ANDREW Administration Lisinopril 2.5 mg 03/20/19 10:00 03/22/19 10:42 Zestril PO 2.5 mg QDAY ANDREW Administration Ondansetron HCl 4 mg 03/20/19 00:42 03/22/19 10:39 Zofran IV 4 mg Q4H PRN Administration Nausea And Vomiting Oxycodone HCl 5 mg 03/21/19 18:37 03/22/19 10:42 Roxicodone PO 5 mg QID PRN Administration Pain, Moderate (4-6) Oxycodone/Acetaminophen 1 tab 03/21/19 18:36 03/21/19 18:50 Percocet 5/325 PO 1 tab QID PRN Administration Pain, Moderate (4-6) Prednisone 20 mg 03/20/19 12:00 03/22/19 10:42 Deltasone PO 20 mg QDAY ANDREW Administration Primidone 250 mg 03/20/19 10:00 03/22/19 10:41 Mysoline PO 250 mg QID ANDREW Administration Sodium Chloride 10 ml 03/20/19 10:00 03/22/19 10:43 Sodium Chloride Flush Syringe 10 Ml IV 10 ml BID ANDREW Administration Sodium Chloride 10 ml 03/20/19 00:42 03/20/19 05:40 Sodium Chloride Flush Syringe 10 Ml IV 10 ml PRN PRN Administration LINE FLUSH Topiramate 50 mg 03/20/19 10:00 03/22/19 10:40 Topamax PO 50 mg BID ANDREW Administration
--- NOTE | 2019-03-22 14:52 | Progress Note ---
Assessment and Plan Acute on chronic hypoxemic-hypercapnic respiratory failure Elevated BNP, decompensated heart failure Morbid obesity COPD Sleep apnea h/o PE, not on anticoagulation - continue diuresis while monitoring renal indices, hemodynamics and electrolyte profile; Thoracentesis if no improvement - US Chest - continue bronchodilators with pulmonary hygiene per RT - continue Oxygen restrictive strategies, keep O2 sats 88-90% acutely - BIPAP qhs - continue VTE prophylaxis - No antibiotics indicated at this time. This appears to be decompensated heart failure - cardiology consult to optimize cardiac function (suspect combined heart failure) - Avoid systemic steroids acutely as this can worsen his heart failure - Keep potassium and phosphorus upper limit of normal to optimize respiratory muscle function - Chronic home medications per primary. .. re-evaluate in am & prn Subjective Date of service: 03/22/19 Principal diagnosis: Ac on Ch hypoxemic-hypercapnic Resp failure; CHF exacerbation; COPD; FILIPE Interval history: Patient is seen today for: Acute on chronic hypoxemic-hypercapnic respiratory failure; Elevated BNP, decompensated heart failure; Morbid obesity; COPD; Sleep apnea; h/o PE, not on anticoagulation Seen and examined at bedside; 24-hour events reviewed; nursing and respiratory care staff consulted; no adverse overnight events reported to me; resting peacefully in bed; remains on supplemental oxygen above baseline; tolerating QHS BIPAP: No N/V/F/C; still SOB Objective Vital Signs - 12hr 03/22/19 03/22/19 03/22/19 02:57 04:56 05:00 Temperature 98.6 F Pulse Rate 69 173 H 172 H Respiratory 17 Rate Blood Pressure 92/62 106/57 O2 Sat by Pulse 93 Oximetry 03/22/19 03/22/19 03/22/19 06:13 07:52 10:41 Temperature 97.6 F Pulse Rate 172 H 78 88 Respiratory 20 Rate Blood Pressure 106/57 100/64 137/87 O2 Sat by Pulse 92 Oximetry 03/22/19 03/22/19 03/22/19 10:42 12:07 12:22 Temperature 98.7 F Pulse Rate 88 78 94 H Respiratory 16 Rate Blood Pressure 137/87 100/64 118/67 O2 Sat by Pulse 87 Oximetry Constitutional: no acute distress, alert, other (obese man on 3L oxygen via NC, atraumatic, normocephalic) Eyes: non-icteric ENT: oropharynx moist, other (large neck circumference) Neck: supple, no lymphadenopathy, no JVD, other (no thyromegaly) Effort: mildly labored Ascultation: Bilateral: diminished breath sounds, rhonchi, other (prolonged exp phase) Percussion: Bilateral: dull (bases) Cardiovascular: regular rate and rhythm, other (S1,S2,no murmurs) Gastrointestinal: normoactive bowel sounds, soft, non-tender, other (protuberant) Extremities: no cyanosis, pink and warm, pulses normal, edema (bilateral lower extremity) Neurologic: normal mental status, non-focal exam, pupils equal and round, CN II- XII normal, motor strength normal and Psychiatric: mood appropriate, affect normal CBC and BMP: 03/25/19 05:22 03/25/19 05:22 ABG, PT/INR, D-dimer: ABG POC ABG pH 7.484 (7.35-7.45) H 03/20/19 16:02 POC ABG pCO2 60.5 (35-45) H 03/20/19 16:02 POC ABG pO2 79 (80-105) L 03/20/19 16:02 POC ABG HCO3 45.5 (22-26 mml/L) 03/20/19 16:02 POC ABG Total CO2 47 (23-27mmol/L) 03/20/19 16:02 POC ABG O2 Sat 96 03/20/19 16:02 PT/INR, D-dimer PT 13.3 Sec. (12.2-14.9) 03/19/19 17:52 INR 0.95 (0.87-1.13) 03/19/19 17:52 Abnormal lab findings: Abnormal Labs 03/19/19 03/19/19 03/19/19 17:39 17:52 17:52 RDW 15.7 H Lymph % (Auto) [place] % (Auto) 10.6 H Lymph # Seg Neutrophils % 70.6 H POC ABG pH POC ABG pCO2 60.9 H POC ABG pO2 53 L Chloride 84.1 L Carbon Dioxide 36 H Creatinine 0.6 L Glucose Total Creatine Kinase CK-MB (CK-2) CK-MB (CK-2) Rel Index Troponin T 0.079 H NT-Pro-B Natriuret Pep 8170 H Total Protein 6.0 L Albumin 3.1 L 03/20/19 03/20/19 03/20/19 01:01 06:46 06:46 RDW 15.8 H Lymph % (Auto) 9.0 L [place] % (Auto) Lymph # 0.7 L Seg Neutrophils % 86.5 H POC ABG pH POC ABG pCO2 POC ABG pO2 Chloride Carbon Dioxide 33 H Creatinine 0.6 L Glucose 133 H Total Creatine Kinase 42 L CK-MB (CK-2) 4.2 H CK-MB (CK-2) Rel Index 10.0 H Troponin T 0.088 H NT-Pro-B Natriuret Pep Total Protein Albumin 03/20/19 03/20/19 03/22/19 06:46 16:02 07:07 RDW 15.7 H Lymph % (Auto) [place] % (Auto) Lymph # Seg Neutrophils % POC ABG pH 7.484 H POC ABG pCO2 60.5 H POC ABG pO2 79 L Chloride Carbon Dioxide Creatinine Glucose Total Creatine Kinase 53 L CK-MB (CK-2) 4.4 H CK-MB (CK-2) Rel Index 8.3 H Troponin T 0.073 H NT-Pro-B Natriuret Pep Total Protein Albumin 03/22/19 07:07 RDW Lymph % (Auto) [place] % (Auto) Lymph # Seg Neutrophils % POC ABG pH POC ABG pCO2 POC ABG pO2 Chloride 92.0 L Carbon Dioxide 36 H Creatinine 0.7 L Glucose 119 H Total Creatine Kinase CK-MB (CK-2) CK-MB (CK-2) Rel Index Troponin T NT-Pro-B Natriuret Pep Total Protein Albumin Allied health notes reviewed: nursing
--- NOTE | 2019-03-22 14:55 | Consultation ---
History of Present Illness Consult date: 03/22/19 Chief complaint: hernia - History of present illness History of present illness: 63 yo M with complex PMHx and PSHx presented to ER with altered mental status and increased work of breathing. The patient currently cannot provide any history and all information is obtained from his and son at the bedside and the chart. Per the family, the patient has poor lungs and is followed by Dr. Pollard as an outpatient. He is on CPAP at home and was recently discharged from [facility]. They feel that he started to get more confused and it may have something to do with improper set up of CPAP. The patient has a history of multiple abdominal operations. The index surgery was for perforated appendicitis. Following this he had multiple hernia surgeries including separation of components, explanation of mesh due to infection, implantation of biologic mesh, abdominoplasty. The hernia recurred after all of these surgeries and they were told it was inoperable. The patient has chronic abdominal pain due to the hernia and multiple operations and takes oxycodone which is prescribed by pain management. He was not eating or drinking well during this hospitalization and c/o abdominal pain and so surgery is consulted to evaluate. Patient was eating well at home, is having BMs and passing flatus. Mild nausea but no vomiting. Past History Past Medical History: COPD, hypertension, seizures, other (PE, chronic respiratory failure, essential tremor) Past Surgical History: appendectomy, hernia repair, Other (multiple abdominal surgical procedures) Social history: Family history: no significant family history Medications and Allergies Allergies Allergy/AdvReac Type Severity Reaction Status Date / Time No Known Allergies Allergy Verified 11/05/17 05:58 Home Medications Medication Instructions Recorded Confirmed Last Taken Type Divalproex Dr [Depakote Dr] 1,000 mg PO DAILY 11/08/14 03/20/19 11/04/17 History Gabapentin 300 mg PO BID 11/08/14 03/19/19 11/04/17 History amLODIPine [Norvasc] 5 mg PO DAILY 11/08/14 03/19/19 11/04/17 History AtorvaSTATin [Lipitor] 40 mg PO DAILY 04/26/17 03/19/19 11/04/17 History Budesonide/Formoterol Fumarate 2 puff IH BID 02/20/18 02/13/19 Unknown History [Symbicort 160-4.5 Mcg Inhaler] Primidone [Mysoline] 250 mg PO QID 02/20/18 03/19/19 Unknown History Ergocalciferol (Vitamin D2) 50,000 unit PO QWEEK 09/22/18 03/19/19 Unknown History [Drisdol] Oxycodone HCl/Acetaminophen 10 mg PO QID PRN 09/22/18 03/19/19 Unknown History [Percocet 10/325 mg] Tiotropium [place] [Spiriva 2 puff IH QDAY 09/22/18 03/20/19 Unknown History Respimat] Topiramate [Topamax] 50 mg PO BID 09/22/18 03/20/19 Unknown History Aspirin EC [Aspirin Enteric Coated 81 mg PO DAILY tablet 02/16/19 Unknown Rx TAB] ALBUTEROL NEB's [Proventil 0.083% 2.5 mg INHALATION DAILY 03/19/19 03/19/19 Unknown History NEBS] ALBUTEROL NEB's [Proventil] 2.5 mg IH TID PRN 03/19/19 03/19/19 Unknown History Bystolic 10 mg PO DAILY 03/19/19 03/19/19 Unknown History Divalproex ER [Depakote ER] 500 mg PO BID 03/19/19 03/19/19 Unknown History Ipratropium 03/19/19 Unknown History Ipratropium 0.06% 03/19/19 Unknown History Symbicort 160-4.5 Mcg Inhaler 4.5 mcg INHALATION BID 03/19/19 03/19/19 Unknown History Tiotropium [place] [Spiriva] 18 mcg IH BID 03/19/19 03/19/19 Unknown History Ventolin Hfa 90 mcg INHALATION QID 03/19/19 03/19/19 Unknown History Active Meds: Active Medications Acetaminophen (Tylenol) 650 mg PO Q4H PRN PRN Reason: Pain MILD(1-3)/Fever >100.5/GALAN Albuterol (Proventil) 2.5 mg IH Q4HRT PRN PRN Reason: Shortness Of Breath Last Admin: 03/20/19 12:44 Dose: 2.5 mg Documented by: Albuterol/Ipratropium (Duoneb *Not For Prn Use*) 1 ampul IH Q6HRT ANDREW Last Admin: 03/22/19 13:38 Dose: 1 ampul Documented by: Amlodipine Besylate (Norvasc) 5 mg PO DAILY [facility] Last Admin: 03/22/19 10:41 Dose: 5 mg Documented by: Arformoterol Tartrate (Brovana Nebu) 15 mcg IH Q12HRT [facility] Last Admin: 03/22/19 08:05 Dose: 15 mcg Documented by: Aspirin (Halfprin Ec) 81 mg PO DAILY [facility] Last Admin: 03/22/19 10:41 Dose: 81 mg Documented by: Atorvastatin Calcium (Lipitor) 40 mg PO DAILY [facility] Last Admin: 03/22/19 10:42 Dose: 40 mg Documented by: Budesonide (Pulmicort) 1 mg IH Q12HRT [facility] Last Admin: 03/22/19 08:04 Dose: 1 mg Documented by: Divalproex Sodium (Depakote Er) 500 mg PO BID [facility] Last Admin: 03/22/19 10:42 Dose: 500 mg Documented by: Enoxaparin Sodium (Lovenox) 40 mg SUB-Q QDAY [facility] Last Admin: 03/22/19 10:41 Dose: 40 mg Documented by: Furosemide (Lasix) 40 mg IV QDAY [facility] Last Admin: 03/22/19 10:40 Dose: 40 mg Documented by: Gabapentin (Neurontin) 300 mg PO BID [facility] Last Admin: 03/22/19 10:42 Dose: 300 mg Documented by: Ipratropium [place] (Atrovent) 0.5 mg IH Q6HRT [facility] Last Admin: 03/22/19 13:39 Dose: Not Given Documented by: Lisinopril (Zestril) 2.5 mg PO QDAY [facility] Last Admin: 03/22/19 10:42 Dose: 2.5 mg Documented by: Ondansetron HCl (Zofran) 4 mg IV Q4H PRN PRN Reason: Nausea And Vomiting Last Admin: 03/22/19 10:39 Dose: 4 mg Documented by: Oxycodone HCl (Roxicodone) 5 mg PO QID PRN PRN Reason: Pain, Moderate (4-6) Last Admin: 03/22/19 10:42 Dose: 5 mg Documented by: Oxycodone/Acetaminophen (Percocet 5/325) 1 tab PO QID PRN PRN Reason: Pain, Moderate (4-6) Last Admin: 03/21/19 18:50 Dose: 1 tab Documented by: Prednisone (Deltasone) 20 mg PO QDAY [facility] Last Admin: 03/22/19 10:42 Dose: 20 mg Documented by: Primidone (Mysoline) 250 mg PO QID [facility] Last Admin: 03/22/19 13:59 Dose: 250 mg Documented by: Sodium Chloride (Sodium Chloride Flush Syringe 10 Ml) 10 ml IV BID [facility] Last Admin: 03/22/19 10:43 Dose: 10 ml Documented by: Sodium Chloride (Sodium Chloride Flush Syringe 10 Ml) 10 ml IV PRN PRN PRN Reason: LINE FLUSH Last Admin: 03/20/19 05:40 Dose: 10 ml Documented by: Topiramate (Topamax) 50 mg PO BID [facility] Last Admin: 03/22/19 10:40 Dose: 50 mg Documented by: Review of Systems ROS unobtainable: due to mental status Exam Vital Signs Resp Pulse Ox 15 85 03/19/19 14:07 03/19/19 14:07 Narrative exam: Gen: Awake, on BIPAP ENT: no scleral icterus or conjunctival pallor CV: S1, S2+ Resp: on BIPAP Abd: soft, ND, + LLQ TTP - mild. Well healed surgical scars. Hernia is palpable and reducible. No r/r/g Ext: no c/c/e Results - Labs 03/22/19 07:07 03/22/19 07:07 Abnormal lab results 03/22/19 03/22/19 Range/Units 07:07 07:07 RDW 15.7 H (13.2-15.2) % Chloride 92.0 L (98-107) mmol/L Carbon Dioxide 36 H (22-30) mmol/L Creatinine 0.7 L (0.8-1.5) mg/dL Glucose 119 H (75-100) mg/dL Diabetes panel 03/22/19 Range/Units 07:07 Sodium 141 (137-145) mmol/L Potassium 4.3 (3.6-5.0) mmol/L Chloride 92.0 L (98-107) mmol/L Carbon Dioxide 36 H (22-30) mmol/L BUN 20 (9-20) mg/dL Creatinine 0.7 L (0.8-1.5) mg/dL Glucose 119 H (75-100) mg/dL Calcium 8.4 (8.4-10.2) mg/dL Calcium panel 03/22/19 Range/Units 07:07 Calcium 8.4 (8.4-10.2) mg/dL Pituitary panel 03/22/19 Range/Units 07:07 Sodium 141 (137-145) mmol/L Potassium 4.3 (3.6-5.0) mmol/L Chloride 92.0 L (98-107) mmol/L Carbon Dioxide 36 H (22-30) mmol/L BUN 20 (9-20) mg/dL Creatinine 0.7 L (0.8-1.5) mg/dL Glucose 119 H (75-100) mg/dL Calcium 8.4 (8.4-10.2) mg/dL Adrenal panel 03/22/19 Range/Units 07:07 Sodium 141 (137-145) mmol/L Potassium 4.3 (3.6-5.0) mmol/L Chloride 92.0 L (98-107) mmol/L Carbon Dioxide 36 H (22-30) mmol/L BUN 20 (9-20) mg/dL Creatinine 0.7 L (0.8-1.5) mg/dL Glucose 119 H (75-100) mg/dL Calcium 8.4 (8.4-10.2) mg/dL Assessment and Plan 63 yo M with abdominal wall hernia, hx of multiple abdominal surgeries Plan; 1. adv diet as tolerated 2. Management of acute pulmonary issues per ', pulm service 3. continue home pain med 4. abdominal binder for comfort Patient's abdomen appears to be at baseline. He does not have an acute abdomen, symptoms of obstruction. Due to his multiple medical comorbidities and hx of multiple abdominal surgeries, I would only recommend intervention for the hernia in the case of a life threatening emergency. At this time, no surgical intervention is indicated. Ct scan ordered - discussed with Dr. Jerez, CT may be cancelled/held at this time. Will s/o. Thank you, please call with questions.
--- NOTE | 2019-03-22 15:16 | Progress Note ---
Assessment and Plan I have explained to his family that he will benefit from anticoagulation if develops recurrent atrial fibrillation. Due to low normal BPs, initiate low-dose amiodarone for sppression of AF. Obtain TFTs. - Patient Problems (1) Acute on chronic respiratory failure Current Visit: Yes Status: Acute Qualifiers: Respiratory failure complication: hypoxia and hypercapnia Qualified Code(s): J96.21 - Acute and chronic respiratory failure with hypoxia; J96.22 - Acute and chronic respiratory failure with hypercapnia (2) COPD exacerbation Current Visit: Yes Status: Acute (3) Acute heart failure with preserved ejection fraction Current Visit: Yes Status: Acute (4) Paroxysmal atrial fibrillation with RVR Current Visit: Yes Status: Acute (5) NSVT (nonsustained ventricular tachycardia) Current Visit: Yes Status: Acute (6) Elevated troponin Current Visit: Yes Status: Acute (7) Right ventricular dysfunction Current Visit: Yes Status: Chronic (8) Hypertension Current Visit: Yes Status: Chronic Qualifiers: Hypertension type: essential hypertension Qualified Code(s): I10 - Essential (primary) hypertension (9) Functional quadriplegia Current Visit: Yes Status: Chronic (10) Abdominal hernia Current Visit: Yes Status: Chronic (11) History of pulmonary embolism Current Visit: No Status: Resolved (12) History of seizures Current Visit: Yes Status: Chronic Subjective Date of service: 03/22/19 Principal diagnosis: Acute on chronic resp failure, COPD ex, Acute HFPEF, RV dysfxn, PAF Interval history: The patient apparently went into rapid atrial fibrillation early this am. He received IV diltiazem with conversion to sinus rhythm. He also had a 3-beat NSVT. He complains of abdominal pain. His son and are upset claiming that he was on chronic narcotic analgesic at home which they claim was not initiated at admission. They believe that he is withdrawing from the meds. Objective Vital Signs Temp Pulse Pulse Resp Resp BP Pulse Ox 03/22/19 12:22 98.7 F 94 H 16 118/67 87 03/22/19 12:07 78 100/64 03/22/19 10:42 88 137/87 03/22/19 10:41 88 137/87 03/22/19 07:52 97.6 F 78 20 100/64 92 03/22/19 06:13 172 H 106/57 03/22/19 05:00 172 H 03/22/19 04:56 173 H 106/57 03/22/19 02:57 98.6 F 69 17 92/62 93 03/22/19 02:12 71 17 03/22/19 00:41 76 17 93 03/21/19 22:49 98.1 F 78 18 93/53 91 03/21/19 21:00 85 03/21/19 20:42 88 22 03/21/19 20:22 89 89 21 21 92 03/21/19 20:21 92 03/21/19 19:56 98.0 F 87 16 121/79 86 03/21/19 19:40 98.1 F 85 20 118/81 88 - Physical Examination General: No Apparent Distress HEENT: Positive: EOMI, Normocephaly, Mucus Membranes Moist Neck: Positive: neck supple, trachea midline, JVD/HJR (elevated) Cardiac: Positive: Reg Rate and Rhythm, S1/S2 Lungs: Positive: clear to auscultation Neuro: Positive: Other (Lethargic, but more awake and communicative today.) Abdomen: Positive: Soft, Active Bowel Sounds, Distended. Negative: Tender Skin: Positive: Clear Musculoskeletal: Normal Range of Motion Extremities: Present: +1 Edema (both legs) - Labs and Meds CBC 03/22/19 Range/Units 07:07 WBC 10.1 (4.5-11.0) K/mm3 RBC 4.32 (3.65-5.03) M/mm3 Hgb 13.4 (11.8-15.2) gm/dl Hct 39.9 (35.5-45.6) % Plt Count 278 (140-440) K/mm3 Comprehensive Metabolic Panel 03/22/19 Range/Units 07:07 Sodium 141 (137-145) mmol/L Potassium 4.3 (3.6-5.0) mmol/L Chloride 92.0 L (98-107) mmol/L Carbon Dioxide 36 H (22-30) mmol/L BUN 20 (9-20) mg/dL Creatinine 0.7 L (0.8-1.5) mg/dL Glucose 119 H (75-100) mg/dL Calcium 8.4 (8.4-10.2) mg/dL - Imaging and Cardiology EKG: image reviewed Echo: report reviewed - Telemetry EKG Rhythm: Sinus Rhythm Chamber hypertrophy or enlargement: righ ventricular hypertro Repolarization changes or abnormalities: ST or T wave suggestive of ischemia Myocardial infarction: anterior [place] (old age or i - Allied health notes Allied health notes reviewed: nursing
[2019-03-22] MEDS: CORDARONE PO SCH ×2 (17:36→22:44)
[2019-03-23] MEDS: DUONEB *Not for PRN Use IH SCH ×4 (02:14→21:05)
[2019-03-23] MEDS: ATROVENT IH SCH ×4 (02:18→21:06)
[2019-03-23 07:45] LABS: BUN/Creatinine Ratio 40; Blood Urea Nitrogen 20 mg/dL (9-20); Calcium 8.4 mg/dL (8.4-10.2); Hemolysis Index 5
--- NOTE | 2019-03-23 08:11 | Progress Note ---
Subjective Date of service: 03/23/19 Principal diagnosis: Acute on chronic resp failure, COPD ex, Acute HFPEF, RV dysfxn, PAF Interval history: REVIEWED THE MULTIPLE CONSULTATNT NOTES GOT ADDITIONAL HX OF CHRONIC PAIN ETC ams WILL STUDY MED LIST IE RESP DEPRESSANTS EEG ORDERED Objective - Vital Sign Vital Signs - 12hr 03/22/19 03/22/19 03/22/19 20:49 20:55 21:11 Temperature 100.0 F H Pulse Rate 85 Pulse Rate [ 85 89 Anterior Bilateral Throughout] Respiratory 18 Rate Respiratory 20 20 Rate [Anterior Bilateral Throughout] Blood Pressure 136/81 O2 Sat by Pulse 94 92 Oximetry 03/22/19 03/23/19 03/23/19 21:35 00:27 02:15 Temperature 98.6 F Pulse Rate 90 Pulse Rate [ 91 H Anterior Bilateral Throughout] Respiratory 18 Rate Respiratory 20 Rate [Anterior Bilateral Throughout] Blood Pressure 121/76 O2 Sat by Pulse 94 89 Oximetry 03/23/19 03/23/19 03/23/19 02:23 04:00 06:11 Temperature 99.0 F Pulse Rate 90 89 Pulse Rate [ 88 Anterior Bilateral Throughout] Respiratory 18 Rate Respiratory 20 Rate [Anterior Bilateral Throughout] Blood Pressure 133/75 O2 Sat by Pulse 89 Oximetry - Laboratory Findings CBC and BMP: 03/22/19 07:07 03/23/19 06:23 Abnormal Lab Findings: Abnormal Labs 03/19/19 03/19/19 03/19/19 17:39 17:52 17:52 RDW 15.7 H Lymph % (Auto) [place] % (Auto) 10.6 H Lymph # Seg Neutrophils % 70.6 H POC ABG pH POC ABG pCO2 60.9 H POC ABG pO2 53 L Potassium Chloride 84.1 L Carbon Dioxide 36 H Creatinine 0.6 L Glucose Total Creatine Kinase CK-MB (CK-2) CK-MB (CK-2) Rel Index Troponin T 0.079 H NT-Pro-B Natriuret Pep 8170 H Total Protein 6.0 L Albumin 3.1 L 03/20/19 03/20/19 03/20/19 01:01 06:46 06:46 RDW 15.8 H Lymph % (Auto) 9.0 L [place] % (Auto) Lymph # 0.7 L Seg Neutrophils % 86.5 H POC ABG pH POC ABG pCO2 POC ABG pO2 Potassium Chloride Carbon Dioxide 33 H Creatinine 0.6 L Glucose 133 H Total Creatine Kinase 42 L CK-MB (CK-2) 4.2 H CK-MB (CK-2) Rel Index 10.0 H Troponin T 0.088 H NT-Pro-B Natriuret Pep Total Protein Albumin 03/20/19 03/20/19 03/22/19 06:46 16:02 07:07 RDW 15.7 H Lymph % (Auto) [place] % (Auto) Lymph # Seg Neutrophils % POC ABG pH 7.484 H POC ABG pCO2 60.5 H POC ABG pO2 79 L Potassium Chloride Carbon Dioxide Creatinine Glucose Total Creatine Kinase 53 L CK-MB (CK-2) 4.4 H CK-MB (CK-2) Rel Index 8.3 H Troponin T 0.073 H NT-Pro-B Natriuret Pep Total Protein Albumin 03/22/19 03/23/19 07:07 06:23 RDW Lymph % (Auto) [place] % (Auto) Lymph # Seg Neutrophils % POC ABG pH POC ABG pCO2 POC ABG pO2 Potassium 3.5 L Chloride 92.0 L 86.5 L Carbon Dioxide 36 H 39 H Creatinine 0.7 L 0.5 L Glucose 119 H 103 H Total Creatine Kinase CK-MB (CK-2) CK-MB (CK-2) Rel Index Troponin T NT-Pro-B Natriuret Pep Total Protein Albumin
[2019-03-23 08:46] LABS: Hematocrit 38.3 % (35.5-45.6); Hemoglobin 12.8 gm/dl (11.8-15.2); Mean Corpuscular HGB Conc 34 % (32-34); Mean Corpuscular Volume 91 fl (84-94); Platelet Count 245 K/mm3 (140-440); Red Blood Count 4.21 M/mm3 (3.65-5.03); Red Cell Distribution Width 15.3 % (13.2-15.2)
[2019-03-23] MEDS: BROVANA NEBU IH SCH ×2 (08:55→21:05)
[2019-03-23] MEDS: PULMICORT IH SCH ×2 (08:55→21:05)
--- NOTE | 2019-03-23 09:23 | Progress Note ---
Assessment and Plan Assessment and plan: Patient is a 63 yo man with a history of hypertension, chronic respiratory failure on home 3-4 liters O2 due to End-stage COPD, Seizure disorder, PE and essential tremor who presented to [facility] ED with sob, leg swelling. * CTA chest FINDINGS: Heart and pericardium: Small amount of pericardial fluid is present, measuring up to 5 mm in thickness. Thoracic aorta: Mild atherosclerotic calcification. Pulmonary vasculature: Normal. No pulmonary emboli. Lymph nodes: Numerous mediastinal nodes are present, measuring up to 1 cm in short axis. Lungs: Mild diffuse septal thickening suggests interstitial edema. There is mild bibasilar compressive atelectasis. Pleural space: Bilateral mild to moderate sized layering pleural effusions are present. No pneumothorax is identified bilaterally Musculoskeletal structures: No significant abnormality. Upper abdominal structures: There is an anterior abdominal wall hernia, which is not fully imaged. IMPRESSION: No evidence of pulmonary emboli. Bilateral pleural effusions. Mild mediastinal adenopathy. -Acute on chronic hypoxic respiratory failure: consulted Machine Presser, careful with o2 as gordy Calvin at bedside say he develops co2 retention with too much Oxygen -Acute COPD exacerbation: treat with nebs, steroids, abx -Acute on chronic diastolic HF exacerbation: EF 50-55% on 01/2019 ECHO, treat with diuretics but reduce dose as patient developing contraction alkalosis. Consulted Cardiology -Hypertension: low salt diet, antihypertensives -Seizure: continue home medications -New onset transient Afib with RVR: Cardiology is following and started Amiodarone on 03/22/19 -New onset of NSVT: Cardiololgy is following, replete potassium -Hypokalemia: replace via IV, not eating, repeat bmp -History of PE -h/o Essential tremor -DVT ppx on sq lovenox 03/22/19: Around 1am this morning, pt had 3 beat run of NSVT, then around 3:29am he went into Afib with RVR followed immediately by another run of NSVT. SonLondon insist on giving his father around the clock Narcotics because he feels that father is going into "DTs" by the lack of narcotics because of the nausea/lack of appetite/not eating. Patient is gagging when he attempts to eat. I wanted to exam patient's abdomen by removing the binder but I was met with unbelievable resistance. On exam, the ventral hernia is tender and distended. The son insist on re-applying the binder and doesn't think the ventral hernia is causing any problems although his father is consistently in pain for it and the ventral hernia is now inoperable (after multiple surgeries) per son. CT abd/pel vis with oral contrast is indicated but patient may not be able to drink the contrast or lay flat. I consulted Gen. Surgery. However, main issue now is arrhythmias. I will also consult Dr. Spivey for pain management. 03/23/19: Yesterday around 8:30pm had another 3 beat run of NSVT. I spoke with Dr. Savage yesterday. Amiodarone started Patient still not eating, Son at bedside is concerned. History Interval history: Patient was seen and examined. Follow-up on current diagnosis of COPD and intractable nausea. Overnight eventful with AFib RVR s/p iv cardizem. Patient denies any chest pain, nausea/vomiting or severe headaches. Imaging, nursing no te, chart, labs and old chart reviewed. Discussed with patient and son [place] at bedside Hospitalist Physical - Physical exam Narrative exam: Gen: chronic disable and ill-appearing, NAD, lethargic, Orientated x 2 HEENT: NCAT, EOMI, PERRL, OP Clear Neck: supple, no adenopathy, no thyromegaly, JVD CVS/Heart: RRR, normal S1S2, pulses present bilaterally Chest/Lungs: diminished bs with bibasilar crackles, Symmetrical chest expansion, good air entry bilaterally GI/Abdomen: soft, large tender ventral hernia (initial they refused to allow me to remove binder but I insisted) good bowel sounds, no guarding or rebound /Bladder: no suprapubic tenderness, no CVA or paraspinal tenderness Extermity/Skin: leg edema no obvious rash MSK: FROM x 4 Neuro: CN 2-12 grossly intact, no new focal deficits Psych: calm - Constitutional Vitals: Temp Pulse Resp BP Pulse Ox 98.1 F 85 20 130/76 88 03/23/19 08:43 03/23/19 09:03 03/23/19 08:42 03/23/19 08:42 03/23/19 08:42 General appearance: Present: no acute distress Results - Labs CBC & Chem 7: 03/23/19 06:23 03/23/19 06:23 Labs: Laboratory Last Values WBC 9.8 K/mm3 (4.5-11.0) 03/23/19 06:23 RBC 4.21 M/mm3 (3.65-5.03) 03/23/19 06:23 Hgb 12.8 gm/dl (11.8-15.2) 03/23/19 06:23 Hct 38.3 % (35.5-45.6) 03/23/19 06:23 MCV 91 fl (84-94) 03/23/19 06:23 MCH 31 pg (28-32) 03/23/19 06:23 MCHC 34 % (32-34) 03/23/19 06:23 RDW 15.3 % (13.2-15.2) H 03/23/19 06:23 Plt Count 245 K/mm3 (140-440) 03/23/19 06:23 Lymph % (Auto) 9.0 % (13.4-35.0) L 03/20/19 06:46 [place] % (Auto) 3.8 % (0.0-7.3) 03/20/19 06:46 Eos % (Auto) 0.1 % (0.0-4.3) 03/20/19 06:46 Baso % (Auto) 0.6 % (0.0-1.8) 03/20/19 06:46 Lymph # 0.7 K/mm3 (1.2-5.4) L 03/20/19 06:46 [place] # 0.3 K/mm3 (0.0-0.8) 03/20/19 06:46 Eos # 0.0 K/mm3 (0.0-0.4) 03/20/19 06:46 Baso # 0.0 K/mm3 (0.0-0.1) 03/20/19 06:46 Seg Neutrophils % 86.5 % (40.0-70.0) H 03/20/19 06:46 Seg Neutrophils # 6.5 K/mm3 (1.8-7.7) 03/20/19 06:46 PT 13.3 Sec. (12.2-14.9) 03/19/19 17:52 INR 0.95 (0.87-1.13) 03/19/19 17:52 APTT 29.8 Sec. (24.2-36.6) 03/19/19 17:52 POC ABG pH 7.484 (7.35-7.45) H 03/20/19 16:02 POC ABG pCO2 60.5 (35-45) H 03/20/19 16:02 POC ABG pO2 79 (80-105) L 03/20/19 16:02 POC ABG HCO3 45.5 (22-26 mml/L) 03/20/19 16:02 POC ABG Total CO2 47 (23-27mmol/L) 03/20/19 16:02 POC ABG O2 Sat 96 03/20/19 16:02 POC ABG Base Excess 22 ((-2) - (+3)mmol/L) 03/20/19 16:02 FiO2 45 % 03/20/19 16:02 Sodium 138 mmol/L (137-145) 03/23/19 06:23 Potassium 3.5 mmol/L (3.6-5.0) L 03/23/19 06:23 Chloride 86.5 mmol/L (98-107) L 03/23/19 06:23 Carbon Dioxide 39 mmol/L (22-30) H 03/23/19 06:23 Anion Gap 16 mmol/L 03/23/19 06:23 BUN 20 mg/dL (9-20) 03/23/19 06:23 Creatinine 0.5 mg/dL (0.8-1.5) L 03/23/19 06:23 Estimated GFR > 60 ml/min 03/23/19 06:23 BUN/Creatinine Ratio 40 % 03/23/19 06:23 Glucose 103 mg/dL (75-100) H 03/23/19 06:23 Lactic Acid 1.20 mmol/L (0.7-2.0) 03/19/19 17:52 Calcium 8.4 mg/dL (8.4-10.2) 03/23/19 06:23 Magnesium 1.80 mg/dL (1.7-2.3) 03/22/19 07:07 Total Bilirubin 0.30 mg/dL (0.1-1.2) 03/19/19 17:52 AST 23 units/L (5-40) 03/19/19 17:52 ALT 19 units/L (7-56) 03/19/19 17:52 Alkaline Phosphatase 64 units/L (35-129) 03/19/19 17:52 Total Creatine Kinase 53 units/L (55-170) L 03/20/19 06:46 CK-MB (CK-2) 4.4 ng/mL (0.0-4.0) H 03/20/19 06:46 CK-MB (CK-2) Rel Index 8.3 (0-4) H 03/20/19 06:46 Troponin T 0.073 ng/mL (0.00-0.029) H 03/20/19 06:46 NT-Pro-B Natriuret Pep 8170 pg/mL (0-900) H 03/19/19 17:52 Total Protein 6.0 g/dL (6.3-8.2) L 03/19/19 17:52 Albumin 3.1 g/dL (3.9-5) L 03/19/19 17:52 Albumin/Globulin Ratio 1.1 % 03/19/19 17:52 Triglycerides 117 mg/dL (2-149) 03/19/19 17:52 Cholesterol 178 mg/dL (50-199) 03/19/19 17:52 LDL Cholesterol Direct 118 mg/dL (50-130) 03/19/19 17:52 HDL Cholesterol 40 mg/dL (40-59) 03/19/19 17:52 Cholesterol/HDL Ratio 4.45 % 03/19/19 17:52 TSH 1.950 mlU/mL (0.270-4.200) 03/23/19 06:23 Free T4 0.82 ng/dL (0.76-1.46) 03/23/19 06:23 Active Medications - Current Medications Current Medications: Generic Name Dose Route Start Last Admin Trade Name Freq PRN Reason Stop Dose Admin Acetaminophen 650 mg 03/20/19 00:42 Tylenol PO Q4H PRN Pain MILD(1-3)/Fever >100.5/GALAN Albuterol 2.5 mg 03/20/19 01:20 03/20/19 12:44 Proventil IH 2.5 mg Q4HRT PRN Administration Shortness Of Breath Albuterol/Ipratropium 1 ampul 03/20/19 02:00 03/23/19 09:09 Duoneb *Not For Prn Use* IH Not Given Q6HRT [facility] Amiodarone HCl 200 mg 03/22/19 17:00 03/22/19 22:44 Cordarone PO 200 mg BID ANDREW Administration Amlodipine Besylate 5 mg 03/20/19 10:00 03/22/19 10:41 Norvasc PO 5 mg DAILY ANDREW Administration Arformoterol Tartrate 15 mcg 03/20/19 08:00 03/23/19 08:55 Brovana Nebu IH 15 mcg Q12HRT ANDREW Administration Aspirin 81 mg 03/20/19 10:00 03/22/19 10:41 Halfprin Ec PO 81 mg DAILY ANDREW Administration Atorvastatin Calcium 40 mg 03/20/19 10:00 03/22/19 10:42 Lipitor PO 40 mg DAILY [facility] Administration Budesonide 1 mg 03/20/19 08:00 03/23/19 08:55 Pulmicort IH 1 mg Q12HRT ANDREW Administration Divalproex Sodium 500 mg 03/20/19 10:00 03/22/19 22:44 Depakote Er PO 500 mg BID ANDREW Administration Enoxaparin Sodium 40 mg 03/20/19 10:00 03/22/19 10:41 Lovenox SUB-Q 40 mg QDAY ANDREW Administration Furosemide 40 mg 03/22/19 10:00 03/22/19 10:40 Lasix IV 40 mg QDAY [facility] Administration Gabapentin 300 mg 03/20/19 10:00 03/22/19 22:44 Neurontin PO 300 mg BID ANDREW Administration Potassium Chloride 10 meq in 100 mls @ 100 mls/hr 03/23/19 10:00 Kcl 10meq/100ml IV 03/23/19 11:59 Q1H [facility] Ipratropium [place] 0.5 mg 03/20/19 13:00 03/23/19 08:55 Atrovent IH 0.5 mg Q6HRT ANDREW Administration Lisinopril 2.5 mg 03/20/19 10:00 03/22/19 10:42 Zestril PO 2.5 mg QDAY ANDREW Administration Ondansetron HCl 4 mg 03/20/19 00:42 03/22/19 10:39 Zofran IV 4 mg Q4H PRN Administration Nausea And Vomiting Oxycodone HCl 5 mg 03/21/19 18:37 03/22/19 22:44 Roxicodone PO 5 mg QID PRN Administration Pain, Moderate (4-6) Oxycodone/Acetaminophen 1 tab 03/21/19 18:36 03/21/19 18:50 Percocet 5/325 PO 1 tab QID PRN Administration Pain, Moderate (4-6) Prednisone 20 mg 03/20/19 12:00 03/22/19 10:42 Deltasone PO 20 mg QDAY ANDREW Administration Primidone 250 mg 03/20/19 10:00 03/22/19 22:44 Mysoline PO 250 mg QID ANDREW Administration Sodium Chloride 10 ml 03/20/19 10:00 03/22/19 22:45 Sodium Chloride Flush Syringe 10 Ml IV 10 ml BID ANDREW Administration Sodium Chloride 10 ml 03/20/19 00:42 03/20/19 05:40 Sodium Chloride Flush Syringe 10 Ml IV 10 ml PRN PRN Administration LINE FLUSH Topiramate 50 mg 03/20/19 10:00 03/22/19 22:44 Topamax PO 50 mg BID ANDREW Administration
[2019-03-23] MEDS: ZESTRIL PO SCH (09:31)
[2019-03-23] MEDS: LASIX IV SCH (09:31)
[2019-03-23] MEDS: DELTASONE PO SCH (09:32)
[2019-03-23] MEDS: HALFPRIN EC PO SCH (09:33)
[2019-03-23] MEDS: CORDARONE PO SCH (09:33)
[2019-03-23] MEDS: LOVENOX SUB-Q SCH (09:33)
[2019-03-23] MEDS: MYSOLINE PO SCH ×4 (09:34→22:10)
[2019-03-23] MEDS: NORVASC PO SCH (09:34)
[2019-03-23] MEDS: PERCOCET 5/325 PO PRN (09:35)
[2019-03-23] MEDS: TOPAMAX PO SCH ×2 (09:35→22:09)
[2019-03-23] MEDS: SODIUM CHLORIDE FLUSH SYRINGE 10 ML IV SCH ×2 (09:36→22:12)
[2019-03-23] MEDS: NEURONTIN PO SCH ×2 (09:40→22:09)
[2019-03-23] MEDS ORDERED: NACL 0.9% 500 ML 500 ML ONE ×2 (11:09→12:07)
[2019-03-23] MEDS: KCL 10MEQ/100ML 10 MEQ/100 ML BAG IV SCH ×2 (11:17→13:27)
--- NOTE | 2019-03-23 12:48 | Progress Note ---
Subjective Date of service: 03/23/19 Principal diagnosis: Acute on chronic resp failure, COPD ex, Acute HFPEF, RV dysfxn, PAF Interval history: could be primidone as it is metabolized to barbiturate Objective - Vital Sign Vital Signs - 12hr 03/23/19 03/23/19 03/23/19 02:15 02:23 04:00 Temperature Pulse Rate 90 Pulse Rate [ 91 H 88 Anterior Bilateral Throughout] Respiratory Rate Respiratory 20 20 Rate [Anterior Bilateral Throughout] Blood Pressure O2 Sat by Pulse Oximetry 03/23/19 03/23/19 03/23/19 06:11 08:42 08:43 Temperature 99.0 F 98.1 F Pulse Rate 89 90 Pulse Rate [ Anterior Bilateral Throughout] Respiratory 18 20 Rate Respiratory Rate [Anterior Bilateral Throughout] Blood Pressure 133/75 130/76 O2 Sat by Pulse 89 88 Oximetry 03/23/19 03/23/19 03/23/19 09:03 09:31 09:34 Temperature Pulse Rate 85 Pulse Rate [ Anterior Bilateral Throughout] Respiratory Rate Respiratory Rate [Anterior Bilateral Throughout] Blood Pressure 130/76 130/76 O2 Sat by Pulse Oximetry - Laboratory Findings CBC and BMP: 03/23/19 06:23 03/23/19 06:23 Abnormal Lab Findings: Abnormal Labs 03/19/19 03/19/19 03/19/19 17:39 17:52 17:52 RDW 15.7 H Lymph % (Auto) [place] % (Auto) 10.6 H Lymph # Seg Neutrophils % 70.6 H POC ABG pH POC ABG pCO2 60.9 H POC ABG pO2 53 L Potassium Chloride 84.1 L Carbon Dioxide 36 H Creatinine 0.6 L Glucose Total Creatine Kinase CK-MB (CK-2) CK-MB (CK-2) Rel Index Troponin T 0.079 H NT-Pro-B Natriuret Pep 8170 H Total Protein 6.0 L Albumin 3.1 L 03/20/19 03/20/19 03/20/19 01:01 06:46 06:46 RDW 15.8 H Lymph % (Auto) 9.0 L [place] % (Auto) Lymph # 0.7 L Seg Neutrophils % 86.5 H POC ABG pH POC ABG pCO2 POC ABG pO2 Potassium Chloride Carbon Dioxide 33 H Creatinine 0.6 L Glucose 133 H Total Creatine Kinase 42 L CK-MB (CK-2) 4.2 H CK-MB (CK-2) Rel Index 10.0 H Troponin T 0.088 H NT-Pro-B Natriuret Pep Total Protein Albumin 03/20/19 03/20/19 03/22/19 06:46 16:02 07:07 RDW 15.7 H Lymph % (Auto) [place] % (Auto) Lymph # Seg Neutrophils % POC ABG pH 7.484 H POC ABG pCO2 60.5 H POC ABG pO2 79 L Potassium Chloride Carbon Dioxide Creatinine Glucose Total Creatine Kinase 53 L CK-MB (CK-2) 4.4 H CK-MB (CK-2) Rel Index 8.3 H Troponin T 0.073 H NT-Pro-B Natriuret Pep Total Protein Albumin 03/22/19 03/23/19 03/23/19 07:07 06:23 06:23 RDW 15.3 H Lymph % (Auto) [place] % (Auto) Lymph # Seg Neutrophils % POC ABG pH POC ABG pCO2 POC ABG pO2 Potassium 3.5 L Chloride 92.0 L 86.5 L Carbon Dioxide 36 H 39 H Creatinine 0.7 L 0.5 L Glucose 119 H 103 H Total Creatine Kinase CK-MB (CK-2) CK-MB (CK-2) Rel Index Troponin T NT-Pro-B Natriuret Pep Total Protein Albumin
--- NOTE | 2019-03-23 14:12 | Progress Note ---
Assessment and Plan Thyroid profile WNL. BPs WNL today, pt noted to have another bout of AFib and NSVT overnight. D/c amio and initiate lopressor and titrate as tolerated. Additionally, pt would benefit from long distance operator systemic AC in regards to AFib. Pt is pending general surgery consultation for ventral hernia. Initiate heparin gtt and plan to initiate Eliquis pending general surgery evaluation and recs. F/u echo. The patient has been seen in conjunction with Dr. Marshall who agrees with the assessment and plan of care. - Patient Problems (1) Acute on chronic respiratory failure Current Visit: Yes Status: Acute Qualifiers: Respiratory failure complication: hypoxia and hypercapnia Qualified Code(s): J96.21 - Acute and chronic respiratory failure with hypoxia; J96.22 - Acute and chronic respiratory failure with hypercapnia (2) COPD exacerbation Current Visit: Yes Status: Acute (3) Acute heart failure with preserved ejection fraction Current Visit: Yes Status: Acute (4) Paroxysmal atrial fibrillation with RVR Current Visit: Yes Status: Acute (5) NSVT (nonsustained ventricular tachycardia) Current Visit: Yes Status: Acute (6) Elevated troponin Current Visit: Yes Status: Acute (7) Right ventricular dysfunction Current Visit: Yes Status: Chronic (8) Hypertension Current Visit: Yes Status: Chronic Qualifiers: Hypertension type: essential hypertension Qualified Code(s): I10 - Essential (primary) hypertension (9) Functional quadriplegia Current Visit: Yes Status: Chronic (10) Abdominal hernia Current Visit: Yes Status: Chronic (11) History of pulmonary embolism Current Visit: No Status: Resolved (12) History of seizures Current Visit: Yes Status: Chronic Subjective Date of service: 03/23/19 Principal diagnosis: Acute on chronic resp failure, COPD ex, Acute HFPEF, RV dysfxn, PAF Interval history: pt resting in bed, lethargic, opens eyes and responds appropriately to commands. tele reviewed - bout of AFib noted overnight. pt's and son at bedside. Objective Last Vital Signs Temp 98.1 F 03/23/19 08:43 Pulse 87 03/23/19 09:05 Resp 20 03/23/19 09:05 BP 130/76 03/23/19 09:34 Pulse Ox 91 03/23/19 08:55 - Physical Examination General: No Apparent Distress HEENT: Positive: EOMI, Normocephaly, Mucus Membranes Moist Neck: Positive: neck supple, trachea midline, JVD/HJR (elevated) Cardiac: Positive: Reg Rate and Rhythm, S1/S2 Lungs: Positive: Decreased Breath Sounds Neuro: Positive: Other (Lethargic, but more awake and communicative today.) Abdomen: Positive: Soft, Active Bowel Sounds, Distended. Negative: Tender Skin: Positive: Clear Musculoskeletal: Normal Range of Motion Extremities: Present: +1 Edema (both legs) - Labs and Meds CBC 03/23/19 Range/Units 06:23 WBC 9.8 (4.5-11.0) K/mm3 RBC 4.21 (3.65-5.03) M/mm3 Hgb 12.8 (11.8-15.2) gm/dl Hct 38.3 (35.5-45.6) % Plt Count 245 (140-440) K/mm3 Comprehensive Metabolic Panel 03/23/19 Range/Units 06:23 Sodium 138 (137-145) mmol/L Potassium 3.5 L (3.6-5.0) mmol/L Chloride 86.5 L (98-107) mmol/L Carbon Dioxide 39 H (22-30) mmol/L BUN 20 (9-20) mg/dL Creatinine 0.5 L (0.8-1.5) mg/dL Glucose 103 H (75-100) mg/dL Calcium 8.4 (8.4-10.2) mg/dL - Imaging and Cardiology EKG: image reviewed Echo: report reviewed Chamber hypertrophy or enlargement: righ ventricular hypertro Repolarization changes or abnormalities: ST or T wave suggestive of ischemia Myocardial infarction: anterior [place] (old age or i - Allied health notes Allied health notes reviewed: nursing
[2019-03-23] MEDS ORDERED: HEPARIN 10,000 UNITS/10 ML IV ONE ×2 (14:21→19:00)
[2019-03-23] MEDS ORDERED: HEPARIN/ 0.45% NACL-25,000 UNIT/500 ML 25,000 UNIT/500 ML BAG IV SCH (15:00)
[2019-03-23 15:05] LABS: Hematocrit 38.2 % (35.5-45.6); Hemoglobin 12.8 gm/dl (11.8-15.2)
[2019-03-23 15:16] LABS: INR 1.12 (0.87-1.13)
[2019-03-23 15:17] LABS: Partial Thromboplastin Time 28.8 Sec. (24.2-36.6)
[2019-03-23] MEDS: ROXICODONE PO PRN (18:06)
--- NOTE | 2019-03-23 18:27 | Progress Note ---
Assessment and Plan Patient sleeping at this time on BIPAP. 20/10, rate 20,FIO2 45% . O2 saturation 95%. Patient tolerating present BIPAP settings good.Patient afebrile, No leukocytosis. Talk to the patients son and explained patients respiratory status. - Patient Problems (1) Acute and chronic respiratory failure with hypoxia Current Visit: Yes Status: Acute Plan to address problem: BIPAP 20/10, rate 20, FIO2 45%. Albuterol/atrovent aerosol treatments q 6 hours. Continue prednisone. Patient is on I/V Heparin. (2) Acute heart failure with preserved ejection fraction Current Visit: Yes Status: Acute Plan to address problem: Management as per cardiology Patient is on I/V Heparin. (3) COPD exacerbation Current Visit: Yes Status: Acute Plan to address problem: BIPAP 20/10, rate 20, FIO2 45%. Albuterol/atrovent aerosol treatments q 6 hours. Continue prednisone. Patient is on I/V Heparin. (4) Elevated troponin Current Visit: Yes Status: Acute Plan to address problem: Management as per cardiology. (5) NSVT (nonsustained ventricular tachycardia) Current Visit: Yes Status: Acute Plan to address problem: Management as per cardiology. (6) Paroxysmal atrial fibrillation with RVR Current Visit: Yes Status: Acute Plan to address problem: Patient is on I/V Heparin. Management as per cardiology. (7) Pleural effusion Current Visit: Yes Status: Acute Plan to address problem: Recommend Ultrasound of chest. (8) History of seizures Current Visit: Yes Status: Chronic Plan to address problem: Management as per neurology. (9) Hypertension Current Visit: Yes Status: Chronic Qualifiers: Hypertension type: essential hypertension Qualified Code(s): I10 - Essential (primary) hypertension Plan to address problem: Management as per primary care. Subjective Date of service: 03/23/19 Principal diagnosis: Acute on chronic resp failure, COPD ex, Acute HFPEF, RV dysfxn, PAF Interval history: Patient sleeping at this time on BIPAP. 20/10, rate 20,FIO2 45% . O2 saturation 95%. Patient tolerating present BIPAP settings good.Patient afebrile, No leukocytosis. Talk to the patients son and explained patients respiratory status. Objective Vital Signs - 12hr 03/23/19 03/23/19 03/23/19 08:42 08:43 08:55 Temperature 98.1 F Pulse Rate 90 Pulse Rate [ 86 Anterior Bilateral Throughout] Respiratory 20 Rate Respiratory 20 Rate [Anterior Bilateral Throughout] Blood Pressure 130/76 O2 Sat by Pulse 88 91 Oximetry 03/23/19 03/23/19 03/23/19 09:03 09:05 09:31 Temperature Pulse Rate 85 Pulse Rate [ 87 Anterior Bilateral Throughout] Respiratory Rate Respiratory 20 Rate [Anterior Bilateral Throughout] Blood Pressure 130/76 O2 Sat by Pulse Oximetry 03/23/19 03/23/19 03/23/19 09:34 14:20 14:21 Temperature Pulse Rate 82 Pulse Rate [ 82 Anterior Bilateral Throughout] Respiratory 16 Rate Respiratory 20 Rate [Anterior Bilateral Throughout] Blood Pressure 130/76 O2 Sat by Pulse 95 Oximetry 03/23/19 14:31 Temperature Pulse Rate Pulse Rate [ 85 Anterior Bilateral Throughout] Respiratory Rate Respiratory 16 Rate [Anterior Bilateral Throughout] Blood Pressure O2 Sat by Pulse Oximetry Constitutional: no acute distress, asleep, other (obese man on 3L oxygen via NC, atraumatic, normocephalic) Eyes: non-icteric ENT: oropharynx moist, other (short neck,) Neck: supple, no lymphadenopathy, no JVD, other (no thyromegaly) Effort: mildly labored Ascultation: Bilateral: diminished breath sounds, rales, rhonchi, other (prolonged exp phase) Percussion: Bilateral: dull (bases) Cardiovascular: regular rate and rhythm, other (S1,S2,no murmurs) Gastrointestinal: normoactive bowel sounds, soft, non-tender, other (protuberant) Extremities: no cyanosis, pink and warm, pulses normal, edema (bilateral lower extremity) Neurologic: normal mental status, non-focal exam, pupils equal and round, CN II- XII normal, motor strength normal and Psychiatric: mood appropriate, affect normal CBC and BMP: 03/23/19 14:43 03/23/19 06:23 ABG, PT/INR, D-dimer: ABG POC ABG pH 7.484 (7.35-7.45) H 03/20/19 16:02 POC ABG pCO2 60.5 (35-45) H 03/20/19 16:02 POC ABG pO2 79 (80-105) L 03/20/19 16:02 POC ABG HCO3 45.5 (22-26 mml/L) 03/20/19 16:02 POC ABG Total CO2 47 (23-27mmol/L) 03/20/19 16:02 POC ABG O2 Sat 96 03/20/19 16:02 PT/INR, D-dimer PT 15.1 Sec. (12.2-14.9) H 03/23/19 14:43 INR 1.12 (0.87-1.13) 03/23/19 14:43 Abnormal lab findings: Abnormal Labs 03/19/19 03/19/19 03/19/19 17:39 17:52 17:52 RDW 15.7 H Lymph % (Auto) Charlton % (Auto) 10.6 H Lymph # Seg Neutrophils % 70.6 H PT POC ABG pH POC ABG pCO2 60.9 H POC ABG pO2 53 L Potassium Chloride 84.1 L Carbon Dioxide 36 H Creatinine 0.6 L Glucose Total Creatine Kinase CK-MB (CK-2) CK-MB (CK-2) Rel Index Troponin T 0.079 H NT-Pro-B Natriuret Pep 8170 H Total Protein 6.0 L Albumin 3.1 L 03/20/19 03/20/19 03/20/19 01:01 06:46 06:46 RDW 15.8 H Lymph % (Auto) 9.0 L Charlton % (Auto) Lymph # 0.7 L Seg Neutrophils % 86.5 H PT POC ABG pH POC ABG pCO2 POC ABG pO2 Potassium Chloride Carbon Dioxide 33 H Creatinine 0.6 L Glucose 133 H Total Creatine Kinase 42 L CK-MB (CK-2) 4.2 H CK-MB (CK-2) Rel Index 10.0 H Troponin T 0.088 H NT-Pro-B Natriuret Pep Total Protein Albumin 03/20/19 03/20/19 03/22/19 06:46 16:02 07:07 RDW 15.7 H Lymph % (Auto) Charlton % (Auto) Lymph # Seg Neutrophils % PT POC ABG pH 7.484 H POC ABG pCO2 60.5 H POC ABG pO2 79 L Potassium Chloride Carbon Dioxide Creatinine Glucose Total Creatine Kinase 53 L CK-MB (CK-2) 4.4 H CK-MB (CK-2) Rel Index 8.3 H Troponin T 0.073 H NT-Pro-B Natriuret Pep Total Protein Albumin 03/22/19 03/23/19 03/23/19 07:07 06:23 06:23 RDW 15.3 H Lymph % (Auto) Charlton % (Auto) Lymph # Seg Neutrophils % PT POC ABG pH POC ABG pCO2 POC ABG pO2 Potassium 3.5 L Chloride 92.0 L 86.5 L Carbon Dioxide 36 H 39 H Creatinine 0.7 L 0.5 L Glucose 119 H 103 H Total Creatine Kinase CK-MB (CK-2) CK-MB (CK-2) Rel Index Troponin T NT-Pro-B Natriuret Pep Total Protein Albumin 03/23/19 14:43 RDW Lymph % (Auto) Charlton % (Auto) Lymph # Seg Neutrophils % PT 15.1 H POC ABG pH POC ABG pCO2 POC ABG pO2 Potassium Chloride Carbon Dioxide Creatinine Glucose Total Creatine Kinase CK-MB (CK-2) CK-MB (CK-2) Rel Index Troponin T NT-Pro-B Natriuret Pep Total Protein Albumin Chest x-ray: report reviewed (Patchy opacity left base. small left pleural effusion.), image reviewed Allied health notes reviewed: nursing
[2019-03-23] MEDS ORDERED: LOPRESSOR PO SCH (22:00)
[2019-03-23] MEDS ORDERED: ELIQUIS PO SCH (22:00)
[2019-03-23] MEDS: LOPRESSOR PO SCH (22:11)
[2019-03-24] MEDS: ATROVENT IH SCH ×4 (02:34→20:21)
[2019-03-24] MEDS: DUONEB *Not for PRN Use IH SCH ×4 (02:34→20:20)
[2019-03-24 07:22] LABS: Hematocrit 37.6 % (35.5-45.6); Hemoglobin 12.6 gm/dl (11.8-15.2); Mean Corpuscular HGB Conc 34 % (32-34); Mean Corpuscular Volume 92 fl (84-94); Platelet Count 210 K/mm3 (140-440); Red Blood Count 4.11 M/mm3 (3.65-5.03)
[2019-03-24 07:43] LABS: BUN/Creatinine Ratio 35; Blood Urea Nitrogen 14 mg/dL (9-20); Calcium 8.3 mg/dL (8.4-10.2); Hemolysis Index 2
[2019-03-24] MEDS: LOPRESSOR PO SCH ×3 (08:09→20:50)
[2019-03-24] MEDS: ROXICODONE PO PRN ×2 (08:09→17:46)
[2019-03-24] MEDS: BROVANA NEBU IH SCH ×2 (08:16→20:21)
[2019-03-24] MEDS: PULMICORT IH SCH ×2 (08:16→20:21)
--- NOTE | 2019-03-24 08:29 | Progress Note ---
Assessment and Plan Assessment and plan: Patient is a 63 yo man with a history of hypertension, chronic respiratory failure on home 3-4 liters O2 due to End-stage COPD, Seizure disorder, PE and essential tremor who presented to [facility] ED with sob, leg swelling. CTA chest : No evidence of pulmonary emboli. Bilateral pleural effusions. Mild mediastinal adenopathy. --Acute on chronic hypoxic respiratory failure: The following Continue oxygen, BiPAP as needed, nebulizers and steroids , pulmonary following Patient has home oxygen, andN IV --Acute COPD exacerbation: treat with nebs, steroids, abx --Acute on chronic diastolic HF exacerbation: EF 50-55% on 01/2019 ECHO, treat with diuretics, adjust the dose as needed.Cardiology following -Hypertension: low salt diet, antihypertensives and when necessary medications --h/o Seizure: continue home medications, should've precautions, neurology following --New onset transient Afib with RVR: Cardiology is following Amiodarone discontinued Added metoprolol and heparin drip -- NSVT: Cardiololgy is following, --Hypokalemia: replace via IV, follow electrolytes --Abdominal wall hernia;evaluated by surgery, no surgical intervention at this point --Medical noncompliance; patient is refusing food, medications, imaging study Consider psych consult to rule out depression if no improvement --History of PE --h/o Essential tremor --DVT ppx on heparin drip Monitor the patient closely and adjust the management as needed Disposition; follow consults and recommendations Consider psych evaluation to rule out depression as patient refuses medications, food, imaging studies History Interval history: Patient seen and examined medical records reviewed The patient is refusing to eat and sometimes refusing the medications Refusing imaging studies MRI brain, patient's son is at the bedside. He tried to convince him need for these imaging studies recommended by neurology However patient refused. Vital signs noted Patient not in acute distress Hospitalist Physical - Constitutional Vitals: Temp Pulse Resp BP Pulse Ox 98.4 F 78 18 130/78 93 03/24/19 07:52 03/24/19 08:24 03/24/19 08:24 03/24/19 08:09 03/24/19 08:19 General appearance: Present: no acute distress, well-nourished, obese - EENT Eyes: Present: PERRL, EOM intact - Neck Neck: Present: supple, normal ROM - Respiratory Respiratory effort: normal Respiratory: bilateral: diminished, rales, negative: rhonchi, wheezing - Cardiovascular Rhythm: regular Heart Sounds: Present: S1 & S2 - Extremities Extremities: no ischemia, No edema - Abdominal General gastrointestinal: soft, non-tender, non-distended, normal bowel sounds - Integumentary Integumentary: Present: clear, warm - Psychiatric Psychiatric: agitated, other (refusing to talk) - Neurologic Neurologic: moves all extremities Results - Labs CBC & Chem 7: 03/24/19 06:55 03/24/19 06:55 Labs: Laboratory Last Values WBC 7.9 K/mm3 (4.5-11.0) 03/24/19 06:55 RBC 4.11 M/mm3 (3.65-5.03) 03/24/19 06:55 Hgb 12.6 gm/dl (11.8-15.2) 03/24/19 06:55 Hct 37.6 % (35.5-45.6) 03/24/19 06:55 MCV 92 fl (84-94) 03/24/19 06:55 MCH 31 pg (28-32) 03/24/19 06:55 MCHC 34 % (32-34) 03/24/19 06:55 RDW 15.0 % (13.2-15.2) 03/24/19 06:55 Plt Count 210 K/mm3 (140-440) 03/24/19 06:55 Lymph % (Auto) 9.0 % (13.4-35.0) L 03/20/19 06:46 Daniels % (Auto) 3.8 % (0.0-7.3) 03/20/19 06:46 Eos % (Auto) 0.1 % (0.0-4.3) 03/20/19 06:46 Baso % (Auto) 0.6 % (0.0-1.8) 03/20/19 06:46 Lymph # 0.7 K/mm3 (1.2-5.4) L 03/20/19 06:46 Daniels # 0.3 K/mm3 (0.0-0.8) 03/20/19 06:46 Eos # 0.0 K/mm3 (0.0-0.4) 03/20/19 06:46 Baso # 0.0 K/mm3 (0.0-0.1) 03/20/19 06:46 Seg Neutrophils % 86.5 % (40.0-70.0) H 03/20/19 06:46 Seg Neutrophils # 6.5 K/mm3 (1.8-7.7) 03/20/19 06:46 PT 15.1 Sec. (12.2-14.9) H 03/23/19 14:43 INR 1.12 (0.87-1.13) 03/23/19 14:43 APTT 28.8 Sec. (24.2-36.6) 03/23/19 14:43 Heparin Anti-Xa Level 1.28 U.I./ml (0.3-0.7) H 03/24/19 00:53 POC ABG pH 7.484 (7.35-7.45) H 03/20/19 16:02 POC ABG pCO2 60.5 (35-45) H 03/20/19 16:02 POC ABG pO2 79 (80-105) L 03/20/19 16:02 POC ABG HCO3 45.5 (22-26 mml/L) 03/20/19 16:02 POC ABG Total CO2 47 (23-27mmol/L) 03/20/19 16:02 POC ABG O2 Sat 96 03/20/19 16:02 POC ABG Base Excess 22 ((-2) - (+3)mmol/L) 03/20/19 16:02 FiO2 45 % 03/20/19 16:02 Sodium 139 mmol/L (137-145) 03/24/19 06:55 Potassium 3.3 mmol/L (3.6-5.0) L 03/24/19 06:55 Chloride 90.0 mmol/L (98-107) L 03/24/19 06:55 Carbon Dioxide 38 mmol/L (22-30) H 03/24/19 06:55 Anion Gap 14 mmol/L 03/24/19 06:55 BUN 14 mg/dL (9-20) 03/24/19 06:55 Creatinine 0.4 mg/dL (0.8-1.5) L 03/24/19 06:55 Estimated GFR > 60 ml/min 03/24/19 06:55 BUN/Creatinine Ratio 35 % 03/24/19 06:55 Glucose 92 mg/dL (75-100) 03/24/19 06:55 Lactic Acid 1.20 mmol/L (0.7-2.0) 03/19/19 17:52 Calcium 8.3 mg/dL (8.4-10.2) L 03/24/19 06:55 Magnesium 1.70 mg/dL (1.7-2.3) 03/24/19 06:55 Total Bilirubin 0.30 mg/dL (0.1-1.2) 03/19/19 17:52 AST 23 units/L (5-40) 03/19/19 17:52 ALT 19 units/L (7-56) 03/19/19 17:52 Alkaline Phosphatase 64 units/L (35-129) 03/19/19 17:52 Total Creatine Kinase 53 units/L (55-170) L 03/20/19 06:46 CK-MB (CK-2) 4.4 ng/mL (0.0-4.0) H 03/20/19 06:46 CK-MB (CK-2) Rel Index 8.3 (0-4) H 03/20/19 06:46 Troponin T 0.073 ng/mL (0.00-0.029) H 03/20/19 06:46 NT-Pro-B Natriuret Pep 8170 pg/mL (0-900) H 03/19/19 17:52 Total Protein 6.0 g/dL (6.3-8.2) L 03/19/19 17:52 Albumin 3.1 g/dL (3.9-5) L 03/19/19 17:52 Albumin/Globulin Ratio 1.1 % 03/19/19 17:52 Triglycerides 117 mg/dL (2-149) 03/19/19 17:52 Cholesterol 178 mg/dL (50-199) 03/19/19 17:52 LDL Cholesterol Direct 118 mg/dL (50-130) 03/19/19 17:52 HDL Cholesterol 40 mg/dL (40-59) 03/19/19 17:52 Cholesterol/HDL Ratio 4.45 % 03/19/19 17:52 TSH 1.950 mlU/mL (0.270-4.200) 03/23/19 06:23 Free T4 0.82 ng/dL (0.76-1.46) 03/23/19 06:23 Phenobarbital 27.4 ug/mL (15.0-40.0) 03/23/19 12:53 Active Medications - Current Medications Current Medications: Generic Name Dose Route Start Last Admin Trade Name Freq PRN Reason Stop Dose Admin Acetaminophen 650 mg 03/20/19 00:42 Tylenol PO Q4H PRN Pain MILD(1-3)/Fever >100.5/GALAN Albuterol 2.5 mg 03/20/19 01:20 03/20/19 12:44 Proventil IH 2.5 mg Q4HRT PRN Administration Shortness Of Breath Albuterol/Ipratropium 1 ampul 03/20/19 02:00 03/24/19 08:16 Duoneb *Not For Prn Use* IH Not Given Q6HRT ANDREW Arformoterol Tartrate 15 mcg 03/20/19 08:00 03/24/19 08:16 Brovana Nebu IH 15 mcg Q12HRT ANDREW Administration Aspirin 81 mg 03/20/19 10:00 03/23/19 09:33 Halfprin Ec PO 81 mg DAILY ANDREW Administration Atorvastatin Calcium 40 mg 03/20/19 10:00 03/23/19 09:33 Lipitor PO 40 mg DAILY ANDREW Administration Budesonide 0.5 mg 03/23/19 16:57 03/24/19 08:16 Pulmicort IH 0.5 mg Q12HRT ANDREW Administration Divalproex Sodium 500 mg 03/20/19 10:00 03/23/19 22:10 Depakote Er PO 500 mg BID ANDREW Administration Furosemide 40 mg 03/22/19 10:00 03/23/19 09:31 Lasix IV 40 mg QDAY ANDREW Administration Gabapentin 300 mg 03/20/19 10:00 03/23/19 22:09 Neurontin PO 300 mg BID ANDREW Administration Heparin Sodium/Sodium Chloride 25,000 unit in 500 mls @ 30 mls/hr 03/23/19 15:00 03/24/19 04:53 Heparin/ 0.45% Nacl-25,000 Unit/500 Ml IV 1,250 units/hr TITR ANDREW 25 mls/hr Titration Protocol 1,500 UNITS/HR Ipratropium Imler 0.5 mg 03/20/19 13:00 03/24/19 08:20 Atrovent IH Not Given Q6HRT ANDREW Metoprolol Tartrate 25 mg 03/23/19 20:00 03/24/19 08:09 Lopressor PO 25 mg TID ANDREW Administration Ondansetron HCl 4 mg 03/20/19 00:42 03/22/19 10:39 Zofran IV 4 mg Q4H PRN Administration Nausea And Vomiting Oxycodone HCl 5 mg 03/21/19 18:37 03/24/19 08:09 Roxicodone PO 5 mg QID PRN Administration Pain, Moderate (4-6) Oxycodone/Acetaminophen 1 tab 03/21/19 18:36 03/23/19 09:35 Percocet 5/325 PO 1 tab QID PRN Administration Pain, Moderate (4-6) Prednisone 20 mg 03/20/19 12:00 03/23/19 09:32 Deltasone PO 20 mg QDAY ANDREW Administration Primidone 250 mg 03/20/19 10:00 03/23/19 22:10 Mysoline PO 250 mg QID ANDREW Administration Sodium Chloride 10 ml 03/20/19 10:00 03/23/19 22:12 Sodium Chloride Flush Syringe 10 Ml IV 10 ml BID ANDREW Administration Sodium Chloride 10 ml 03/20/19 00:42 03/20/19 05:40 Sodium Chloride Flush Syringe 10 Ml IV 10 ml PRN PRN Administration LINE FLUSH Topiramate 50 mg 03/20/19 10:00 03/23/19 22:09 Topamax PO 50 mg BID ANDREW Administration
[2019-03-24] MEDS ORDERED: K-DUR PO ONE (10:00)
[2019-03-24] MEDS: TOPAMAX PO SCH ×2 (11:08→21:37)
[2019-03-24] MEDS: HALFPRIN EC PO SCH (11:08)
[2019-03-24] MEDS: MYSOLINE PO SCH ×4 (11:09→21:36)
[2019-03-24] MEDS: NEURONTIN PO SCH ×2 (11:09→21:36)
[2019-03-24] MEDS: DELTASONE PO SCH (11:09)
[2019-03-24] MEDS: LASIX IV SCH (11:09)
[2019-03-24] MEDS: SODIUM CHLORIDE FLUSH SYRINGE 10 ML IV SCH ×2 (11:13→21:37)
--- NOTE | 2019-03-24 11:51 | Ultrasound Report ---
ULTRASOUND CHEST History: Bilateral pleural effusions. Findings: Targeted solitario scale ultrasound was performed on both sides of chest. There is no significant right pleural fluid. A small to moderate layering left pleural effusion is identified with volume estimated at 458 cc. Impression: Left pleural effusion as described.
--- NOTE | 2019-03-24 13:45 | Progress Note ---
Assessment and Plan No additional AFib noted overnight. Patient never had atrial fibrillation in the past and had a few nonsustained runs of AFib here. At this time, he is in NSR. It is too early to consider retirement anticogulation. The patient has been seen in conjunction with Dr. Marshall who agrees with the assessment and plan of care. - Patient Problems (1) Acute on chronic respiratory failure Current Visit: Yes Status: Acute Qualifiers: Respiratory failure complication: hypoxia and hypercapnia Qualified Code(s): J96.21 - Acute and chronic respiratory failure with hypoxia; J96.22 - Acute and chronic respiratory failure with hypercapnia (2) COPD exacerbation Current Visit: Yes Status: Acute (3) Acute heart failure with preserved ejection fraction Current Visit: Yes Status: Acute (4) Paroxysmal atrial fibrillation with RVR Current Visit: Yes Status: Acute (5) NSVT (nonsustained ventricular tachycardia) Current Visit: Yes Status: Acute (6) Elevated troponin Current Visit: Yes Status: Acute (7) Right ventricular dysfunction Current Visit: Yes Status: Chronic (8) Hypertension Current Visit: Yes Status: Chronic Qualifiers: Hypertension type: essential hypertension Qualified Code(s): I10 - Essential (primary) hypertension (9) Functional quadriplegia Current Visit: Yes Status: Chronic (10) Abdominal hernia Current Visit: Yes Status: Chronic (11) History of pulmonary embolism Current Visit: No Status: Resolved (12) History of seizures Current Visit: Yes Status: Chronic Subjective Date of service: 03/24/19 Principal diagnosis: Acute on chronic resp failure, COPD ex, Acute HFPEF, RV dysfxn, PAF Interval history: pt resting in bed, lethargic, no apparent distress. tele reviewed - in SR overnight with no AFib. pt's at bedside. Objective Last Vital Signs Temp 97.9 F 03/24/19 11:35 Pulse 85 03/24/19 13:29 Resp 18 03/24/19 13:29 BP 137/81 03/24/19 11:35 Pulse Ox 92 03/24/19 11:35 - Physical Examination General: No Apparent Distress HEENT: Positive: EOMI, Normocephaly, Mucus Membranes Moist Neck: Positive: neck supple, trachea midline, JVD/HJR (elevated) Cardiac: Positive: Reg Rate and Rhythm, S1/S2 Lungs: Positive: Decreased Breath Sounds Neuro: Positive: Other (Lethargic, but more awake and communicative today.) Abdomen: Positive: Soft, Active Bowel Sounds, Distended. Negative: Tender Skin: Positive: Clear Musculoskeletal: Normal Range of Motion Extremities: Present: +1 Edema (both legs) - Labs and Meds Coagulation 03/23/19 Range/Units 14:43 PT 15.1 H (12.2-14.9) Sec. INR 1.12 (0.87-1.13) APTT 28.8 (24.2-36.6) Sec. CBC 03/23/19 03/24/19 Range/Units 14:43 06:55 WBC 7.9 (4.5-11.0) K/mm3 RBC 4.11 (3.65-5.03) M/mm3 Hgb 12.8 12.6 (11.8-15.2) gm/dl Hct 38.2 37.6 (35.5-45.6) % Plt Count 242 210 (140-440) K/mm3 Comprehensive Metabolic Panel 03/24/19 Range/Units 06:55 Sodium 139 (137-145) mmol/L Potassium 3.3 L (3.6-5.0) mmol/L Chloride 90.0 L (98-107) mmol/L Carbon Dioxide 38 H (22-30) mmol/L BUN 14 (9-20) mg/dL Creatinine 0.4 L (0.8-1.5) mg/dL Glucose 92 (75-100) mg/dL Calcium 8.3 L (8.4-10.2) mg/dL - Imaging and Cardiology EKG: image reviewed Echo: report reviewed Chamber hypertrophy or enlargement: righ ventricular hypertro Repolarization changes or abnormalities: ST or T wave suggestive of ischemia Myocardial infarction: anterior NE (old age or i - Allied health notes Allied health notes reviewed: nursing
--- NOTE | 2019-03-24 14:19 | Progress Note ---
Assessment and Plan Patient sleeping at this time on BIPAP. 20/10, rate 20,FIO2 45% . O2 saturation 95%. Patient tolerating present BIPAP settings good.Patient afebrile, No leukocytosis. Ultrasound of chest reported small to moderate left effusion.. Talk to the patients and his son and explained patients respiratory status. - Patient Problems (1) Acute and chronic respiratory failure with hypoxia Current Visit: Yes Status: Acute Plan to address problem: BIPAP 20/10, rate 20, FIO2 45%. Albuterol/atrovent aerosol treatments q 6 hours. Continue prednisone. SCDs (2) Acute heart failure with preserved ejection fraction Current Visit: Yes Status: Acute Plan to address problem: Management as per cardiology I/V heparin stopped. (3) COPD exacerbation Current Visit: Yes Status: Acute Plan to address problem: O2 4 litres via nasal canula when he is not on BIPAP. BIPAP 20/10, rate 20, FIO2 45%. Albuterol/atrovent aerosol treatments q 6 hours. Continue prednisone. (4) Elevated troponin Current Visit: Yes Status: Acute Plan to address problem: Management as per cardiology. (5) NSVT (nonsustained ventricular tachycardia) Current Visit: Yes Status: Acute Plan to address problem: Management as per cardiology. (6) Paroxysmal atrial fibrillation with RVR Current Visit: Yes Status: Acute Plan to address problem: Management as per cardiology. (7) Pleural effusion Current Visit: Yes Status: Acute Plan to address problem: Ultrasound of chestreported small to moderate left effusion.. (8) History of seizures Current Visit: Yes Status: Chronic Plan to address problem: Management as per neurology. (9) Hypertension Current Visit: Yes Status: Chronic Qualifiers: Hypertension type: essential hypertension Qualified Code(s): I10 - Essent ial (primary) hypertension Plan to address problem: Management as per primary care. Subjective Date of service: 03/24/19 Principal diagnosis: Acute on chronic resp failure, COPD ex, Acute HFPEF, RV dysfxn, PAF Interval history: Patient sleeping at this time on 4 litres O2. O2 saturation 91%. Patient afebrile, No leukocytosis. Ultrasound of chest reported small to moderate left effusion.. Talk to the patients and his son and explained patients respiratory status. Objective Vital Signs - 12hr 03/24/19 03/24/19 03/24/19 02:34 02:58 03:40 Temperature 97.4 F L Pulse Rate 80 Pulse Rate [ 80 79 Anterior Bilateral Throughout] Respiratory 20 Rate Respiratory 18 18 Rate [Anterior Bilateral Throughout] Blood Pressure 98/58 O2 Sat by Pulse 95 Oximetry 03/24/19 03/24/19 03/24/19 07:52 08:09 08:19 Temperature 98.4 F Pulse Rate 79 Pulse Rate [ 75 Anterior Bilateral Throughout] Respiratory 22 Rate Respiratory 18 Rate [Anterior Bilateral Throughout] Blood Pressure 130/78 130/78 O2 Sat by Pulse 90 93 Oximetry 03/24/19 03/24/19 03/24/19 08:24 11:35 13:24 Temperature 97.9 F Pulse Rate 75 Pulse Rate [ 78 80 Anterior Bilateral Throughout] Respiratory 20 Rate Respiratory 18 18 Rate [Anterior Bilateral Throughout] Blood Pressure 137/81 O2 Sat by Pulse 92 Oximetry 03/24/19 13:29 Temperature Pulse Rate Pulse Rate [ 85 Anterior Bilateral Throughout] Respiratory Rate Respiratory 18 Rate [Anterior Bilateral Throughout] Blood Pressure O2 Sat by Pulse Oximetry Constitutional: no acute distress, asleep, other (obese man on 4L oxygen via [place], atraumatic, normocephalic) Eyes: non-icteric ENT: oropharynx moist, other (short neck,) Neck: supple, no lymphadenopathy, no JVD, other (no thyromegaly) Effort: mildly labored Ascultation: Bilateral: diminished breath sounds, rales, rhonchi, other (prolonged exp phase) Percussion: Bilateral: dull (bases) Cardiovascular: regular rate and rhythm, other (S1,S2,no murmurs) Gastrointestinal: normoactive bowel sounds, soft, non-tender, other (protuberant) Extremities: no cyanosis, pink and warm, pulses normal, edema (bilateral lower extremity) Neurologic: normal mental status, non-focal exam, pupils equal and round, CN II- XII normal, motor strength normal and Psychiatric: mood appropriate, affect normal CBC and BMP: 03/24/19 06:55 03/24/19 06:55 ABG, PT/INR, D-dimer: ABG POC ABG pH 7.484 (7.35-7.45) H 03/20/19 16:02 POC ABG pCO2 60.5 (35-45) H 03/20/19 16:02 POC ABG pO2 79 (80-105) L 03/20/19 16:02 POC ABG HCO3 45.5 (22-26 mml/L) 03/20/19 16:02 POC ABG Total CO2 47 (23-27mmol/L) 03/20/19 16:02 POC ABG O2 Sat 96 03/20/19 16:02 PT/INR, D-dimer PT 15.1 Sec. (12.2-14.9) H 03/23/19 14:43 INR 1.12 (0.87-1.13) 03/23/19 14:43 Abnormal lab findings: Abnormal Labs 03/19/19 03/19/19 03/19/19 17:39 17:52 17:52 RDW 15.7 H Lymph % (Auto) [place] % (Auto) 10.6 H Lymph # Seg Neutrophils % 70.6 H PT Heparin Anti-Xa Level POC ABG pH POC ABG pCO2 60.9 H POC ABG pO2 53 L Potassium Chloride 84.1 L Carbon Dioxide 36 H Creatinine 0.6 L Glucose Calcium Total Creatine Kinase CK-MB (CK-2) CK-MB (CK-2) Rel Index Troponin T 0.079 H NT-Pro-B Natriuret Pep 8170 H Total Protein 6.0 L Albumin 3.1 L 03/20/19 03/20/19 03/20/19 01:01 06:46 06:46 RDW 15.8 H Lymph % (Auto) 9.0 L [place] % (Auto) Lymph # 0.7 L Seg Neutrophils % 86.5 H PT Heparin Anti-Xa Level POC ABG pH POC ABG pCO2 POC ABG pO2 Potassium Chloride Carbon Dioxide 33 H Creatinine 0.6 L Glucose 133 H Calcium Total Creatine Kinase 42 L CK-MB (CK-2) 4.2 H CK-MB (CK-2) Rel Index 10.0 H Troponin T 0.088 H NT-Pro-B Natriuret Pep Total Protein Albumin 03/20/19 03/20/19 03/22/19 06:46 16:02 07:07 RDW 15.7 H Lymph % (Auto) [place] % (Auto) Lymph # Seg Neutrophils % PT Heparin Anti-Xa Level POC ABG pH 7.484 H POC ABG pCO2 60.5 H POC ABG pO2 79 L Potassium Chloride Carbon Dioxide Creatinine Glucose Calcium Total Creatine Kinase 53 L CK-MB (CK-2) 4.4 H CK-MB (CK-2) Rel Index 8.3 H Troponin T 0.073 H NT-Pro-B Natriuret Pep Total Protein Albumin 03/22/19 03/23/19 03/23/19 07:07 06:23 06:23 RDW 15.3 H Lymph % (Auto) [place] % (Auto) Lymph # Seg Neutrophils % PT Heparin Anti-Xa Level POC ABG pH POC ABG pCO2 POC ABG pO2 Potassium 3.5 L Chloride 92.0 L 86.5 L Carbon Dioxide 36 H 39 H Creatinine 0.7 L 0.5 L Glucose 119 H 103 H Calcium Total Creatine Kinase CK-MB (CK-2) CK-MB (CK-2) Rel Index Troponin T NT-Pro-B Natriuret Pep Total Protein Albumin 03/23/19 03/24/19 03/24/19 14:43 00:53 06:55 RDW Lymph % (Auto) [place] % (Auto) Lymph # Seg Neutrophils % PT 15.1 H Heparin Anti-Xa Level 1.28 H POC ABG pH POC ABG pCO2 POC ABG pO2 Potassium 3.3 L Chloride 90.0 L Carbon Dioxide 38 H Creatinine 0.4 L Glucose Calcium 8.3 L Total Creatine Kinase CK-MB (CK-2) CK-MB (CK-2) Rel Index Troponin T NT-Pro-B Natriuret Pep Total Protein Albumin 03/24/19 10:13 RDW Lymph % (Auto) [place] % (Auto) Lymph # Seg Neutrophils % PT Heparin Anti-Xa Level 1.01 H POC ABG pH POC ABG pCO2 POC ABG pO2 Potassium Chloride Carbon Dioxide Creatinine Glucose Calcium Total Creatine Kinase CK-MB (CK-2) CK-MB (CK-2) Rel Index Troponin T NT-Pro-B Natriuret Pep Total Protein Albumin Additional Studies: ULTRASOUND CHEST done on 03/24/19 History: Bilateral pleural effusions. Findings: Targeted solitario scale ultrasound was performed on both sides of chest. There is no significant right pleural fluid. A small to moderate layering left pleural effusion is identified with volume estimated at 458 cc. Impression: Left pleural effusion as described. Allied health notes reviewed: nursing
--- NOTE | 2019-03-24 16:44 | Progress Note ---
Subjective Date of service: 03/24/19 Principal diagnosis: Acute on chronic resp failure, COPD ex, Acute HFPEF, RV dysfxn, PAF Interval history: see the orders on the patient Objective - Vital Sign Vital Signs - 12hr 03/24/19 03/24/19 03/24/19 07:52 08:09 08:19 Temperature 98.4 F Pulse Rate 79 Pulse Rate [ 75 Anterior Bilateral Throughout] Respiratory 22 Rate Respiratory 18 Rate [Anterior Bilateral Throughout] Blood Pressure 130/78 130/78 O2 Sat by Pulse 90 93 Oximetry 03/24/19 03/24/19 03/24/19 08:24 11:35 12:00 Temperature 97.9 F Pulse Rate 75 80 Pulse Rate [ 78 Anterior Bilateral Throughout] Respiratory 20 Rate Respiratory 18 Rate [Anterior Bilateral Throughout] Blood Pressure 137/81 O2 Sat by Pulse 92 Oximetry 03/24/19 03/24/19 03/24/19 13:24 13:29 15:59 Temperature 98.1 F Pulse Rate 74 Pulse Rate [ 80 85 Anterior Bilateral Throughout] Respiratory 20 Rate Respiratory 18 18 Rate [Anterior Bilateral Throughout] Blood Pressure 99/60 O2 Sat by Pulse 91 Oximetry - Laboratory Findings CBC and BMP: 03/24/19 06:55 03/24/19 06:55 Abnormal Lab Findings: Abnormal Labs 03/19/19 03/19/19 03/19/19 17:39 17:52 17:52 RDW 15.7 H Lymph % (Auto) [place] % (Auto) 10.6 H Lymph # Seg Neutrophils % 70.6 H PT Heparin Anti-Xa Level POC ABG pH POC ABG pCO2 60.9 H POC ABG pO2 53 L Potassium Chloride 84.1 L Carbon Dioxide 36 H Creatinine 0.6 L Glucose Calcium Total Creatine Kinase CK-MB (CK-2) CK-MB (CK-2) Rel Index Troponin T 0.079 H NT-Pro-B Natriuret Pep 8170 H Total Protein 6.0 L Albumin 3.1 L 03/20/19 03/20/19 03/20/19 01:01 06:46 06:46 RDW 15.8 H Lymph % (Auto) 9.0 L [place] % (Auto) Lymph # 0.7 L Seg Neutrophils % 86.5 H PT Heparin Anti-Xa Level POC ABG pH POC ABG pCO2 POC ABG pO2 Potassium Chloride Carbon Dioxide 33 H Creatinine 0.6 L Glucose 133 H Calcium Total Creatine Kinase 42 L CK-MB (CK-2) 4.2 H CK-MB (CK-2) Rel Index 10.0 H Troponin T 0.088 H NT-Pro-B Natriuret Pep Total Protein Albumin 03/20/19 03/20/19 03/22/19 06:46 16:02 07:07 RDW 15.7 H Lymph % (Auto) [place] % (Auto) Lymph # Seg Neutrophils % PT Heparin Anti-Xa Level POC ABG pH 7.484 H POC ABG pCO2 60.5 H POC ABG pO2 79 L Potassium Chloride Carbon Dioxide Creatinine Glucose Calcium Total Creatine Kinase 53 L CK-MB (CK-2) 4.4 H CK-MB (CK-2) Rel Index 8.3 H Troponin T 0.073 H NT-Pro-B Natriuret Pep Total Protein Albumin 03/22/19 03/23/19 03/23/19 07:07 06:23 06:23 RDW 15.3 H Lymph % (Auto) [place] % (Auto) Lymph # Seg Neutrophils % PT Heparin Anti-Xa Level POC ABG pH POC ABG pCO2 POC ABG pO2 Potassium 3.5 L Chloride 92.0 L 86.5 L Carbon Dioxide 36 H 39 H Creatinine 0.7 L 0.5 L Glucose 119 H 103 H Calcium Total Creatine Kinase CK-MB (CK-2) CK-MB (CK-2) Rel Index Troponin T NT-Pro-B Natriuret Pep Total Protein Albumin 03/23/19 03/24/19 03/24/19 14:43 00:53 06:55 RDW Lymph % (Auto) [place] % (Auto) Lymph # Seg Neutrophils % PT 15.1 H Heparin Anti-Xa Level 1.28 H POC ABG pH POC ABG pCO2 POC ABG pO2 Potassium 3.3 L Chloride 90.0 L Carbon Dioxide 38 H Creatinine 0.4 L Glucose Calcium 8.3 L Total Creatine Kinase CK-MB (CK-2) CK-MB (CK-2) Rel Index Troponin T NT-Pro-B Natriuret Pep Total Protein Albumin 03/24/19 10:13 RDW Lymph % (Auto) [place] % (Auto) Lymph # Seg Neutrophils % PT Heparin Anti-Xa Level 1.01 H POC ABG pH POC ABG pCO2 POC ABG pO2 Potassium Chloride Carbon Dioxide Creatinine Glucose Calcium Total Creatine Kinase CK-MB (CK-2) CK-MB (CK-2) Rel Index Troponin T NT-Pro-B Natriuret Pep Total Protein Albumin
[2019-03-25] MEDS: ROXICODONE PO PRN ×4 (00:06→21:55)
[2019-03-25] MEDS: DUONEB *Not for PRN Use IH SCH ×4 (01:39→19:37)
[2019-03-25] MEDS: ATROVENT IH SCH ×4 (01:39→19:37)
[2019-03-25 06:38] LABS: Basophils % (Auto) 0.4 % (0.0-1.8); Eosinophils # (Auto) 0.1 K/mm3 (0.0-0.4); Eosinophils % (Auto) 0.9 % (0.0-4.3); Hematocrit 39.4 % (35.5-45.6); Hemoglobin 13.1 gm/dl (11.8-15.2); Lymphocytes # (Auto) 1.2 K/mm3 (1.2-5.4); Mean Corpuscular HGB Conc 33 % (32-34); Mean Corpuscular Volume 92 fl (84-94); Monocytes # (Auto) 0.6 K/mm3 (0.0-0.8); Monocytes % (Auto) 8.9 % (0.0-7.3); Platelet Count 227 K/mm3 (140-440); Red Blood Count 4.31 M/mm3 (3.65-5.03); Red Cell Distribution Width 15.1 % (13.2-15.2)
[2019-03-25 06:59] LABS: BUN/Creatinine Ratio 28; Blood Urea Nitrogen 11 mg/dL (9-20); Calcium 8.6 mg/dL (8.4-10.2); Hemolysis Index 2
[2019-03-25] MEDS: LOPRESSOR PO SCH ×3 (08:44→21:56)
[2019-03-25] MEDS: BROVANA NEBU IH SCH ×2 (09:15→22:09)
[2019-03-25] MEDS: PULMICORT IH SCH ×2 (09:15→19:37)
--- NOTE | 2019-03-25 10:49 | Progress Note ---
Assessment and Plan No additional AFib noted overnight. Patient never had atrial fibrillation in the past and had a few nonsustained runs of AFib here. At this time, he is in NSR. 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 Currently stable cardiac status. Cont present cardiac management. Nothing further to add from cardiac perspective at this time. Will follow on as needed basis. The patient has been seen in conjunction with Dr. Marshall who agrees with the assessment and plan of care. - Patient Problems (1) Acute on chronic respiratory failure Current Visit: Yes Status: Acute Qualifiers: Respiratory failure complication: hypoxia and hypercapnia Qualified Code(s): J96.21 - Acute and chronic respiratory failure with hypoxia; J96.22 - Acute and chronic respiratory failure with hypercapnia (2) COPD exacerbation Current Visit: Yes Status: Acute (3) Acute heart failure with preserved ejection fraction Current Visit: Yes Status: Acute (4) Paroxysmal atrial fibrillation with RVR Current Visit: Yes Status: Acute (5) NSVT (nonsustained ventricular tachycardia) Current Visit: Yes Status: Acute (6) Elevated troponin Current Visit: Yes Status: Acute (7) Right ventricular dysfunction Current Visit: Yes Status: Chronic (8) Hypertension Current Visit: Yes Status: Chronic Qualifiers: Hypertension type: essential hypertension Qualified Code(s): I10 - Essential (primary) hypertension (9) Functional quadriplegia Current Visit: Yes Status: Chronic (10) Abdominal hernia Current Visit: Yes Status: Chronic (11) History of pulmonary embolism Current Visit: No Status: Resolved (12) History of seizures Current Visit: Yes Status: Chronic Subjective Date of service: 03/25/19 Principal diagnosis: Acute on chronic resp failure, COPD ex, Acute HFPEF, RV dysfxn, PAF Interval history: pt resting in bed, lethargic, no apparent distress. tele reviewed - in SR overnight with no AFib. pt's son at bedside. Objective Last Vital Signs Temp 99.0 F 03/25/19 07:36 Pulse 89 03/25/19 09:32 Resp 20 03/25/19 09:32 BP 120/68 03/25/19 08:44 Pulse Ox 91 03/25/19 10:00 - Physical Examination General: No Apparent Distress HEENT: Positive: EOMI, Normocephaly, Mucus Membranes Moist Neck: Positive: neck supple, trachea midline, JVD/HJR (elevated) Cardiac: Positive: Reg Rate and Rhythm, S1/S2 Lungs: Positive: Decreased Breath Sounds Neuro: Positive: Other (Lethargic, but more awake and communicative today.) Abdomen: Positive: Soft, Active Bowel Sounds, Distended. Negative: Tender Skin: Positive: Clear Musculoskeletal: Normal Range of Motion Extremities: Present: +1 Edema (both legs) - Labs and Meds CBC 03/25/19 Range/Units 05:22 WBC 6.5 (4.5-11.0) K/mm3 RBC 4.31 (3.65-5.03) M/mm3 Hgb 13.1 (11.8-15.2) gm/dl Hct 39.4 (35.5-45.6) % Plt Count 227 (140-440) K/mm3 Lymph # 1.2 (1.2-5.4) K/mm3 [place] # 0.6 (0.0-0.8) K/mm3 Eos # 0.1 (0.0-0.4) K/mm3 Baso # 0.0 (0.0-0.1) K/mm3 Comprehensive Metabolic Panel 03/25/19 Range/Units 05:22 Sodium 137 (137-145) mmol/L Potassium 3.5 L (3.6-5.0) mmol/L Chloride 89.1 L (98-107) mmol/L Carbon Dioxide 39 H (22-30) mmol/L BUN 11 (9-20) mg/dL Creatinine 0.4 L (0.8-1.5) mg/dL Glucose 87 (75-100) mg/dL Calcium 8.6 (8.4-10.2) mg/dL - Imaging and Cardiology EKG: image reviewed Echo: report reviewed Chamber hypertrophy or enlargement: righ ventricular hypertro Repolarization changes or abnormalities: ST or T wave suggestive of ischemia Myocardial infarction: anterior UT (old age or i - Allied health notes Allied health notes reviewed: nursing
[2019-03-25] MEDS: DELTASONE PO SCH (11:07)
[2019-03-25] MEDS: MYSOLINE PO SCH ×4 (11:07→21:55)
[2019-03-25] MEDS: NEURONTIN PO SCH ×2 (11:07→21:56)
[2019-03-25] MEDS: HALFPRIN EC PO SCH (11:08)
[2019-03-25] MEDS: LASIX IV SCH (11:08)
[2019-03-25] MEDS: SODIUM CHLORIDE FLUSH SYRINGE 10 ML IV SCH ×2 (11:08→21:57)
[2019-03-25] MEDS: TOPAMAX PO SCH ×2 (13:03→21:56)
[2019-03-25] MEDS: PERCOCET 5/325 PO PRN ×2 (13:10→21:54)
--- NOTE | 2019-03-25 16:57 | Progress Note ---
Assessment and Plan Assessment and plan: Patient is a 63 yo man with a history of hypertension, chronic respiratory failure on home 3-4 liters O2 due to End-stage COPD, Seizure disorder, PE and essential tremor who presented to PSYCHIATRIC ED with sob, leg swelling. * CTA chest FINDINGS: Heart and pericardium: Small amount of pericardial fluid is present, measuring up to 5 mm in thickness. Thoracic aorta: Mild atherosclerotic calcification. Pulmonary vasculature: Normal. No pulmonary emboli. Lymph nodes: Numerous mediastinal nodes are present, measuring up to 1 cm in short axis. Lungs: Mild diffuse septal thickening suggests interstitial edema. There is mild bibasilar compressive atelectasis. Pleural space: Bilateral mild to moderate sized layering pleural effusions are present. No pneumothorax is identified bilaterally Musculoskeletal structures: No significant abnormality. Upper abdominal structures: There is an anterior abdominal wall hernia, which is not fully imaged. IMPRESSION: No evidence of pulmonary emboli. Bilateral pleural effusions. Mild mediastinal adenopathy. -Acute on chronic hypoxic respiratory failure: consulted Wind Operations Supervisor, careful with o2 as gordy Calvin at bedside say he develops co2 retention with too much Oxygen -Acute COPD exacerbation: treat with nebs, steroids, abx -Acute on chronic diastolic HF exacerbation: EF 50-55% on 01/2019 ECHO, treat with diuretics but reduce dose as patient developing contraction alkalosis. Consulted Cardiology -Hypertension: low salt diet, antihypertensives -Seizure: continue home medications -New onset transient Afib with RVR: Cardiology is following and started Amiodarone on 03/22/19 -New onset of NSVT: Cardiololgy is following, replete potassium -Hypokalemia: replace via IV, not eating, repeat bmp -History of PE -h/o Essential tremor -DVT ppx on sq lovenox 03/22/19: Around 1am this morning, pt had 3 beat run of NSVT, then around 3:29am he went into Afib with RVR followed immediately by another run of NSVT. SonLondon insist on giving his father around the clock Narcotics because he feels that father is going into "DTs" by the lack of narcotics because of the nausea/lack of appetite/not eating. Patient is gagging when he attempts to eat. I wanted to exam patient's abdomen by removing the binder but I was met with unbelievable resistance. On exam, the ventral hernia is tender and distended. The son insist on re-applying the binder and doesn't think the ventral hernia is causing any problems although his father is consistently in pain for it and the ventral hernia is now inoperable (after multiple surgeries) per son. CT abd/pel vis with oral contrast is indicated but patient may not be able to drink the contrast or lay flat. I consulted Gen. Surgery. However, main issue now is arrhythmias. I will also consult Dr. Spivey for pain management. 03/23/19: Yesterday around 8:30pm had another 3 beat run of NSVT. I spoke with Dr. Savage yesterday. Amiodarone started Patient still not eating, Son at bedside is concerned. 03/25/19: mri brain ordered by Neurologist but patient unable to lay flat due to large ventral hernia causing sob History Interval history: Patient was seen and examined. Follow-up on current diagnosis of COPD and intractable nausea. Overnight uneventful. Patient denies any chest pain, nausea/vomiting or severe headaches. Imaging, nursing note, chart, labs and old chart reviewed. Discussed with patient and son London at bedside; London did not allow metoprolol. London states, "he gotta poo poo." Hospitalist Physical - Physical exam Narrative exam: Gen: chronic disable and ill-appearing, NAD, lethargic, Orientated x 2 HEENT: NCAT, EOMI, PERRL, OP Clear Neck: supple, no adenopathy, no thyromegaly, JVD CVS/Heart: RRR, normal S1S2, pulses present bilaterally Chest/Lungs: diminished bs with bibasilar crackles, Symmetrical chest expansion, good air entry bilaterally GI/Abdomen: soft, large tender ventral hernia (initial they refused to allow me to remove binder but I insisted) good bowel sounds, no guarding or rebound /Bladder: no suprapubic tenderness, no CVA or paraspinal tenderness Extermity/Skin: leg edema no obvious rash MSK: FROM x 4 Neuro: CN 2-12 grossly intact, no new focal deficits Psych: calm - Constitutional Vitals: Temp Pulse Resp BP Pulse Ox 98.9 F 87 20 109/95 88 03/25/19 11:49 03/25/19 13:40 03/25/19 11:49 03/25/19 13:40 03/25/19 11:49 General appearance: Present: no acute distress, well-nourished, obese Results - Labs CBC & Chem 7: 03/25/19 05:22 03/25/19 05:22 Labs: Laboratory Last Values WBC 6.5 K/mm3 (4.5-11.0) 03/25/19 05:22 RBC 4.31 M/mm3 (3.65-5.03) 03/25/19 05:22 Hgb 13.1 gm/dl (11.8-15.2) 03/25/19 05:22 Hct 39.4 % (35.5-45.6) 03/25/19 05:22 MCV 92 fl (84-94) 03/25/19 05:22 MCH 30 pg (28-32) 03/25/19 05:22 MCHC 33 % (32-34) 03/25/19 05:22 RDW 15.1 % (13.2-15.2) 03/25/19 05:22 Plt Count 227 K/mm3 (140-440) 03/25/19 05:22 Lymph % (Auto) 18.0 % (13.4-35.0) 03/25/19 05:22 [place] % (Auto) 8.9 % (0.0-7.3) H 03/25/19 05:22 Eos % (Auto) 0.9 % (0.0-4.3) 03/25/19 05:22 Baso % (Auto) 0.4 % (0.0-1.8) 03/25/19 05:22 Lymph # 1.2 K/mm3 (1.2-5.4) 03/25/19 05:22 [place] # 0.6 K/mm3 (0.0-0.8) 03/25/19 05:22 Eos # 0.1 K/mm3 (0.0-0.4) 03/25/19 05:22 Baso # 0.0 K/mm3 (0.0-0.1) 03/25/19 05:22 Seg Neutrophils % 71.8 % (40.0-70.0) H 03/25/19 05:22 Seg Neutrophils # 4.7 K/mm3 (1.8-7.7) 03/25/19 05:22 PT 15.1 Sec. (12.2-14.9) H 03/23/19 14:43 INR 1.12 (0.87-1.13) 03/23/19 14:43 APTT 28.8 Sec. (24.2-36.6) 03/23/19 14:43 Heparin Anti-Xa Level 0.45 U.I./ml (0.3-0.7) 03/24/19 12:58 POC ABG pH 7.484 (7.35-7.45) H 03/20/19 16:02 POC ABG pCO2 60.5 (35-45) H 03/20/19 16:02 POC ABG pO2 79 (80-105) L 03/20/19 16:02 POC ABG HCO3 45.5 (22-26 mml/L) 03/20/19 16:02 POC ABG Total CO2 47 (23-27mmol/L) 03/20/19 16:02 POC ABG O2 Sat 96 03/20/19 16:02 POC ABG Base Excess 22 ((-2) - (+3)mmol/L) 03/20/19 16:02 FiO2 45 % 03/20/19 16:02 Sodium 137 mmol/L (137-145) 03/25/19 05:22 Potassium 3.5 mmol/L (3.6-5.0) L 03/25/19 05:22 Chloride 89.1 mmol/L (98-107) L 03/25/19 05:22 Carbon Dioxide 39 mmol/L (22-30) H 03/25/19 05:22 Anion Gap 12 mmol/L 03/25/19 05:22 BUN 11 mg/dL (9-20) 03/25/19 05:22 Creatinine 0.4 mg/dL (0.8-1.5) L 03/25/19 05:22 Estimated GFR > 60 ml/min 03/25/19 05:22 BUN/Creatinine Ratio 28 % 03/25/19 05:22 Glucose 87 mg/dL (75-100) 03/25/19 05:22 Lactic Acid 1.20 mmol/L (0.7-2.0) 03/19/19 17:52 Calcium 8.6 mg/dL (8.4-10.2) 03/25/19 05:22 Magnesium 1.70 mg/dL (1.7-2.3) 03/24/19 06:55 Total Bilirubin 0.30 mg/dL (0.1-1.2) 03/19/19 17:52 AST 23 units/L (5-40) 03/19/19 17:52 ALT 19 units/L (7-56) 03/19/19 17:52 Alkaline Phosphatase 64 units/L (35-129) 03/19/19 17:52 Total Creatine Kinase 53 units/L (55-170) L 03/20/19 06:46 CK-MB (CK-2) 4.4 ng/mL (0.0-4.0) H 03/20/19 06:46 CK-MB (CK-2) Rel Index 8.3 (0-4) H 03/20/19 06:46 Troponin T 0.073 ng/mL (0.00-0.029) H 03/20/19 06:46 NT-Pro-B Natriuret Pep 8170 pg/mL (0-900) H 03/19/19 17:52 Total Protein 6.0 g/dL (6.3-8.2) L 03/19/19 17:52 Albumin 3.1 g/dL (3.9-5) L 03/19/19 17:52 Albumin/Globulin Ratio 1.1 % 03/19/19 17:52 Triglycerides 117 mg/dL (2-149) 03/19/19 17:52 Cholesterol 178 mg/dL (50-199) 03/19/19 17:52 LDL Cholesterol Direct 118 mg/dL (50-130) 03/19/19 17:52 HDL Cholesterol 40 mg/dL (40-59) 03/19/19 17:52 Cholesterol/HDL Ratio 4.45 % 03/19/19 17:52 TSH 1.950 mlU/mL (0.270-4.200) 03/23/19 06:23 Free T4 0.82 ng/dL (0.76-1.46) 03/23/19 06:23 Phenobarbital 27.4 ug/mL (15.0-40.0) 03/23/19 12:53 Active Medications - Current Medications Current Medications: Generic Name Dose Route Start Last Admin Trade Name Freq PRN Reason Stop Dose Admin Acetaminophen 650 mg 04/26/19 00:42 Tylenol PO Q4H PRN Pain MILD(1-3)/Fever >100.5/GALAN Albuterol 2.5 mg 03/20/19 01:20 03/20/19 12:44 Proventil IH 2.5 mg Q4HRT PRN Administration Shortness Of Breath Albuterol/Ipratropium 1 ampul 03/20/19 02:00 03/25/19 14:00 Duoneb *Not For Prn Use* IH Not Given Q6HRT [facility] Arformoterol Tartrate 15 mcg 03/20/19 08:00 03/25/19 09:15 Brovana Nebu IH 15 mcg Q12HRT ANDREW Administration Aspirin 81 mg 03/20/19 10:00 03/25/19 11:08 Halfprin Ec PO 81 mg DAILY ANDREW Administration Atorvastatin Calcium 40 mg 03/20/19 10:00 03/25/19 11:07 Lipitor PO 40 mg DAILY ANDREW Administration Budesonide 0.5 mg 03/23/19 16:57 03/25/19 09:15 Pulmicort IH 0.5 mg Q12HRT ANDREW Administration Divalproex Sodium 500 mg 03/20/19 10:00 03/25/19 11:07 Depakote Er PO 500 mg BID ANDREW Administration Furosemide 40 mg 03/22/19 10:00 03/25/19 11:08 Lasix IV 40 mg QDAY ANDREW Administration Gabapentin 300 mg 03/20/19 10:00 03/25/19 11:07 Neurontin PO 300 mg BID ANDREW Administration Ipratropium [place] 0.5 mg 03/20/19 13:00 03/25/19 14:00 Atrovent IH Not Given Q6HRT [facility] Metoprolol Tartrate 25 mg 03/23/19 20:00 03/25/19 13:40 Lopressor PO Not Given TID [facility] Ondansetron HCl 4 mg 03/20/19 00:42 03/22/19 10:39 Zofran IV 4 mg Q4H PRN Administration Nausea And Vomiting Oxycodone HCl 5 mg 03/21/19 18:37 03/25/19 16:51 Roxicodone PO 5 mg QID PRN Administration Pain, Moderate (4-6) Oxycodone/Acetaminophen 1 tab 03/21/19 18:36 05/01/19 13:10 Percocet 5/325 PO 1 tab QID PRN Administration Pain, Moderate (4-6) Prednisone 20 mg 03/20/19 12:00 03/25/19 11:07 Deltasone PO 20 mg QDAY ANDREW Administration Primidone 250 mg 03/20/19 10:00 03/25/19 13:25 Mysoline PO 250 mg QID ANDREW Administration Sodium Chloride 10 ml 03/20/19 10:00 03/25/19 11:08 Sodium Chloride Flush Syringe 10 Ml IV 10 ml BID ANDREW Administration Sodium Chloride 10 ml 03/20/19 00:42 03/20/19 05:40 Sodium Chloride Flush Syringe 10 Ml IV 10 ml PRN PRN Administration LINE FLUSH Topiramate 50 mg 03/20/19 10:00 03/25/19 13:03 Topamax PO 50 mg BID ANDREW Administration
--- NOTE | 2019-03-25 20:28 | Progress Note ---
Assessment and Plan Patient awake at this time on 3 litres O2. O2 saturation 91%. Patient afebrile, No leukocytosis. Ultrasound of chest reported small to moderate left effusion.. Talk to the patients and his son and explained patients respiratory status. - Patient Problems (1) Acute and chronic respiratory failure with hypoxia Current Visit: Yes Status: Acute Plan to address problem: BIPAP 20/10, rate 20, FIO2 35%. Albuterol/atrovent aerosol treatments q 6 hours. Continue prednisone. SCDs (2) Acute heart failure with preserved ejection fraction Current Visit: Yes Status: Acute Plan to address problem: Management as per cardiology I/V heparin stopped. (3) COPD exacerbation Current Visit: Yes Status: Acute Plan to address problem: O2 3 litres via nasal canula when he is not on BIPAP. BIPAP 20/10, rate 20, FIO2 35%. Albuterol/atrovent aerosol treatments q 6 hours. Continue prednisone. (4) Elevated troponin Current Visit: Yes Status: Acute Plan to address problem: Management as per cardiology. (5) NSVT (nonsustained ventricular tachycardia) Current Visit: Yes Status: Acute Plan to address problem: Management as per cardiology. (6) Paroxysmal atrial fibrillation with RVR Current Visit: Yes Status: Acute Plan to address problem: Management as per cardiology. (7) Pleural effusion Current Visit: Yes Status: Acute Plan to address problem: Ultrasound of chestreported small to moderate left effusion.. (8) History of seizures Current Visit: Yes Status: Chronic Plan to address problem: Management as per neurology. (9) Hypertension Current Visit: Yes Status: Chronic Qualifiers: Hypertension type: essential hypertension Qualified Code(s): I10 - Essential (primary) hypertension Plan to address problem: Management as per primary care. Subjective Date of service: 03/25/19 Principal diagnosis: Acute on chronic resp failure, COPD ex, Acute HFPEF, RV dysfxn, PAF Interval history: Patient awake at this time on 3 litres O2. O2 saturation 91%. Patient afebrile, No leukocytosis. Ultrasound of chest reported small to moderate left effusion.. Talk to the patients and his son and explained patients respiratory status. Objective Vital Signs - 12hr 03/25/19 03/25/19 03/25/19 08:44 09:16 09:32 Temperature Pulse Rate 87 Pulse Rate [ 56 L 89 Anterior Bilateral Throughout] Pulse Rate [ Left Dorsalis Pedis] Pulse Rate [ Left Radial] Pulse Rate [ Right Dorsalis Pedis] Pulse Rate [ Right Radial] Respiratory Rate Respiratory 20 20 Rate [Anterior Bilateral Throughout] Blood Pressure 120/68 O2 Sat by Pulse Oximetry 03/25/19 03/25/19 03/25/19 10:00 11:49 12:00 Temperature 98.9 F Pulse Rate 88 78 Pulse Rate [ Anterior Bilateral Throughout] Pulse Rate [ 84 Left Dorsalis Pedis] Pulse Rate [ 84 Left Radial] Pulse Rate [ 84 Right Dorsalis Pedis] Pulse Rate [ 84 Right Radial] Respiratory 18 20 Rate Respiratory Rate [Anterior Bilateral Throughout] Blood Pressure 101/65 O2 Sat by Pulse 98 88 Oximetry 03/25/19 03/25/19 03/25/19 13:40 16:34 19:25 Temperature 97.1 F L Pulse Rate 87 81 Pulse Rate [ 82 Anterior Bilateral Throughout] Pulse Rate [ Left Dorsalis Pedis] Pulse Rate [ Left Radial] Pulse Rate [ Right Dorsalis Pedis] Pulse Rate [ Right Radial] Respiratory 18 Rate Respiratory 18 Rate [Anterior Bilateral Throughout] Blood Pressure 109/95 110/73 O2 Sat by Pulse 92 Oximetry 03/25/19 03/25/19 03/25/19 19:40 19:41 19:45 Temperature 98.3 F Pulse Rate 84 Pulse Rate [ 84 Anterior Bilateral Throughout] Pulse Rate [ Left Dorsalis Pedis] Pulse Rate [ Left Radial] Pulse Rate [ Right Dorsalis Pedis] Pulse Rate [ Right Radial] Respiratory 20 Rate Respiratory 18 Rate [Anterior Bilateral Throughout] Blood Pressure 108/70 O2 Sat by Pulse 94 94 Oximetry Constitutional: no acute distress, alert, other (obese man on 4L oxygen via NC, atraumatic, normocephalic) Eyes: non-icteric ENT: oropharynx moist, other (short neck,) Neck: supple, no lymphadenopathy, no JVD, other (no thyromegaly) Effort: mildly labored Ascultation: Bilateral: diminished breath sounds, rales, rhonchi, other (prolonged exp phase) Percussion: Bilateral: dull (bases) Cardiovascular: regular rate and rhythm, other (S1,S2,no murmurs) Gastrointestinal: normoactive bowel sounds, soft, non-tender, other (protu berant) Extremities: no cyanosis, pink and warm, pulses normal, edema (bilateral lower extremity) Neurologic: normal mental status, non-focal exam, pupils equal and round, CN II- XII normal, motor strength normal and Psychiatric: mood appropriate, affect normal CBC and BMP: 03/25/19 05:22 03/25/19 05:22 ABG, PT/INR, D-dimer: ABG POC ABG pH 7.484 (7.35-7.45) H 03/20/19 16:02 POC ABG pCO2 60.5 (35-45) H 03/20/19 16:02 POC ABG pO2 79 (80-105) L 03/20/19 16:02 POC ABG HCO3 45.5 (22-26 mml/L) 03/20/19 16:02 POC ABG Total CO2 47 (23-27mmol/L) 03/20/19 16:02 POC ABG O2 Sat 96 03/20/19 16:02 PT/INR, D-dimer PT 15.1 Sec. (12.2-14.9) H 03/23/19 14:43 INR 1.12 (0.87-1.13) 03/23/19 14:43 Abnormal lab findings: Abnormal Labs 03/19/19 03/19/19 03/19/19 17:39 17:52 17:52 RDW 15.7 H Lymph % (Auto) [place] % (Auto) 10.6 H Lymph # Seg Neutrophils % 70.6 H PT Heparin Anti-Xa Level POC ABG pH POC ABG pCO2 60.9 H POC ABG pO2 53 L Potassium Chloride 84.1 L Carbon Dioxide 36 H Creatinine 0.6 L Glucose Calcium Total Creatine Kinase CK-MB (CK-2) CK-MB (CK-2) Rel Index Troponin T 0.079 H NT-Pro-B Natriuret Pep 8170 H Total Protein 6.0 L Albumin 3.1 L 03/20/19 03/20/19 03/20/19 01:01 06:46 06:46 RDW 15.8 H Lymph % (Auto) 9.0 L [place] % (Auto) Lymph # 0.7 L Seg Neutrophils % 86.5 H PT Heparin Anti-Xa Level POC ABG pH POC ABG pCO2 POC ABG pO2 Potassium Chloride Carbon Dioxide 33 H Creatinine 0.6 L Glucose 133 H Calcium Total Creatine Kinase 42 L CK-MB (CK-2) 4.2 H CK-MB (CK-2) Rel Index 10.0 H Troponin T 0.088 H NT-Pro-B Natriuret Pep Total Protein Albumin 03/20/19 03/20/19 03/22/19 06:46 16:02 07:07 RDW 15.7 H Lymph % (Auto) [place] % (Auto) Lymph # Seg Neutrophils % PT Heparin Anti-Xa Level POC ABG pH 7.484 H POC ABG pCO2 60.5 H POC ABG pO2 79 L Potassium Chloride Carbon Dioxide Creatinine Glucose Calcium Total Creatine Kinase 53 L CK-MB (CK-2) 4.4 H CK-MB (CK-2) Rel Index 8.3 H Troponin T 0.073 H NT-Pro-B Natriuret Pep Total Protein Albumin 03/22/19 03/23/19 03/23/19 07:07 06:23 06:23 RDW 15.3 H Lymph % (Auto) [place] % (Auto) Lymph # Seg Neutrophils % PT Heparin Anti-Xa Level POC ABG pH POC ABG pCO2 POC ABG pO2 Potassium 3.5 L Chloride 92.0 L 86.5 L Carbon Dioxide 36 H 39 H Creatinine 0.7 L 0.5 L Glucose 119 H 103 H Calcium Total Creatine Kinase CK-MB (CK-2) CK-MB (CK-2) Rel Index Troponin T NT-Pro-B Natriuret Pep Total Protein Albumin 03/23/19 03/24/19 03/24/19 14:43 00:53 06:55 RDW Lymph % (Auto) [place] % (Auto) Lymph # Seg Neutrophils % PT 15.1 H Heparin Anti-Xa Level 1.28 H POC ABG pH POC ABG pCO2 POC ABG pO2 Potassium 3.3 L Chloride 90.0 L Carbon Dioxide 38 H Creatinine 0.4 L Glucose Calcium 8.3 L Total Creatine Kinase CK-MB (CK-2) CK-MB (CK-2) Rel Index Troponin T NT-Pro-B Natriuret Pep Total Protein Albumin 03/24/19 03/25/19 03/25/19 10:13 05:22 05:22 RDW Lymph % (Auto) [place] % (Auto) 8.9 H Lymph # Seg Neutrophils % 71.8 H PT Heparin Anti-Xa Level 1.01 H POC ABG pH POC ABG pCO2 POC ABG pO2 Potassium 3.5 L Chloride 89.1 L Carbon Dioxide 39 H Creatinine 0.4 L Glucose Calcium Total Creatine Kinase CK-MB (CK-2) CK-MB (CK-2) Rel Index Troponin T NT-Pro-B Natriuret Pep Total Protein Albumin Allied health notes reviewed: nursing
[2019-03-26] MEDS: ATROVENT IH SCH ×4 (02:20→21:22)
[2019-03-26] MEDS: DUONEB *Not for PRN Use IH SCH ×4 (02:20→21:21)
[2019-03-26] MEDS: PERCOCET 5/325 PO PRN ×2 (08:39→18:24)
[2019-03-26] MEDS: PULMICORT IH SCH ×2 (09:08→21:22)
[2019-03-26] MEDS: BROVANA NEBU IH SCH ×2 (09:08→21:21)
[2019-03-26] MEDS: TOPAMAX PO SCH ×2 (09:42→22:19)
[2019-03-26] MEDS: LASIX IV SCH (09:42)
[2019-03-26] MEDS: HALFPRIN EC PO SCH (09:42)
[2019-03-26] MEDS: DELTASONE PO SCH (09:42)
[2019-03-26] MEDS: NEURONTIN PO SCH ×2 (09:42→22:19)
[2019-03-26] MEDS: LOPRESSOR PO SCH ×3 (09:42→20:30)
[2019-03-26] MEDS: MYSOLINE PO SCH ×4 (09:43→22:19)
[2019-03-26] MEDS: SODIUM CHLORIDE FLUSH SYRINGE 10 ML IV SCH ×2 (09:43→22:20)
--- NOTE | 2019-03-26 15:22 | Progress Note ---
Assessment and Plan Assessment and plan: Patient is a 63 yo man with a history of hypertension, chronic respiratory failure on home 3-4 liters O2 due to End-stage COPD, Seizure disorder, PE and essential tremor who presented to [facility] ED with sob, leg swelling. * CTA chest FINDINGS: Heart and pericardium: Small amount of pericardial fluid is present, measuring up to 5 mm in thickness. Thoracic aorta: Mild atherosclerotic calcification. Pulmonary vasculature: Normal. No pulmonary emboli. Lymph nodes: Numerous mediastinal nodes are present, measuring up to 1 cm in short axis. Lungs: Mild diffuse septal thickening suggests interstitial edema. There is mild bibasilar compressive atelectasis. Pleural space: Bilateral mild to moderate sized layering pleural effusions are present. No pneumothorax is identified bilaterally Musculoskeletal structures: No significant abnormality. Upper abdominal structures: There is an anterior abdominal wall hernia, which is not fully imaged. IMPRESSION: No evidence of pulmonary emboli. Bilateral pleural effusions. Mild mediastinal adenopathy. -Acute on chronic hypoxic respiratory failure: consulted Drying Supervisor, careful with o2 as gordy Calvin at bedside say he develops co2 retention with too much Oxygen -Acute COPD exacerbation: treat with nebs, steroids, abx -Acute on chronic diastolic HF exacerbation: EF 50-55% on 01/2019 ECHO, treat with diuretics but reduce dose as patient developing contraction alkalosis. Consulted Cardiology -Hypertension: low salt diet, antihypertensives -Seizure: continue home medications -New onset transient Afib with RVR: Cardiology is following and started Amiodarone on 03/22/19 -New onset of NSVT: Cardiololgy is following, replete potassium -Hypokalemia: replace via IV, not eating, repeat bmp -History of PE -h/o Essential tremor -DVT ppx on sq lovenox 03/22/19: Around 1am this morning, pt had 3 beat run of NSVT, then around 3:29am he went into Afib with RVR followed immediately by another run of NSVT. SonLondon insist on giving his father around the clock Narcotics because he feels that father is going into "DTs" by the lack of narcotics because of the nausea/lack of appetite/not eating. Patient is gagging when he attempts to eat. I wanted to exam patient's abdomen by removing the binder but I was met with unbelievable resistance. On exam, the ventral hernia is tender and distended. The son insist on re-applying the binder and doesn't think the ventral hernia is causing any problems although his father is consistently in pain for it and the ventral hernia is now inoperable (after multiple surgeries) per son. CT abd/pel vis with oral contrast is indicated but patient may not be able to drink the contrast or lay flat. I consulted Gen. Surgery. However, main issue now is arrhythmias. I will also consult Dr. Spivey for pain management. 03/23/19: Yesterday around 8:30pm had another 3 beat run of NSVT. I spoke with Dr. Savage yesterday. Amiodarone started Patient still not eating, Son at bedside is concerned. 03/26/19: mri brain ordered by Neurologist but patient unable to lay flat due to large ventral hernia causing sob. Coughed up a piece of rice. Will get speech evaluation and consult GI History Interval history: Patient was seen and examined. Follow-up on current diagnosis of COPD and intractable nausea. Overnight uneventful. Patient denies any chest pain, na usea/vomiting or severe headaches. Imaging, nursing note, chart, labs and old chart reviewed. Discussed with patient and son London at bedside. I sat down and had a long discussion, well, I mostly listened to London's concern. Father is not eating, he cough, and chokes with meals then coughed up a piece of rice. When I suggested a GI evaluation, son refused and says there is nothing wrong with his stomach and the hernia is not the problem. In my professional opinion, I believe the large ventral hernia is a problem. London believes his father is not eating due to his mental problem. So, Mri brain has been ordered but patient was unable to complete because he couldn't lay flat due the discomfort from the ventral hernia; which is inoperable per son. Hospitalist Physical - Physical exam Narrative exam: Gen: chronic disable and ill-appearing, NAD, lethargic, Orientated x 2 HEENT: NCAT, EOMI, PERRL, OP Clear Neck: supple, no adenopathy, no thyromegaly, JVD CVS/Heart: RRR, normal S1S2, pulses present bilaterally Chest/Lungs: diminished bs with bibasilar crackles, Symmetrical chest expansion, good air entry bilaterally GI/Abdomen: soft, large tender ventral hernia (initial they refused to allow me to remove binder but I insisted) good bowel sounds, no guarding or rebound /Bladder: no suprapubic tenderness, no CVA or paraspinal tenderness Extermity/Skin: leg edema no obvious rash MSK: FROM x 4 Neuro: CN 2-12 grossly intact, no new focal deficits Psych: calm - Constitutional Vitals: Temp Pulse Resp BP Pulse Ox 98.7 F 82 16 107/65 88 03/26/19 12:14 03/26/19 14:39 03/26/19 14:39 03/26/19 12:14 03/26/19 12:14 General appearance: Present: no acute distress, well-nourished, obese Results - Labs CBC & Chem 7: 03/25/19 05:22 03/25/19 05:22 Labs: Laboratory Last Values WBC 6.5 K/mm3 (4.5-11.0) 03/25/19 05:22 RBC 4.31 M/mm3 (3.65-5.03) 03/25/19 05:22 Hgb 13.1 gm/dl (11.8-15.2) 03/25/19 05:22 Hct 39.4 % (35.5-45.6) 03/25/19 05:22 MCV 92 fl (84-94) 03/25/19 05:22 MCH 30 pg (28-32) 03/25/19 05:22 MCHC 33 % (32-34) 03/25/19 05:22 RDW 15.1 % (13.2-15.2) 03/25/19 05:22 Plt Count 227 K/mm3 (140-440) 03/25/19 05:22 Lymph % (Auto) 18.0 % (13.4-35.0) 03/25/19 05:22 Anderson % (Auto) 8.9 % (0.0-7.3) H 03/25/19 05:22 Eos % (Auto) 0.9 % (0.0-4.3) 03/25/19 05:22 Baso % (Auto) 0.4 % (0.0-1.8) 03/25/19 05:22 Lymph # 1.2 K/mm3 (1.2-5.4) 03/25/19 05:22 Anderson # 0.6 K/mm3 (0.0-0.8) 03/25/19 05:22 Eos # 0.1 K/mm3 (0.0-0.4) 03/25/19 05:22 Baso # 0.0 K/mm3 (0.0-0.1) 03/25/19 05:22 Seg Neutrophils % 71.8 % (40.0-70.0) H 03/25/19 05:22 Seg Neutrophils # 4.7 K/mm3 (1.8-7.7) 03/25/19 05:22 PT 15.1 Sec. (12.2-14.9) H 03/23/19 14:43 INR 1.12 (0.87-1.13) 03/23/19 14:43 APTT 28.8 Sec. (24.2-36.6) 03/23/19 14:43 Heparin Anti-Xa Level 0.45 U.I./ml (0.3-0.7) 03/24/19 12:58 POC ABG pH 7.484 (7.35-7.45) H 03/20/19 16:02 POC ABG pCO2 60.5 (35-45) H 03/20/19 16:02 POC ABG pO2 79 (80-105) L 03/20/19 16:02 POC ABG HCO3 45.5 (22-26 mml/L) 03/20/19 16:02 POC ABG Total CO2 47 (23-27mmol/L) 03/20/19 16:02 POC ABG O2 Sat 96 03/20/19 16:02 POC ABG Base Excess 22 ((-2) - (+3)mmol/L) 03/20/19 16:02 FiO2 45 % 03/20/19 16:02 Sodium 137 mmol/L (137-145) 03/25/19 05:22 Potassium 3.5 mmol/L (3.6-5.0) L 03/25/19 05:22 Chloride 89.1 mmol/L (98-107) L 03/25/19 05:22 Carbon Dioxide 39 mmol/L (22-30) H 03/25/19 05:22 Anion Gap 12 mmol/L 03/25/19 05:22 BUN 11 mg/dL (9-20) 03/25/19 05:22 Creatinine 0.4 mg/dL (0.8-1.5) L 03/25/19 05:22 Estimated GFR > 60 ml/min 03/25/19 05:22 BUN/Creatinine Ratio 28 % 03/25/19 05:22 Glucose 87 mg/dL (75-100) 03/25/19 05:22 Lactic Acid 1.20 mmol/L (0.7-2.0) 03/19/19 17:52 Calcium 8.6 mg/dL (8.4-10.2) 03/25/19 05:22 Magnesium 1.70 mg/dL (1.7-2.3) 03/24/19 06:55 Total Bilirubin 0.30 mg/dL (0.1-1.2) 03/19/19 17:52 AST 23 units/L (5-40) 03/19/19 17:52 ALT 19 units/L (7-56) 03/19/19 17:52 Alkaline Phosphatase 64 units/L (35-129) 03/19/19 17:52 Total Creatine Kinase 53 units/L (55-170) L 03/20/19 06:46 CK-MB (CK-2) 4.4 ng/mL (0.0-4.0) H 03/20/19 06:46 CK-MB (CK-2) Rel Index 8.3 (0-4) H 03/20/19 06:46 Troponin T 0.073 ng/mL (0.00-0.029) H 03/20/19 06:46 NT-Pro-B Natriuret Pep 8170 pg/mL (0-900) H 03/19/19 17:52 Total Protein 6.0 g/dL (6.3-8.2) L 03/19/19 17:52 Albumin 3.1 g/dL (3.9-5) L 03/19/19 17:52 Albumin/Globulin Ratio 1.1 % 03/19/19 17:52 Triglycerides 117 mg/dL (2-149) 03/19/19 17:52 Cholesterol 178 mg/dL (50-199) 03/19/19 17:52 LDL Cholesterol Direct 118 mg/dL (50-130) 03/19/19 17:52 HDL Cholesterol 40 mg/dL (40-59) 03/19/19 17:52 Cholesterol/HDL Ratio 4.45 % 03/19/19 17:52 TSH 1.950 mlU/mL (0.270-4.200) 03/23/19 06:23 Free T4 0.82 ng/dL (0.76-1.46) 03/23/19 06:23 Phenobarbital 27.4 ug/mL (15.0-40.0) 03/23/19 12:53 Active Medications - Current Medications Current Medications: Generic Name Dose Route Start Last Admin Trade Name Freq PRN Reason Stop Dose Admin Acetaminophen 650 mg 03/20/19 00:42 Tylenol PO Q4H PRN Pain MILD(1-3)/Fever >100.5/GALAN Albuterol 2.5 mg 03/20/19 01:20 03/20/19 12:44 Proventil IH 2.5 mg Q4HRT PRN Administration Shortness Of Breath Albuterol/Ipratropium 1 ampul 03/20/19 02:00 03/26/19 09:11 Duoneb *Not For Prn Use* IH Not Given Q6HRT ANDREW Arformoterol Tartrate 15 mcg 03/20/19 08:00 03/26/19 09:08 Brovana Nebu IH 15 mcg Q12HRT ANDREW Administration Aspirin 81 mg 03/20/19 10:00 03/26/19 09:42 Halfprin Ec PO 81 mg DAILY ANDREW Administration Atorvastatin Calcium 40 mg 03/20/19 10:00 03/26/19 09:42 Lipitor PO 40 mg DAILY ANDREW Administration Budesonide 0.5 mg 03/23/19 16:57 03/26/19 09:08 Pulmicort IH 0.5 mg Q12HRT ANDREW Administration Divalproex Sodium 500 mg 03/20/19 10:00 03/26/19 12:07 Depakote Er PO 500 mg BID ANDREW Administration Furosemide 40 mg 03/22/19 10:00 03/26/19 09:42 Lasix IV 40 mg QDAY ANDREW Administration Gabapentin 300 mg 03/20/19 10:00 03/26/19 09:42 Neurontin PO 300 mg BID ANDREW Administration Ipratropium [place] 0.5 mg 03/20/19 13:00 03/26/19 14:28 Atrovent IH 0.5 mg Q6HRT ANDREW Administration Metoprolol Tartrate 25 mg 03/23/19 20:00 03/26/19 09:42 Lopressor PO 25 mg TID ANDREW Administration Ondansetron HCl 4 mg 03/20/19 00:42 03/22/19 10:39 Zofran IV 4 mg Q4H PRN Administration Nausea And Vomiting Oxycodone HCl 5 mg 03/21/19 18:37 03/25/19 21:55 Roxicodone PO 5 mg QID PRN Administration Pain, Moderate (4-6) Oxycodone/Acetaminophen 1 tab 03/21/19 18:36 03/26/19 08:39 Percocet 5/325 PO 1 tab QID PRN Administration Pain, Moderate (4-6) Prednisone 20 mg 03/20/19 12:00 03/26/19 09:42 Deltasone PO 20 mg QDAY ANDREW Administration Primidone 250 mg 03/20/19 10:00 03/26/19 09:43 Mysoline PO 250 mg QID ANDREW Administration Sodium Chloride 10 ml 03/20/19 10:00 03/26/19 09:43 Sodium Chloride Flush Syringe 10 Ml IV 10 ml BID ANDREW Administration Sodium Chloride 10 ml 03/20/19 00:42 03/20/19 05:40 Sodium Chloride Flush Syringe 10 Ml IV 10 ml PRN PRN Administration LINE FLUSH Topiramate 50 mg 03/20/19 10:00 03/26/19 09:42 Topamax PO 50 mg BID ANDREW Administration Nutrition/Malnutrition Assess - Dietary Evaluation Nutrition/Malnutrition Findings: Nutrition Notes Start: 03/26/19 10:39 Freq: Status: Active Protocol: Document 03/26/19 10:39 TW (Rec: 03/26/19 10:53 TW [id number]) Co-Sign 03/26/19 10:39 LP Nutrition Notes Need for Assessment generated from: LOS Initial or Follow up Assessment Current Diagnosis COPD,Hypertension,Respiratory Failure Labs/Tests K: 3.5 Cr: 0.4 Pertinent Medications Lipitor Lasix Height 5 ft 11 in Weight 114.4 kg [place] Body Weight (kg) 78.18 BMI 35.2 Subjective/Other Information Screened for LOS. Pt confused at time of visit. Per pt family member, pt has been denying wanting to eat and has not eaten more than 10% of his food since last night. RN is unsure of POC as of now, but is planning to discuss with MD. Will continue to monitor. Family member stated pt would like to try an ONS. Burn Absent Trauma Absent #1 Nutrition Diagnosis Inadequate oral intake Etiology dementia As Evidenced by Signs and Symptoms pt eating 10% of his food Is patient on ventilator? No Is Patient Ambulatory and/or Out of Bed No REE-([facility]-confined to bed) 2358.024 Kcal/Kg value to use for calculation 18 Approximate Energy Requirements Using 2058 kcal/Kg Calculation Used for Recommendations Kcal/kg Additional Notes Pro needs: AdjBW (96 kg) ( 1-1 .2 kg/g) (96-115 g) Fluid needs: 1 ml/kcal Nutrition Intervention Change Diet Order: continue current Add Supplement/Snack (indicate name/kcal Ensure Enlive /protein ) Provides kCal: 350 Provides Protein (gm) 20 Goal #1 Meet at least 75% needs via PO and ONS intake Anticipated Discharge Needs: unable to determine at this time Follow-Up By: 03/30/19 Additional Comments F/U for PO intake, ONS tolerance and POC
--- NOTE | 2019-03-26 15:35 | Progress Note ---
Assessment and Plan Acute on chronic hypoxemic-hypercapnic respiratory failure Elevated BNP, decompensated heart failure Morbid obesity COPD Sleep apnea h/o PE, not on anticoagulation (US chest really with small windows for safe thoracentesis) - continue diuresis while monitoring renal indices, hemodynamics and electrolyte profile - needs swallow evaluation - benzol operator consult to optimize diet +/- Calorie count +/- tube feeds as per caregivers he is not eating - continue bronchodilators with pulmonary hygiene per RT - continue Oxygen restrictive strategies, keep O2 sats 88-90% acutely - BIPAP qhs - continue VTE prophylaxis - No antibiotics indicated at this time. This appears to be decompensated heart failure - cardiology consult to optimize cardiac function (suspect combined heart failure) - Avoid systemic steroids acutely as this can worsen his heart failure - Keep potassium and phosphorus upper limit of normal to optimize respiratory muscle function - Chronic home medications per primary. .. re-evaluate in am & prn Subjective Date of service: 03/26/19 Principal diagnosis: Ac on Ch hypoxemic-hypercapnic Resp failure; CHF exacerbation; COPD; FILIPE Interval history: Patient is seen today for: Acute on chronic hypoxemic-hypercapnic respiratory failure; Elevated BNP, decompensated heart failure; Morbid obesity; COPD; Sleep apnea; h/o PE, not on anticoagulation Seen and examined at bedside; 24-hour events reviewed; nursing and respiratory care staff consulted; no adverse overnight events reported to me; resting peacefully in bed; unable to get MRI done as could not lay flat; coughed up a grain of rice with phlegm earlier; denies acute chest pains or palpitations Objective Vital Signs - 12hr 03/26/19 03/26/19 03/26/19 04:04 07:21 08:39 Temperature 97.7 F Pulse Rate 49 L 75 Pulse Rate [ Posterior Bilateral Throughout] Respiratory 18 14 Rate Respiratory Rate [Posterior Bilateral Throughout] Blood Pressure 101/67 O2 Sat by Pulse 95 Oximetry 03/26/19 03/26/19 03/26/19 09:09 09:19 09:21 Temperature Pulse Rate Pulse Rate [ 77 78 Posterior Bilateral Throughout] Respiratory Rate Respiratory 20 18 Rate [Posterior Bilateral Throughout] Blood Pressure O2 Sat by Pulse 94 Oximetry 03/26/19 03/26/19 03/26/19 12:14 14:25 14:39 Temperature 98.7 F Pulse Rate 73 Pulse Rate [ 81 82 Posterior Bilateral Throughout] Respiratory 18 Rate Respiratory 16 16 Rate [Posterior Bilateral Throughout] Blood Pressure 107/65 O2 Sat by Pulse 88 Oximetry Constitutional: no acute distress, alert, other (obese man on 3L oxygen via NC, atraumatic, normocephalic) Eyes: non-icteric ENT: oropharynx moist, other (large neck circumference) Neck: supple, no lymphadenopathy, no JVD, other (no thyromegaly) Effort: mildly labored Ascultation: Bilateral: diminished breath sounds, rhonchi, other (prolonged exp phase) Percussion: Bilateral: dull (bases) Cardiovascular: regular rate and rhythm, other (S1,S2,no murmurs) Gastrointestinal: normoactive bowel sounds, soft, non-tender, other (protuberant) Extremities: no cyanosis, pink and warm, pulses normal, edema (bilateral lower extremity) Neurologic: normal mental status, non-focal exam, pupils equal and round, CN II- XII normal, motor strength normal and Psychiatric: mood appropriate, affect normal CBC and BMP: 03/27/19 05:49 03/27/19 05:49 ABG, PT/INR, D-dimer: ABG POC ABG pH 7.484 (7.35-7.45) H 03/20/19 16:02 POC ABG pCO2 60.5 (35-45) H 03/20/19 16:02 POC ABG pO2 79 (80-105) L 03/20/19 16:02 POC ABG HCO3 45.5 (22-26 mml/L) 03/20/19 16:02 POC ABG Total CO2 47 (23-27mmol/L) 03/20/19 16:02 POC ABG O2 Sat 96 03/20/19 16:02 PT/INR, D-dimer PT 15.1 Sec. (12.2-14.9) H 03/23/19 14:43 INR 1.12 (0.87-1.13) 03/23/19 14:43 Abnormal lab findings: Abnormal Labs 03/19/19 03/19/19 03/19/19 17:39 17:52 17:52 RDW 15.7 H Lymph % (Auto) Collin % (Auto) 10.6 H Lymph # Seg Neutrophils % 70.6 H PT Heparin Anti-Xa Level POC ABG pH POC ABG pCO2 60.9 H POC ABG pO2 53 L Potassium Chloride 84.1 L Carbon Dioxide 36 H Creatinine 0.6 L Glucose Calcium Total Creatine Kinase CK-MB (CK-2) CK-MB (CK-2) Rel Index Troponin T 0.079 H NT-Pro-B Natriuret Pep 8170 H Total Protein 6.0 L Albumin 3.1 L 03/20/19 03/20/19 03/20/19 01:01 06:46 06:46 RDW 15.8 H Lymph % (Auto) 9.0 L Collin % (Auto) Lymph # 0.7 L Seg Neutrophils % 86.5 H PT Heparin Anti-Xa Level POC ABG pH POC ABG pCO2 POC ABG pO2 Potassium Chloride Carbon Dioxide 33 H Creatinine 0.6 L Glucose 133 H Calcium Total Creatine Kinase 42 L CK-MB (CK-2) 4.2 H CK-MB (CK-2) Rel Index 10.0 H Troponin T 0.088 H NT-Pro-B Natriuret Pep Total Protein Albumin 03/20/19 03/20/19 03/22/19 06:46 16:02 07:07 RDW 15.7 H Lymph % (Auto) Collin % (Auto) Lymph # Seg Neutrophils % PT Heparin Anti-Xa Level POC ABG pH 7.484 H POC ABG pCO2 60.5 H POC ABG pO2 79 L Potassium Chloride Carbon Dioxide Creatinine Glucose Calcium Total Creatine Kinase 53 L CK-MB (CK-2) 4.4 H CK-MB (CK-2) Rel Index 8.3 H Troponin T 0.073 H NT-Pro-B Natriuret Pep Total Protein Albumin 03/22/19 03/23/19 03/23/19 07:07 06:23 06:23 RDW 15.3 H Lymph % (Auto) Collin % (Auto) Lymph # Seg Neutrophils % PT Heparin Anti-Xa Level POC ABG pH POC ABG pCO2 POC ABG pO2 Potassium 3.5 L Chloride 92.0 L 86.5 L Carbon Dioxide 36 H 39 H Creatinine 0.7 L 0.5 L Glucose 119 H 103 H Calcium Total Creatine Kinase CK-MB (CK-2) CK-MB (CK-2) Rel Index Troponin T NT-Pro-B Natriuret Pep Total Protein Albumin 03/23/19 03/24/19 03/24/19 14:43 00:53 06:55 RDW Lymph % (Auto) Collin % (Auto) Lymph # Seg Neutrophils % PT 15.1 H Heparin Anti-Xa Level 1.28 H POC ABG pH POC ABG pCO2 POC ABG pO2 Potassium 3.3 L Chloride 90.0 L Carbon Dioxide 38 H Creatinine 0.4 L Glucose Calcium 8.3 L Total Creatine Kinase CK-MB (CK-2) CK-MB (CK-2) Rel Index Troponin T NT-Pro-B Natriuret Pep Total Protein Albumin 03/24/19 03/25/19 03/25/19 10:13 05:22 05:22 RDW Lymph % (Auto) Collin % (Auto) 8.9 H Lymph # Seg Neutrophils % 71.8 H PT Heparin Anti-Xa Level 1.01 H POC ABG pH POC ABG pCO2 POC ABG pO2 Potassium 3.5 L Chloride 89.1 L Carbon Dioxide 39 H Creatinine 0.4 L Glucose Calcium Total Creatine Kinase CK-MB (CK-2) CK-MB (CK-2) Rel Index Troponin T NT-Pro-B Natriuret Pep Total Protein Albumin Allied health notes reviewed: nursing
--- NOTE | 2019-03-26 17:15 | Progress Note ---
Subjective Date of service: 03/26/19 Principal diagnosis: Ac on Ch hypoxemic-hypercapnic Resp failure; CHF exacerbation; COPD; FILIPE Interval history: I would like to get CT of head but it appears he refuses study as he will not lay on back !!! the EEG shows encephalopathic pattern but no seizures suspect multiple factors at play will f/u Objective - Vital Sign Vital Signs - 12hr 03/26/19 03/26/19 03/26/19 07:21 08:39 09:09 Temperature 97.7 F Pulse Rate 75 Pulse Rate [ 77 Posterior Bilateral Throughout] Respiratory 18 14 Rate Respiratory 20 Rate [Posterior Bilateral Throughout] Blood Pressure 101/67 O2 Sat by Pulse 95 Oximetry 03/26/19 03/26/19 03/26/19 09:19 09:21 12:14 Temperature 98.7 F Pulse Rate 73 Pulse Rate [ 78 Posterior Bilateral Throughout] Respiratory 18 Rate Respiratory 18 Rate [Posterior Bilateral Throughout] Blood Pressure 107/65 O2 Sat by Pulse 94 88 Oximetry 03/26/19 03/26/19 14:25 14:39 Temperature Pulse Rate Pulse Rate [ 81 82 Posterior Bilateral Throughout] Respiratory Rate Respiratory 16 16 Rate [Posterior Bilateral Throughout] Blood Pressure O2 Sat by Pulse Oximetry - Laboratory Findings CBC and BMP: 03/25/19 05:22 03/25/19 05:22 Abnormal Lab Findings: Abnormal Labs 03/19/19 03/19/19 03/19/19 17:39 17:52 17:52 RDW 15.7 H Lymph % (Auto) Evang[place] % (Auto) 10.6 H Lymph # Seg Neutrophils % 70.6 H PT Heparin Anti-Xa Level POC ABG pH POC ABG pCO2 60.9 H POC ABG pO2 53 L Potassium Chloride 84.1 L Carbon Dioxide 36 H Creatinine 0.6 L Glucose Calcium Total Creatine Kinase CK-MB (CK-2) CK-MB (CK-2) Rel Index Troponin T 0.079 H NT-Pro-B Natriuret Pep 8170 H Total Protein 6.0 L Albumin 3.1 L 03/20/19 03/20/19 03/20/19 01:01 06:46 06:46 RDW 15.8 H Lymph % (Auto) 9.0 L [place] % (Auto) Lymph # 0.7 L Seg Neutrophils % 86.5 H PT Heparin Anti-Xa Level POC ABG pH POC ABG pCO2 POC ABG pO2 Potassium Chloride Carbon Dioxide 33 H Creatinine 0.6 L Glucose 133 H Calcium Total Creatine Kinase 42 L CK-MB (CK-2) 4.2 H CK-MB (CK-2) Rel Index 10.0 H Troponin T 0.088 H NT-Pro-B Natriuret Pep Total Protein Albumin 03/20/19 03/20/19 03/22/19 06:46 16:02 07:07 RDW 15.7 H Lymph % (Auto) [place] % (Auto) Lymph # Seg Neutrophils % PT Heparin Anti-Xa Level POC ABG pH 7.484 H POC ABG pCO2 60.5 H POC ABG pO2 79 L Potassium Chloride Carbon Dioxide Creatinine Glucose Calcium Total Creatine Kinase 53 L CK-MB (CK-2) 4.4 H CK-MB (CK-2) Rel Index 8.3 H Troponin T 0.073 H NT-Pro-B Natriuret Pep Total Protein Albumin 03/22/19 03/23/19 03/23/19 07:07 06:23 06:23 RDW 15.3 H Lymph % (Auto) Evangeline % (Auto) Lymph # Seg Neutrophils % PT Heparin Anti-Xa Level POC ABG pH POC ABG pCO2 POC ABG pO2 Potassium 3.5 L Chloride 92.0 L 86.5 L Carbon Dioxide 36 H 39 H Creatinine 0.7 L 0.5 L Glucose 119 H 103 H Calcium Total Creatine Kinase CK-MB (CK-2) CK-MB (CK-2) Rel Index Troponin T NT-Pro-B Natriuret Pep Total Protein Albumin 03/23/19 03/24/19 03/24/19 14:43 00:53 06:55 RDW Lymph % (Auto) Evangeline % (Auto) Lymph # Seg Neutrophils % PT 15.1 H Heparin Anti-Xa Level 1.28 H POC ABG pH POC ABG pCO2 POC ABG pO2 Potassium 3.3 L Chloride 90.0 L Carbon Dioxide 38 H Creatinine 0.4 L Glucose Calcium 8.3 L Total Creatine Kinase CK-MB (CK-2) CK-MB (CK-2) Rel Index Troponin T NT-Pro-B Natriuret Pep Total Protein Albumin 03/24/19 03/25/19 03/25/19 10:13 05:22 05:22 RDW Lymph % (Auto) [place] % (Auto) 8.9 H Lymph # Seg Neutrophils % 71.8 H PT Heparin Anti-Xa Level 1.01 H POC ABG pH POC ABG pCO2 POC ABG pO2 Potassium 3.5 L Chloride 89.1 L Carbon Dioxide 39 H Creatinine 0.4 L Glucose Calcium Total Creatine Kinase CK-MB (CK-2) CK-MB (CK-2) Rel Index Troponin T NT-Pro-B Natriuret Pep Total Protein Albumin
[2019-03-27] MEDS: ATROVENT IH SCH ×4 (03:38→21:39)
[2019-03-27] MEDS: DUONEB *Not for PRN Use IH SCH ×4 (03:38→21:40)
[2019-03-27 06:23] LABS: Hematocrit 41.1 % (35.5-45.6); Hemoglobin 13.9 gm/dl (11.8-15.2); Mean Corpuscular HGB Conc 34 % (32-34); Mean Corpuscular Volume 90 fl (84-94); Platelet Count 215 K/mm3 (140-440); Red Blood Count 4.58 M/mm3 (3.65-5.03); Red Cell Distribution Width 15.1 % (13.2-15.2)
[2019-03-27 06:56] LABS: BUN/Creatinine Ratio 28; Blood Urea Nitrogen 11 mg/dL (9-20); Calcium 8.4 mg/dL (8.4-10.2); Hemolysis Index 1
[2019-03-27] MEDS: BROVANA NEBU IH SCH ×2 (07:55→21:40)
[2019-03-27] MEDS: PULMICORT IH SCH ×2 (07:55→21:39)
--- NOTE | 2019-03-27 09:47 | Progress Note ---
Assessment and Plan Acute on chronic hypoxemic-hypercapnic respiratory failure Elevated BNP, decompensated heart failure Morbid obesity COPD Sleep apnea h/o PE, not on anticoagulation (US chest really with small windows for safe thoracentesis) - continue diuresis while monitoring renal indices, hemodynamics and electrolyte profile - needs swallow evaluation - budget examiner consult to optimize diet +/- Calorie count +/- tube feeds as per caregivers he is not eating - continue bronchodilators with pulmonary hygiene per RT - continue Oxygen restrictive strategies, keep O2 sats 88-90% acutely - BIPAP qhs - continue VTE prophylaxis - No antibiotics indicated at this time. This appears to be decompensated heart failure - cardiology consult to optimize cardiac function (suspect combined heart failure) - Avoid systemic steroids acutely as this can worsen his heart failure - Keep potassium and phosphorus upper limit of normal to optimize respiratory muscle function - Chronic home medications per primary. .. re-evaluate in am & prn ... care plan discussed with patient and caregivers in room Subjective Date of service: 03/27/19 Principal diagnosis: Ac on Ch hypoxemic-hypercapnic Resp failure; CHF exacerbation; COPD; FILIPE Interval history: Patient is seen today for: Acute on chronic hypoxemic-hypercapnic respiratory failure; Elevated BNP, decompensated heart failure; Morbid obesity; COPD; Sleep apnea; h/o PE, not on anticoagulation Seen and examined at bedside; 24-hour events reviewed; nursing and respiratory care staff consulted; no adverse overnight events reported to me; resting peacefully in bed; breathing overall feels better but still very weak; s/p ST evaluation and cleared for pureed diet; poor appetite Objective Vital Signs - 12hr 03/26/19 03/27/19 03/27/19 23:06 03:38 08:07 Temperature 97.4 F L 97.3 F L 97.9 F Pulse Rate 75 76 81 Respiratory 20 18 18 Rate Blood Pressure 96/65 116/73 104/69 O2 Sat by Pulse 91 95 91 Oximetry Constitutional: no acute distress, alert, other (obese man on 3L oxygen via NC, atraumatic, normocephalic) Eyes: non-icteric ENT: oropharynx moist, other (large neck circumference) Neck: supple, no lymphadenopathy, no JVD, other (no thyromegaly) Effort: mildly labored Ascultation: Bilateral: diminished breath sounds, rhonchi, other (prolonged exp phase) Percussion: Bilateral: dull (bases) Cardiovascular: regular rate and rhythm, other (S1,S2,no murmurs) Gastrointestinal: normoactive bowel sounds, soft, non-tender, other (protuberant) Extremities: no cyanosis, pink and warm, pulses normal, edema (bilateral lower extremity (improving)) Neurologic: normal mental status, non-focal exam, pupils equal and round, CN II- XII normal, motor strength normal and Psychiatric: mood appropriate, affect normal CBC and BMP: 03/27/19 05:49 03/27/19 05:49 ABG, PT/INR, D-dimer: ABG POC ABG pH 7.484 (7.35-7.45) H 03/20/19 16:02 POC ABG pCO2 60.5 (35-45) H 03/20/19 16:02 POC ABG pO2 79 (80-105) L 03/20/19 16:02 POC ABG HCO3 45.5 (22-26 mml/L) 03/20/19 16:02 POC ABG Total CO2 47 (23-27mmol/L) 03/20/19 16:02 POC ABG O2 Sat 96 03/20/19 16:02 PT/INR, D-dimer PT 15.1 Sec. (12.2-14.9) H 03/23/19 14:43 INR 1.12 (0.87-1.13) 03/23/19 14:43 Abnormal lab findings: Abnormal Labs 03/19/19 03/19/19 03/19/19 17:39 17:52 17:52 RDW 15.7 H Lymph % (Auto) [place] % (Auto) 10.6 H Lymph # Seg Neutrophils % 70.6 H PT Heparin Anti-Xa Level POC ABG pH POC ABG pCO2 60.9 H POC ABG pO2 53 L Sodium Potassium Chloride 84.1 L Carbon Dioxide 36 H Creatinine 0.6 L Glucose Calcium Total Creatine Kinase CK-MB (CK-2) CK-MB (CK-2) Rel Index Troponin T 0.079 H NT-Pro-B Natriuret Pep 8170 H Total Protein 6.0 L Albumin 3.1 L 03/20/19 03/20/19 03/20/19 01:01 06:46 06:46 RDW 15.8 H Lymph % (Auto) 9.0 L [place] % (Auto) Lymph # 0.7 L Seg Neutrophils % 86.5 H PT Heparin Anti-Xa Level POC ABG pH POC ABG pCO2 POC ABG pO2 Sodium Potassium Chloride Carbon Dioxide 33 H Creatinine 0.6 L Glucose 133 H Calcium Total Creatine Kinase 42 L CK-MB (CK-2) 4.2 H CK-MB (CK-2) Rel Index 10.0 H Troponin T 0.088 H NT-Pro-B Natriuret Pep Total Protein Albumin 03/20/19 03/20/19 03/22/19 06:46 16:02 07:07 RDW 15.7 H Lymph % (Auto) [place] % (Auto) Lymph # Seg Neutrophils % PT Heparin Anti-Xa Level POC ABG pH 7.484 H POC ABG pCO2 60.5 H POC ABG pO2 79 L Sodium Potassium Chloride Carbon Dioxide Creatinine Glucose Calcium Total Creatine Kinase 53 L CK-MB (CK-2) 4.4 H CK-MB (CK-2) Rel Index 8.3 H Troponin T 0.073 H NT-Pro-B Natriuret Pep Total Protein Albumin 03/22/19 03/23/19 03/23/19 07:07 06:23 06:23 RDW 15.3 H Lymph % (Auto) [place] % (Auto) Lymph # Seg Neutrophils % PT Heparin Anti-Xa Level POC ABG pH POC ABG pCO2 POC ABG pO2 Sodium Potassium 3.5 L Chloride 92.0 L 86.5 L Carbon Dioxide 36 H 39 H Creatinine 0.7 L 0.5 L Glucose 119 H 103 H Calcium Total Creatine Kinase CK-MB (CK-2) CK-MB (CK-2) Rel Index Troponin T NT-Pro-B Natriuret Pep Total Protein Albumin 03/23/19 03/24/19 03/24/19 14:43 00:53 06:55 RDW Lymph % (Auto) [place] % (Auto) Lymph # Seg Neutrophils % PT 15.1 H Heparin Anti-Xa Level 1.28 H POC ABG pH POC ABG pCO2 POC ABG pO2 Sodium Potassium 3.3 L Chloride 90.0 L Carbon Dioxide 38 H Creatinine 0.4 L Glucose Calcium 8.3 L Total Creatine Kinase CK-MB (CK-2) CK-MB (CK-2) Rel Index Troponin T NT-Pro-B Natriuret Pep Total Protein Albumin 03/24/19 03/25/19 03/25/19 10:13 05:22 05:22 RDW Lymph % (Auto) [place] % (Auto) 8.9 H Lymph # Seg Neutrophils % 71.8 H PT Heparin Anti-Xa Level 1.01 H POC ABG pH POC ABG pCO2 POC ABG pO2 Sodium Potassium 3.5 L Chloride 89.1 L Carbon Dioxide 39 H Creatinine 0.4 L Glucose Calcium Total Creatine Kinase CK-MB (CK-2) CK-MB (CK-2) Rel Index Troponin T NT-Pro-B Natriuret Pep Total Protein Albumin 03/27/19 05:49 RDW Lymph % (Auto) [place] % (Auto) Lymph # Seg Neutrophils % PT Heparin Anti-Xa Level POC ABG pH POC ABG pCO2 POC ABG pO2 Sodium 135 L Potassium 3.5 L Chloride 89.3 L Carbon Dioxide 35 H Creatinine 0.4 L Glucose Calcium Total Creatine Kinase CK-MB (CK-2) CK-MB (CK-2) Rel Index Troponin T NT-Pro-B Natriuret Pep Total Protein Albumin Allied health notes reviewed: nursing
[2019-03-27] MEDS: NEURONTIN PO SCH ×2 (10:04→21:16)
[2019-03-27] MEDS: LASIX IV SCH (10:04)
[2019-03-27] MEDS: SODIUM CHLORIDE FLUSH SYRINGE 10 ML IV SCH ×2 (10:05→21:17)
[2019-03-27] MEDS: TOPAMAX PO SCH ×2 (10:05→21:16)
[2019-03-27] MEDS: MYSOLINE PO SCH ×4 (10:05→21:16)
[2019-03-27] MEDS: LOPRESSOR PO SCH ×3 (10:05→20:03)
[2019-03-27] MEDS: DELTASONE PO SCH (10:05)
[2019-03-27] MEDS: HALFPRIN EC PO SCH (10:05)
[2019-03-27] MEDS: PERCOCET 5/325 PO PRN ×2 (10:46→18:37)
[2019-03-27] MEDS ORDERED: SODIUM BICARBONATE FEEDTUBE PRN (11:45)
[2019-03-27] MEDS ORDERED: SIMPLE SYRUP FEEDTUBE PRN ×2 (11:45)
[2019-03-27] MEDS ORDERED: PANCREAZE DR 10,500 UNIT FEEDTUBE PRN (11:45)
--- NOTE | 2019-03-27 12:42 | Gastroenterology Consultation ---
<SELINA NUGENT MEHUL - Last Filed: 03/27/19 13:00> History of Present Illness - Reason for Consult Consult date: 03/27/19 N/V, poor po intake Requesting physician: REA RICHEY - History of Present Illness MR Coker is a 63 y/o male admitted on 03/20/19 with reports of increasing SOB and lower ext edema. He was sent to the ER by his custodial aide. Information is provided by the son and at beside. The patient can give limited hx due to being drowsy. He has a long hx of COPD, on O2 at home, diastolic CHF and seizures as well as new onset A fib with RVR. Per the son, his father was doing well with eating prior to admission. He states his father is seen at a pain clinic and has been on narcotics for 3-4 years. He started having nausea after admission, no vomiting. The son feels this was related to his father missing doses of his narcotics and possible withdrawal as he has had no further episodes since starting back on his medications. He is seen by a pain clinic for an inoperable ventral hernia ( has had multiple repairs in the past). No vomiting. The patient appears drowsy but is able to answer questions with extended time. Last colonoscopy and EGD 10+ years ago per family. He denies nausea, but is not taking in any PO nutrition. He is able to take his medications. He states " I just dont want to eat, Im not hungry." The patient was seen and cleared by CORE LAYING MACHINE OPERATOR for pureed diet. Lyly placed this AM. Neurology following. PMH notable for HTN, COPD, O2 Dependant, Seizures, PE, ventral hernia with multiple abdominal surgeries. Past History Past Medical History: COPD, hypertension, seizures, other (PE, chronic respiratory failure, essential tremor) Past Surgical History: appendectomy, hernia repair, Other (multiple abdominal surgical procedures) Social history: Family history: no significant family history Medications and Allergies Allergies Allergy/AdvReac Type Severity Reaction Status Date / Time No Known Allergies Allergy Verified 11/05/17 05:58 Home Medications Medication Instructions Recorded Confirmed Last Taken Type Divalproex [[place]mar Mon] 1,000 mg PO DAILY 11/08/14 03/20/19 11/04/17 History Gabapentin 300 mg PO BID 11/08/14 03/19/1917 History amLODIPine [Norvasc] 5 mg PO DAILY 11/08/14 03/19/19 11/04/17 History AtorvaSTATin [Lipitor] 40 mg PO DAILY 04/26/17 03/19/19 11/04/17 History Budesonide/Formoterol Fumarate 2 puff IH BID 02/20/18 03/24/19 Unknown History [Symbicort 160-4.5 Mcg Inhaler] Primidone [Mysoline] 250 mg PO QID 02/20/18 03/19/19 Unknown History Ergocalciferol (Vitamin D2) 50,000 unit PO QWEEK 09/22/18 03/19/19 Unknown History [Drisdol] Oxycodone HCl/Acetaminophen 10 mg PO QID PRN 09/22/18 03/19/19 Unknown History [Percocet 10/325 mg] Tiotropium [place] [Spiriva 2 puff IH QDAY 09/22/18 03/20/19 Unknown History Respimat] Topiramate [Topamax] 50 mg PO BID 09/22/18 03/20/19 Unknown History Aspirin EC [Aspirin Enteric Coated 81 mg PO DAILY tablet 02/16/19 03/24/19 Unknown Rx TAB] ALBUTEROL NEB's [Proventil 0.083% 2.5 mg INHALATION DAILY 03/19/19 03/19/19 Unknown History NEBS] ALBUTEROL NEB's [Proventil] 2.5 mg IH TID PRN 03/19/19 03/19/19 Unknown History Bystolic 10 mg PO DAILY 03/19/19 03/19/19 Unknown History Divalproex ER [Depakote ER] 500 mg PO BID 03/19/19 03/19/19 Unknown History Symbicort 160-4.5 Mcg Inhaler 4.5 mcg INHALATION BID 03/19/19 03/19/19 Unknown History Tiotropium [place] [Spiriva] 18 mcg IH BID 03/19/19 03/19/19 Unknown History Ventolin Hfa 90 mcg INHALATION QID 03/19/19 03/19/19 Unknown History Active Meds: Active Medications Acetaminophen (Tylenol) 650 mg PO Q4H PRN PRN Reason: Pain MILD(1-3)/Fever >100.5/GALAN Albuterol (Proventil) 2.5 mg IH Q4HRT PRN PRN Reason: Shortness Of Breath Last Admin: 03/20/19 12:44 Dose: 2.5 mg Documented by: Albuterol/Ipratropium (Duoneb *Not For Prn Use*) 1 ampul IH Q6HRT [facility] Last Admin: 03/27/19 09:50 Dose: Not Given Documented by: Lipase/Protease/Amylase (Vanesa Mon 10,500 Unit) 1 each FEEDTUBE PRN PRN PRN Reason: For Clogged Feeding Tube Arformoterol Tartrate (Brovana Nebu) 15 mcg IH Q12HRT [facility] Last Admin: 03/27/19 07:55 Dose: 15 mcg Documented by: Aspirin (Halfprin Ec) 81 mg PO DAILY [facility] Last Admin: 03/27/19 10:05 Dose: 81 mg Documented by: Atorvastatin Calcium (Lipitor) 40 mg PO DAILY [facility] Last Admin: 03/27/19 10:05 Dose: 40 mg Documented by: Budesonide (Pulmicort) 0.5 mg IH Q12HRT [facility] Last Admin: 03/27/19 07:55 Dose: 0.5 mg Documented by: Divalproex Sodium (Depakote Er) 500 mg PO BID [facility] Last Admin: 03/27/19 10:04 Dose: 500 mg Documented by: Furosemide (Lasix) 40 mg IV QDAY [facility] Last Admin: 03/27/19 10:04 Dose: 40 mg Documented by: Gabapentin (Neurontin) 300 mg PO BID [facility] Last Admin: 03/27/19 10:04 Dose: 300 mg Documented by: Ipratropium [place] (Atrovent) 0.5 mg IH Q6HRT [facility] Last Admin: 03/27/19 07:55 Dose: 0.5 mg Documented by: Metoprolol Tartrate (Lopressor) 25 mg PO TID [facility] Last Admin: 03/27/19 10:05 Dose: 25 mg Documented by: Ondansetron HCl (Zofran) 4 mg IV Q4H PRN PRN Reason: Nausea And Vomiting Last Admin: 03/22/19 10:39 Dose: 4 mg Documented by: Oxycodone HCl (Roxicodone) 5 mg PO QID PRN PRN Reason: Pain, Moderate (4-6) Last Admin: 03/25/19 21:55 Dose: 5 mg Documented by: Oxycodone/Acetaminophen (Percocet 5/325) 1 tab PO QID PRN PRN Reason: Pain, Moderate (4-6) Last Admin: 03/27/19 10:46 Dose: 1 tab Documented by: Prednisone (Deltasone) 20 mg PO QDAY [facility] Last Admin: 03/27/19 10:05 Dose: 20 mg Documented by: Primidone (Mysoline) 250 mg PO QID [facility] Last Admin: 03/27/19 10:05 Dose: 250 mg Documented by: Simple Syrup (Simple Syrup) 15 ml FEEDTUBE PRN PRN PRN Reason: Hypoglycemia Simple Syrup (Simple Syrup) 30 ml FEEDTUBE PRN PRN PRN Reason: Hypoglycemia Sodium Bicarbonate (Sodium Bicarbonate) 325 mg FEEDTUBE PRN PRN PRN Reason: For Clogged Feeding Tube Sodium Chloride (Sodium Chloride Flush Syringe 10 Ml) 10 ml IV BID [facility] Last Admin: 03/27/19 10:05 Dose: 10 ml Documented by: Sodium Chloride (Sodium Chloride Flush Syringe 10 Ml) 10 ml IV PRN PRN PRN Reason: LINE FLUSH Last Admin: 03/20/19 05:40 Dose: 10 ml Documented by: Topiramate (Topamax) 50 mg PO BID [facility] Last Admin: 03/27/19 10:05 Dose: 50 mg Documented by: Review of Systems - Review of Systems ROS unobtainable: due to mental status All systems: negative Exam - Constitutional Vital Signs: Temp Pulse Resp BP Pulse Ox 97.9 F 81 15 104/69 91 03/27/19 08:07 03/27/19 08:07 03/27/19 10:39 03/27/19 08:07 03/27/19 08:07 General appearance: no acute distress, other (drowsy) - EENT ENT: hearing intact - Neck Neck: supple - Respiratory Respiratory: bilateral: diminished - Cardiovascular Rhythm: regular Heart Sounds: Present: S1 & S2 Extremities: abnormal (ext appear dusky) - Gastrointestinal General gastrointestinal: Present: soft, distended, normal bowel sounds - Integumentary Integumentary: Present: warm, dry - Neurologic Neurological: other (drowsy but easily aroused. ) - Psychiatric Psychiatric: cooperative - Labs CBC & Chem 7: 03/27/19 05:49 03/27/19 05:49 Lab Results: Laboratory Results - last 24 hr 03/27/19 03/27/19 05:49 05:49 WBC 8.4 RBC 4.58 Hgb 13.9 Hct 41.1 MCV 90 MCH 31 MCHC 34 RDW 15.1 Plt Count 215 Sodium 135 L Potassium 3.5 L Chloride 89.3 L Carbon Dioxide 35 H Anion Gap 14 BUN 11 Creatinine 0.4 L Estimated GFR > 60 BUN/Creatinine Ratio 28 Glucose 88 Calcium 8.4 Magnesium 1.70 Assessment and Plan 1. Poor PO intake - This appears to be a new issue since admission as per family report. I am unclear if this is related to AMS vs nausea, although the patient currently denies nausea and family states his symptoms improved since restarting his medications?. Dobbhoff has been placed and I agree that he needs the nutrition. It could be his mental status is playing a part in his decreased appetite. He has no pain other than his baseline "hernia" pain. -WBC WNL, check CMP -GB US -Could consider an appetite stimulant if needed -Would not plan for EGD unless urgent as pt is not a good candidate for sedation. -Start tube feedings for now and will monitor mental status. - Further recommendations to follow. <CATY LEO R - Last Filed: 03/27/19 16:47> Medications and Allergies Active Meds: Active Medications Acetaminophen (Tylenol) 650 mg PO Q4H PRN PRN Reason: Pain MILD(1-3)/Fever >100.5/GALAN Albuterol (Proventil) 2.5 mg IH Q4HRT PRN PRN Reason: Shortness Of Breath Last Admin: 03/20/19 12:44 Dose: 2.5 mg Documented by: Albuterol/Ipratropium (Duoneb *Not For Prn Use*) 1 ampul IH Q6HRT [facility] Last Admin: 03/27/19 14:37 Dose: 1 ampul Documented by: Lipase/Protease/Amylase (Vanesa Mon 10,500 Unit) 1 each FEEDTUBE PRN PRN PRN Reason: For Clogged Feeding Tube Arformoterol Tartrate (Brovana Nebu) 15 mcg IH Q12HRT [facility] Last Admin: 03/27/19 07:55 Dose: 15 mcg Documented by: Aspirin (Halfprin Ec) 81 mg PO DAILY [facility] Last Admin: 03/27/19 10:05 Dose: 81 mg Documented by: Atorvastatin Calcium (Lipitor) 40 mg PO DAILY [facility] Last Admin: 03/27/19 10:05 Dose: 40 mg Documented by: Budesonide (Pulmicort) 0.5 mg IH Q12HRT [facility] Last Admin: 03/27/19 07:55 Dose: 0.5 mg Documented by: Divalproex Sodium (Depakote Er) 500 mg PO BID [facility] Last Admin: 03/27/19 10:04 Dose: 500 mg Documented by: Furosemide (Lasix) 40 mg IV QDAY [facility] Last Admin: 03/27/19 10:04 Dose: 40 mg Documented by: Gabapentin (Neurontin) 300 mg PO BID [facility] Last Admin: 03/27/19 10:04 Dose: 300 mg Documented by: Ipratropium [place] (Atrovent) 0.5 mg IH Q6HRT [facility] Last Admin: 03/27/19 14:41 Dose: Not Given Documented by: Metoprolol Tartrate (Lopressor) 25 mg PO TID [facility] Last Admin: 03/27/19 15:00 Dose: 25 mg Documented by: Ondansetron HCl (Zofran) 4 mg IV Q4H PRN PRN Reason: Nausea And Vomiting Last Admin: 03/22/19 10:39 Dose: 4 mg Documented by: Oxycodone HCl (Roxicodone) 5 mg PO QID PRN PRN Reason: Pain, Moderate (4-6) Last Admin: 03/25/19 21:55 Dose: 5 mg Documented by: Oxycodone/Acetaminophen (Percocet 5/325) 1 tab PO QID PRN PRN Reason: Pain, Moderate (4-6) Last Admin: 03/27/19 10:46 Dose: 1 tab Documented by: Prednisone (Deltasone) 20 mg PO QDAY [facility] Last Admin: 03/27/19 10:05 Dose: 20 mg Documented by: Primidone (Mysoline) 250 mg PO QID [facility] Last Admin: 03/27/19 15:01 Dose: 250 mg Documented by: Simple Syrup (Simple Syrup) 15 ml FEEDTUBE PRN PRN PRN Reason: Hypoglycemia Simple Syrup (Simple Syrup) 30 ml FEEDTUBE PRN PRN PRN Reason: Hypoglycemia Sodium Bicarbonate (Sodium Bicarbonate) 325 mg FEEDTUBE PRN PRN PRN Reason: For Clogged Feeding Tube Sodium Chloride (Sodium Chloride Flush Syringe 10 Ml) 10 ml IV BID [facility] Last Admin: 03/27/19 10:05 Dose: 10 ml Documented by: Sodium Chloride (Sodium Chloride Flush Syringe 10 Ml) 10 ml IV PRN PRN PRN Reason: LINE FLUSH Last Admin: 03/20/19 05:40 Dose: 10 ml Documented by: Topiramate (Topamax) 50 mg PO BID [facility] Last Admin: 03/27/19 10:05 Dose: 50 mg Documented by: Exam - Constitutional Vital Signs: Temp Pulse Resp BP Pulse Ox 97.9 F 85 18 105/72 90 03/27/19 08:07 03/27/19 14:47 03/27/19 14:47 03/27/19 13:01 03/27/19 15:09 - Labs CBC & Chem 7: 03/27/19 05:49 03/27/19 05:49 Lab Results: Laboratory Results - last 24 hr 03/27/19 03/27/19 05:49 05:49 WBC 8.4 RBC 4.58 Hgb 13.9 Hct 41.1 MCV 90 MCH 31 MCHC 34 RDW 15.1 Plt Count 215 Sodium 135 L Potassium 3.5 L Chloride 89.3 L Carbon Dioxide 35 H Anion Gap 14 BUN 11 Creatinine 0.4 L Estimated GFR > 60 BUN/Creatinine Ratio 28 Glucose 88 Calcium 8.4 Magnesium 1.70 Assessment and Plan Pt with COPD, and 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 His main problem now is lack of appetite. No N/V. Abd pain is chronic. Poor candidate for PEG given multiple abdominal surgeries. - discussed appetite stimulants, and will try cyproheptadine. Discussed Marinol, but states he was told it was forbidden per his Pain Mgmt contract. - initiate meds, and adv diet as tolerated.
--- NOTE | 2019-03-27 13:27 | XRay Report ---
KUB: 03/27/19 12:17 CLINICAL: Feeding tube placement. FINDINGS: A Dobbhoff tube tip is apparently in the stomach and to the right of the spine. Nonspecific distention of both large and small bowel. IMPRESSION: Satisfactory position of the feeding tube.
--- NOTE | 2019-03-27 13:35 | Progress Note ---
Assessment and Plan Assessment and plan: Patient is a 63 yo man with a history of hypertension, chronic respiratory failure on home 3-4 liters O2 due to End-stage COPD, Seizure disorder, PE and essential tremor who presented to [facility] with sob, leg swelling. * CTA chest FINDINGS: Heart and pericardium: Small amount of pericardial fluid is present, measuring up to 5 mm in thickness. Thoracic aorta: Mild atherosclerotic calcification. Pulmonary vasculature: Normal. No pulmonary emboli. Lymph nodes: Numerous mediastinal nodes are present, measuring up to 1 cm in short axis. Lungs: Mild diffuse septal thickening suggests interstitial edema. There is mild bibasilar compressive atelectasis. Pleural space: Bilateral mild to moderate sized layering pleural effusions are present. No pneumothorax is identified bilaterally Musculoskeletal structures: No significant abnormality. Upper abdominal structures: There is an anterior abdominal wall hernia, which is not fully imaged. IMPRESSION: No evidence of pulmonary emboli. Bilateral pleural effusions. Mild mediastinal adenopathy. -Acute on chronic hypoxic respiratory failure: consulted Flue Blower, careful with o2 as gordy Calvin at bedside say he develops co2 retention with too much Oxygen -Acute COPD exacerbation: treat with nebs, steroids, abx -Acute on chronic diastolic HF exacerbation: EF 50-55% on 01/2019 ECHO, treat with diuretics but reduce dose as patient developing contraction alkalosis. Consulted Cardiology -Hypertension: low salt diet, antihypertensives -Seizure: continue home medications -New onset transient Afib with RVR: Cardiology is following and started Amiodarone on 03/22/19 -New onset of NSVT: Cardiololgy is following, replete potassium -Hypokalemia: replace via IV, not eating, repeat bmp -History of PE -h/o Essential tremor -DVT ppx on sq lovenox 03/22/19: Around 1am this morning, pt had 3 beat run of NSVT, then around 3:29am he went into Afib with RVR followed immediately by another run of NSVT. SonLondon insist on giving his father around the clock Narcotics because he feels that father is going into "DTs" by the lack of narcotics because of the nausea/lack of appetite/not eating. Patient is gagging when he attempts to eat. I wanted to exam patient's abdomen by removing the binder but I was met with unbelievable resistance. On exam, the ventral hernia is tender and distended. The son insist on re-applying the binder and doesn't think the ventral hernia is causing any problems although his father is consistently in pain for it and the ventral hernia is now inoperable (after multiple surgeries) per son. CT abd/pel vis with oral contrast is indicated but patient may not be able to drink the contrast or lay flat. I consulted Gen. Surgery. However, main issue now is arrhythmias. I will also consult Dr. Spivey for pain management. 03/23/19: Yesterday around 8:30pm had another 3 beat run of NSVT. I spoke with Dr. Savage yesterday. Amiodarone started Patient still not eating, Son at bedside is concerned. 03/26/19: mri brain ordered by Neurologist but patient unable to lay flat due to large ventral hernia causing sob. Coughed up a piece of rice. Will get speech evaluation and consult GI 03/27/19: now on pureed diet but still not eating, place NGT and start tube feeding, GI consulted and input noted. repeat CT head pending. History Interval history: Patient was seen and examined. Follow-up on current diagnosis of COPD and intractable nausea. Overnight uneventful. Patient denies any chest pain, nausea/vomiting or severe headaches. Imaging, nursing note, chart, labs and old chart reviewed. Discussed with patient and son London at bedside. I sat down and had a long discussion, well, I mostly listened to London's concern. Father is not eating, he cough, and chokes with meals then coughed up a piece of rice. When I suggested a GI evaluation, son refused and says there is nothing wrong with his stomach and the hernia is not the problem. In my professional opinion, I believe the large ventral hernia is a problem. London believes his father is not eating due to his mental problem. So, Mri brain has been ordered but patient was unable to complete because he couldn't lay flat due the discomfort from the ventral hernia; which is inoperable per son. Hospitalist Physical - Physical exam Narrative exam: Gen: chronic disable and ill-appearing, NAD, lethargic, Orientated x 2 HEENT: NCAT, EOMI, PERRL, OP Clear Neck: supple, no adenopathy, no thyromegaly, JVD CVS/Heart: RRR, normal S1S2, pulses present bilaterally Chest/Lungs: diminished bs with bibasilar crackles, Symmetrical chest expansion, good air entry bilaterally GI/Abdomen: soft, large tender ventral hernia (initial they refused to allow me to remove binder but I insisted) good bowel sounds, no guarding or rebound /Bladder: no suprapubic tenderness, no CVA or paraspinal tenderness Extermity/Skin: leg edema no obvious rash MSK: FROM x 4 Neuro: CN 2-12 grossly intact, no new focal deficits Psych: calm - Constitutional Vitals: Temp Pulse Resp BP Pulse Ox 97.9 F 77 15 105/72 85 03/27/19 08:07 03/27/19 13:01 03/27/19 10:39 03/27/19 13:01 03/27/19 13:01 General appearance: Present: no acute distress, well-nourished, obese Results - Labs CBC & Chem 7: 03/27/19 05:49 03/27/19 05:49 Labs: Laboratory Last Values WBC 8.4 K/mm3 (4.5-11.0) 03/27/19 05:49 RBC 4.58 M/mm3 (3.65-5.03) 03/27/19 05:49 Hgb 13.9 gm/dl (11.8-15.2) 03/27/19 05:49 Hct 41.1 % (35.5-45.6) 03/27/19 05:49 MCV 90 fl (84-94) 03/27/19 05:49 MCH 31 pg (28-32) 03/27/19 05:49 MCHC 34 % (32-34) 03/27/19 05:49 RDW 15.1 % (13.2-15.2) 03/27/19 05:49 Plt Count 215 K/mm3 (140-440) 03/27/19 05:49 Lymph % (Auto) 18.0 % (13.4-35.0) 03/25/19 05:22 [place] % (Auto) 8.9 % (0.0-7.3) H 03/25/19 05:22 Eos % (Auto) 0.9 % (0.0-4.3) 03/25/19 05:22 Baso % (Auto) 0.4 % (0.0-1.8) 03/25/19 05:22 Lymph # 1.2 K/mm3 (1.2-5.4) 03/25/19 05:22 [place] # 0.6 K/mm3 (0.0-0.8) 03/25/19 05:22 Eos # 0.1 K/mm3 (0.0-0.4) 03/25/19 05:22 Baso # 0.0 K/mm3 (0.0-0.1) 03/25/19 05:22 Seg Neutrophils % 71.8 % (40.0-70.0) H 03/25/19 05:22 Seg Neutrophils # 4.7 K/mm3 (1.8-7.7) 03/25/19 05:22 PT 15.1 Sec. (12.2-14.9) H 03/23/19 14:43 INR 1.12 (0.87-1.13) 03/23/19 14:43 APTT 28.8 Sec. (24.2-36.6) 03/23/19 14:43 Heparin Anti-Xa Level 0.45 U.I./ml (0.3-0.7) 03/24/19 12:58 POC ABG pH 7.484 (7.35-7.45) H 03/20/19 16:02 POC ABG pCO2 60.5 (35-45) H 03/20/19 16:02 POC ABG pO2 79 (80-105) L 03/20/19 16:02 POC ABG HCO3 45.5 (22-26 mml/L) 03/20/19 16:02 POC ABG Total CO2 47 (23-27mmol/L) 03/20/19 16:02 POC ABG O2 Sat 96 03/20/19 16:02 POC ABG Base Excess 22 ((-2) - (+3)mmol/L) 03/20/19 16:02 FiO2 45 % 03/20/19 16:02 Sodium 135 mmol/L (137-145) L 03/27/19 05:49 Potassium 3.5 mmol/L (3.6-5.0) L 03/27/19 05:49 Chloride 89.3 mmol/L (98-107) L 03/27/19 05:49 Carbon Dioxide 35 mmol/L (22-30) H 03/27/19 05:49 Anion Gap 14 mmol/L 03/27/19 05:49 BUN 11 mg/dL (9-20) 03/27/19 05:49 Creatinine 0.4 mg/dL (0.8-1.5) L 03/27/19 05:49 Estimated GFR > 60 ml/min 03/27/19 05:49 BUN/Creatinine Ratio 28 % 03/27/19 05:49 Glucose 88 mg/dL (75-100) 03/27/19 05:49 Lactic Acid 1.20 mmol/L (0.7-2.0) 03/19/19 17:52 Calcium 8.4 mg/dL (8.4-10.2) 03/27/19 05:49 Magnesium 1.70 mg/dL (1.7-2.3) 03/27/19 05:49 Total Bilirubin 0.30 mg/dL (0.1-1.2) 03/19/19 17:52 AST 23 units/L (5-40) 03/19/19 17:52 ALT 19 units/L (7-56) 03/19/19 17:52 Alkaline Phosphatase 64 units/L (35-129) 03/19/19 17:52 Total Creatine Kinase 53 units/L (55-170) L 03/20/19 06:46 CK-MB (CK-2) 4.4 ng/mL (0.0-4.0) H 03/20/19 06:46 CK-MB (CK-2) Rel Index 8.3 (0-4) H 03/20/19 06:46 Troponin T 0.073 ng/mL (0.00-0.029) H 03/20/19 06:46 NT-Pro-B Natriuret Pep 8170 pg/mL (0-900) H 03/19/19 17:52 Total Protein 6.0 g/dL (6.3-8.2) L 03/19/19 17:52 Albumin 3.1 g/dL (3.9-5) L 03/19/19 17:52 Albumin/Globulin Ratio 1.1 % 03/19/19 17:52 Triglycerides 117 mg/dL (2-149) 03/19/19 17:52 Cholesterol 178 mg/dL (50-199) 03/19/19 17:52 LDL Cholesterol Direct 118 mg/dL (50-130) 03/19/19 17:52 HDL Cholesterol 40 mg/dL (40-59) 03/19/19 17:52 Cholesterol/HDL Ratio 4.45 % 03/19/19 17:52 TSH 1.950 mlU/mL (0.270-4.200) 03/23/19 06:23 Free T4 0.82 ng/dL (0.76-1.46) 03/23/19 06:23 Phenobarbital 27.4 ug/mL (15.0-40.0) 03/23/19 12:53 Active Medications - Current Medications Current Medications: Generic Name Dose Route Start Last Admin Trade Name Freq PRN Reason Stop Dose Admin Acetaminophen 650 mg 03/20/19 00:42 Tylenol PO Q4H PRN Pain MILD(1-3)/Fever >100.5/GALAN Albuterol 2.5 mg 03/20/19 01:20 03/20/19 12:44 Proventil IH 2.5 mg Q4HRT PRN Administration Shortness Of Breath Albuterol/Ipratropium 1 ampul 03/20/19 02:00 03/27/19 09:50 Duoneb *Not For Prn Use* IH Not Given Q6HRT ANDREW Lipase/Protease/Amylase 1 each 03/27/19 11:45 Pancreaze 10,500 Unit FEEDTUBE PRN PRN For Clogged Feeding Tube Arformoterol Tartrate 15 mcg 03/20/19 08:00 03/27/19 07:55 Brovana Nebu IH 15 mcg Q12HRT ANDREW Administration Aspirin 81 mg 03/20/19 10:00 03/27/19 10:05 Halfprin Ec PO 81 mg DAILY ANDREW Administration Atorvastatin Calcium 40 mg 03/20/19 10:00 03/27/19 10:05 Lipitor PO 40 mg DAILY ANDREW Administration Budesonide 0.5 mg 03/23/19 16:57 03/27/19 07:55 Pulmicort IH 0.5 mg Q12HRT ANDREW Administration Divalproex Sodium 500 mg 03/20/19 10:00 03/27/19 10:04 Depakote Er PO 500 mg BID ANDREW Administration Furosemide 40 mg 03/22/19 10:00 03/27/19 10:04 Lasix IV 40 mg QDAY ANDREW Administration Gabapentin 300 mg 03/20/19 10:00 03/27/19 10:04 Neurontin PO 300 mg BID ANDREW Administration Ipratropium [place] 0.5 mg 03/20/19 13:00 03/27/19 07:55 Atrovent IH 0.5 mg Q6HRT ANDREW Administration Metoprolol Tartrate 25 mg 03/23/19 20:00 03/27/19 10:05 Lopressor PO 25 mg TID ANDREW Administration Ondansetron HCl 4 mg 03/20/19 00:42 03/22/19 10:39 Zofran IV 4 mg Q4H PRN Administration Nausea And Vomiting Oxycodone HCl 5 mg 03/21/19 18:37 03/25/19 21:55 Roxicodone PO 5 mg QID PRN Administration Pain, Moderate (4-6) Oxycodone/Acetaminophen 1 tab 03/21/19 18:36 03/27/19 10:46 Percocet 5/325 PO 1 tab QID PRN Administration Pain, Moderate (4-6) Prednisone 20 mg 03/20/19 12:00 03/27/19 10:05 Deltasone PO 20 mg QDAY ANDREW Administration Primidone 250 mg 03/20/19 10:00 03/27/19 10:05 Mysoline PO 250 mg QID ANDREW Administration Simple Syrup 15 ml 03/27/19 11:45 Simple Syrup FEEDTUBE PRN PRN Hypoglycemia Simple Syrup 30 ml 03/27/19 11:45 Simple Syrup FEEDTUBE PRN PRN Hypoglycemia Sodium Bicarbonate 325 mg 03/27/19 11:45 Sodium Bicarbonate FEEDTUBE PRN PRN For Clogged Feeding Tube Sodium Chloride 10 ml 03/20/19 10:00 03/27/19 10:05 Sodium Chloride Flush Syringe 10 Ml IV 10 ml BID ANDREW Administration Sodium Chloride 10 ml 03/20/19 00:42 03/20/19 05:40 Sodium Chloride Flush Syringe 10 Ml IV 10 ml PRN PRN Administration LINE FLUSH Topiramate 50 mg 03/20/19 10:00 03/27/19 10:05 Topamax PO 50 mg BID ANDREW Administration Nutrition/Malnutrition Assess - Dietary Evaluation Nutrition/Malnutrition Findings: Nutrition Notes Start: 03/26/19 10:39 Freq: Status: Active Protocol: Document 03/27/19 08:45 ER (Rec: 03/27/19 08:49 ER [id number]) Co-Sign 03/27/19 08:45 LP Nutrition Notes Need for Assessment generated from: MD Order Initial or Follow up Reassessment Current Diagnosis COPD,Hypertension,Respiratory Failure Current Diet pureed Labs/Tests Reviewed Pertinent Medications Lasix Height 5 ft 11 in Weight 114.5 kg [place] Body Weight (kg) 78.18 BMI 35.2 Subjective/Other Information MD consult for poor oral intake and write/manage TF. Burn Absent Trauma Absent #1 Nutrition Diagnosis Inadequate oral intake Diagnosis Progress(for reassessment Continues documentation) Is patient on ventilator? No Is Patient Ambulatory and/or Out of Bed No REE-([facility]-confined to bed) 2359.224 Kcal/Kg value to use for calculation 18 Approximate Energy Requirements Using 2061 kcal/Kg Calculation Used for Recommendations Kcal/kg Additional Notes Pro needs: AdjBW (96 kg) ( 1-1 .2 kg/g) (96-115 g) Fluid needs: 1 ml/kcal Nutrition Intervention Change Diet Order: Jevity 1.2 at 70 mL/hr with 100 mL water flush q4h or per MD Nutrition Support: Jevity 1.2 at 70 mL/hr with 100 mL water flush q4h or per MD Kcal 2,016 Protein (gm) 93 Carbohydrates (gm) 285 Fat (gm) 66 Fluid (mL) 1,356 Fiber (gm) 30 Add Supplement/Snack (indicate name/kcal d/c /protein ) Goal #1 TF to meet at least 75% of energy and protein needs. Follow-Up By: 03/30/19 Additional Comments F/U: new TF
--- NOTE | 2019-03-27 17:50 | Cat Scan Report ---
PROCEDURE: CT HEAD/BRAIN WO CON TECHNIQUE: CT of the head was performed without intravenous contrast. HISTORY: ams COMPARISONS: None FINDINGS: The ventricles are normal in position and shape. The ventricles are nondilated. No intracranial hemorrhage, mass, mass effect or evidence of acute ischemic infarct. Mild areas of lo w-attenuation are seen in the periventricular and subcortical white matter. The basilar cisterns are patent. Right maxillary sinus mucus retention cyst is seen. The mastoid air cells are clear. The orbits are intact. The calvarium is intact. No extracranial soft tissue swelling. Torus mandibularis noted. IMPRESSION: 1. No acute intracranial abnormality. 2. Mild findings of chronic microvascular ischemic disease. This document is electronically signed by Janine Hyman., Mar 27 2019 05:48:53 PM ET
[2019-03-27] MEDS: PERIACTIN PO SCH (22:17)
[2019-03-28] MEDS: DUONEB *Not for PRN Use IH SCH ×4 (05:23→19:42)
[2019-03-28] MEDS: ATROVENT IH SCH ×4 (05:23→19:42)
--- NOTE | 2019-03-28 07:27 | Progress Note ---
Assessment and Plan -Acute on chronic hypoxemic-hypercapnic respiratory failure -Elevated BNP, decompensated heart failure -Morbid obesity -COD -Sleep apnea -h/o PE, not on anticoagulation -Bronchodilators, ipratropium added to therapy Oxygen restrictive strategies, keep O2 sats 88-90% -VTE prophylaxis -No antibiotics indicated at this time. This appears to be decompensated heart failure -Avoid systemic steroids, as this worsen his heart failure -Diuresis while monitoring renal indices, hemodynamics and electrolyte profile -Keep potassium and phos upper limit of normal to optimize respiratory muscle function -Nocturnal NIPPV -Continue diuretics follow up CXR in the morning -Chronic home medications per primary. Continue all supportive care Pain management consult notes reviewed. Discussed care plan with the patient, his and his son who is at the bedside. Discussed with RT Subjective Date of service: 03/28/19 Principal diagnosis: Ac on Ch hypoxemic-hypercapnic Resp failure; CHF exacerbation; COPD; FILIPE Interval history: Patient is seen today for: Acute on chronic hypoxemic-hypercapnic respiratory failure; Elevated BNP, decompensated heart failure; Morbid obesity; COPD; Sleep apnea; h/o PE, not on anticoagulation Seen and examined at bedside; 24-hour events reviewed; nursing and respiratory care staff consulted; no adverse overnight events reported to me; resting peacefully in bed; denies acute chest pains or palpitations, no fevers or chills. Poor appetite, possible aspiration. Small bowel feeding tube in nares for nutritional support. Somnolent but responds to verbal cues and tactile stimuli. Tolerating nocturnal and prn BIPAP. Supplemental oxygen and son at the bedside Objective Vital Signs - 12hr 03/27/19 03/27/19 03/27/19 19:33 19:37 20:00 Temperature 98.2 F Pulse Rate 75 Pulse Rate [ 86 Anterior Bilateral Throughout] Respiratory 18 20 Rate Respiratory Rate [Abdomen] Respiratory 20 Rate [Anterior Bilateral Throughout] Blood Pressure 86/55 Blood Pressure [Left] O2 Sat by Pulse 93 Oximetry 03/27/19 03/27/19 03/27/19 20:03 21:40 21:44 Temperature Pulse Rate 75 Pulse Rate [ Anterior Bilateral Throughout] Respiratory 20 Rate Respiratory Rate [Abdomen] Respiratory Rate [Anterior Bilateral Throughout] Blood Pressure 86/55 Blood Pressure [Left] O2 Sat by Pulse 98 92 Oximetry 03/27/19 03/27/19 03/28/19 22:00 23:03 00:00 Temperature 97.9 F Pulse Rate 72 Pulse Rate [ 86 Anterior Bilateral Throughout] Respiratory 18 Rate Respiratory 20 Rate [Abdomen] Respiratory 20 Rate [Anterior Bilateral Throughout] Blood Pressure Blood Pressure 110/71 [Left] O2 Sat by Pulse 93 Oximetry Constitutional: no acute distress, lethargic, other (obese man on 3L oxygen via NC, atraumatic, normocephalic) Eyes: non-icteric ENT: oropharynx moist, other (large neck circumference) Neck: supple, no lymphadenopathy, no JVD, other (no thyromegaly) Effort: mildly labored Ascultation: Bilateral: diminished breath sounds, rales, rhonchi, other (prolonged exp phase) Percussion: Bilateral: dull (bases) Cardiovascular: regular rate and rhythm, other (S1,S2,no murmurs) Gastrointestinal: normoactive bowel sounds, soft, non-tender, other (protuberant) Extremities: no cyanosis, pink and warm, pulses normal, edema (bilateral lower extremity (improving)) Neurologic: normal mental status, non-focal exam, pupils equal and round, CN II- XII normal, motor strength normal and Psychiatric: mood appropriate, affect normal CBC and BMP: 03/27/19 05:49 03/29/19 05:12 ABG, PT/INR, D-dimer: ABG POC ABG pH 7.484 (7.35-7.45) H 03/20/19 16:02 POC ABG pCO2 60.5 (35-45) H 03/20/19 16:02 POC ABG pO2 79 (80-105) L 03/20/19 16:02 POC ABG HCO3 45.5 (22-26 mml/L) 03/20/19 16:02 POC ABG Total CO2 47 (23-27mmol/L) 03/20/19 16:02 POC ABG O2 Sat 96 03/20/19 16:02 PT/INR, D-dimer PT 15.1 Sec. (12.2-14.9) H 03/23/19 14:43 INR 1.12 (0.87-1.13) 03/23/19 14:43 Abnormal lab findings: Abnormal Labs 03/19/19 03/19/19 03/19/19 17:39 17:52 17:52 RDW 15.7 H Lymph % (Auto) [place] % (Auto) 10.6 H Lymph # Seg Neutrophils % 70.6 H PT Heparin Anti-Xa Level POC ABG pH POC ABG pCO2 60.9 H POC ABG pO2 53 L Sodium Potassium Chloride 84.1 L Carbon Dioxide 36 H Creatinine 0.6 L Glucose Calcium Total Creatine Kinase CK-MB (CK-2) CK-MB (CK-2) Rel Index Troponin T 0.079 H NT-Pro-B Natriuret Pep 8170 H Total Protein 6.0 L Albumin 3.1 L 03/20/19 03/20/19 03/20/19 01:01 06:46 06:46 RDW 15.8 H Lymph % (Auto) 9.0 L [place] % (Auto) Lymph # 0.7 L Seg Neutrophils % 86.5 H PT Heparin Anti-Xa Level POC ABG pH POC ABG pCO2 POC ABG pO2 Sodium Potassium Chloride Carbon Dioxide 33 H Creatinine 0.6 L Glucose 133 H Calcium Total Creatine Kinase 42 L CK-MB (CK-2) 4.2 H CK-MB (CK-2) Rel Index 10.0 H Troponin T 0.088 H NT-Pro-B Natriuret Pep Total Protein Albumin 03/20/19 03/20/19 03/22/19 06:46 16:02 07:07 RDW 15.7 H Lymph % (Auto) [place] % (Auto) Lymph # Seg Neutrophils % PT Heparin Anti-Xa Level POC ABG pH 7.484 H POC ABG pCO2 60.5 H POC ABG pO2 79 L Sodium Potassium Chloride Carbon Dioxide Creatinine Glucose Calcium Total Creatine Kinase 53 L CK-MB (CK-2) 4.4 H CK-MB (CK-2) Rel Index 8.3 H Troponin T 0.073 H NT-Pro-B Natriuret Pep Total Protein Albumin 03/22/19 03/23/19 03/23/19 07:07 06:23 06:23 RDW 15.3 H Lymph % (Auto) [place] % (Auto) Lymph # Seg Neutrophils % PT Heparin Anti-Xa Level POC ABG pH POC ABG pCO2 POC ABG pO2 Sodium Potassium 3.5 L Chloride 92.0 L 86.5 L Carbon Dioxide 36 H 39 H Creatinine 0.7 L 0.5 L Glucose 119 H 103 H Calcium Total Creatine Kinase CK-MB (CK-2) CK-MB (CK-2) Rel Index Troponin T NT-Pro-B Natriuret Pep Total Protein Albumin 03/23/19 03/24/19 03/24/19 14:43 00:53 06:55 RDW Lymph % (Auto) [place] % (Auto) Lymph # Seg Neutrophils % PT 15.1 H Heparin Anti-Xa Level 1.28 H POC ABG pH POC ABG pCO2 POC ABG pO2 Sodium Potassium 3.3 L Chloride 90.0 L Carbon Dioxide 38 H Creatinine 0.4 L Glucose Calcium 8.3 L Total Creatine Kinase CK-MB (CK-2) CK-MB (CK-2) Rel Index Troponin T NT-Pro-B Natriuret Pep Total Protein Albumin 03/24/19 03/25/19 03/25/19 10:13 05:22 05:22 RDW Lymph % (Auto) [place] % (Auto) 8.9 H Lymph # Seg Neutrophils % 71.8 H PT Heparin Anti-Xa Level 1.01 H POC ABG pH POC ABG pCO2 POC ABG pO2 Sodium Potassium 3.5 L Chloride 89.1 L Carbon Dioxide 39 H Creatinine 0.4 L Glucose Calcium Total Creatine Kinase CK-MB (CK-2) CK-MB (CK-2) Rel Index Troponin T NT-Pro-B Natriuret Pep Total Protein Albumin 03/27/19 05:49 RDW Lymph % (Auto) [place] % (Auto) Lymph # Seg Neutrophils % PT Heparin Anti-Xa Level POC ABG pH POC ABG pCO2 POC ABG pO2 Sodium 135 L Potassium 3.5 L Chloride 89.3 L Carbon Dioxide 35 H Creatinine 0.4 L Glucose Calcium Total Creatine Kinase CK-MB (CK-2) CK-MB (CK-2) Rel Index Troponin T NT-Pro-B Natriuret Pep Total Protein Albumin Allied health notes reviewed: nursing
[2019-03-28] MEDS: BROVANA NEBU IH SCH ×2 (08:08→19:41)
[2019-03-28] MEDS: PULMICORT IH SCH ×2 (08:08→19:41)
[2019-03-28] MEDS: LOPRESSOR PO SCH ×3 (09:01→21:48)
[2019-03-28] MEDS: PERCOCET 5/325 PO PRN ×3 (09:02→22:00)
--- NOTE | 2019-03-28 09:28 | Progress Note ---
Assessment and Plan Assessment and plan: Patient is a 63 yo man with a history of hypertension, chronic respiratory failure on home 3-4 liters O2 due to End-stage COPD, Seizure disorder, PE and essential tremor who presented to [facility] ED with sob, leg swelling. * CTA chest FINDINGS: Heart and pericardium: Small amount of pericardial fluid is present, measuring up to 5 mm in thickness. Thoracic aorta: Mild atherosclerotic calcification. Pulmonary vasculature: Normal. No pulmonary emboli. Lymph nodes: Numerous mediastinal nodes are present, measuring up to 1 cm in short axis. Lungs: Mild diffuse septal thickening suggests interstitial edema. There is mild bibasilar compressive atelectasis. Pleural space: Bilateral mild to moderate sized layering pleural effusions are present. No pneumothorax is identified bilaterally Musculoskeletal structures: No significant abnormality. Upper abdominal structures: There is an anterior abdominal wall hernia, which is not fully imaged. IMPRESSION: No evidence of pulmonary emboli. Bilateral pleural effusions. Mild mediastinal adenopathy. -Acute on chronic hypoxic respiratory failure: consulted Viticulture Teacher, careful with o2 as gordy Calvin at bedside say he develops co2 retention with too much Oxygen -Acute COPD exacerbation: treat with nebs, steroids, abx -Acute on chronic diastolic HF exacerbation: EF 50-55% on 01/2019 ECHO, treat with diuretics but reduce dose as patient developing contraction alkalosis. Consulted Cardiology -Hypertension: low salt diet, antihypertensives -Seizure: continue home medications -New onset transient Afib with RVR: Cardiology is following and started Amiodarone on 03/22/19 -New onset of NSVT: Cardiololgy is following, replete potassium -Hypokalemia: replace via IV, not eating, repeat bmp -History of PE -h/o Essential tremor -DVT ppx on sq lovenox 03/22/19: Around 1am this morning, pt had 3 beat run of NSVT, then around 3:29am he went into Afib with RVR followed immediately by another run of NSVT. SonLondon insist on giving his father around the clock Narcotics because he feels that father is going into "DTs" by the lack of narcotics because of the nausea/lack of appetite/not eating. Patient is gagging when he attempts to eat. I wanted to exam patient's abdomen by removing the binder but I was met with unbelievable resistance. On exam, the ventral hernia is tender and distended. The son insist on re-applying the binder and doesn't think the ventral hernia is causing any problems although his father is consistently in pain for it and the ventral hernia is now inoperable (after multiple surgeries) per son. CT abd/pel vis with oral contrast is indicated but patient may not be able to drink the contrast or lay flat. I consulted Gen. Surgery. However, main issue now is arrhythmias. I will also consult Dr. Spivey for pain management. 03/23/19: Yesterday around 8:30pm had another 3 beat run of NSVT. I spoke with Dr. Savage yesterday. Amiodarone started Patient still not eating, Son at bedside is concerned. 03/26/19: mri brain ordered by Neurologist but patient unable to lay flat due to large ventral hernia causing sob. Coughed up a piece of rice. Will get speech evaluation and consult GI 03/27/19: now on pureed diet but still not eating, place NGT and start tube feeding, GI consulted and input noted. repeat CT head pending. 03/28/19: STILL LATHERGIC, AWAITING GI History Interval history: Patient seen and examined, remains lethargic today, family at bedside. reports she is concerned that the patient deteriorated due to inital stoppage of his pain medications which he is back on now. She is also requesting for Marijuna adjunct for his pain, stating that she is well versed on marijuna therapy Hospitalist Physical - Physical exam Narrative exam: Gen: chronic disable and ill-appearing, NAD, lethargic, Orientated x 2 HEENT: NCAT, EOMI, PERRL, OP Clear Neck: supple, no adenopathy, no thyromegaly, JVD CVS/Heart: RRR, normal S1S2, pulses present bilaterally Chest/Lungs: diminished bs with bibasilar crackles, Symmetrical chest expansion, good air entry bilaterally GI/Abdomen: soft, large tender ventral hernia (initial they refused to allow me to remove binder but I insisted) good bowel sounds, no guarding or rebound /Bladder: no suprapubic tenderness, no CVA or paraspinal tenderness Extermity/Skin: leg edema no obvious rash MSK: FROM x 4 Neuro: CN 2-12 grossly intact, no new focal deficits Psych: calm - Constitutional Vitals: Temp Pulse Resp BP Pulse Ox 98.3 F 88 18 101/64 89 03/28/19 08:45 03/28/19 08:45 03/28/19 08:45 03/28/19 08:45 03/28/19 08:45 General appearance: Present: no acute distress, well-nourished, obese Results - Labs CBC & Chem 7: 03/27/19 05:49 03/29/19 05:12 Labs: Laboratory Last Values WBC 8.4 K/mm3 (4.5-11.0) 03/27/19 05:49 RBC 4.58 M/mm3 (3.65-5.03) 03/27/19 05:49 Hgb 13.9 gm/dl (11.8-15.2) 03/27/19 05:49 Hct 41.1 % (35.5-45.6) 03/27/19 05:49 MCV 90 fl (84-94) 03/27/19 05:49 MCH 31 pg (28-32) 03/27/19 05:49 MCHC 34 % (32-34) 03/27/19 05:49 RDW 15.1 % (13.2-15.2) 03/27/19 05:49 Plt Count 215 K/mm3 (140-440) 03/27/19 05:49 Lymph % (Auto) 18.0 % (13.4-35.0) 03/25/19 05:22 [place] % (Auto) 8.9 % (0.0-7.3) H 03/25/19 05:22 Eos % (Auto) 0.9 % (0.0-4.3) 03/25/19 05:22 Baso % (Auto) 0.4 % (0.0-1.8) 03/25/19 05:22 Lymph # 1.2 K/mm3 (1.2-5.4) 03/25/19 05:22 [place] # 0.6 K/mm3 (0.0-0.8) 03/25/19 05:22 Eos # 0.1 K/mm3 (0.0-0.4) 03/25/19 05:22 Baso # 0.0 K/mm3 (0.0-0.1) 03/25/19 05:22 Seg Neutrophils % 71.8 % (40.0-70.0) H 03/25/19 05:22 Seg Neutrophils # 4.7 K/mm3 (1.8-7.7) 03/25/19 05:22 PT 15.1 Sec. (12.2-14.9) H 03/23/19 14:43 INR 1.12 (0.87-1.13) 03/23/19 14:43 APTT 28.8 Sec. (24.2-36.6) 03/23/19 14:43 Heparin Anti-Xa Level 0.45 U.I./ml (0.3-0.7) 03/24/19 12:58 POC ABG pH 7.484 (7.35-7.45) H 03/20/19 16:02 POC ABG pCO2 60.5 (35-45) H 03/20/19 16:02 POC ABG pO2 79 (80-105) L 03/20/19 16:02 POC ABG HCO3 45.5 (22-26 mml/L) 03/20/19 16:02 POC ABG Total CO2 47 (23-27mmol/L) 03/20/19 16:02 POC ABG O2 Sat 96 03/20/19 16:02 POC ABG Base Excess 22 ((-2) - (+3)mmol/L) 03/20/19 16:02 FiO2 45 % 03/20/19 16:02 Sodium 135 mmol/L (137-145) L 03/27/19 05:49 Potassium 3.5 mmol/L (3.6-5.0) L 03/27/19 05:49 Chloride 89.3 mmol/L (98-107) L 03/27/19 05:49 Carbon Dioxide 35 mmol/L (22-30) H 03/27/19 05:49 Anion Gap 14 mmol/L 03/27/19 05:49 BUN 11 mg/dL (9-20) 03/27/19 05:49 Creatinine 0.4 mg/dL (0.8-1.5) L 03/27/19 05:49 Estimated GFR > 60 ml/min 03/27/19 05:49 BUN/Creatinine Ratio 28 % 03/27/19 05:49 Glucose 88 mg/dL (75-100) 03/27/19 05:49 POC Glucose 85 (70-105) 03/28/19 08:50 Lactic Acid 1.20 mmol/L (0.7-2.0) 03/19/19 17:52 Calcium 8.4 mg/dL (8.4-10.2) 03/27/19 05:49 Magnesium 1.70 mg/dL (1.7-2.3) 03/27/19 05:49 Total Bilirubin 0.30 mg/dL (0.1-1.2) 03/19/19 17:52 AST 23 units/L (5-40) 03/19/19 17:52 ALT 19 units/L (7-56) 03/19/19 17:52 Alkaline Phosphatase 64 units/L (35-129) 03/19/19 17:52 Total Creatine Kinase 53 units/L (55-170) L 03/20/19 06:46 CK-MB (CK-2) 4.4 ng/mL (0.0-4.0) H 03/20/19 06:46 CK-MB (CK-2) Rel Index 8.3 (0-4) H 03/20/19 06:46 Troponin T 0.073 ng/mL (0.00-0.029) H 03/20/19 06:46 NT-Pro-B Natriuret Pep 8170 pg/mL (0-900) H 03/19/19 17:52 Total Protein 6.0 g/dL (6.3-8.2) L 03/19/19 17:52 Albumin 3.1 g/dL (3.9-5) L 03/19/19 17:52 Albumin/Globulin Ratio 1.1 % 03/19/19 17:52 Triglycerides 117 mg/dL (2-149) 03/19/19 17:52 Cholesterol 178 mg/dL (50-199) 03/19/19 17:52 LDL Cholesterol Direct 118 mg/dL (50-130) 03/19/19 17:52 HDL Cholesterol 40 mg/dL (40-59) 03/19/19 17:52 Cholesterol/HDL Ratio 4.45 % 03/19/19 17:52 TSH 1.950 mlU/mL (0.270-4.200) 03/23/19 06:23 Free T4 0.82 ng/dL (0.76-1.46) 03/23/19 06:23 Phenobarbital 27.4 ug/mL (15.0-40.0) 03/23/19 12:53 Active Medications - Current Medications Current Medications: Generic Name Dose Route Start Last Admin Trade Name Freq PRN Reason Stop Dose Admin Acetaminophen 650 mg 03/20/19 00:42 Tylenol PO Q4H PRN Pain MILD(1-3)/Fever >100.5/GALAN Albuterol 2.5 mg 03/20/19 01:20 03/20/19 12:44 Proventil IH 2.5 mg Q4HRT PRN Administration Shortness Of Breath Albuterol/Ipratropium 1 ampul 03/20/19 02:00 03/28/19 08:10 Duoneb *Not For Prn Use* IH Not Given Q6HRT ANDREW Lipase/Protease/Amylase 1 each 03/27/19 11:45 Pancreaze 10,500 Unit FEEDTUBE PRN PRN For Clogged Feeding Tube Arformoterol Tartrate 15 mcg 03/20/19 08:00 03/28/19 08:08 Brovana Nebu IH 15 mcg Q12HRT ANDREW Administration Aspirin 81 mg 03/20/19 10:00 03/27/19 10:05 Halfprin Ec PO 81 mg DAILY ANDREW Administration Atorvastatin Calcium 40 mg 03/20/19 10:00 03/27/19 10:05 Lipitor PO 40 mg DAILY ANDREW Administration Budesonide 0.5 mg 03/23/19 16:57 03/28/19 08:08 Pulmicort IH 0.5 mg Q12HRT ANDREW Administration Cyproheptadine HCl 4 mg 03/27/19 22:00 03/27/19 22:17 Periactin PO 4 mg BID ANDREW Administration Divalproex Sodium 500 mg 03/20/19 10:00 03/27/19 21:16 Depakote Er PO 500 mg BID ANDREW Administration Furosemide 40 mg 03/22/19 10:00 03/27/19 10:04 Lasix IV 40 mg QDAY ANDREW Administration Gabapentin 300 mg 03/20/19 10:00 03/27/19 21:16 Neurontin PO 300 mg BID ANDREW Administration Ipratropium [place] 0.5 mg 03/20/19 13:00 03/28/19 08:10 Atrovent IH Not Given Q6HRT [facility] Metoprolol Tartrate 25 mg 03/23/19 20:00 03/28/19 09:01 Lopressor PO Not Given TID [facility] Ondansetron HCl 4 mg 03/20/19 00:42 03/22/19 10:39 Zofran IV 4 mg Q4H PRN Administration Nausea And Vomiting Oxycodone HCl 5 mg 03/21/19 18:37 03/25/19 21:55 Roxicodone PO 5 mg QID PRN Administration Pain, Moderate (4-6) Oxycodone/Acetaminophen 1 tab 03/21/19 18:36 03/28/19 09:02 Percocet 5/325 PO 1 tab QID PRN Administration Pain, Moderate (4-6) Prednisone 20 mg 03/20/19 12:00 03/27/19 10:05 Deltasone PO 20 mg QDAY ANDREW Administration Primidone 250 mg 03/20/19 10:00 03/27/19 21:16 Mysoline PO 250 mg QID ANDREW Administration Simple Syrup 15 ml 03/27/19 11:45 Simple Syrup FEEDTUBE PRN PRN Hypoglycemia Simple Syrup 30 ml 03/27/19 11:45 Simple Syrup FEEDTUBE PRN PRN Hypoglycemia Sodium Bicarbonate 325 mg 03/27/19 11:45 Sodium Bicarbonate FEEDTUBE PRN PRN For Clogged Feeding Tube Sodium Chloride 10 ml 03/20/19 10:00 03/27/19 21:17 Sodium Chloride Flush Syringe 10 Ml IV 10 ml BID ANDREW Administration Sodium Chloride 10 ml 03/20/19 00:42 03/20/19 05:40 Sodium Chloride Flush Syringe 10 Ml IV 10 ml PRN PRN Administration LINE FLUSH Topiramate 50 mg 03/20/19 10:00 03/27/19 21:16 Topamax PO 50 mg BID ANDREW Administration Nutrition/Malnutrition Assess - Dietary Evaluation Nutrition/Malnutrition Findings: Nutrition Notes Start: 03/26/19 10:39 Freq: Status: Active Protocol: Document 03/27/19 08:45 ER (Rec: 03/27/19 08:49 ER [id number]) Co-Sign 03/27/19 08:45 LP Nutrition Notes Need for Assessment generated from: MD Order Initial or Follow up Reassessment Current Diagnosis COPD,Hypertension,Respiratory Failure Current Diet pureed Labs/Tests Reviewed Pertinent Medications Lasix Height 5 ft 11 in Weight 114.5 kg [place] Body Weight (kg) 78.18 BMI 35.2 Subjective/Other Information MD consult for poor oral intake and write/manage TF. Burn Absent Trauma Absent #1 Nutrition Diagnosis Inadequate oral intake Diagnosis Progress(for reassessment Continues documentation) Is patient on ventilator? No Is Patient Ambulatory and/or Out of Bed No REE-([facility]-confined to bed) 2359.224 Kcal/Kg value to use for calculation 18 Approximate Energy Requirements Using 2060 kcal/Kg Calculation Used for Recommendations Kcal/kg Additional Notes Pro needs: AdjBW (96 kg) ( 1-1 .2 kg/g) (96-115 g) Fluid needs: 1 ml/kcal Nutrition Intervention Change Diet Order: Jevity 1.2 at 70 mL/hr with 100 mL water flush q4h or per MD Nutrition Support: Jevity 1.2 at 70 mL/hr with 100 mL water flush q4h or per MD Kcal 2,016 Protein (gm) 93 Carbohydrates (gm) 285 Fat (gm) 66 Fluid (mL) 1,356 Fiber (gm) 30 Add Supplement/Snack (indicate name/kcal d/c /protein ) Goal #1 TF to meet at least 75% of energy and protein needs. Follow-Up By: 03/30/19 Additional Comments F/U: new TF
[2019-03-28] MEDS: LASIX IV SCH (11:53)
[2019-03-28] MEDS: NEURONTIN PO SCH ×2 (11:53→21:49)
[2019-03-28] MEDS: MYSOLINE PO SCH ×3 (11:54→21:49)
[2019-03-28] MEDS: PERIACTIN PO SCH ×2 (11:54→21:48)
[2019-03-28] MEDS: TOPAMAX PO SCH ×2 (11:54→21:49)
[2019-03-28] MEDS: HALFPRIN EC PO SCH (11:54)
[2019-03-28] MEDS: DELTASONE PO SCH (11:54)
[2019-03-28] MEDS: SODIUM CHLORIDE FLUSH SYRINGE 10 ML IV SCH ×2 (11:55→21:49)
--- NOTE | 2019-03-28 13:19 | Progress Note ---
Subjective Date of service: 03/28/19 Principal diagnosis: Ac on Ch hypoxemic-hypercapnic Resp failure; CHF exacerbation; COPD; FILIPE Interval history: went over the CT and CT is showing atrophy but no acute stroke recommend continue same plan suspect brain atrophy creating slow potential for quick recovery Objective - Vital Sign Vital Signs - 12hr 03/28/19 03/28/19 03/28/19 08:10 08:21 08:45 Temperature 98.3 F Pulse Rate 88 Pulse Rate [ 90 95 H Posterior Bilateral Throughout] Respiratory 18 Rate Respiratory 18 20 Rate [Posterior Bilateral Throughout] Blood Pressure 101/64 O2 Sat by Pulse 95 89 Oximetry 03/28/19 12:42 Temperature Pulse Rate 85 Pulse Rate [ Posterior Bilateral Throughout] Respiratory Rate Respiratory Rate [Posterior Bilateral Throughout] Blood Pressure 99/66 O2 Sat by Pulse 85 Oximetry - Laboratory Findings CBC and BMP: 03/27/19 05:49 03/27/19 05:49 Abnormal Lab Findings: Abnormal Labs 03/19/19 03/19/19 03/19/19 17:39 17:52 17:52 RDW 15.7 H Lymph % (Auto) [place] % (Auto) 10.6 H Lymph # Seg Neutrophils % 70.6 H PT Heparin Anti-Xa Level POC ABG pH POC ABG pCO2 60.9 H POC ABG pO2 53 L Sodium Potassium Chloride 84.1 L Carbon Dioxide 36 H Creatinine 0.6 L Glucose Calcium Total Creatine Kinase CK-MB (CK-2) CK-MB (CK-2) Rel Index Troponin T 0.079 H NT-Pro-B Natriuret Pep 8170 H Total Protein 6.0 L Albumin 3.1 L 03/20/19 03/20/19 03/20/19 01:01 06:46 06:46 RDW 15.8 H Lymph % (Auto) 9.0 L [place] % (Auto) Lymph # 0.7 L Seg Neutrophils % 86.5 H PT Heparin Anti-Xa Level POC ABG pH POC ABG pCO2 POC ABG pO2 Sodium Potassium Chloride Carbon Dioxide 33 H Creatinine 0.6 L Glucose 133 H Calcium Total Creatine Kinase 42 L CK-MB (CK-2) 4.2 H CK-MB (CK-2) Rel Index 10.0 H Troponin T 0.088 H NT-Pro-B Natriuret Pep Total Protein Albumin 03/20/19 03/20/19 03/22/19 06:46 16:02 07:07 RDW 15.7 H Lymph % (Auto) [place] % (Auto) Lymph # Seg Neutrophils % PT Heparin Anti-Xa Level POC ABG pH 7.484 H POC ABG pCO2 60.5 H POC ABG pO2 79 L Sodium Potassium Chloride Carbon Dioxide Creatinine Glucose Calcium Total Creatine Kinase 53 L CK-MB (CK-2) 4.4 H CK-MB (CK-2) Rel Index 8.3 H Troponin T 0.073 H NT-Pro-B Natriuret Pep Total Protein Albumin 03/22/19 03/23/19 03/23/19 07:07 06:23 06:23 RDW 15.3 H Lymph % (Auto) [place] % (Auto) Lymph # Seg Neutrophils % PT Heparin Anti-Xa Level POC ABG pH POC ABG pCO2 POC ABG pO2 Sodium Potassium 3.5 L Chloride 92.0 L 86.5 L Carbon Dioxide 36 H 39 H Creatinine 0.7 L 0.5 L Glucose 119 H 103 H Calcium Total Creatine Kinase CK-MB (CK-2) CK-MB (CK-2) Rel Index Troponin T NT-Pro-B Natriuret Pep Total Protein Albumin 03/23/19 03/24/19 03/24/19 14:43 00:53 06:55 RDW Lymph % (Auto) [place] % (Auto) Lymph # Seg Neutrophils % PT 15.1 H Heparin Anti-Xa Level 1.28 H POC ABG pH POC ABG pCO2 POC ABG pO2 Sodium Potassium 3.3 L Chloride 90.0 L Carbon Dioxide 38 H Creatinine 0.4 L Glucose Calcium 8.3 L Total Creatine Kinase CK-MB (CK-2) CK-MB (CK-2) Rel Index Troponin T NT-Pro-B Natriuret Pep Total Protein Albumin 03/24/19 03/25/19 03/25/19 10:13 05:22 05:22 RDW Lymph % (Auto) [place] % (Auto) 8.9 H Lymph # Seg Neutrophils % 71.8 H PT Heparin Anti-Xa Level 1.01 H POC ABG pH POC ABG pCO2 POC ABG pO2 Sodium Potassium 3.5 L Chloride 89.1 L Carbon Dioxide 39 H Creatinine 0.4 L Glucose Calcium Total Creatine Kinase CK-MB (CK-2) CK-MB (CK-2) Rel Index Troponin T NT-Pro-B Natriuret Pep Total Protein Albumin 03/27/19 05:49 RDW Lymph % (Auto) [place] % (Auto) Lymph # Seg Neutrophils % PT Heparin Anti-Xa Level POC ABG pH POC ABG pCO2 POC ABG pO2 Sodium 135 L Potassium 3.5 L Chloride 89.3 L Carbon Dioxide 35 H Creatinine 0.4 L Glucose Calcium Total Creatine Kinase CK-MB (CK-2) CK-MB (CK-2) Rel Index Troponin T NT-Pro-B Natriuret Pep Total Protein Albumin
--- NOTE | 2019-03-28 15:46 | Progress Note ---
Assessment and Plan 1. Poor po intake - on cyrpoheptadine. No N/V. Getting Dobhoff tube feeds. Passed swallow evaluation. 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 - would see how he does with possibly decreasing or altering meds to reduce lethargy - can consider increasing cyrpohepatdine to qid if no better in 1-2 days - would then advance diet and see how he does without Dobhoff before considering enteral nutritional support. He is at high risk for complications of G-tube placement, especially given his numerous abdominal surgeries. - family interested in marijuana, and discussed Marinol, but pt states he was told it was forbidden per his Pain Mgmt contract, so will NOT initiate. Will be available for follow up as needed, but o/w will sign off. Discussed with Dr. Vazquez. Subjective Date of service: 03/28/19 Principal diagnosis: Ac on Ch hypoxemic-hypercapnic Resp failure; CHF exacerbat ion; COPD; FILIPE Interval history: Pt sleepy, but answers questions appropriately. and son in room, and state that he is more lethargic than at home. No abd pain, N/V. Still poor appetite. Objective - Constitutional Vitals: Vital Signs - 12hr 03/28/19 03/28/19 03/28/19 08:10 08:21 08:45 Temperature 98.3 F Pulse Rate 88 Pulse Rate [ 90 95 H Posterior Bilateral Throughout] Respiratory 18 Rate Respiratory 18 20 Rate [Posterior Bilateral Throughout] Blood Pressure 101/64 O2 Sat by Pulse 95 89 Oximetry 03/28/19 03/28/19 03/28/19 10:00 12:42 13:33 Temperature Pulse Rate 82 85 Pulse Rate [ 88 Posterior Bilateral Throughout] Respiratory Rate Respiratory 18 Rate [Posterior Bilateral Throughout] Blood Pressure 99/66 O2 Sat by Pulse 85 Oximetry 03/28/19 13:39 Temperature Pulse Rate Pulse Rate [ 89 Posterior Bilateral Throughout] Respiratory Rate Respiratory 18 Rate [Posterior Bilateral Throughout] Blood Pressure O2 Sat by Pulse Oximetry General appearance: Present: no acute distress, other (Dobhoff tube in place) - EENT ENT: hearing intact - Respiratory Respiratory effort: normal - Gastrointestinal General gastrointestinal: Present: soft, non-tender - Labs CBC & Chem 7: 03/27/19 05:49 03/27/19 05:49 Medications & Allergies - Medications Allergies/Adverse Reactions: Allergies No Known Allergies Allergy (Verified 11/05/17 05:58) Home Medications: Home Medications Medication Instructions Recorded Confirmed Last Taken Type Divalproex Dr [Depakote Dr] 1,000 mg PO DAILY 11/08/14 03/20/19 11/04/17 History Gabapentin 300 mg PO BID 11/08/14 03/19/19 11/04/17 History amLODIPine [Norvasc] 5 mg PO DAILY 11/08/14 03/19/19 11/04/17 History AtorvaSTATin [Lipitor] 40 mg PO DAILY 04/26/17 03/19/19 11/04/17 History Budesonide/Formoterol Fumarate 2 puff IH BID 02/20/18 03/24/19 Unknown History [Symbicort 160-4.5 Mcg Inhaler] Primidone [Mysoline] 250 mg PO QID 02/20/18 03/19/19 Unknown History Ergocalciferol (Vitamin D2) 50,000 unit PO QWEEK 09/22/18 03/19/19 Unknown History [Drisdol] Oxycodone HCl/Acetaminophen 10 mg PO QID PRN 09/22/18 03/19/19 Unknown History [Percocet 10/325 mg] Tiotropium [place] [Spiriva 2 puff IH QDAY 09/22/18 03/20/19 Unknown History Respimat] Topiramate [Topamax] 50 mg PO BID 09/22/18 03/20/19 Unknown History Aspirin EC [Aspirin Enteric Coated 81 mg PO DAILY tablet 02/16/19 03/24/19 Unknown Rx TAB] ALBUTEROL NEB's [Proventil 0.083% 2.5 mg INHALATION DAILY 03/19/19 03/19/19 Unknown History NEBS] ALBUTEROL NEB's [Proventil] 2.5 mg IH TID PRN 03/19/19 03/19/19 Unknown History Bystolic 10 mg PO DAILY 03/19/19 03/19/19 Unknown History Divalproex ER [Depakote ER] 500 mg PO BID 03/19/19 03/19/19 Unknown History Symbicort 160-4.5 Mcg Inhaler 4.5 mcg INHALATION BID 03/19/19 03/19/19 Unknown History Tiotropium [place] [Spiriva] 18 mcg IH BID 03/19/19 03/19/19 Unknown History Ventolin Hfa 90 mcg INHALATION QID 03/19/19 03/19/19 Unknown History Active Medications: Generic Name Dose Route Start Last Admin Trade Name Freq PRN Reason Stop Dose Admin Acetaminophen 650 mg 03/20/19 00:42 Tylenol PO Q4H PRN Pain MILD(1-3)/Fever >100.5/GALAN Albuterol 2.5 mg 03/20/19 01:20 03/20/19 12:44 Proventil IH 2.5 mg Q4HRT PRN Administration Shortness Of Breath Albuterol/Ipratropium 1 ampul 03/20/19 02:00 03/28/19 13:32 Duoneb *Not For Prn Use* IH 1 ampul Q6HRT ANRDEW Administration Lipase/Protease/Amylase 1 each 03/27/19 11:45 Pancreaznino Mon 10,500 Unit FEEDTUBE PRN PRN For Clogged Feeding Tube Arformoterol Tartrate 15 mcg 03/20/19 08:00 03/28/19 08:08 Brovana Nebu IH 15 mcg Q12HRT ANDREW Administration Aspirin 81 mg 03/20/19 10:00 03/28/19 11:54 Halfprin Ec PO 81 mg DAILY ANDREW Administration Atorvastatin Calcium 40 mg 03/20/19 10:00 03/28/19 11:53 Lipitor PO 40 mg DAILY ANDREW Administration Budesonide 0.5 mg 03/23/19 16:57 03/28/19 08:08 Pulmicort IH 0.5 mg Q12HRT ANDREW Administration Cyproheptadine HCl 4 mg 03/27/19 22:00 03/28/19 11:54 Periactin PO 4 mg BID ANDREW Administration Divalproex Sodium 500 mg 03/20/19 10:00 03/28/19 11:53 Depakote Er PO 500 mg BID ANDREW Administration Furosemide 40 mg 03/22/19 10:00 03/28/19 11:53 Lasix IV 40 mg QDAY ANDREW Administration Gabapentin 300 mg 03/20/19 10:00 03/28/19 11:53 Neurontin PO 300 mg BID ANDREW Administration Ipratropium [place] 0.5 mg 03/20/19 13:00 03/28/19 13:40 Atrovent IH Not Given Q6HRT [facility] Metoprolol Tartrate 25 mg 03/23/19 20:00 03/28/19 14:31 Lopressor PO Not Given TID [facility] Ondansetron HCl 4 mg 03/20/19 00:42 03/22/19 10:39 Zofran IV 4 mg Q4H PRN Administration Nausea And Vomiting Oxycodone HCl 5 mg 03/21/19 18:37 03/25/19 21:55 Roxicodone PO 5 mg QID PRN Administration Pain, Moderate (4-6) Oxycodone/Acetaminophen 1 tab 03/21/19 18:36 03/28/19 09:02 Percocet 5/325 PO 1 tab QID PRN Administration Pain, Moderate (4-6) Prednisone 20 mg 03/20/19 12:00 03/28/19 11:54 Deltasone PO 20 mg QDAY ANDREW Administration Primidone 250 mg 03/20/19 10:00 03/28/19 11:54 Mysoline PO 250 mg QID ANDREW Administration Simple Syrup 15 ml 03/27/19 11:45 Simple Syrup FEEDTUBE PRN PRN Hypoglycemia Simple Syrup 30 ml 03/27/19 11:45 Simple Syrup FEEDTUBE PRN PRN Hypoglycemia Sodium Bicarbonate 325 mg 03/27/19 11:45 Sodium Bicarbonate FEEDTUBE PRN PRN For Clogged Feeding Tube Sodium Chloride 10 ml 03/20/19 10:00 03/28/19 11:55 Sodium Chloride Flush Syringe 10 Ml IV 10 ml BID ANDREW Administration Sodium Chloride 10 ml 03/20/19 00:42 03/20/19 05:40 Sodium Chloride Flush Syringe 10 Ml IV 10 ml PRN PRN Administration LINE FLUSH Topiramate 50 mg 03/20/19 10:00 03/28/19 11:54 Topamax PO 50 mg BID ANDREW Administration
[2019-03-29] MEDS: DUONEB *Not for PRN Use IH SCH ×4 (02:11→19:34)
[2019-03-29] MEDS: ATROVENT IH SCH ×5 (02:11→19:35)
[2019-03-29] MEDS: PERCOCET 5/325 PO PRN ×3 (04:59→21:29)
[2019-03-29] MEDS: ROXICODONE PO PRN (05:00)
[2019-03-29 06:08] LABS: BUN/Creatinine Ratio 25; Blood Urea Nitrogen 10 mg/dL (9-20)
[2019-03-29 06:09] LABS: Calcium 8.5 mg/dL (8.4-10.2); Hemolysis Index 3
[2019-03-29] MEDS: PULMICORT IH SCH ×3 (07:33→19:38)
[2019-03-29] MEDS: BROVANA NEBU IH SCH ×3 (07:33→19:35)
[2019-03-29] MEDS: MYSOLINE PO SCH ×5 (08:14→21:30)
--- NOTE | 2019-03-29 09:12 | Ultrasound Report ---
PROCEDURE: US ABDOMEN LIMITED TECHNIQUE: Longitudinal and transverse grayscale sonographic images were performed HISTORY: nausea COMPARISONS: KUB 03/27/2019, CT 09/22/2018 FINDINGS: The pancreas is not well visualized. The liver shows grossly normal echogenicity and echotexture without focal hepatic lesion. Majority of the liver is not able to be imaged today. Gallbladder is distended. Common duct measures 1.4 mm. Gallbladder wall is not thickened. No perichol ecystic fluid. No stones. Aorta is unremarkable. IMPRESSION: Technically very limited exam. No definite gallstones or biliary ductal dilatation. The entire liver is not imaged.. Pancreas is obscured. This document is electronically signed by Dayan Sandoval MD., Mar 29 2019 09:10:35 AM ET
[2019-03-29] MEDS: LOPRESSOR PO SCH ×3 (11:45→21:31)
[2019-03-29] MEDS: NEURONTIN PO SCH ×2 (11:47→21:31)
[2019-03-29] MEDS: PERIACTIN PO SCH ×2 (11:47→21:31)
[2019-03-29] MEDS: LASIX IV SCH (11:47)
[2019-03-29] MEDS: TOPAMAX PO SCH ×2 (11:48→21:30)
[2019-03-29] MEDS: HALFPRIN EC PO SCH (11:48)
[2019-03-29] MEDS: DELTASONE PO SCH (11:49)
[2019-03-29] MEDS: SODIUM CHLORIDE FLUSH SYRINGE 10 ML IV SCH ×2 (11:50→21:33)
--- NOTE | 2019-03-29 14:41 | Progress Note ---
Assessment and Plan Assessment and plan: Patient is a 63 yo man with a history of hypertension, chronic respiratory failure on home 3-4 liters O2 due to End-stage COPD, Seizure disorder, PE and essential tremor who presented to [facility] ED with sob, leg swelling. * CTA chest FINDINGS: Heart and pericardium: Small amount of pericardial fluid is present, measuring up to 5 mm in thickness. Thoracic aorta: Mild atherosclerotic calcification. Pulmonary vasculature: Normal. No pulmonary emboli. Lymph nodes: Numerous mediastinal nodes are present, measuring up to 1 cm in short axis. Lungs: Mild diffuse septal thickening suggests interstitial edema. There is mild bibasilar compressive atelectasis. Pleural space: Bilateral mild to moderate sized layering pleural effusions are present. No pneumothorax is identified bilaterally Musculoskeletal structures: No significant abnormality. Upper abdominal structures: There is an anterior abdominal wall hernia, which is not fully imaged. IMPRESSION: No evidence of pulmonary emboli. Bilateral pleural effusions. Mild mediastinal adenopathy. -Acute on chronic hypoxic respiratory failure: consulted [employer], careful with o2 as gordy Calvin at bedside say he develops co2 retention with too much Oxygen -Acute COPD exacerbation: treat with nebs, steroids, abx -Acute on chronic diastolic HF exacerbation: EF 50-55% on 01/2019 ECHO, treat with diuretics but reduce dose as patient developing contraction alkalosis. Consulted Cardiology -Hypertension: low salt diet, antihypertensives -Seizure: continue home medications -New onset transient Afib with RVR: Cardiology is following and started Amiodarone on 03/22/19 -New onset of NSVT: Cardiololgy is following, replete potassium -Hypokalemia: replace via IV, not eating, repeat bmp -History of PE -h/o Essential tremor -DVT ppx on sq lovenox 03/22/19: Around 1am this morning, pt had 3 beat run of NSVT, then around 3:29am he went into Afib with RVR followed immediately by another run of NSVT. SonLondon insist on giving his father around the clock Narcotics because he feels that father is going into "DTs" by the lack of narcotics because of the nausea/lack of appetite/not eating. Patient is gagging when he attempts to eat. I wanted to exam patient's abdomen by removing the binder but I was met with unbelievable resistance. On exam, the ventral hernia is tender and distended. The son insist on re-applying the binder and doesn't think the ventral hernia is causing any problems although his father is consistently in pain for it and the ventral hernia is now inoperable (after multiple surgeries) per son. CT abd/pel vis with oral contrast is indicated but patient may not be able to drink the contrast or lay flat. I consulted Gen. Surgery. However, main issue now is arrhythmias. I will also consult Dr. Spivey for pain management. 03/23/19: Yesterday around 8:30pm had another 3 beat run of NSVT. I spoke with Dr. Savage yesterday. Amiodarone started Patient still not eating, Son at bedside is concerned. 03/26/19: mri brain ordered by Neurologist but patient unable to lay flat due to large ventral hernia causing sob. Coughed up a piece of rice. Will get speech evaluation and consult GI 03/27/19: now on pureed diet but still not eating, place NGT and start tube feeding, GI consulted and input noted. repeat CT head pending. 03/29/19: GI input noted. will start back on pureed diet since more awake today. Advised spouse that it will be sometime to return to baseline, son echos the same. offered rehab but she disagrees. no other cardiac event noted. Neurology input noted-slow recovery anticipated. History Interval history: Patient seen and examined, Much more awake today, per family patient able to assist with transfer from bed to commode and also awake and oriented x3 prior to hospitalization. Advised for rehab but she declines. I have also discussed with her about GI recommendations. Will start diet today. No additional complaints noted. Hospitalist Physical - Physical exam Narrative exam: Gen: chronic disable and ill-appearing, NAD, Orientated x 2 HEENT: NCAT, EOMI, PERRL, OP Clear Neck: supple, no adenopathy, no thyromegaly, JVD CVS/Heart: RRR, normal S1S2, pulses present bilaterally Chest/Lungs: diminished bs with bibasilar crackles, Symmetrical chest expansion, good air entry bilaterally GI/Abdomen: soft, large tender ventral hernia (binder in place) good bowel sounds, no guarding or rebound /Bladder: no suprapubic tenderness, no CVA or paraspinal tenderness Extermity/Skin: leg edema no obvious rash MSK: FROM x 4 Neuro: CN 2-12 grossly intact, no new focal deficits Psych: calm - Constitutional Vitals: Temp Pulse Resp BP Pulse Ox 97.9 F 104 H 17 101/58 96 03/29/19 09:11 03/29/19 13:46 03/29/19 13:46 03/29/19 11:54 03/29/19 11:54 General appearance: Present: no acute distress, other (Dobhoff tube in place) Results - Labs CBC & Chem 7: 03/27/19 05:49 03/29/19 05:12 Labs: Laboratory Last Values WBC 8.4 K/mm3 (4.5-11.0) 03/27/19 05:49 RBC 4.58 M/mm3 (3.65-5.03) 03/27/19 05:49 Hgb 13.9 gm/dl (11.8-15.2) 03/27/19 05:49 Hct 41.1 % (35.5-45.6) 03/27/19 05:49 MCV 90 fl (84-94) 03/27/19 05:49 MCH 31 pg (28-32) 03/27/19 05:49 MCHC 34 % (32-34) 03/27/19 05:49 RDW 15.1 % (13.2-15.2) 03/27/19 05:49 Plt Count 215 K/mm3 (140-440) 03/27/19 05:49 Lymph % (Auto) 18.0 % (13.4-35.0) 03/25/19 05:22 Gates % (Auto) 8.9 % (0.0-7.3) H 03/25/19 05:22 Eos % (Auto) 0.9 % (0.0-4.3) 03/25/19 05:22 Baso % (Auto) 0.4 % (0.0-1.8) 03/25/19 05:22 Lymph # 1.2 K/mm3 (1.2-5.4) 03/25/19 05:22 Gates # 0.6 K/mm3 (0.0-0.8) 03/25/19 05:22 Eos # 0.1 K/mm3 (0.0-0.4) 03/25/19 05:22 Baso # 0.0 K/mm3 (0.0-0.1) 03/25/19 05:22 Seg Neutrophils % 71.8 % (40.0-70.0) H 03/25/19 05:22 Seg Neutrophils # 4.7 K/mm3 (1.8-7.7) 03/25/19 05:22 PT 15.1 Sec. (12.2-14.9) H 03/23/19 14:43 INR 1.12 (0.87-1.13) 03/23/19 14:43 APTT 28.8 Sec. (24.2-36.6) 03/23/19 14:43 Heparin Anti-Xa Level 0.45 U.I./ml (0.3-0.7) 03/24/19 12:58 POC ABG pH 7.484 (7.35-7.45) H 03/20/19 16:02 POC ABG pCO2 60.5 (35-45) H 03/20/19 16:02 POC ABG pO2 79 (80-105) L 03/20/19 16:02 POC ABG HCO3 45.5 (22-26 mml/L) 03/20/19 16:02 POC ABG Total CO2 47 (23-27mmol/L) 03/20/19 16:02 POC ABG O2 Sat 96 03/20/19 16:02 POC ABG Base Excess 22 ((-2) - (+3)mmol/L) 03/20/19 16:02 FiO2 45 % 03/20/19 16:02 Sodium 130 mmol/L (137-145) L 03/29/19 05:12 Potassium 3.5 mmol/L (3.6-5.0) L 03/29/19 05:12 Chloride 84.1 mmol/L (98-107) L 03/29/19 05:12 Carbon Dioxide 35 mmol/L (22-30) H 03/29/19 05:12 Anion Gap 14 mmol/L 03/29/19 05:12 BUN 10 mg/dL (9-20) 03/29/19 05:12 Creatinine 0.4 mg/dL (0.8-1.5) L 03/29/19 05:12 Estimated GFR > 60 ml/min 03/29/19 05:12 BUN/Creatinine Ratio 25 % 03/29/19 05:12 Glucose 128 mg/dL (75-100) H 03/29/19 05:12 POC Glucose 130 (70-105) H 03/29/19 05:13 Lactic Acid 1.20 mmol/L (0.7-2.0) 03/19/19 17:52 Calcium 8.5 mg/dL (8.4-10.2) 03/29/19 05:12 Magnesium 1.70 mg/dL (1.7-2.3) 03/27/19 05:49 Total Bilirubin 0.30 mg/dL (0.1-1.2) 03/19/19 17:52 AST 23 units/L (5-40) 03/19/19 17:52 ALT 19 units/L (7-56) 03/19/19 17:52 Alkaline Phosphatase 64 units/L (35-129) 03/19/19 17:52 Total Creatine Kinase 53 units/L (55-170) L 03/20/19 06:46 CK-MB (CK-2) 4.4 ng/mL (0.0-4.0) H 03/20/19 06:46 CK-MB (CK-2) Rel Index 8.3 (0-4) H 03/20/19 06:46 Troponin T 0.073 ng/mL (0.00-0.029) H 03/20/19 06:46 NT-Pro-B Natriuret Pep 8170 pg/mL (0-900) H 03/19/19 17:52 Total Protein 6.0 g/dL (6.3-8.2) L 03/19/19 17:52 Albumin 3.1 g/dL (3.9-5) L 03/19/19 17:52 Albumin/Globulin Ratio 1.1 % 03/19/19 17:52 Triglycerides 117 mg/dL (2-149) 03/19/19 17:52 Cholesterol 178 mg/dL (50-199) 03/19/19 17:52 LDL Cholesterol Direct 118 mg/dL (50-130) 03/19/19 17:52 HDL Cholesterol 40 mg/dL (40-59) 03/19/19 17:52 Cholesterol/HDL Ratio 4.45 % 03/19/19 17:52 TSH 1.950 mlU/mL (0.270-4.200) 03/23/19 06:23 Free T4 0.82 ng/dL (0.76-1.46) 03/23/19 06:23 Phenobarbital 27.4 ug/mL (15.0-40.0) 03/23/19 12:53 Active Medications - Current Medications Current Medications: Generic Name Dose Route Start Last Admin Trade Name Freq PRN Reason Stop Dose Admin Acetaminophen 650 mg 03/20/19 00:42 Tylenol PO Q4H PRN Pain MILD(1-3)/Fever >100.5/GALAN Albuterol 2.5 mg 03/20/19 01:20 03/20/19 12:44 Proventil IH 2.5 mg Q4HRT PRN Administration Shortness Of Breath Albuterol/Ipratropium 1 ampul 03/20/19 02:00 03/29/19 13:36 Duoneb *Not For Prn Use* IH 1 ampul Q6HRT ANDREW Administration Lipase/Protease/Amylase 1 each 03/27/19 11:[address] 10,500 Unit FEEDTUBE PRN PRN For Clogged Feeding Tube Arformoterol Tartrate 15 mcg 03/20/19 08:00 03/29/19 07:33 Brovana Nebu IH 15 mcg Q12HRT ANDREW Administration Aspirin 81 mg 03/20/19 10:00 03/29/19 11:48 Halfprin Ec PO 81 mg DAILY ANDREW Administration Atorvastatin Calcium 40 mg 03/20/19 10:00 03/29/19 11:48 Lipitor PO 40 mg DAILY ANDREW Administration Budesonide 0.5 mg 03/23/19 16:57 03/29/19 07:33 Pulmicort IH 0.5 mg Q12HRT ANDREW Administration Cyproheptadine HCl 4 mg 03/27/19 22:00 03/29/19 11:47 Periactin PO 4 mg BID ANDREW Administration Divalproex Sodium 500 mg 03/20/19 10:00 03/29/19 11:49 Depakote Er PO 500 mg BID ANDREW Administration Furosemide 40 mg 03/22/19 10:00 03/29/19 11:47 Lasix IV 40 mg QDAY ANDREW Administration Gabapentin 300 mg 03/20/19 10:00 03/29/19 11:47 Neurontin PO 300 mg BID ANDREW Administration Ipratropium Bledsoe 0.5 mg 03/20/19 13:00 03/29/19 13:37 Atrovent IH Not Given Q6HRT [facility] Metoprolol Tartrate 25 mg 03/23/19 20:00 03/29/19 11:45 Lopressor PO Not Given TID [facility] Ondansetron HCl 4 mg 03/20/19 00:42 03/22/19 10:39 Zofran IV 4 mg Q4H PRN Administration Nausea And Vomiting Oxycodone HCl 5 mg 03/21/19 18:37 03/29/19 05:00 Roxicodone PO 5 mg QID PRN Administration Pain, Moderate (4-6) Oxycodone/Acetaminophen 1 tab 03/21/19 18:36 03/29/19 11:48 Percocet 5/325 PO 1 tab QID PRN Administration Pain, Moderate (4-6) Prednisone 20 mg 03/20/19 12:00 03/29/19 11:49 Deltasone PO 20 mg QDAY [facility] Administration Primidone 250 mg 03/20/19 10:00 03/29/19 11:49 Mysoline PO 250 mg QID ANDREW Administration Simple Syrup 15 ml 03/27/19 11:45 Simple Syrup FEEDTUBE PRN PRN Hypoglycemia Simple Syrup 30 ml 03/27/19 11:45 Simple Syrup FEEDTUBE PRN PRN Hypoglycemia Sodium Bicarbonate 325 mg 03/27/19 11:45 Sodium Bicarbonate FEEDTUBE PRN PRN For Clogged Feeding Tube Sodium Chloride 10 ml 03/20/19 10:00 03/29/19 11:50 Sodium Chloride Flush Syringe 10 Ml IV 10 ml BID ANDREW Administration Sodium Chloride 10 ml 03/20/19 00:42 03/20/19 05:40 Sodium Chloride Flush Syringe 10 Ml IV 10 ml PRN PRN Administration LINE FLUSH Topiramate 50 mg 03/20/19 10:00 03/29/19 11:48 Topamax PO 50 mg BID ANDREW Administration Nutrition/Malnutrition Assess - Dietary Evaluation Nutrition/Malnutrition Findings: Nutrition Notes Start: 03/26/19 10:39 Freq: Status: Active Protocol: Document 03/27/19 08:45 ER (Rec: 03/27/19 08:49 ER [id number]) Co-Sign 03/27/19 08:45 LP Nutrition Notes Need for Assessment generated from: MD Order Initial or Follow up Reassessment Current Diagnosis COPD,Hypertension,Respiratory Failure Current Diet pureed Labs/Tests Reviewed Pertinent Medications Lasix Height 5 ft 11 in Weight 114.5 kg Spangler Body Weight (kg) 78.18 BMI 35.2 Subjective/Other Information MD consult for poor oral intake and write/manage TF. Burn Absent Trauma Absent #1 Nutrition Diagnosis Inadequate oral intake Diagnosis Progress(for reassessment Continues documentation) Is patient on ventilator? No Is Patient Ambulatory and/or Out of Bed No [facility] 2359.224 Kcal/Kg value to use for calculation 18 Approximate Energy Requirements Using 2060 kcal/Kg Calculation Used for Recommendations Kcal/kg Additional Notes Pro needs: AdjBW (96 kg) ( 1-1 .2 kg/g) (96-115 g) Fluid needs: 1 ml/kcal Nutrition Intervention Change Diet Order: Jevity 1.2 at 70 mL/hr with 100 mL water flush q4h or per MD Nutrition Support: Jevity 1.2 at 70 mL/hr with 100 mL water flush q4h or per MD Kcal 2,016 Protein (gm) 93 Carbohydrates (gm) 285 Fat (gm) 66 Fluid (mL) 1,356 Fiber (gm) 30 Add Supplement/Snack (indicate name/kcal d/c /protein ) Goal #1 TF to meet at least 75% of energy and protein needs. Follow-Up By: 03/30/19 Additional Comments F/U: new TF
--- NOTE | 2019-03-29 15:29 | Progress Note ---
Assessment and Plan -Acute on chronic hypoxemic-hypercapnic respiratory failure -Elevated BNP, decompensated heart failure -Morbid obesity -COD -Sleep apnea -h/o PE, not on anticoagulation -Bronchodilators, ipratropium added to therapy Oxygen restrictive strategies, keep O2 sats 88-90% -VTE prophylaxis -No antibiotics indicated at this time. This appears to be decompensated heart failure -Avoid systemic steroids, as this worsen his heart failure -Diuresis while monitoring renal indices, hemodynamics and electrolyte profile -Keep potassium and phos upper limit of normal to optimize respiratory muscle function -Nocturnal NIPPV -Continue diuretics follow up CXR in the morning -Chronic home medications per primary. Continue all supportive care Pain management consult notes reviewed. Discussed care plan with the patient, his and his son who is at the bedside. Discussed with RT Subjective Date of service: 03/29/19 Principal diagnosis: Ac on Ch hypoxemic-hypercapnic Resp failure; CHF exacerbation; COPD; FILIPE Interval history: Patient is seen today for: Acute on chronic hypoxemic-hypercapnic respiratory failure; Elevated BNP, decompensated heart failure; Morbid obesity; COPD; Sleep apnea; h/o PE, not on anticoagulation Seen and examined at bedside; 24-hour events reviewed; nursing and respiratory care staff consulted; no adverse overnight events reported to me; resting peacefully in bed; denies acute chest pains or palpitations, no fevers or chills. Poor appetite, Small bowel feeding tube in nares for nutritional support, appetite is better today. More awake and responsive today. Tolerating nocturnal and prn BIPAP. Supplemental oxygen and son at the bedside Objective Vital Signs - 12hr 03/29/19 03/29/19 03/29/19 04:29 07:33 07:39 Temperature 98.3 F Pulse Rate 82 Pulse Rate [ 95 H Posterior Bilateral Throughout] Respiratory 18 Rate Respiratory 16 Rate [Posterior Bilateral Throughout] Blood Pressure 121/71 O2 Sat by Pulse 93 93 Oximetry 03/29/19 03/29/19 03/29/19 07:44 08:11 09:11 Temperature 97.9 F Pulse Rate 70 40 L Pulse Rate [ 102 H Posterior Bilateral Throughout] Respiratory 18 Rate Respiratory 17 Rate [Posterior Bilateral Throughout] Blood Pressure 96/63 O2 Sat by Pulse 91 Oximetry 03/29/19 03/29/19 03/29/19 11:54 13:36 13:46 Temperature Pulse Rate 81 Pulse Rate [ 94 H 104 H Posterior Bilateral Throughout] Respiratory Rate Respiratory 16 17 Rate [Posterior Bilateral Throughout] Blood Pressure 101/58 O2 Sat by Pulse 96 Oximetry Constitutional: no acute distress, lethargic, other (obese man on 3L oxygen via NC, atraumatic, normocephalic) Eyes: non-icteric ENT: oropharynx moist, other (large neck circumference) Neck: supple, no lymphadenopathy, no JVD, other (no thyromegaly) Effort: mildly labored Ascultation: Bilateral: diminished breath sounds, rales, rhonchi, other (prolonged exp phase) Percussion: Bilateral: dull (bases) Cardiovascular: regular rate and rhythm, other (S1,S2,no murmurs) Gastrointestinal: normoactive bowel sounds, soft, non-tender, other (protuberant ) Extremities: no cyanosis, pink and warm, pulses normal, edema (bilateral lower extremity (improving)) Neurologic: normal mental status, non-focal exam, pupils equal and round, CN II- XII normal, motor strength normal and Psychiatric: mood appropriate, affect normal CBC and BMP: 03/27/19 05:49 03/29/19 05:12 ABG, PT/INR, D-dimer: ABG POC ABG pH 7.484 (7.35-7.45) H 03/20/19 16:02 POC ABG pCO2 60.5 (35-45) H 03/20/19 16:02 POC ABG pO2 79 (80-105) L 03/20/19 16:02 POC ABG HCO3 45.5 (22-26 mml/L) 03/20/19 16:02 POC ABG Total CO2 47 (23-27mmol/L) 03/20/19 16:02 POC ABG O2 Sat 96 03/20/19 16:02 PT/INR, D-dimer PT 15.1 Sec. (12.2-14.9) H 03/23/19 14:43 INR 1.12 (0.87-1.13) 03/23/19 14:43 Abnormal lab findings: Abnormal Labs 03/19/19 03/19/19 03/19/19 17:39 17:52 17:52 RDW 15.7 H Lymph % (Auto) Jerome % (Auto) 10.6 H Lymph # Seg Neutrophils % 70.6 H PT Heparin Anti-Xa Level POC ABG pH POC ABG pCO2 60.9 H POC ABG pO2 53 L Sodium Potassium Chloride 84.1 L Carbon Dioxide 36 H Creatinine 0.6 L Glucose POC Glucose Calcium Total Creatine Kinase CK-MB (CK-2) CK-MB (CK-2) Rel Index Troponin T 0.079 H NT-Pro-B Natriuret Pep 8170 H Total Protein 6.0 L Albumin 3.1 L 03/20/19 03/20/19 03/20/19 01:01 06:46 06:46 RDW 15.8 H Lymph % (Auto) 9.0 L Jerome % (Auto) Lymph # 0.7 L Seg Neutrophils % 86.5 H PT Heparin Anti-Xa Level POC ABG pH POC ABG pCO2 POC ABG pO2 Sodium Potassium Chloride Carbon Dioxide 33 H Creatinine 0.6 L Glucose 133 H POC Glucose Calcium Total Creatine Kinase 42 L CK-MB (CK-2) 4.2 H CK-MB (CK-2) Rel Index 10.0 H Troponin T 0.088 H NT-Pro-B Natriuret Pep Total Protein Albumin 03/20/19 03/20/19 03/22/19 06:46 16:02 07:07 RDW 15.7 H Lymph % (Auto) Jerome % (Auto) Lymph # Seg Neutrophils % PT Heparin Anti-Xa Level POC ABG pH 7.484 H POC ABG pCO2 60.5 H POC ABG pO2 79 L Sodium Potassium Chloride Carbon Dioxide Creatinine Glucose POC Glucose Calcium Total Creatine Kinase 53 L CK-MB (CK-2) 4.4 H CK-MB (CK-2) Rel Index 8.3 H Troponin T 0.073 H NT-Pro-B Natriuret Pep Total Protein Albumin 03/22/19 03/23/19 03/23/19 07:07 06:23 06:23 RDW 15.3 H Lymph % (Auto) Jerome % (Auto) Lymph # Seg Neutrophils % PT Heparin Anti-Xa Level POC ABG pH POC ABG pCO2 POC ABG pO2 Sodium Potassium 3.5 L Chloride 92.0 L 86.5 L Carbon Dioxide 36 H 39 H Creatinine 0.7 L 0.5 L Glucose 119 H 103 H POC Glucose Calcium Total Creatine Kinase CK-MB (CK-2) CK-MB (CK-2) Rel Index Troponin T NT-Pro-B Natriuret Pep Total Protein Albumin 03/23/19 03/24/19 03/24/19 14:43 00:53 06:55 RDW Lymph % (Auto) Jerome % (Auto) Lymph # Seg Neutrophils % PT 15.1 H Heparin Anti-Xa Level 1.28 H POC ABG pH POC ABG pCO2 POC ABG pO2 Sodium Potassium 3.3 L Chloride 90.0 L Carbon Dioxide 38 H Creatinine 0.4 L Glucose POC Glucose Calcium 8.3 L Total Creatine Kinase CK-MB (CK-2) CK-MB (CK-2) Rel Index Troponin T NT-Pro-B Natriuret Pep Total Protein Albumin 03/24/19 03/25/19 03/25/19 10:13 05:22 05:22 RDW Lymph % (Auto) Jerome % (Auto) 8.9 H Lymph # Seg Neutrophils % 71.8 H PT Heparin Anti-Xa Level 1.01 H POC ABG pH POC ABG pCO2 POC ABG pO2 Sodium Potassium 3.5 L Chloride 89.1 L Carbon Dioxide 39 H Creatinine 0.4 L Glucose POC Glucose Calcium Total Creatine Kinase CK-MB (CK-2) CK-MB (CK-2) Rel Index Troponin T NT-Pro-B Natriuret Pep Total Protein Albumin 03/27/19 03/29/19 03/29/19 05:49 05:12 05:13 RDW Lymph % (Auto) Jerome % (Auto) Lymph # Seg Neutrophils % PT Heparin Anti-Xa Level POC ABG pH POC ABG pCO2 POC ABG pO2 Sodium 135 L 130 L Potassium 3.5 L 3.5 L Chloride 89.3 L 84.1 L Carbon Dioxide 35 H 35 H Creatinine 0.4 L 0.4 L Glucose 128 H POC Glucose 130 H Calcium Total Creatine Kinase CK-MB (CK-2) CK-MB (CK-2) Rel Index Troponin T NT-Pro-B Natriuret Pep Total Protein Albumin Allied health notes reviewed: nursing
[2019-03-30] MEDS: DUONEB *Not for PRN Use IH SCH ×5 (01:57→21:33)
[2019-03-30] MEDS: ATROVENT IH SCH ×4 (01:57→22:00)
[2019-03-30] MEDS: PULMICORT IH SCH ×2 (07:43→21:30)
[2019-03-30] MEDS: BROVANA NEBU IH SCH ×2 (07:43→21:30)
[2019-03-30] MEDS: HALFPRIN EC PO SCH (09:27)
[2019-03-30] MEDS: LOPRESSOR PO SCH ×3 (09:27→20:29)
[2019-03-30] MEDS: LASIX IV SCH (09:27)
[2019-03-30] MEDS: NEURONTIN PO SCH ×2 (09:27→22:27)
[2019-03-30] MEDS: TOPAMAX PO SCH ×2 (09:29→22:27)
[2019-03-30] MEDS: PERIACTIN PO SCH ×2 (09:29→22:27)
[2019-03-30] MEDS: MYSOLINE PO SCH ×4 (09:30→22:28)
[2019-03-30] MEDS: SODIUM CHLORIDE FLUSH SYRINGE 10 ML IV SCH ×2 (09:32→22:30)
[2019-03-30] MEDS: PERCOCET 5/325 PO PRN ×2 (09:34→20:28)
[2019-03-30] MEDS: DELTASONE PO SCH ×2 (10:00→20:30)
--- NOTE | 2019-03-30 19:10 | Progress Note ---
Assessment and Plan Assessment and plan: Patient is a 63 yo man with a history of hypertension, chronic respiratory failure on home 3-4 liters O2 due to End-stage COPD, Seizure disorder, PE and essential tremor who presented to [facility] ED with sob, leg swelling. * CTA chest FINDINGS: Heart and pericardium: Small amount of pericardial fluid is present, measuring up to 5 mm in thickness. Thoracic aorta: Mild atherosclerotic calcification. Pulmonary vasculature: Normal. No pulmonary emboli. Lymph nodes: Numerous mediastinal nodes are present, measuring up to 1 cm in short axis. Lungs: Mild diffuse septal thickening suggests interstitial edema. There is mild bibasilar compressive atelectasis. Pleural space: Bilateral mild to moderate sized layering pleural effusions are present. No pneumothorax is identified bilaterally Musculoskeletal structures: No significant abnormality. Upper abdominal structures: There is an anterior abdominal wall hernia, which is not fully imaged. IMPRESSION: No evidence of pulmonary emboli. Bilateral pleural effusions. Mild mediastinal adenopathy. * Hospital stay complicated by recurrent bouts of NSVT and also AFIB WITH RVR, cardiology was consulted, they decided against usp AC Considering no reoccurrence of Afib, initially placed patient on Amiodarone but changed to Metoprolol TID for suppression of arrhythmia * Pulmonary also conusted on the patient and feels there is strong evidence of decompensated heart failure. Lasix has been continued, steroids tapering down due to concern that it can make the heart failure worse. Plan to repeat xray in am * Neurology revieed the patient and noted that mentation may take some time to fully recover due to overall general condition. We are unable to obtain MRI due to clinically condition * GI reported that Peg tube is too risk at this time and considering improvement in mental status to try oral intake again * Patient family and son are always present and refused SNF recommendation for rehab * Family believes that patient decompensated due to abrupt discontinuation of Opoid medications, Counselling given about chronic opioids and tapering metho d. -Acute on chronic combined hypercapenia and hypoxic respiratory failure: consulted [facility], careful with o2 as son Nikunj at bedside say he develops co2 retention with too much Oxygen -Acute COPD exacerbation: treat with nebs, steroids, abx. Oxygen restrictive strategies, keep O2 sats 88-90% -Acute on chronic diastolic HF exacerbation: EF 50-55% on 01/2019 ECHO, treat with diuretics but reduce dose as patient developing contraction alkalosis. Consulted Cardiology -Hypertension: low salt diet, antihypertensives -Seizure: continue home medications -New onset transient Afib with RVR: Cardiology is following and started Amiodarone on 03/22/19 -New onset of NSVT: Cardiololgy is following, replete potassium -Hypokalemia: replace via IV, not eating, repeat bmp -History of PE not o anticpauglation -h/o Essential tremor -DVT ppx on sq lovenox Continue assistance with feeding and can discharge in 24-48 hours, Family wants time to get the house ready. 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 History Interval history: Patient seen and examined, Much more awake today, tolerated some PO but not close to enough nutrition for sustenance but will like to continue oral intake. Hospitalist Physical - Physical exam Narrative exam: Gen: chronic disable and ill-appearing, NAD, Orientated x 3, OBESE HEENT: NCAT, EOMI, PERRL, OP Clear Neck: supple, no adenopathy, no thyromegaly, JVD CVS/Heart: RRR, normal S1S2, pulses present bilaterally Chest/Lungs: diminished bs with bibasilar crackles, Symmetrical chest expansion, good air entry bilaterally GI/Abdomen: soft, large tender ventral hernia (binder in place) good bowel sounds, no guarding or rebound /Bladder: no suprapubic tenderness, no CVA or paraspinal tenderness Extermity/Skin: leg edema IMPROVING no obvious rash MSK: FROM x 4 Neuro: CN 2-12 grossly intact, no new focal deficits Psych: calm - Constitutional Vitals: Temp Pulse Resp BP Pulse Ox 98.2 F 83 20 115/75 91 03/30/19 16:48 03/30/19 16:48 03/30/19 16:48 03/30/19 16:48 03/30/19 16:48 General appearance: Present: no acute distress, other (Dobhoff tube in place) Results - Labs CBC & Chem 7: 03/27/19 05:49 03/29/19 05:12 Labs: Laboratory Last Values WBC 8.4 K/mm3 (4.5-11.0) 03/27/19 05:49 RBC 4.58 M/mm3 (3.65-5.03) 05/03/19 05:49 Hgb 13.9 gm/dl (11.8-15.2) 03/27/19 05:49 Hct 41.1 % (35.5-45.6) 03/27/19 05:49 MCV 90 fl (84-94) 03/27/19 05:49 MCH 31 pg (28-32) 03/27/19 05:49 MCHC 34 % (32-34) 03/27/19 05:49 RDW 15.1 % (13.2-15.2) 03/27/19 05:49 Plt Count 215 K/mm3 (140-440) 03/27/19 05:49 Lymph % (Auto) 18.0 % (13.4-35.0) 03/25/19 05:22 [place] % (Auto) 8.9 % (0.0-7.3) H 03/25/19 05:22 Eos % (Auto) 0.9 % (0.0-4.3) 03/25/19 05:22 Baso % (Auto) 0.4 % (0.0-1.8) 03/25/19 05:22 Lymph # 1.2 K/mm3 (1.2-5.4) 03/25/19 05:22 [place] # 0.6 K/mm3 (0.0-0.8) 03/25/19 05:22 Eos # 0.1 K/mm3 (0.0-0.4) 03/25/19 05:22 Baso # 0.0 K/mm3 (0.0-0.1) 03/25/19 05:22 Seg Neutrophils % 71.8 % (40.0-70.0) H 03/25/19 05:22 Seg Neutrophils # 4.7 K/mm3 (1.8-7.7) 03/25/19 05:22 PT 15.1 Sec. (12.2-14.9) H 03/23/19 14:43 INR 1.12 (0.87-1.13) 03/23/19 14:43 APTT 28.8 Sec. (24.2-36.6) 03/23/19 14:43 Heparin Anti-Xa Level 0.45 U.I./ml (0.3-0.7) 03/24/19 12:58 POC ABG pH 7.484 (7.35-7.45) H 03/20/19 16:02 POC ABG pCO2 60.5 (35-45) H 03/20/19 16:02 POC ABG pO2 79 (80-105) L 03/20/19 16:02 POC ABG HCO3 45.5 (22-26 mml/L) 03/20/19 16:02 POC ABG Total CO2 47 (23-27mmol/L) 03/20/19 16:02 POC ABG O2 Sat 96 03/20/19 16:02 POC ABG Base Excess 22 ((-2) - (+3)mmol/L) 03/20/19 16:02 FiO2 45 % 03/20/19 16:02 Sodium 130 mmol/L (137-145) L 03/29/19 05:12 Potassium 3.5 mmol/L (3.6-5.0) L 03/29/19 05:12 Chloride 84.1 mmol/L (98-107) L 03/29/19 05:12 Carbon Dioxide 35 mmol/L (22-30) H 03/29/19 05:12 Anion Gap 14 mmol/L 03/29/19 05:12 BUN 10 mg/dL (9-20) 03/29/19 05:12 Creatinine 0.4 mg/dL (0.8-1.5) L 03/29/19 05:12 Estimated GFR > 60 ml/min 03/29/19 05:12 BUN/Creatinine Ratio 25 % 03/29/19 05:12 Glucose 128 mg/dL (75-100) H 03/29/19 05:12 POC Glucose 118 (70-105) H 03/30/19 17:11 Lactic Acid 1.20 mmol/L (0.7-2.0) 03/19/19 17:52 Calcium 8.5 mg/dL (8.4-10.2) 03/29/19 05:12 Magnesium 1.70 mg/dL (1.7-2.3) 03/27/19 05:49 Total Bilirubin 0.30 mg/dL (0.1-1.2) 03/19/19 17:52 AST 23 units/L (5-40) 03/19/19 17:52 ALT 19 units/L (7-56) 03/19/19 17:52 Alkaline Phosphatase 64 units/L (35-129) 03/19/19 17:52 Total Creatine Kinase 53 units/L (55-170) L 03/20/19 06:46 CK-MB (CK-2) 4.4 ng/mL (0.0-4.0) H 03/20/19 06:46 CK-MB (CK-2) Rel Index 8.3 (0-4) H 03/20/19 06:46 Troponin T 0.073 ng/mL (0.00-0.029) H 03/20/19 06:46 NT-Pro-B Natriuret Pep 8170 pg/mL (0-900) H 03/19/19 17:52 Total Protein 6.0 g/dL (6.3-8.2) L 03/19/19 17:52 Albumin 3.1 g/dL (3.9-5) L 03/19/19 17:52 Albumin/Globulin Ratio 1.1 % 03/19/19 17:52 Triglycerides 117 mg/dL (2-149) 03/19/19 17:52 Cholesterol 178 mg/dL (50-199) 03/19/19 17:52 LDL Cholesterol Direct 118 mg/dL (50-130) 03/19/19 17:52 HDL Cholesterol 40 mg/dL (40-59) 03/19/19 17:52 Cholesterol/HDL Ratio 4.45 % 03/19/19 17:52 TSH 1.950 mlU/mL (0.270-4.200) 03/23/19 06:23 Free T4 0.82 ng/dL (0.76-1.46) 03/23/19 06:23 Phenobarbital 27.4 ug/mL (15.0-40.0) 03/23/19 12:53 Active Medications - Current Medications Current Medications: Generic Name Dose Route Start Last Admin Trade Name Freq PRN Reason Stop Dose Admin Acetaminophen 650 mg 03/20/19 00:42 Tylenol PO Q4H PRN Pain MILD(1-3)/Fever >100.5/GALAN Albuterol 2.5 mg 03/20/19 01:20 03/20/19 12:44 Proventil IH 2.5 mg Q4HRT PRN Administration Shortness Of Breath Albuterol/Ipratropium 1 ampul 03/20/19 02:00 03/30/19 14:11 Duoneb *Not For Prn Use* IH Not Given Q6HRT [facility] Lipase/Protease/Amylase 1 each 03/27/19 11:45 Pancrejean Mon 10,500 Unit FEEDTUBE PRN PRN For Clogged Feeding Tube Arformoterol Tartrate 15 mcg 03/20/19 08:00 03/30/19 07:43 Brovana Nebu IH 15 mcg Q12HRT ANDREW Administration Aspirin 81 mg 03/20/19 10:00 03/30/19 09:27 Halfprin Ec PO 81 mg DAILY ANDREW Administration Atorvastatin Calcium 40 mg 03/20/19 10:00 03/30/19 09:27 Lipitor PO 40 mg DAILY ANDREW Administration Budesonide 0.5 mg 03/23/19 16:57 03/30/19 07:43 Pulmicort IH 0.5 mg Q12HRT ANDREW Administration Cyproheptadine HCl 4 mg 03/27/19 22:00 03/30/19 09:29 Periactin PO 4 mg BID ANDREW Administration Divalproex Sodium 500 mg 03/20/19 10:00 03/30/19 09:31 Depakote Er PO 500 mg BID ANDREW Administration Furosemide 40 mg 03/22/19 10:00 03/30/19 09:27 Lasix IV 40 mg QDAY ANDREW Administration Gabapentin 300 mg 03/20/19 10:00 03/30/19 09:27 Neurontin PO 300 mg BID ANDREW Administration Ipratropium [place] 0.5 mg 03/20/19 13:00 03/30/19 14:13 Atrovent IH Not Given Q6HRT [facility] Metoprolol Tartrate 25 mg 03/23/19 20:00 03/30/19 14:08 Lopressor PO Not Given TID [facility] Ondansetron HCl 4 mg 03/20/19 00:42 03/22/19 10:39 Zofran IV 4 mg Q4H PRN Administration Nausea And Vomiting Oxycodone HCl 5 mg 03/21/19 18:37 03/29/19 05:00 Roxicodone PO 5 mg QID PRN Administration Pain, Moderate (4-6) Oxycodone/Acetaminophen 1 tab 03/21/19 18:36 03/30/19 09:34 Percocet 5/325 PO 1 tab QID PRN Administration Pain, Moderate (4-6) Prednisone 20 mg 03/20/19 12:00 03/30/19 10:00 Deltasone PO 20 mg QDAY ANDREW Administration Primidone 250 mg 03/20/19 10:00 03/30/19 17:49 Mysoline PO 250 mg QID ANDREW Administration Simple Syrup 15 ml 03/27/19 11:45 Simple Syrup FEEDTUBE PRN PRN Hypoglycemia Simple Syrup 30 ml 03/27/19 11:45 Simple Syrup FEEDTUBE PRN PRN Hypoglycemia Sodium Bicarbonate 325 mg 03/27/19 11:45 Sodium Bicarbonate FEEDTUBE PRN PRN For Clogged Feeding Tube Sodium Chloride 10 ml 03/20/19 10:00 03/30/19 09:32 Sodium Chloride Flush Syringe 10 Ml IV 10 ml BID ANDREW Administration Sodium Chloride 10 ml 03/20/19 00:42 03/20/19 05:40 Sodium Chloride Flush Syringe 10 Ml IV 10 ml PRN PRN Administration LINE FLUSH Topiramate 50 mg 03/20/19 10:00 03/30/19 09:29 Topamax PO 50 mg BID ANDREW Administration Nutrition/Malnutrition Assess - Dietary Evaluation Nutrition/Malnutrition Findings: Nutrition Notes Start: 03/26/19 10:39 Freq: Status: Active Protocol: Document 03/30/19 13:39 OH (Rec: 03/30/19 13:44 OH [id number]) Nutrition Notes Initial or Follow up Reassessment Current Diet pureed/cardiac Labs/Tests GLU 125 Pertinent Medications Reviewed Height 5 ft 11 in Weight 103.7 kg [place] Body Weight (kg) 78.18 BMI 31.8 Subjective/Other Information f/u: Pt. sitting in bed w/NGT and pureed meal tray. Pt. states, "I need something that has flavor on here." RN in the room and added na/pepper to meal. Per RN stated pt could go home if noon meal consumed in totality. Current % PO Poor (25-49%) #1 Nutrition Diagnosis Inadequate oral intake Diagnosis Progress(for reassessment Continues documentation) Is patient on ventilator? No Is Patient Ambulatory and/or Out of Bed No REE-(George-. [facility]-confined to bed) [phone] Additional Notes Pro needs: AdjBW (96 kg) ( 1-1 .2 kg/g) (96-115 g) Fluid needs: 1 ml/kcal Nutrition Intervention Change Diet Order: Cont Jevity 1.2@ 70 mL with q 4 hr water flush of 100 ml until MD d/c Goal #1 Diet to be advanced per MD recommendation Follow-Up By: 04/01/19 Additional Comments F/U: DIET ADVANCEMENT - Attestation Statement I have reviewed and agreed w/ Malnutrition eval & tx plan: Yes
--- NOTE | 2019-03-30 19:25 | Progress Note ---
Assessment and Plan Patient awake at this time on 3 litres O2. O2 saturation 89%. Patient afebrile, No leukocytosis. Ultrasound of chest reported small to moderate left effusion.. Repeating chest xray. Talk to the patients son and explained patients respiratory status. - Patient Problems (1) Acute and chronic respiratory failure with hypoxia Current Visit: Yes Status: Acute Plan to address problem: BIPAP 20/10, rate 20, FIO2 35%. 3 litres O2, when he is not on BIPAP. Albuterol/atrovent aerosol treatments q 6 hours. Continue prednisone. SCDs (2) Acute heart failure with preserved ejection fraction Current Visit: Yes Status: Acute Plan to address problem: Management as per cardiology Patient is on S/C Heparin. (3) COPD exacerbation Current Visit: Yes Status: Acute Plan to address problem: O2 3 litres via nasal canula when he is not on BIPAP. BIPAP 20/10, rate 20, FIO2 35%. Albuterol/atrovent aerosol treatments q 6 hours. Continue prednisone. (4) Elevated troponin Current Visit: Yes Status: Acute Plan to address problem: Management as per cardiology. (5) NSVT (nonsustained ventricular tachycardia) Current Visit: Yes Status: Acute Plan to address problem: Management as per cardiology. (6) Paroxysmal atrial fibrillation with RVR Current Visit: Yes Status: Acute Plan to address problem: Management as per cardiology. (7) Pleural effusion Current Visit: Yes Status: Acute Plan to address problem: Ultrasound of chestreported small to moderate left effusion. Repeating chest Xray. (8) History of seizures Current Visit: Yes Status: Chronic Plan to address problem: Management as per neurology. (9) Hypertension Current Visit: Yes Status: Chronic Qualifiers: Hypertension type: essential hypertension Qualified Code(s): I10 - Essential (primary) hypertension Plan to address problem: Management as per primary care. Subjective Date of service: 03/30/19 Principal diagnosis: Ac on Ch hypoxemic-hypercapnic Resp failure; CHF exacerb ation; COPD; FILIPE Interval history: Patient awake at this time on 3 litres O2. O2 saturation 89%. Patient afebrile, No leukocytosis. Ultrasound of chest reported small to moderate left effusion. Repeating chest xray tomorrow. Talk to the patients son and explained patients respiratory status. Objective Vital Signs - 12hr 03/30/19 03/30/19 03/30/19 08:00 08:15 08:23 Temperature 98.6 F Pulse Rate 88 Pulse Rate [ Anterior Bilateral Throughout] Pulse Rate [ Left Dorsalis Pedis] Pulse Rate [ 88 87 Posterior Bilateral Throughout] Pulse Rate [ Right Dorsalis Pedis] Respiratory 20 Rate Respiratory Rate [Anterior Bilateral Throughout] Respiratory 18 18 Rate [Posterior Bilateral Throughout] Blood Pressure 113/74 O2 Sat by Pulse 89 Oximetry 03/30/19 03/30/19 03/30/19 09:27 10:00 12:15 Temperature 98.0 F Pulse Rate 88 91 H 89 Pulse Rate [ Anterior Bilateral Throughout] Pulse Rate [ 90 Left Dorsalis Pedis] Pulse Rate [ Posterior Bilateral Throughout] Pulse Rate [ 91 H Right Dorsalis Pedis] Respiratory 18 18 Rate Respiratory Rate [Anterior Bilateral Throughout] Respiratory Rate [Posterior Bilateral Throughout] Blood Pressure 113/74 93/59 O2 Sat by Pulse 89 90 Oximetry 03/30/19 03/30/19 03/30/19 12:50 13:00 13:49 Temperature Pulse Rate Pulse Rate [ 88 90 Anterior Bilateral Throughout] Pulse Rate [ Left Dorsalis Pedis] Pulse Rate [ Posterior Bilateral Throughout] Pulse Rate [ Right Dorsalis Pedis] Respiratory Rate Respiratory 18 18 Rate [Anterior Bilateral Throughout] Respiratory Rate [Posterior Bilateral Throughout] Blood Pressure 93/56 O2 Sat by Pulse Oximetry 03/30/19 03/30/19 14:08 16:48 Temperature 98.2 F Pulse Rate 89 83 Pulse Rate [ Anterior Bilateral Throughout] Pulse Rate [ Left Dorsalis Pedis] Pulse Rate [ Posterior Bilateral Throughout] Pulse Rate [ Right Dorsalis Pedis] Respiratory 20 Rate Respiratory Rate [Anterior Bilateral Throughout] Respiratory Rate [Posterior Bilateral Throughout] Blood Pressure 93/59 115/75 O2 Sat by Pulse 91 Oximetry Constitutional: no acute distress, alert, other (obese man on 3L oxygen via NC, atraumatic, normocephalic) Eyes: non-icteric ENT: oropharynx moist, other (large neck circumference) Neck: supple, no lymphadenopathy, no JVD, other (no thyromegaly) Effort: mildly labored Ascultation: Bilateral: diminished breath sounds, rales, rhonchi, other (prolonged exp phase) Percussion: Bilateral: dull (bases) Cardiovascular: regular rate and rhythm, other (S1,S2,no murmurs) Gastrointestinal: normoactive bowel sounds, soft, non-tender, other (protube rant) Extremities: no cyanosis, pink and warm, pulses normal, edema (bilateral lower extremity (improving)) Neurologic: normal mental status, non-focal exam, pupils equal and round, CN II- XII normal, motor strength normal and Psychiatric: mood appropriate, affect normal CBC and BMP: 03/27/19 05:49 03/29/19 05:12 ABG, PT/INR, D-dimer: ABG POC ABG pH 7.484 (7.35-7.45) H 03/20/19 16:02 POC ABG pCO2 60.5 (35-45) H 03/20/19 16:02 POC ABG pO2 79 (80-105) L 03/20/19 16:02 POC ABG HCO3 45.5 (22-26 mml/L) 03/20/19 16:02 POC ABG Total CO2 47 (23-27mmol/L) 03/20/19 16:02 POC ABG O2 Sat 96 03/20/19 16:02 PT/INR, D-dimer PT 15.1 Sec. (12.2-14.9) H 03/23/19 14:43 INR 1.12 (0.87-1.13) 03/23/19 14:43 Abnormal lab findings: Abnormal Labs 03/19/19 03/19/19 03/19/19 17:39 17:52 17:52 RDW 15.7 H Lymph % (Auto) [place] % (Auto) 10.6 H Lymph # Seg Neutrophils % 70.6 H PT Heparin Anti-Xa Level POC ABG pH POC ABG pCO2 60.9 H POC ABG pO2 53 L Sodium Potassium Chloride 84.1 L Carbon Dioxide 36 H Creatinine 0.6 L Glucose POC Glucose Calcium Total Creatine Kinase CK-MB (CK-2) CK-MB (CK-2) Rel Index Troponin T 0.079 H NT-Pro-B Natriuret Pep 8170 H Total Protein 6.0 L Albumin 3.1 L 03/20/19 03/20/19 03/20/19 01:01 06:46 06:46 RDW 15.8 H Lymph % (Auto) 9.0 L [place] % (Auto) Lymph # 0.7 L Seg Neutrophils % 86.5 H PT Heparin Anti-Xa Level POC ABG pH POC ABG pCO2 POC ABG pO2 Sodium Potassium Chloride Carbon Dioxide 33 H Creatinine 0.6 L Glucose 133 H POC Glucose Calcium Total Creatine Kinase 42 L CK-MB (CK-2) 4.2 H CK-MB (CK-2) Rel Index 10.0 H Troponin T 0.088 H NT-Pro-B Natriuret Pep Total Protein Albumin 03/20/19 03/20/19 03/22/19 06:46 16:02 07:07 RDW 15.7 H Lymph % (Auto) [place] % (Auto) Lymph # Seg Neutrophils % PT Heparin Anti-Xa Level POC ABG pH 7.484 H POC ABG pCO2 60.5 H POC ABG pO2 79 L Sodium Potassium Chloride Carbon Dioxide Creatinine Glucose POC Glucose Calcium Total Creatine Kinase 53 L CK-MB (CK-2) 4.4 H CK-MB (CK-2) Rel Index 8.3 H Troponin T 0.073 H NT-Pro-B Natriuret Pep Total Protein Albumin 03/22/19 03/23/19 03/23/19 07:07 06:23 06:23 RDW 15.3 H Lymph % (Auto) [place] % (Auto) Lymph # Seg Neutrophils % PT Heparin Anti-Xa Level POC ABG pH POC ABG pCO2 POC ABG pO2 Sodium Potassium 3.5 L Chloride 92.0 L 86.5 L Carbon Dioxide 36 H 39 H Creatinine 0.7 L 0.5 L Glucose 119 H 103 H POC Glucose Calcium Total Creatine Kinase CK-MB (CK-2) CK-MB (CK-2) Rel Index Troponin T NT-Pro-B Natriuret Pep Total Protein Albumin 03/23/19 03/24/19 03/24/19 14:43 00:53 06:55 RDW Lymph % (Auto) [place] % (Auto) Lymph # Seg Neutrophils % PT 15.1 H Heparin Anti-Xa Level 1.28 H POC ABG pH POC ABG pCO2 POC ABG pO2 Sodium Potassium 3.3 L Chloride 90.0 L Carbon Dioxide 38 H Creatinine 0.4 L Glucose POC Glucose Calcium 8.3 L Total Creatine Kinase CK-MB (CK-2) CK-MB (CK-2) Rel Index Troponin T NT-Pro-B Natriuret Pep Total Protein Albumin 03/24/19 03/25/19 03/25/19 10:13 05:22 05:22 RDW Lymph % (Auto) [place] % (Auto) 8.9 H Lymph # Seg Neutrophils % 71.8 H PT Heparin Anti-Xa Level 1.01 H POC ABG pH POC ABG pCO2 POC ABG pO2 Sodium Potassium 3.5 L Chloride 89.1 L Carbon Dioxide 39 H Creatinine 0.4 L Glucose POC Glucose Calcium Total Creatine Kinase CK-MB (CK-2) CK-MB (CK-2) Rel Index Troponin T NT-Pro-B Natriuret Pep Total Protein Albumin 03/27/19 03/29/19 03/29/19 05:49 05:12 05:13 RDW Lymph % (Auto) [place] % (Auto) Lymph # Seg Neutrophils % PT Heparin Anti-Xa Level POC ABG pH POC ABG pCO2 POC ABG pO2 Sodium 135 L 130 L Potassium 3.5 L 3.5 L Chloride 89.3 L 84.1 L Carbon Dioxide 35 H 35 H Creatinine 0.4 L 0.4 L Glucose 128 H POC Glucose 130 H Calcium Total Creatine Kinase CK-MB (CK-2) CK-MB (CK-2) Rel Index Troponin T NT-Pro-B Natriuret Pep Total Protein Albumin 03/29/19 03/29/19 03/30/19 11:55 17:50 02:14 RDW Lymph % (Auto) [place] % (Auto) Lymph # Seg Neutrophils % PT Heparin Anti-Xa Level POC ABG pH POC ABG pCO2 POC ABG pO2 Sodium Potassium Chloride Carbon Dioxide Creatinine Glucose POC Glucose 125 H 192 H 117 H Calcium Total Creatine Kinase CK-MB (CK-2) CK-MB (CK-2) Rel Index Troponin T NT-Pro-B Natriuret Pep Total Protein Albumin 03/30/19 03/30/19 03/30/19 05:37 12:11 17:11 RDW Lymph % (Auto) [place] % (Auto) Lymph # Seg Neutrophils % PT Heparin Anti-Xa Level POC ABG pH POC ABG pCO2 POC ABG pO2 Sodium Potassium Chloride Carbon Dioxide Creatinine Glucose POC Glucose 122 H 125 H 118 H Calcium Total Creatine Kinase CK-MB (CK-2) CK-MB (CK-2) Rel Index Troponin T NT-Pro-B Natriuret Pep Total Protein Albumin Allied health notes reviewed: nursing
[2019-03-30] MEDS: ROXICODONE PO PRN (20:29)
[2019-03-30] MEDS: HEPARIN SUB-Q SCH (22:29)
[2019-03-31] MEDS: DUONEB *Not for PRN Use IH SCH ×3 (02:19→13:32)
[2019-03-31] MEDS: ATROVENT IH SCH ×2 (03:09→13:33)
[2019-03-31] MEDS: HEPARIN SUB-Q SCH (06:00)
[2019-03-31 07:25] LABS: BUN/Creatinine Ratio 33; Blood Urea Nitrogen 10 mg/dL (9-20); Calcium 8.4 mg/dL (8.4-10.2); Hemolysis Index 4
[2019-03-31] MEDS: BROVANA NEBU IH SCH (08:18)
[2019-03-31] MEDS: PULMICORT IH SCH (08:18)
[2019-03-31 09:13] VITALS: BP 108/65
--- NOTE | 2019-03-31 10:09 | XRay Report ---
Chest 2 views: History: Followup of pleural effusion. Cardiomegaly. Trachea is midline. COPD. Minimal left pleural effusion. No significant interval change compared to 03/19/19.. No acute consolidation. Impression: Minimal left pleural effusion. No acute lung changes.
--- NOTE | 2019-03-31 10:48 | Discharge Summary ---
Providers - Providers Date of Admission: 03/19/19 22:48 Date of discharge: 03/31/19 Attending physician: REA RICHEY 03/20/19 00:42 Consult to Physician [CONS] Routine Comment: Consulting Provider: KYREE WALKER Physician Instructions: Reason For Exam: copd 03/22/19 11:35 Consult to Physician [CONS] Routine Comment: Consulting Provider: BING GUTIÉRREZ Physician Instructions: Reason For Exam: Ventral hernia, intractable pains 03/22/19 11:56 Consult to Physician [CONS] Routine Comment: Consulting Provider: HAJA BRADEN Physician Instructions: Reason For Exam: pain management 03/26/19 15:16 Consult to Physician [CONS] Routine Comment: Consulting Provider: CATY LEO Physician Instructions: Reason For Exam: Intractable nausea, unable to eat 03/26/19 15:25 Consult to Physician [CONS] Routine Comment: Consulting Provider: CATY LEO Physician Instructions: Reason For Exam: dysphagia, large ventral hernia Speech Therapy Evaluation and Treat [CONS] Routine Reason For Exam: dysphagia 03/26/19 16:23 Consult to Dietitian/Nutrition [CONS] Routine Physician Instructions: Reason For Exam: Reason for Consult: Poor oral intake 03/27/19 10:50 Consult to Dietitian/Nutrition [CONS] Routine Physician Instructions: Reason For Exam: Reason for Consult: Write/Manage Tube Feeding Occupational Therapy Evaluate and Treat [CONS] Routine Comment: Reason For Exam: ADLs evaluation Physical Therapy Evaluation and Treat [CONS] Routine Comment: Reason For Exam: ambulatory dysfunction Primary care physician: [facility] Hospitalization Condition: Stable Hospital course: Patient is a 63 yo man with a history of hypertension, chronic respiratory failure on home 3-4 liters O2 due to End-stage COPD, Seizure disorder, PE and essential tremor who presented to [facility] ED with sob, leg swelling. * CTA chest FINDINGS: Heart and pericardium: Small amount of pericardial fluid is present, measuring up to 5 mm in thickness. Thoracic aorta: Mild atherosclerotic calcification. Pulmonary vasculature: Normal. No pulmonary emboli. Lymph nodes: Numerous mediastinal nodes are present, measuring up to 1 cm in short axis. Lungs: Mild diffuse septal thickening suggests interstitial edema. There is mild bibasilar compressive atelectasis. Pleural space: Bilateral mild to moderate sized layering pleural effusions are present. No pneumothorax is identified bilaterally Musculoskeletal structures: No significant abnormality. Upper abdominal structures: There is an anterior abdominal wall hernia, which is not fully imaged. IMPRESSION: No evidence of pulmonary emboli. Bilateral pleural effusions. Mild mediastinal adenopathy. * Hospital stay complicated by recurrent bouts of NSVT and also AFIB WITH RVR, cardiology was consulted, they decided against lobsterman AC Considering no reoccurrence of Afib, initially placed patient on Amiodarone but changed to Metoprolol TID for suppression of arrhythmia * Pulmonary also evaluation on the patient and feels there is strong evidence of decompensated heart failure. Lasix has been continued, steroids tapering down due to concern that it can make the heart failure worse. Plan to repeat xray in am * Neurology reviewed the patient and noted that mentation may take some time to fully recover due to overall general condition. We are unable to obtain MRI due to clinically condition * GI reported that Peg tube is too risky at this time and considering improvement in mental status to try oral intake again * Patient family and son are always present and refused SNF recommendation for rehab * Family believes that patient decompensated due to abrupt discontinuation of Opoid medications, Counselling given about chronic opoids and tapering method. Patient is a/o x 3, he even knew and wedding anniversary. He is speaking clear. I never witnessed patient experienced any opoid withdrawal symptoms despite family claims. -Acute on chronic combined hypercapenia and hypoxic respiratory failure: consulted Line Helper, careful with o2 as son Nikunj at bedside say he de velops co2 retention with too much Oxygen -Acute COPD exacerbation: treated with nebs, steroids, abx. Oxygen restrictive strategies, keep O2 sats 88-90% -Acute on chronic diastolic HF exacerbation: EF 50-55% on 01/2019 ECHO, treat with diuretics but reduce dose as patient developing contraction alkalosis. Consulted Cardiology -Hypertension: low salt diet, antihypertensives -Seizure Disorder: continue home medications -New onset transient Afib with RVR: Cardiology is following and started Amiodarone on 03/22/19 but family did not want so lopressor increased -New onset of NSVT: Cardiology is following, input noted -Hypokalemia: replaced -History of PE not o anticpauglation -h/o Essential tremor -DVT ppx on sq lovenox Repeat CXR, no acute findings. Disposition: DC-01 TO HOME OR SELFCARE Time spent for discharge: 36 minutes Core Measure Documentation - Palliative Care Palliative Care/ Comfort Measures: Not Applicable - Core Measures Any of the following diagnoses?: heart failure - VTE Discharge Requirements Deep Vein Thrombosis/Pulmonary Embolism Present on Admission: No Has pt received <5 days of overlap therapy or INR<2.0: No Anticoagulant overlap therapy prescribed at discharge: No Contraindication No Overlap Therapy order at DC: Not Indicated - Heart Failure Discharge Requirements SANYA/ARB for LVSD if EF <40%: Not Applicable Beta erin at discharge: Yes Exam - Physical Exam Narrative exam: Gen: chronic disable and ill-appearing, NAD, lethargic, Orientated x 3 HEENT: NCAT, EOMI, PERRL, OP Clear Neck: supple, no adenopathy, no thyromegaly, JVD CVS/Heart: RRR, normal S1S2, pulses present bilaterally Chest/Lungs: improved bs, Symmetrical chest expansion, good air entry bilaterally GI/Abdomen: soft, large tender ventral hernia (initial they refused to allow me to remove binder but I insisted) good bowel sounds, no guarding or rebound /Bladder: no suprapubic tenderness, no CVA or paraspinal tenderness Extermity/Skin: leg edema no obvious rash MSK: FROM x 4 Neuro: CN 2-12 grossly intact, no new focal deficits Psych: calm - Constitutional Vitals: Temp Pulse Resp BP Pulse Ox 98.0 F 86 18 108/65 91 03/31/19 09:09 03/31/19 09:09 03/31/19 09:09 03/31/19 09:09 03/31/19 09:09 Plan Activity: up only with assistance, fall precautions, other (no strenous activity unless cleared by PCP) Diet: low salt, advance as tolerated (with Ensure or BOOST shakes TID or [employer]arson milkshake daily) Durable Medical Equipment Needed Upon Discharge: Oxygen Follow up with: [facility] MD FLORI [Primary Care Provider] - 3-5 Days HAJA BRADEN MD [Staff Physician] - 7 Days KYREE WALKER MD [Staff Physician] - 7 Days ЕЛЕНА BEY MD [Staff Physician] - 7 Days Prescriptions: predniSONE [Deltasone] 10 mg PO QDAY #30 tablet Divalproex ER [Depakote ER] 500 mg PO BID #60 tablet Furosemide [Lasix TAB] 40 mg PO QDAY #30 tablet Metoprolol [Lopressor TAB] 25 mg PO TID #90 tablet Primidone [Mysoline] 250 mg PO QID #30 tablet Oxycodone HCl/Acetaminophen [Percocet 10/325 mg] 10 mg PO QID PRN #20 tablet PRN Reason: Pain , Severe (7-10) Cyproheptadine [Periactin] 4 mg PO BID #60 tablet ALBUTEROL NEB's [Proventil 0.083% NEBS] 2.5 mg IH Q4HRT PRN #30 nebu PRN Reason: Shortness Of Breath
[2019-03-31] MEDS: TOPAMAX PO SCH (11:17)
[2019-03-31] MEDS: HALFPRIN EC PO SCH (11:18)
[2019-03-31] MEDS: NEURONTIN PO SCH (11:18)
[2019-03-31] MEDS: MYSOLINE PO SCH (11:18)
[2019-03-31] MEDS: DELTASONE PO SCH (11:18)
[2019-03-31] MEDS: LASIX IV SCH (11:18)
[2019-03-31] MEDS: PERIACTIN PO SCH (11:19)
[2019-03-31] MEDS: SODIUM CHLORIDE FLUSH SYRINGE 10 ML IV SCH (11:19)
[2019-03-31] MEDS: LOPRESSOR PO SCH (11:32)
--- NOTE | 2019-03-31 13:40 | Progress Note ---
Subjective Date of service: 03/31/19 Principal diagnosis: Ac on Ch hypoxemic-hypercapnic Resp failure; CHF exacerbation; COPD; FILIPE Interval history: patient more alert and talking is back to baseline status could have been illegal polypharmacy Objective - Vital Sign Vital Signs - 12hr 03/31/19 03/31/19 03/31/19 03:07 08:00 08:23 Temperature 98.4 F Pulse Rate 77 Pulse Rate [ 96 H 96 H Posterior Bilateral Throughout] Respiratory 16 Rate Respiratory Rate [Abdomen] Respiratory 17 19 Rate [Posterior Bilateral Throughout] Blood Pressure 106/67 O2 Sat by Pulse 91 Oximetry 03/31/19 03/31/19 03/31/19 08:24 09:09 10:00 Temperature 98.0 F Pulse Rate 86 88 Pulse Rate [ Posterior Bilateral Throughout] Respiratory 18 Rate Respiratory 15 Rate [Abdomen] Respiratory Rate [Posterior Bilateral Throughout] Blood Pressure 108/65 O2 Sat by Pulse 96 91 Oximetry - Laboratory Findings CBC and BMP: 03/27/19 05:49 03/31/19 07:31 Abnormal Lab Findings: Abnormal Labs 03/19/19 03/19/19 03/19/19 17:39 17:52 17:52 RDW 15.7 H Lymph % (Auto) [place] % (Auto) 10.6 H Lymph # Seg Neutrophils % 70.6 H PT Heparin Anti-Xa Level POC ABG pH POC ABG pCO2 60.9 H POC ABG pO2 53 L Sodium Potassium Chloride 84.1 L Carbon Dioxide 36 H Creatinine 0.6 L Glucose POC Glucose Calcium Total Creatine Kinase CK-MB (CK-2) CK-MB (CK-2) Rel Index Troponin T 0.079 H NT-Pro-B Natriuret Pep 8170 H Total Protein 6.0 L Albumin 3.1 L 03/20/19 03/20/19 03/20/19 01:01 06:46 06:46 RDW 15.8 H Lymph % (Auto) 9.0 L [place] % (Auto) Lymph # 0.7 L Seg Neutrophils % 86.5 H PT Heparin Anti-Xa Level POC ABG pH POC ABG pCO2 POC ABG pO2 Sodium Potassium Chloride Carbon Dioxide 33 H Creatinine 0.6 L Glucose 133 H POC Glucose Calcium Total Creatine Kinase 42 L CK-MB (CK-2) 4.2 H CK-MB (CK-2) Rel Index 10.0 H Troponin T 0.088 H NT-Pro-B Natriuret Pep Total Protein Albumin 03/20/19 03/20/19 03/22/19 06:46 16:02 07:07 RDW 15.7 H Lymph % (Auto) [place] % (Auto) Lymph # Seg Neutrophils % PT Heparin Anti-Xa Level POC ABG pH 7.484 H POC ABG pCO2 60.5 H POC ABG pO2 79 L Sodium Potassium Chloride Carbon Dioxide Creatinine Glucose POC Glucose Calcium Total Creatine Kinase 53 L CK-MB (CK-2) 4.4 H CK-MB (CK-2) Rel Index 8.3 H Troponin T 0.073 H NT-Pro-B Natriuret Pep Total Protein Albumin 03/22/19 03/23/19 03/23/19 07:07 06:23 06:23 RDW 15.3 H Lymph % (Auto) [place] % (Auto) Lymph # Seg Neutrophils % PT Heparin Anti-Xa Level POC ABG pH POC ABG pCO2 POC ABG pO2 Sodium Potassium 3.5 L Chloride 92.0 L 86.5 L Carbon Dioxide 36 H 39 H Creatinine 0.7 L 0.5 L Glucose 119 H 103 H POC Glucose Calcium Total Creatine Kinase CK-MB (CK-2) CK-MB (CK-2) Rel Index Troponin T NT-Pro-B Natriuret Pep Total Protein Albumin 03/23/19 03/24/19 03/24/19 14:43 00:53 06:55 RDW Lymph % (Auto) [place] % (Auto) Lymph # Seg Neutrophils % PT 15.1 H Heparin Anti-Xa Level 1.28 H POC ABG pH POC ABG pCO2 POC ABG pO2 Sodium Potassium 3.3 L Chloride 90.0 L Carbon Dioxide 38 H Creatinine 0.4 L Glucose POC Glucose Calcium 8.3 L Total Creatine Kinase CK-MB (CK-2) CK-MB (CK-2) Rel Index Troponin T NT-Pro-B Natriuret Pep Total Protein Albumin 03/24/19 03/25/19 03/25/19 10:13 05:22 05:22 RDW Lymph % (Auto) [place] % (Auto) 8.9 H Lymph # Seg Neutrophils % 71.8 H PT Heparin Anti-Xa Level 1.01 H POC ABG pH POC ABG pCO2 POC ABG pO2 Sodium Potassium 3.5 L Chloride 89.1 L Carbon Dioxide 39 H Creatinine 0.4 L Glucose POC Glucose Calcium Total Creatine Kinase CK-MB (CK-2) CK-MB (CK-2) Rel Index Troponin T NT-Pro-B Natriuret Pep Total Protein Albumin 03/27/19 03/29/19 03/29/19 05:49 05:12 05:13 RDW Lymph % (Auto) [place] % (Auto) Lymph # Seg Neutrophils % PT Heparin Anti-Xa Level POC ABG pH POC ABG pCO2 POC ABG pO2 Sodium 135 L 130 L Potassium 3.5 L 3.5 L Chloride 89.3 L 84.1 L Carbon Dioxide 35 H 35 H Creatinine 0.4 L 0.4 L Glucose 128 H POC Glucose 130 H Calcium Total Creatine Kinase CK-MB (CK-2) CK-MB (CK-2) Rel Index Troponin T NT-Pro-B Natriuret Pep Total Protein Albumin 03/29/19 03/29/19 03/30/19 11:55 17:50 02:14 RDW Lymph % (Auto) [place] % (Auto) Lymph # Seg Neutrophils % PT Heparin Anti-Xa Level POC ABG pH POC ABG pCO2 POC ABG pO2 Sodium Potassium Chloride Carbon Dioxide Creatinine Glucose POC Glucose 125 H 192 H 117 H Calcium Total Creatine Kinase CK-MB (CK-2) CK-MB (CK-2) Rel Index Troponin T NT-Pro-B Natriuret Pep Total Protein Albumin 03/30/19 03/30/19 03/30/19 05:37 12:11 17:11 RDW Lymph % (Auto) [place] % (Auto) Lymph # Seg Neutrophils % PT Heparin Anti-Xa Level POC ABG pH POC ABG pCO2 POC ABG pO2 Sodium Potassium Chloride Carbon Dioxide Creatinine Glucose POC Glucose 122 H 125 H 118 H Calcium Total Creatine Kinase CK-MB (CK-2) CK-MB (CK-2) Rel Index Troponin T NT-Pro-B Natriuret Pep Total Protein Albumin 03/31/19 03/31/19 07:31 11:19 RDW Lymph % (Auto) [place] % (Auto) Lymph # Seg Neutrophils % PT Heparin Anti-Xa Level POC ABG pH POC ABG pCO2 57.9 H POC ABG pO2 51 L Sodium 132 L Potassium Chloride 87.6 L Carbon Dioxide 36 H Creatinine 0.3 L Glucose 105 H POC Glucose Calcium Total Creatine Kinase CK-MB (CK-2) CK-MB (CK-2) Rel Index Troponin T NT-Pro-B Natriuret Pep Total Protein Albumin
== END 2019-03-31 13:30 | disposition home or self-care (01) | DRG 291 ==
LOC: ED 13:51 → 4A 22:48
PROVIDERS: ADMIT Internal Medicine; ATTEND Internal Medicine
PROC: 5A09357 Assistance with Respiratory Ventilation, Less than 24 Consecutive Hours, Continuous Positive Airway Pressure (ICD-10-PCS; principal; 2019-03-19)
PROC: 5A09357 Assistance with Respiratory Ventilation, Less than 24 Consecutive Hours, Continuous Positive Airway Pressure (ICD-10-PCS; 2019-03-20)
PROC: 5A09357 Assistance with Respiratory Ventilation, Less than 24 Consecutive Hours, Continuous Positive Airway Pressure (ICD-10-PCS; 2019-03-21)
PROC: 4A033R1 Measurement of Arterial Saturation, Peripheral, Percutaneous Approach (ICD-10-PCS; 2019-03-22)
DX: I11.0 Hypertensive heart disease with heart failure (principal); J96.21 Acute and chronic respiratory failure with hypoxia; J96.22 Acute and chronic respiratory failure with hypercapnia; R53.2 Functional quadriplegia; J44.1 Chronic obstructive pulmonary disease with (acute) exacerbation; I47.2 Ventricular tachycardia; I50.33 Acute on chronic diastolic (congestive) heart failure; G25.0 Essential tremor; D57.1 Sickle-cell disease without crisis; I48.0 Paroxysmal atrial fibrillation; K46.9 Unspecified abdominal hernia without obstruction or gangrene; G47.33 Obstructive sleep apnea (adult) (pediatric); G40.909 Epilepsy, unspecified, not intractable, without status epilepticus; E87.6 Hypokalemia; E66.01 Morbid (severe) obesity due to excess calories; Z99.81 Dependence on supplemental oxygen; Z86.711 Personal history of pulmonary embolism; Z79.01 Long term (current) use of anticoagulants; Z90.49 Acquired absence of other specified parts of digestive tract; Z82.49 Family history of ischemic heart disease and other diseases of the circulatory system; Z79.899 Other long term (current) drug therapy; Z79.82 Long term (current) use of aspirin; Z79.51 Long term (current) use of inhaled steroids; Z87.891 Personal history of nicotine dependence; Z68.31 Body mass index [BMI] 31.0-31.9, adult
CPT/HCPCS: 36415; 36600; 70450; 71045; 71046; 71275; 74018; 76604; 76705; 80048; 80053; 80061; 80184; 82140; 82550; 82553; 82803; 82962; 83735; 83880; 84439; 84443; 84484; 85014; 85018; 85025; 85027; 85049; 85520; 85610; 85730; 93005; 93010; 94640; 94660; 94760; 95819; 96374; G0378; A9270-GY; J1644; J1650; J1940; J2405; J2930; J3480; J7040; J7512; Q9967